=== PATIENT | male | born 1950 | race Caucasian/White ===

== ENCOUNTER 2018-08-21 08:13 | Outpatient (REF) | payer BC, SELFPAY ==
[2018-08-21 12:57] LABS: HCT 47.7 % (40.0-50.0); HGB 16.3 g/dL (13.5-17.5); Mean Corp. HGB Concentration 34.2 g/dL (32.0-36.0); Mean Corpuscular Hemoglobin 30.7 pg (27.0-33.0); Mean Corpuscular Volume 89.8 fL (80-95); Mean Platelet Volume 10.7 fL (8.0-11.0); Platelet Count 186 x1000/uL (130-400); RBC 5.31 m/cumm (4.50-6.00); RBC Distribution Width 13.3 % (11.8-14.1); White Blood Cell Count 5.03 k/cumm (4.4-10.8)
[2018-08-21 13:20] LABS: ALT 29 U/L (12-78); AST 21 U/L (15-37); Albumin 4.3 g/dL (3.4-5.0); Alkaline Phosphatase 102 U/L (46-116); Anion Gap 9.7 mmol/L (3-11); BUN 18 mg/dL (7-18); CO2 27.3 mmol/L (21.0-32.0); CREATININE 1.05 mg/dL (0.70-1.30); Calcium 9.5 mg/dL (8.5-10.1); Chloride 104 mmol/L (98-107); Glucose 103 mg/dL (70-100); Potassium 4.4 mmol/L (3.5-5.1); Sodium 141 mmol/L (136-145)
== END 2018-08-21 08:33 ==
LOC: NCHCN 08:13
PROVIDERS: PCP Family Medicine; Visit Provider Family Medicine
DX: R10.13 Epigastric pain (principal)
CPT/HCPCS: 80053; 85027

== ENCOUNTER 2019-01-02 14:23 | Emergency (ER) | payer BC, SELFPAY ==
[2019-01-02 14:31] VITALS: BP 133/72; PULSE 70; RESP 16; TEMP 36.8; O2SAT 98
--- NOTE | 2019-01-02 14:49 | ED.GENADUL_ITS ---
Discharge Plan Disposition Patient Disposition: HOME Condition: Stable Discharge Details Chief Complaint: Abd Prob Clinical Impression: Gastritis, Colitis, Right nephrolithiasis Primary Care Provider: Rob Velez ED Provider: Isac Mc Home Meds and New Rx's Prescriptions: New pantoprazole [Protonix] 40 mg tablet,delayed release (DR/EC) 40 mg PO DAILY Qty: 30 RF: 0 No Action ibuprofen [Advil Liqui-Gel] 200 MG capsule 200 mg PO PRN PRNRF: 0 Discharge Instructions Instructions: Gastritis (ED), Kidney Stones (ED) Additional Instructions: Continue to stay well-hydrated and return to the emergency department for any new or significant worsening of symptoms. You should follow-up with general surgery and urology as directed by their office next week for further testing and treatment as needed Referrals: Christiano Gray MD [ [facility] STAFF PHYSICIAN] - (As directed by their office) Oriana Banks DO [OSTEOPATHIC DOCTOR] - 1 week (As directed by their office) Discharge Data Discharge Date/Time-TO BE ENTERED AT DEPARTURE: 01/02/19 17:16 Medical Decision Making <TINY Song - Last Filed: 01/04/19 23:29> Patient is a 68-year-old male presents today with chief complaint of left lower quadrant pain. He reports the pain began yesterday. States the pain has remained the same throughout the course of today. Denies any change in his appetite. Denies any fevers or chills. Surgical history pertinent for hernia repair as a child. Denies any change in his bowel or bladder habits. Has not noted any melena or bright red blood per rectum. Patient denies any history of GERD. He denies any pain radiating into the back but does endorse some chronic right lower back pain which is unchanged from baseline. On exam, patient is resting comfortably. No pain is elicited with palpation. Vital signs within normal limits. No CVA tenderness. Labs reviewed, no significant abnormality. Plan for CT. Primarily concern for possible diverticulitis given location history. At the end of my shift, care transition to Yunier Mc NP with imaging, reevaluation and disposition pending. <Isac Mc NP - Last Filed: 01/02/19 17:13> Patient signed out to me by TINY Song pending CT imaging. CT imaging was reviewed and shows the following 1. Question gastritis or other inflammatory or neoplastic cause of gastric wall thickening. 2. Right nephrolithiasis and mild hydronephrosis, etiology or chronicity uncertain. 3. Question mild wall thickening, rectosigmoid. Please correlate clinically regarding any possibility of colitis. Radiologist recommended follow-up with general surgery for upper endoscopy. Called and spoke with Dr. Banks whom stated that patient would be able to follow-up in their office next week for arrangement of further testing. Given possible chronic nephrolithiasis that been seen previously patient given referral for urology. Patient denies any urinary symptoms at this time so I do not feel that any other treatment is needed. Patient placed up on Protonix for gastric wall thickening and return precautions were discussed. After discussion of diagnosis and plan of care patient has no further needs, questions, or concerns and states clear understanding to return to the emergency department for any worsening symptoms. HPI <TINY Song - Last Filed: 01/04/19 23:29> General Mode of arrival: ambulatory . Date/Time Provider Initiated Documentation: 01/02/19 14:49 . Limitations to Documentation: no limitations and other . Information obtained by: patient and RN notes reviewed . History of Present Illness 68 year old M presents to the emergency department with the chief complaint of LLQ pain, described as moderate, with intensity rated at 6. Quality is described as aching, and is localized to the abdomen. Patient reports no radiation. Patient started experiencing this day(s) (1) and it has been constant. No relieving factors improve symptom(s), No exacerbating factors reported . Patient notes malaise; denies chest pain, cough, diaphoresis, fever/chills, loss of appetite, nausea/vomiting and rash. Patient did receive the following treatments prior to arrival, none Related Data Home Medications Medication Instructions Recorded Confirmed ibuprofen [Advil Liqui-Gel] 200 mg PO PRN PRN 05/25/16 01/02/19 pantoprazole [Protonix] 40 mg PO DAILY #30 tab 01/02/19 Previous Rx's Medication Instructions Recorded pantoprazole [Protonix] 40 mg PO DAILY #30 tab 01/02/19 Allergies Allergy/AdvReac Type Severity Reaction Status Date / Time No Known Allergies Allergy Unverified 01/02/19 14:37 General Stated Complaint: Abd Prob MARLENE: 3 Review of Systems <TINY Song - Last Filed: 01/04/19 23:29> Constitutional Reports as per HPI, Denies chills, Denies fatigue, Denies fever(s) and Denies headache(s) ENT Denies headache(s) Cardiovascular Reports as per HPI, Denies chest pain and Denies dyspnea Respiratory Reports as per HPI, Denies cough and Denies dyspnea Gastrointestinal Reports as per HPI Genitourinary Denies system reviewed and no additional complaints, except as docu (patient denies any change in urinary habits) Musculoskeletal Reports as per HPI and Denies back pain Integumentary/Breasts Reports as per HPI and Denies rash Neurologic Reports as per HPI and Denies headache(s) Endocrine Denies fatigue PFSH <TINY Song - Last Filed: 01/04/19 23:29> Surgical History Arthroscopy, Shoulder Back surgery Colonoscopy - IV Sedation (10/08/16) Repair of inguinal hernia Family History (Updated 02/18/18 @ 11:25 by Kalyani Alfaro LPN) Father Heart disease Social History Smoking/Tobacco Use Status: Never Alcohol Intake: current Alcohol Intake frequency: a few times a week Drug use: Never Household members: spouse Number of Children: 3 Do you feel safe at home: Yes Do you feel safe in your relationship?: Yes Exam <TINY Song - Last Filed: 01/04/19 23:29> Const General: cooperative, healthy appearing, comfortable, no acute distress and well developed Nutritional Appearance: average body habitus and well nourished Orientation: alert and awake [facility] Head: normal to inspection Mouth: moist mucous membranes Resp Effort & Inspection: normal respiratory effort, able to speak in complete sentences and no respiratory distress Auscultation: clear to auscultation bilaterally, no rales, no rhonchi and no wheezes Cardio Rate: regular rate Rhythm: regular rhythm Heart Sounds: S1 normal and S2 normal GI Inspection: normal to inspection, no edema and non-distended Palpation: soft, no hepatosplenomegaly, not firm, no guarding and nontender Percussion: normal to percussion Auscultation: normal bowel sounds Back/Spine/Pelvis Back: no CVA tenderness Skin General skin exam: no rashes or lesions noted Trauma: no lacerations or abrasions Neuro General: alert and awake Cognition: normal cognition Speech: speech normal Gait: normal gait Psych Appearance: grossly normal and well kempt Mental Status: mental status grossly normal Speech and Movement: speech and movement normal Course <TINY Song - Last Filed: 01/04/19 23:29> Vital Signs Temperature 36.8 C 01/02/19 14:31 Pulse 70 01/02/19 14:31 Respiratory Rate 16 01/02/19 14:31 Blood Pressure 133/72 01/02/19 14:31 Pulse Oximetry 98 01/02/19 14:31 Temperature 36.8 C 01/02/19 14:31 Temperature Source Skin 01/02/19 14:31 Pulse 70 01/02/19 14:31 Respiratory Rate 16 01/02/19 14:31 Respiratory Effort Non-Labored 01/02/19 14:36 Blood Pressure 133/72 01/02/19 14:31 Blood Pressure Position Sitting 01/02/19 14:31 Pulse Oximetry 98 01/02/19 14:31 Oxygen Delivery Method Room Air 01/02/19 14:31 Oxygen Flow Rate 0 01/02/19 14:31 Pain Level 6 01/02/19 14:31 Sign Out <TINY Song - Last Filed: 01/04/19 23:29> Sign Out Data: Sign Out Comment: Imaging, reassessment and disposition pending for LLQ pain. No medications given, patient declining analgesics thus far. Last updated by Bianca Salazar PA at 01/02/19 16:31
[2019-01-02] MEDS: Normal Saline 1,000 ML 500 ML IV (15:07)
[2019-01-02 15:10] LABS: Absolute Basophil Count 0.02 k/cumm (0.0-0.2); Absolute Eosinophil Count 0.03 k/cumm (0.0-0.7); Absolute Lymphocyte Count 1.12 k/cumm (1.2-3.4); Absolute Neutrophil Count 2.83 k/cumm (1.2-6.7); Basophils % 0.4; Eosinophils % 0.7; HCT 47.3 % (40.0-50.0); HGB 16.5 g/dL (13.5-17.5); Lymphocytes % 24.3; Mean Corp. HGB Concentration 34.9 g/dL (32.0-36.0); Mean Corpuscular Hemoglobin 31.1 pg (27.0-33.0); Mean Corpuscular Volume 89.1 fL (80-95); Mean Platelet Volume 10.2 fL (8.0-11.0); Neutrophils % 61.6; Platelet Count 181 x1000/uL (130-400); RBC 5.31 m/cumm (4.50-6.00); RBC Distribution Width 13.4 % (11.8-14.1)
[2019-01-02 15:26] LABS: ALT 31 U/L (12-78); AST 17 U/L (15-37); Alkaline Phosphatase 110 U/L (46-116); Anion Gap 7.8 mmol/L (3-11); BUN 16 mg/dL (7-18); Bilirubin, Total 0.5 mg/dL (0.2-1.0); CO2 28.2 mmol/L (21.0-32.0); CREATININE 1.04 mg/dL (0.70-1.30); Calcium 9.2 mg/dL (8.5-10.1); Chloride 104 mmol/L (98-107); Glucose 99 mg/dL (70-100); Lipase 145 U/L (73-393); Sodium 140 mmol/L (136-145); Total Protein 7.3 g/dL (6.4-8.2)
[2019-01-02] MEDS: Omnipaque 350 MG/ML 100 ML BTL IJ (15:51)
--- NOTE | 2019-01-02 16:01 | DI.CT_ITS ---
SYMPTOMS/DIAGNOSIS: LEFT LOWER QUADRANT PAIN ABDOMINAL AND PELVIC CT: CT examination of the abdomen and pelvis was performed with intravenous infusion of 100 cc of Omnipaque 350. Note is made of Taylor rods in position on the left at L4-5. There is a left convex lumbar scoliosis. The liver and spleen appear normal. Pancreas appears normal. Gallbladder and bile ducts are normal. There is a question of wall thickening of the gastric fundus and body, which is nonspecific. Correlation requested regarding any possibility of gastritis or enteritis. Neoplastic disease not excluded. Correlation with endoscopy may be considered if clinically indicated. There are a few fluid-filled, mildly dilated loops of small bowel, predominantly in the mid abdomen. No gross evidence of obstruction. Appendix not specifically visualized, but there is no evidence of appendicitis or diverticulitis. Question subtle wall thickening of the rectosigmoid, correlation requested regarding any possibility of colitis. Adrenals appear normal bilaterally. Left kidney and ureter unremarkable in appearance. Mild right hydronephrosis noted. Calcification noted in right collecting system measuring about 12 mm in diameter. This was present on previous CT of January 2016, but hydronephrosis is new. Ureter is questionably mildly dilated, but no ureteral calcification is seen. Abdominal aorta is of normal diameter. No major vascular abnormality is seen. No abdominal or pelvic adenopathy. No significant abdominal wall hernia CONCLUSION: 1. Question gastritis or other inflammatory or neoplastic cause of gastric wall thickening. 2. Right nephrolithiasis and mild hydronephrosis, etiology or chronicity uncertain. 3. Question mild wall thickening, rectosigmoid. Please correlate clinically regarding any possibility of colitis.
[2019-01-02 16:49] LABS: Bilirubin Negative (Negative); Blood Negative (Negative); Clarity Clear (Clear); Glucose Negative (Negative); Ketones Negative (Negative); Leukocyte Esterase Negative (Negative); Nitrite Negative (Negative); Urobilinogen 0.2 EU/dL (Up TO 0.2)
[2019-01-02] MEDS: Ketorolac 30 MG/ML VIAL IVP (16:54)
[2019-01-02] MEDS: Pantoprazole 40 MG TABCR PO (16:54)
[2019-01-02 17:09] VITALS: BP 123/81; PULSE 62; RESP 16; O2SAT 97
[2019-01-02 17:16] VITALS: BP 123/67; PULSE 86; RESP 16; TEMP 36.6; O2SAT 97
--- NOTE | 2019-01-02 17:44 | NUR.NOTE ---
Nursing Note: 1. Faxed referral to Urology for follow up. 2. Faxed referral to General Surgery for follow up. [place]ella [place].
== END 2019-01-02 17:16 | disposition home or self-care (01) ==
PROVIDERS: Physician Assistant; Emergency Provider Nurse Practitioner Family; PCP Family Medicine
DX: K52.9 Noninfective gastroenteritis and colitis, unspecified (principal); K29.00 Acute gastritis without bleeding; N13.39 Other hydronephrosis
CPT/HCPCS: 36415; 80053; 83690; 96361; 96374; 99285; 74177; 81003; 83735; 84484; 85025; 99284; J1885; J3490

== ENCOUNTER 2019-01-12 10:02 | Day surgery (SDC) | payer BC, SELFPAY ==
--- NOTE | 2019-01-12 06:55 | W.PM.ENDDOP ---
Date of service: 01/12/19 Time of Service: 11:46 Endoscopy Report DATE OF PROCEDURE: 01/12/19 PRE-OP DIAGNOSIS: LLQ pain, Hx of colon polyps and abnormal CT scan POST-OP DIAGNOSIS: other (Same and colon polyps) PROCEDURE: 1. EGD 2. Colonoscopy with polypectomy by forceps SURGEON: Marleny Murry ANESTHESIA: other (General/ ASA 2/Yaniv Leora, INVENTORY REPRESENTATIVE) ESTIMATED BLOOD LOSS: 3 PATHOLOGY: other (Ascneding colon polyps x3) COMPLICATIONS: None DISPOSITION: other INDICATIONS: Mr. Lora is a pleasant 68-year-old gentleman who was seen in the office because of an episode of left lower quadrant pain to come to the emergency department. He had a CT scan done which showed some thickening in the stomach as well as thickening in the rectal area. He did have a colonoscopy in 2017 and was found to have an ascending colon polyp. His left lower quadrant pain is a lot better since he was seen in the ER. Risks, benefits and complications have been reviewed. Complications include but are not limited to bleeding, pain, perforation, missed small lesion/polyp, sore throat, aspiration and adverse reaction to the medications. Questions were entertained and answered to their satisfaction and they wished to proceed. No guarantees were given or implied. PREP: Miralax/Dulcolax PROCEDURE START TIME: 11:46 PROCEDURE END TIME: 12:29 COLONOSCOPY RETRACTION TIME: 21 minutes FINDINGS: Upper endoscopy- normal Colonoscopy- 3 small sessile polyps noted, otherwise normal PROCEDURE DESCRIPTION: After informed consent was obtained the patient was take to the procedure room and placed in a supine position. Monitors were applied and a time out was done. The patients name, date of , procedure type, allergies to medications and metal in their body was reviewed. A bite block was placed and the patient was sedated. Once sedated and comfortable the gastroscope was advanced through the oropharynx which was grossly normal into the esophagus. The proximal and mid-esophagus were normal. In the distal esophagus there was no inflammation noted. The scope was advanced into the stomach and through the pylorus into the 3rd portion of the duodenum. The duodenum was noted to be normal. The scope was retracted back into the stomach which was normal. There were no polyps and no inflammation. The scope was retro-flexed. The cardia and fundus were noted to be normal. There was no hiatal hernia noted. The scope was retracted back into the esophagus. The Z line was regular. The GE junction was at 38 cm. While the patient was still sedated they were placed in a left decubitous position. A rectal exam was done. External exam was normal. Internal exam revealed a slightly decreased sphincter tone and no palpable masses. The prostate felt smooth. The scope was then introduced and retro-flexed. No internal hemorrhoids, masses or polyps were identified. The scope was then advanced to the cecum with some difficulty due to it being very tortuous. The TI and appendiceal orifice were identified. The prep was adequate. The scope was then slowly retracted over 21 minutes back into the rectum. Polyps were removed with cold forceps in the ascending colon. The scope was removed and the patient was woken up and taken back to Same day surgery in stable condition. The patient tolerated the procedure well and there were no immediate complications. Follow up: 3 years
--- NOTE | 2019-01-12 06:59 | W.PM.DSUDISC ---
Discharge Plan Disposition Patient Disposition: HOME Condition: Good Discharge Details Reason For Visit: ABDOMINAL PAIN/ ABNORMAL CT SCAN Attending Provider: Marleny Murry Primary Care Provider: Rob Velez Home Meds and New Rx's Prescriptions: Continued ibuprofen [Advil Liqui-Gel] 200 MG capsule 200 mg PO PRN PRNRF: 0 pantoprazole [Protonix] 40 mg tablet,delayed release (DR/EC) 40 mg PO DAILY Qty: 30 RF: 0 Discontinued bisacodyl [Dulcolax (bisacodyl)] 5 mg tablet,delayed release (DR/EC) 5 mg PO ONCE Qty: 4 RF: 0 polyethylene glycol 3350 17 gram powder in packet 255 g PO DAILY Qty: 15 RF: 0 No Action acetaminophen 500 mg Capsule 1,000 mg PO Q6H PRNRF: 0 Discharge Instructions Instructions: Colonoscopy (GEN), Upper Endoscopy (GEN), Colorectal Polyps (GEN) Additional Instructions: Findings: Normal upper endoscopy 3 small polyps Follow up:3 years Please call if you develop: fevers >101.5 Nausea or Vomiting Abdominal pain that is not transient DAY SURGERY UNIT POST COLONOSCOPY INSTRUCTIONS 1. Because there will be medication in your system for the next 24 hours, you may feel a little sleepy. Your coordination will be affected. Therefore: a. Do not drive or operate dangerous equipment for 24 hours. b. Do not drink alcohol beverages for 24 hours (not even beer). c. Plan to go home and rest for the day. 2. Generally there are no restrictions on your activity after a day or so has gone by, but you may feel a bit fatigued for a few days. 3 After you arrive home you may have a light meal and return to a normal diet as you can tolerate it without feeling sick to your stomach. 4. After surgery, you may feel pain or discomfort. This should be only transient, but if it persists please contact your doctor. 5. If there are any questions regarding the findings of your procedure, please feel free to contact your doctor. 6. If you are unable to contact your doctor with a problem, contact the hospital at [phone]. 7. Continue all your regular medications unless directed otherwise. I understand the above instructions and have no questions. Signature of Patient or Responsible Adult Escort Date/Time Name of Responsible Adult Escort Signature of Nurse Date/Time Stand Alone Forms: Nicole Fraga (CAROLINAU) Activity:: Activity as Tolerated Diet:: As Tolerated Discharge Orders Discharge Orders: Discharge Order (Routine); Ordered 01/12/19 Ordered By: Marleny Murry DS: Diagnosis Discharge Diagnosis (1) Colonoscopy - IV Sedation: Status: None (2) Abnormal CT scan, colon: Status: Acute (3) Colorectal polyps:
[2019-01-12 10:19] VITALS: BP 123/73; PULSE 51; RESP 16; TEMP 36.6; O2SAT 100
[2019-01-12] MEDS: Lactated Ringers 1,000 ML 80 ML IV (10:46)
--- NOTE | 2019-01-12 12:10 | BOWEL_PTH ---
PATIENT: Michael Lora LOC: [facility] U#:[id number] AGE/SX: 68/M ROOM: RE01/12/[address]: Marleny Murry MD : 1950 BED: DIS: 01/12/2019 SPEC #: [id number] RECD: 01/12/19 12:49 STATUS: ALEIDA REQ #: [id number] JOAN: 01/12/19 12:[address]: Marleny Murry DEPT: Surgical Specimen RECD BY: Karen Herrera ENTERED: 01/12/19 12:50 SP TYPE: Bowel OTHR DR: Rob Velez Tissues: 1 - BIOPSY BOWEL Procedures: GROSS AND MICRO LEVEL 4 Comments: [id number]
[2019-01-12 13:14] VITALS: BP 115/82; PULSE 53; RESP 16; TEMP 36.5; O2SAT 100
== END 2019-01-12 14:06 | disposition home or self-care (01) ==
LOC: SUR 10:02
PROVIDERS: PCP Family Medicine; Visit Provider Surgery
PROC: (CPT 45380; principal; 2019-01-12 11:30)
DX: R93.3 Abnormal findings on diagnostic imaging of other parts of digestive tract (principal); R10.32 Left lower quadrant pain; D12.2 Benign neoplasm of ascending colon; K63.89 Other specified diseases of intestine; Z86.010 Personal history of colon polyps
CPT/HCPCS: 45380; 43235; 88305

== ENCOUNTER 2019-02-12 06:11 | Day surgery (SDC) | payer BC, SELFPAY ==
[2019-02-12 06:24] VITALS: BP 125/79; PULSE 53; RESP 16; TEMP 36.3; O2SAT 98
[2019-02-12] MEDS: Lactated Ringers 1,000 ML 80 ML IV (07:07)
--- NOTE | 2019-02-12 07:13 | DI.RAD_ITS ---
EXAM: XR RETROGRADE IN OR CLINICAL HISTORY: right kidney stone. TECHNIQUE: 2D and realtime digital imaging was performed. COMPARISON: No exams were available for comparison FINDINGS: Intraoperative images reveal small radiolucencies in the ureter, one of which could represent an air bubble. There is evident right hydronephrosis. A double-J catheter was placed by Dr. Gray and anastacia pavon to be in good position. Please see Dr. Gray's report for further information.
[2019-02-12] MEDS: ceFAZolin 1 GM/50 ML BAG IVPB (07:29)
[2019-02-12] MEDS: Lidocaine 2% Jelly 6 ML SYR (07:40)
[2019-02-12] MEDS: Omnipaque 300 MG/ML 50 ML BTL (07:44)
[2019-02-12 08:07] VITALS: BP 125/69; PULSE 58; RESP 16; TEMP 36.7; O2SAT 97
--- NOTE | 2019-02-12 08:08 | W.PM.DSUDISC ---
Discharge Plan Disposition Patient Disposition: HOME Condition: Stable Discharge Details Reason For Visit: kidney stone Attending Provider: Christiano Gray Primary Care Provider: Rob Velez Home Meds and New Rx's Prescriptions: No Action acetaminophen 500 mg Capsule 1,000 mg PO Q6H PRNRF: 0 ibuprofen [Advil Liqui-Gel] 200 MG capsule 200 mg PO PRN PRNRF: 0 ascorbic acid (vitamin C) [Vitamin C] 500 mg Tablet,Chewable 500 mg PO DAILY RF: 0 Discharge Instructions Additional Instructions: No need to strain urine May see blood in urine as long as stent is in place Pt will be contacted by my office to schedule cystoscopy, remove right ureteral stent, right flexible ureteroscopy and holmium laser of stone in @ 2 weeks Activity:: Activity as Tolerated Shower/Bathe:: 24 hours Diet:: As Tolerated Discharge Orders Discharge Orders: Discharge Order (Routine); Ordered 02/12/19 Ordered By: Christiano Gray DS: Diagnosis Discharge Diagnosis (1) Right kidney stone: Status: Acute (2) UPJ (ureteropelvic junction) obstruction: Status: Acute
[2019-02-12 08:13] VITALS: BP 121/70; PULSE 57; RESP 13; TEMP 36.7; O2SAT 97
[2019-02-12 08:18] VITALS: BP 115/70; PULSE 56; RESP 13; TEMP 36.7; O2SAT 97
[2019-02-12 08:23] VITALS: BP 113/64; PULSE 62; RESP 17; TEMP 36.7; O2SAT 99
[2019-02-12] MEDS: Phenazopyridine 200 MG TAB PO (08:44)
[2019-02-12 09:57] VITALS: BP 136/81; PULSE 53; RESP 16; TEMP 36; O2SAT 99
--- NOTE | 2019-02-12 12:04 | ROE_ITS ---
REPORT OF OPERATIVE PROCEDURE DATE OF PROCEDURE February 12, 2019 PREOPERATIVE DIAGNOSIS Right kidney stone. POSTOPERATIVE DIAGNOSES Right kidney stone with right ureteropelvic junction obstruction. PROCEDURES Cystoscopy, right retrograde pyelogram, right flexible ureteroscopy, insert right ureteral stent. SURGEON Christiano Gray M.D. ANESTHESIA General. COMPLICATIONS None. ESTIMATED BLOOD LOSS Minimal. FINDINGS Narrowing at the right ureteropelvic junction, which could not be traversed by uteroscope at this gerald e. HISTORY This is a 68-year-old gentleman who presented to the Emergency Room with abdominal discomfort. He had a CT scan, which demonstrated a lower pole stone on the right. He also had some dilation of his righ t kidney, which was not appreciated on a scan from three years ago. He did not have any obvious urete ral stones. He presents for stone manipulation. OPERATIVE REPORT The patient was brought to the Operating Room on 02/12/19. After successful induction of general ane sthesia, he was placed in the dorsal lithotomy position. His genitalia was prepped and draped. A #22-Kyrgyz rigid cystoscope was passed through the urethra into the bladder. The urethra and bladd er were inspected with the 30-degree lens. The pendulous, bulbous and membranous urethras all appeared normal. The prostatic urethra showed some lateral lobe enlargement. The bladder neck was entered and the bladder mucosa was inspected. The right ureteral orifice was vis ualized. The orifice was then cannulated with a #6-Kyrgyz access catheter. Her retrograde pyelogram was performed by injecting Omnipaque through the access catheter under fluor oscopic guidance. The ureter appeared normal up to the point of the ureteropelvic junction. There gisselle eared to be a narrowing and a rather high insertion into the renal pelvis. The renal pelvis appeared dilated once it was filled with contrast. There was a filling defect in the lower pole of the right k idney. I was able to maneuver guidewire through the access catheter, through the ureteropelvic junction into the kidney. I then placed a Dual lumen catheter over the initial wire and positioned a second wire. We choose one of the wires as a working wire and the other as a safety wire. I passed a ureteral acc ess sheath over the working wire and attempted to pass the flexible ureteroscope through the access s henrique and through the ureteropelvic junction. We were able to visualize the wire going through the ureteropelvic junction, but I was unable to nego tiate the scope through this narrowing. It was then decided that we would place a ureteral stent to see if the area would dilate and come gokul k at a later time for completion of the ureteroscopy. We choose a #7-Kyrgyz variable length stent and advanced it over the safety wire. The proximal end of the stent was curled within the renal pelvis and the distal end was curled within the bladder. These findings were confirmed fluoroscopically. The patient tolerated this procedure well with no complications. CC: Rob Velez M.D.
== END 2019-02-12 09:50 | disposition home or self-care (01) ==
PROVIDERS: PCP Family Medicine; Visit Provider Urology
PROC: (CPT 52332; principal; 2019-02-12 07:30)
DX: N20.0 Calculus of kidney (principal); N13.5 Crossing vessel and stricture of ureter without hydronephrosis
CPT/HCPCS: 52332; 52351; 74420; J0690; J1885; J2405; J3010; Q9967

== ENCOUNTER 2019-03-11 10:21 | Outpatient (REF) | payer BC, SELFPAY | END 2019-03-11 10:41 | LOC: LBN 10:21 | PROVIDERS: PCP Family Medicine; Visit Provider Nurse Practitioner Gerontology | DX: N13.5 Crossing vessel and stricture of ureter without hydronephrosis (principal); N20.0 Calculus of kidney; R35.0 Frequency of micturition; N39.41 Urge incontinence | CPT/HCPCS: 87086 ==

== ENCOUNTER 2019-10-20 20:06 | Outpatient (REF) | payer BC, MEDICARE, SELFPAY ==
[2019-10-20 19:37] LABS: ALT 36 U/L (16-63); Calculated LDL 138 mg/dL (<100); Cholesterol 220 mg/dL (<200); HDL Cholesterol 47 mg/dL (40-60); Triglyceride 178 mg/dL (<150); Vitamin B12 410 pg/mL (193-986)
[2019-10-20 19:38] LABS: Hemoglobin A1C 5.6 % (3.8-5.6)
[2019-10-22 11:05] LABS: Lyme Ab w Rflx to Lyme Confirm Negative (Negative)
[2019-10-22 12:06] LABS: PSA, Screening 0.8 ng/mL (0.0-4.5)
== END 2019-10-20 20:26 ==
LOC: NCHCN 20:06
PROVIDERS: PCP Family Medicine; Visit Provider Family Medicine
DX: B35.1 Tinea unguium (principal); M25.50 Pain in unspecified joint; G62.9 Polyneuropathy, unspecified; Z00.00 Encounter for general adult medical examination without abnormal findings; Z12.5 Encounter for screening for malignant neoplasm of prostate; R73.03 Prediabetes
CPT/HCPCS: 80061; 84153; 82607; 83036; 84460; 86618

== ENCOUNTER 2020-05-09 03:03 | Outpatient (CLI) | payer BC, SELFPAY ==
[2020-05-10 17:30] LABS: COVID-19 RT-PCR UVMMC Result Negative (Negative)
== END 2020-05-09 03:23 ==
PROVIDERS: PCP Family Medicine; Visit Provider Urology
DX: Z11.59 Encounter for screening for other viral diseases (principal); Z01.818 Encounter for other preprocedural examination
CPT/HCPCS: U0003

== ENCOUNTER 2020-05-09 20:20 | Outpatient (REF) | payer BC, SELFPAY | END 2020-05-09 20:40 | LOC: NCHCN 20:20 | PROVIDERS: PCP Family Medicine; Visit Provider Family Medicine | DX: N20.0 Calculus of kidney (principal) | CPT/HCPCS: 87086 ==

== ENCOUNTER 2020-05-16 09:49 | Emergency (ER) | payer BC, SELFPAY ==
[2020-05-16 09:55] VITALS: BP 151/80; PULSE 67; RESP 16; TEMP 36.5; O2SAT 98
--- NOTE | 2020-05-16 10:00 | DI.CT_ITS ---
EXAM: CT RENAL COLIC WO CLINICAL HISTORY: Right flank pain, hematuria. TECHNIQUE: Imaging Protocol: Axial computed tomography images with coronal and sagittal reformatted images were created and reviewed. COMPARISON: CT CT ABDOMEN PELVIS W from 01/02/2019 FINDINGS: ABDOMEN: Lung Bases: Dependent atelectasis. No evidence of a basilar pneumothorax. Liver: Normal density. No measurable mass. Gallbladder and biliary tract: No radiodense calculus or biliary ductal dilation. Pancreas: Normal density, no abnormal calcifications or inflammatory process. Spleen: Normal. Kidneys: The patient is postop day 5 status post right percutaneous nephrolithotomy and right nephrou reteral stent placement. There is a small subcapsular hematoma along the posterior medial aspect of the right kidney measuring 0.5 cm in thickness. There is a small amount of air around the posterior and inferior right kidney. These findings likely are related to the percutaneous nephrolithotomy. T he right nephroureteral stent is in good position. No stones are seen around the course of the stent . There are few tiny density seen in the right kidney which may represent tiny nonobstructing stones . The left kidney shows no evidence of obstruction. Normal size, contour and axis.No radiodense sto jessica or obstructive uropathy. No masses seen. Adrenal glands: No mass is seen. Lymph nodes: Within normal limits. Abdominal Aorta: Abdominal portion non-dilated. Atherosclerosis. PELVIS: Bladder:Symmetric distention, no gross wall thickening. No stones are present. Bowel: No obstruction or bowel wall thickening. No evidence of appendicitis. There is a large amount of stool throughout the colon. Peritoneal cavity: No ascites, collection or mesenteric inflammatory response Reproductive organs: Enlarged prostate gland. Bones: Degenerative changes in the spine. Left convex scoliosis of the lower lumbar spine. Postsurg ical changes at L4-L5 with posterior spinal rods and laminectomies. Soft Tissues: Within normal limits. IMPRESSION: 1. There is a small subcapsular right hematoma and a small amount of air surrounding the right kidney . These findings are likely sequelae of the patient's recent percutaneous nephrolithotomy. No focal fluid collection is seen to suggest an abscess. 2. Right nephroureteral stent without evidence of hydronephrosis. 3. Tiny density seen within the right kidney which may represent nonobstructing stones. 4. Findings were discussed with the emergency department on the date of the examination. RADIATION DOSE DELIVERED: 702.54mGy.cm Total DLP DATA REPOSITORY: All CT scans at this facility are submitted to the National Radiology Data Registry (NRDR) Dose Index Registry (DIR) with the [employer] (ACR). RADIATION OPTIMIZATION: All CT scans at this facility use at least one of these dose optimization te chniques: automated exposure control; mA and/or kV adjustment per patient size (includes targeted exa ms where dose is matched to clinical indication); or iterative reconstruction.
--- NOTE | 2020-05-16 10:04 | W.ED.GENAD ---
Discharge Plan Disposition Patient Disposition: HOME Condition: Stable Discharge Details Clinical Impression: Complicated urinary tract infection Primary Care Provider: Rob Velez ED Provider: Nina Landaverde Home Meds and New Rx's Prescriptions: New cephalexin 500 mg tablet 500 mg PO BID 7 Days Qty: 14 RF: 0 tamsulosin 0.4 mg capsule 0.4 mg PO DAILY 7 Days Qty: 7 RF: 0 No Action acetaminophen 500 mg Capsule 1,000 mg PO Q6H PRNRF: 0 cyanocobalamin (vitamin B-12) [Vitamin B-12] 500 mcg Tablet 500 mcg PO DAILY RF: 0 ibuprofen [Advil Liqui-Gel] 200 MG capsule 200 mg PO PRN PRNRF: 0 ascorbic acid (vitamin C) [Vitamin C] 500 mg Tablet,Chewable 500 mg PO DAILY RF: 0 Discharge Instructions Instructions: Urinary Tract Infection in Men (ED) Additional Instructions: Take antibiotics as directed even when you begin feeling better. Take pain medications if needed. You were given the first dose of antibiotics here in the ER and given a Tamsulosin (flomax) here as well. Please call [facility] urology to follow up or if continued pain or problems. Follow up with primary care provider in 3-5 days. Return to ED sooner if any worsening fever, vomiting, pain or concerns. Increase oral fluids. Please take Tylenol or Ibuprofen with food every 4-6 hours as needed for pain and swelling. Referrals: Rob Velez [Primary Care Provider] - Discharge Data Discharge Date/Time-TO BE ENTERED AT DEPARTURE: 05/16/20 12:38 Medical Decision Making 69-year-old male presents to the ED with chief complaint of right flank pain and dysuria which began this morning. Patient states began approximately 2 AM. He reports that he has intermittent right flank pain and when it dissipates that radiates into his right groin. Associated with nausea, no vomiting. Upon initial exam he does have grossly bloody urine noted. He does have a history of kidney stones and has had a stent placed into his right kidney in the past. He recently had a stent placed on at [facility]. He does see [facility] urology and has seen Dr. Gray here in the past. He did take 2 Tylenol and 2 ibuprofen prior to arrival. he denies any fever or chills. After speaking with patient's she informed me that patient has had a stent placed on at [facility] which patient failed to tell me. At this time Toradol and Zofran are ordered which patient declined due to resolution of symptoms. I was able to view [facility] as records and I did call in a prescription for tamsulosin or Flomax for patient, I will give him one here in the department. Labs are showing no leukocytosis, no electrolyte abnormalities, does have greater than 300 protein in urine, large blood, small leukocytes and greater than 50 WBCs greater than 50 RBCs. I will give a gram of ceftriaxone IV piggyback and will plan place patient on antibiotics for home. Will instruct to follow-up with urology at [facility]. CT shows postsurgical changes, small hematoma around the right kidney which is consistent with the percutaneous stent placement. Patient reports pain gets worse with urination. He is agreeable to take the Toradol which was previously ordered at this time. Discussed CT results with patient who verbalized understanding. This time I do feel safe for patient be discharged home due to no leukocytosis, no fever no vomiting. Prescription written for cephalexin 500 mg twice a day x7 days. 1211: Spoke with Kecia Joe TONSORIAL ARTIST with urology and discussed the patient case and details, discussed plan to send patient home with cephalexin and that I gave him Rocephin here in department. She states that sounds reasonable to give him antibiotics and to follow-up with [facility] urology regarding further care. This text was generated using [employer] dictation system, please disregard any oddities of phrase or misspellings. HPI General Mode of arrival: ambulatory. Date/Time Provider Initiated Documentation: 05/16/20 09:52. Limitations to Documentation: no limitations. Information obtained by: patient. HPI Narrative: 69-year-old male presents to the ED with chief complaint of right flank pain and dysuria which began this morning. Patient states began approximately 2 AM. He reports that he has intermittent right flank pain and when it dissipates that radiates into his right groin. Associated with nausea, no vomiting. Upon initial exam he does have grossly bloody urine noted. He does have a history of kidney stones and has had a stent placed into his right kidney in the past. He recently had a stent placed on at [facility]. He does see [facility] urology and has seen Dr. Gray here in the past. He did take 2 Tylenol and 2 ibuprofen prior to arrival. he denies any fever or chills. Related Data Home Medications Medication Instructions Recorded Confirmed ibuprofen [Advil Liqui-Gel] 200 mg PO PRN PRN 05/25/16 05/16/20 acetaminophen 1,000 mg PO Q6H PRN 01/12/19 05/16/20 ascorbic acid (vitamin C) [Vitamin 500 mg PO DAILY 02/12/19 05/16/20 C] cephalexin 500 mg PO BID 7 Days #14 tab 05/16/20 cyanocobalamin (vitamin B-12) 500 mcg PO DAILY 05/16/20 05/16/20 [Vitamin B-12] tamsulosin 0.4 mg PO DAILY 7 Days #7 cap 05/16/20 Previous Rx's Medication Instructions Recorded cephalexin 500 mg PO BID 7 Days #14 tab 05/16/20 tamsulosin 0.4 mg PO DAILY 7 Days #7 cap 05/16/20 Allergies Allergy/AdvReac Type Severity Reaction Status Date / Time No Known Allergies Allergy Verified 05/16/20 10:20 General MARLENE: 3 Review of Systems Narrative: Constitutional: Negative for weight loss, alert and oriented, well groomed, normal body habitus, appears comfortable. HEENT: Denies trauma, headaches, blurry vision, nasal discharge, sore throat, trouble swallowing. Chest: Denies chest pain, palpitations, irregular rhythm, hypertension. Respiratory: Denies Shortness of breath, cough, hemoptysis. GI: Denies vomiting, diarrhea, constipation. Positive nausea : Denies rectal bleeding. Positive right flank pain, dysuria, hematuria. Neuro: Denies dizziness, blurry vision, weakness, syncope, headache or facial numbness. Hematologic: Denies easy bruising, intolerance to heat or cold, hair loss. [facility] Medical History Colorectal polyps UPJ (ureteropelvic junction) obstruction Surgical History Arthroscopy, Shoulder Back surgery 2009 [place] L2-3 Colonoscopy - IV Sedation (01/12/19) 2017-tubular adenoma History of carpal tunnel release Left side with ulna nerve Repair of inguinal hernia Family History Father Heart disease Social History Smoking/Tobacco Use Status: Never Smoking risk assessment performed?: Yes Alcohol Intake: current Alcohol Intake frequency: a few times a month Alcohol type: beer Drug use: Never Substance use type: does not use Details: beer last night, usually has a beer twice a month Household members: spouse Number of Children: 3 Do you feel safe at home: Yes Do you feel safe in your relationship?: Yes Exam Narrative Exam Narrative: Constitutional: Alert and oriented x3. Appears stated age. Normal body habitus. Head: Normocephalic, no trauma. Eyes: Pupils PERRLA, Red reflex noted, EOM's intact. Eyelids symmetrical without lesions, discharge, or swelling. ENT: Bilateral TM's WNL, External ear normal to inspection, no mastoid TTP, swelling, or erythema, Nasal turbinates WNL, no nasal discharge. Normal dentition, Posterior pharynx WNL, no exudate. Chest: RRR, Normal S1, S2, distal pulses intact. Resp: Lungs clear to auscultation bilaterally, no wheezes, rales, or rhonchi. Abdomen: Soft nontender nondistended. Genitourinary: Does have right groin tenderness. Positive right CVA tenderness. Gross hematuria noted. Musculoskeletal: Normal gait, 5/5 strength to all four extremities. Skin: No suspicious rashes or lesions. Capillary refill less than 2 sec. Neurologic: Cranial nerves II-XII intact. Alert and oriented x 3. DTR's intact. Hematologic/Lymphatic: No ecchymosis, no lymphadenopathy.
[2020-05-16] MEDS: Normal Saline Flush 10 ML SYR IVP (10:15)
[2020-05-16 10:21] LABS: Bilirubin Small (Negative); Blood Large (Negative); Clarity Sl Cloudy (Clear); Glucose Negative (Negative); Ketones Negative (Negative); Leukocyte Esterase Small (Negative); Nitrite Negative (Negative); Specific Gravity 1.015 (1.005-1.025); Urobilinogen 0.2 EU/dL (Up TO 0.2)
[2020-05-16 10:25] LABS: Abs Immature Grans 0.02 10^3/uL (0.0-0.06); Absolute Basophil Count 0.02 10^3/uL (0.0-0.2); Absolute Eosinophil Count 0.07 10^3/uL (0.0-0.7); Absolute Lymphocyte Count 1.19 10^3/uL (1.2-3.4); Absolute Monocyte Count 0.66 10^3/uL (0.1-0.8); Absolute Neutrophil Count 5.83 10^3/uL (1.2-6.7); Basophils % 0.3; Eosinophils % 0.9; HCT 41.9 % (40.0-50.0); Immature Grans % 0.3; Lymphocytes % 15.3; MCH 30.7 pg (27.0-33.0); MCHC 33.4 % (32.0-36.0); MCV 91.9 fL (80-95); Monocytes % 8.5; Neutrophils % 74.7; Nucleated RBC 0 %; Platelet Count 205 10^3/uL (130-400); RBC 4.56 10^6/uL (4.36-5.78); RDW 13.1 % (11.8-14.1); RDW-SD 44.1 fL; WBC 7.79 10^3/uL (4.4-10.8)
[2020-05-16 10:29] LABS: Bacteria Many HPF (Negative); RBC >50 HPF (0-2); WBC >50 HPF (0-5)
[2020-05-16 10:30] LABS: C & S Indicated? Yes
[2020-05-16] MEDS: Normal Saline 1,000 ML 150 ML IV (10:30)
[2020-05-16 10:46] LABS: ALT 43 U/L (16-63); AST 20 U/L (15-37); Albumin 3.8 g/dL (3.4-5.0); Alkaline Phosphatase 86 U/L (46-116); Anion Gap 5.3 mmol/L (3-11); BUN 13 mg/dL (7-18); Bilirubin, Total 0.6 mg/dL (0.2-1.0); CO2 28.7 mmol/L (21.0-32.0); CREATININE 1.13 mg/dL (0.70-1.30); Calcium 9.2 mg/dL (8.5-10.1); Chloride 103 mmol/L (98-107); Glucose 105 mg/dL (74-106); Sodium 137 mmol/L (136-145); Total Protein 6.8 g/dL (6.4-8.2)
[2020-05-16] MEDS: Tamsulosin 0.4 MG CAPCR PO (11:30)
[2020-05-16] MEDS: cefTRIAXone 1 GM/50 ML BAG IVPB (11:30)
[2020-05-16] MEDS: Ketorolac 30 MG/ML VIAL IVP (11:57)
[2020-05-16 12:08] VITALS: BP 115/78; PULSE 72; RESP 16; TEMP 36.5; O2SAT 99
[2020-05-16 12:23] VITALS: BP 115/78; PULSE 72; RESP 16; TEMP 36.5; O2SAT 99
--- NOTE | 2020-05-16 12:28 | NUR.NOTE ---
Nursing Note: called to [place] [facility] for Pt at Pt's request, an Rx for cephalexin 500 mg tablets, quantity #7, PO, BID- no refills and Tamsulosin 0.4 mg po daily #7, no refills. Rx under Jayson Landaverde NP , written.
== END 2020-05-16 12:38 | disposition home or self-care (01) ==
PROVIDERS: Emergency Provider Registered Nurse Emergency; PCP Family Medicine
DX: N39.0 Urinary tract infection, site not specified (principal); Y83.1 Surgical operation with implant of artificial internal device as the cause of abnormal reaction of the patient, or of later complication, without mention of misadventure at the time of the procedure; Z96.0 Presence of urogenital implants; Z87.442 Personal history of urinary calculi
CPT/HCPCS: 36415; 80053; 96361; 96365; 96375; 99284; 74176; 81003; 81015; 85025; 87086; J0696; J1885

== ENCOUNTER 2020-07-08 02:44 | Outpatient (CLI) | payer BC, SELFPAY ==
--- NOTE | 2020-07-08 | DI.US_ITS ---
EXAM: US SCROTUM CLINICAL HISTORY: BILAT SCROTAL PAIN, H/O NEPHROLITHIASIS. TECHNIQUE: Scrotal ultrasound performed using grayscale, color-flow and spectral Doppler analysis. COMPARISON: CT CT RENAL COLIC WO from 05/16/[address] RENAL COLIC WO from 05/16/2020 FINDINGS: Right testicle: 4.2 x 2.1 x 2.8 cm Left testicle: 4.2 x 2.0 x 2.9 cm Echogenicity: Normal. Contour: Smooth. Mass: None seen. Microlithiasis: None. Hydrocele: None. Variocele: A dilated vein is noted measuring 4.8 millimeters which contains thrombus. Hernia: No peristalsing bowel loop identified. Epididymis: 2.6 centimeter epididymal cyst the left. DOPPLER: Color: Symmetric and uniform, no hyperemia. Duplex: Bilateral testicular arterial waveforms visualized. IMPRESSION: Normal appearing bilateral testicles. Thrombosis within a dilated vein within the pampiniform plexus on the left. DATA REPOSITORY:
--- NOTE | 2020-07-08 | DI.US_ITS ---
EXAM: US RENAL CLINICAL HISTORY: NEPHROLITHIASIS,N20.0,S/P URETERAL STENT REMOVAL 05/24/20. TECHNIQUE: Thomas scale, color and spectral Doppler were used. COMPARISON: CT CT RENAL COLIC WO from 05/16/2020 FINDINGS: Renal size in cm: Right: 8.5 by 5.6 x 4 8 left: 11.5 x 4.9 x 4.2 cm. Normal parenchymal thickness bilaterally. Echogenicity: Normal Hydronephrosis: Mild right Cyst or mass: No Nephrolithiasis: Question of a echogenic focus to lower pole of the left kidney which could represent stone versus artifact. No stone was seen in this location on the previous CT. Other findings: Previously noted ureteral stent has been removed. No visible perinephric collection. Bladder:Normal . Both ureteral jets were visualized. Prevoid vol: 178 Postvoid vol: 18 Prostate volume 29 cc IMPRESSION: Mild right hydronephrosis. Removal of right ureteral stent. Question of a stone versus artifact at the lower pole of the left kidney. DATA REPOSITORY:
== END 2020-07-08 02:45 ==
LOC: DI 02:44
PROVIDERS: PCP Family Medicine; Visit Provider Urology
DX: I82.890 Acute embolism and thrombosis of other specified veins (principal); N50.1 Vascular disorders of male genital organs; N13.30 Unspecified hydronephrosis; Z87.442 Personal history of urinary calculi
CPT/HCPCS: 76770; 76870

== ENCOUNTER 2020-12-16 04:38 | Outpatient (CLI) | payer BC, SELFPAY ==
--- NOTE | 2020-12-16 08:33 | DI.RAD_ITS ---
Exam(s) XR LUMBAR SPINE COMP W FLEX/EX EXAM: XR LUMBAR SPINE COMP W FLEX/EX CLINICAL HISTORY: H/O FUSION 2010,INCREASED LT HIP AND BACK PAIN, ? OA OR FACET ARTHROPATHY TECHNIQUE: 2D digital imaging was performed. COMPARISON: CT CT RENAL COLIC WO from 05/16/[address] RENAL COLIC WO from 05/16/2020 FINDINGS: Laminectomy defects are seen at L4-5 and L5-S1. There is a left-sided posterior fusion hardware. Th ere is again severe deformity of the L4 vertebral body with wedging severe wedging on the right side. There is fusion across the L4-5 disc space. Severe degenerative changes are seen at the L 2 3 and L3-4 discs. Facet degenerative changes are prominent at L2-3 and L5-S1.. Flexion and extension late ral views were performed which show no definite subluxation. IMPRESSION: Stable postsurgical and degenerative changes.
== END 2020-12-16 04:58 ==
PROVIDERS: PCP Family Medicine; Visit Provider Family Medicine
DX: M47.817 Spondylosis without myelopathy or radiculopathy, lumbosacral region (principal); M25.552 Pain in left hip; Z98.1 Arthrodesis status
CPT/HCPCS: 72114

== ENCOUNTER 2021-03-03 03:43 | Outpatient (CLI) | payer BC, SELFPAY ==
[2021-03-03 08:18] LABS: Abs Immature Grans 0.01 10^3/uL (0.0-0.06); Absolute Basophil Count 0.04 10^3/uL (0.0-0.2); Absolute Eosinophil Count 0.13 10^3/uL (0.0-0.7); Absolute Lymphocyte Count 1.66 10^3/uL (1.2-3.4); Absolute Monocyte Count 0.49 10^3/uL (0.1-0.8); Absolute Neutrophil Count 2.81 10^3/uL (1.2-6.7); Basophils % 0.8; Eosinophils % 2.5; HCT 48.8 % (40.0-50.0); HGB 15.9 g/dL (13.5-17.5); Immature Grans % 0.2; Lymphocytes % 32.3; MCH 30.3 pg (27.0-33.0); MCHC 32.6 % (32.0-36.0); MPV 9.8 fL (8.0-11.0); Monocytes % 9.5; Neutrophils % 54.7; Nucleated RBC 0 %; Platelet Count 211 10^3/uL (130-400); RBC 5.25 10^6/uL (4.36-5.78); RDW 12.7 % (11.8-14.1); RDW-SD 43.5 fL; WBC 5.14 10^3/uL (4.4-10.8)
[2021-03-03 08:39] LABS: ALT 30 U/L (16-63); AST 16 U/L (15-37); Albumin 4.1 g/dL (3.4-5.0); Alkaline Phosphatase 110 U/L (46-116); Anion Gap 2.6 mmol/L (3-11); BUN 12 mg/dL (7-18); Bilirubin, Total 0.6 mg/dL (0.2-1.0); CO2 31.4 mmol/L (21.0-32.0); CREATININE 1.1 mg/dL (0.70-1.30); Calcium 9.2 mg/dL (8.5-10.1); Calculated LDL 151 mg/dL (<100); Chloride 105 mmol/L (98-107); Cholesterol 235 mg/dL (<200); Glucose 115 mg/dL (74-106); HDL Cholesterol 48 mg/dL (40-60); Potassium 3.8 mmol/L (3.5-5.1); Sodium 139 mmol/L (136-145); Total Protein 7.3 g/dL (6.4-8.2); Triglyceride 183 mg/dL (<150)
[2021-03-03] MEDS: Gadoterate meglumine 20 ML VIAL 16 ML IVP (09:03)
[2021-03-03] MEDS: Normal Saline Flush 10 ML SYR IVP (09:04)
--- NOTE | 2021-03-03 09:30 | DI.MRI_ITS ---
Exam(s) MR LUMBAR SPINE WO/W EXAM: MR LUMBAR SPINE WO/W of the CLINICAL HISTORY: H/O L4 FUSION NOW PAIN LT LOW BACK,RADIATING DOWN TO FEET,ASSESS FOR DISC. TECHNIQUE: Multiplanar multisequence MRI was performed. COMPARISON: MR MRI - LUMBAR SPINE W/WO CONT from 04/05/2016 FINDINGS: MR examination lumbosacral spine was performed utilizing routine protocol with additional pre and pos t contrast T1 fat sat sagittal and axial imaging. There is a prior fusion at L4-[address] There is a biconvex thoracolumbar sco liosis with lumbar left convex curve. The SI joints are grossly unremarkable. No enhancing lesion identified on post contrast imaging in the region surveyed. No significant findings at T10 11 or T11-T12 levels. No significant findings at T12-L1 level. No ce ntral canal spinal stenosis, neural foraminal stenosis, or disc herniation at these levels. At L1-2, there is a mild disc bulge. No central canal spinal stenosis. There is probable mild bilat eral spinal stenosis. Note is made serpiginous appearance of nerve roots in the spinal canal at this level, presumably secondary to high-grade central canal spinal stenosis at L2-3. At L2-3, there is a severe central canal spinal stenosis. There is mild bilateral neural foraminal s tenosis. The central canal spinal stenosis appears markedly worsened since prior MRI of March 6. Central canal spinal stenosis is secondary to prominent disc bulge or broad-based disc herniation and marked bilateral facet hypertrophic changes. At L3-4, there is no evidence of central canal spinal stenosis, disc herniation, or neural foraminal stenosis. The L4-5 endplates are fused. No gross abnormality of the central spinal canal. Mild bilateral neur al foraminal narrowing narrowing noted. At L5-S1 there is moderate bilateral neural foraminal narrowing. There is no central canal spinal st enosis or disc herniation. IMPRESSION: Severe central canal spinal stenosis at L2-3, markedly worsened since prior MR of March 2016. The spinal stenosis is secondary to very prominent disc bulge or broad-based disc herniation in [facility] with very prominent facet hypertrophic changes. Additional findings include multi level neural foraminal narrowing as described above, please see com ments for individual disc levels. DATA REPOSITORY:
== END 2021-03-03 04:03 ==
PROVIDERS: PCP Family Medicine; Visit Provider Family Medicine
DX: M54.59 Other low back pain (principal); M48.061 Spinal stenosis, lumbar region without neurogenic claudication; M51.26 Other intervertebral disc displacement, lumbar region
CPT/HCPCS: 72158; 80053; 80061; 85025

== ENCOUNTER 2021-07-21 09:54 | Emergency (ER) | payer BC, SELFPAY ==
[2021-07-21 10:05] VITALS: BP 133/84; PULSE 68; RESP 16; TEMP 36.4; O2SAT 99
--- NOTE | 2021-07-21 10:39 | DI.RAD_ITS ---
Exam(s) XR SHOULDER RT COMPLETE 2+V EXAM: XR SHOULDER RT COMPLETE 2+V CLINICAL HISTORY: right shoulder pain post fall. TECHNIQUE: 2D digital imaging was performed. COMPARISON: No exams were available for comparison FINDINGS: There is evidence of previous surgery with 2 similar appearin fastener devices in the humeral head. There is no evidence of fracture or dislocation. No obvious degenerative changes in the glenohumeral joint. Mild degenerative changes in the AC joint noted. No osseous lesions. No adjacent rib fract ures. IMPRESSION: Previous surgery. No fracture evident. DATA REPOSITORY: RADIATION DOSE DELIVERED:
--- NOTE | 2021-07-21 10:49 | ED.GENADUL_ITS ---
Discharge Plan Disposition Patient Disposition: HOME Condition: Stable Discharge Details Clinical Impression: Fracture of clavicle Primary Care Provider: Sofi Alba ED Provider: Carmela Pickett Home Meds and New Rx's Prescriptions: Continued ascorbic acid (vitamin C) [Vitamin C] 500 mg Tablet,Chewable 500 mg PO DAILY 0RF Men's 50 Plus Daily Formula 400-20-370 mcg Tablet 1 tab PO DAILY 0RF naproxen sodium [Aleve] 220 mg Tablet 220 mg PO 0RF Discharge Instructions Instructions: Clavicle Fracture (ED) Additional Instructions: Please follow-up with your orthopedist at the [facility], I am also listing our orthopedist should you have any difficulty establishing outpatient care Wear your sling while awake and ambulatory Please return with any new or worsening complaints Referrals: Kehinde Winter MD [ [facility] STAFF PHYSICIAN] - Discharge Data Discharge Date/Time-TO BE ENTERED AT DEPARTURE: 07/21/21 11:02 Medical Decision Making Patient placed in sling, suspect clavicle fracture based on pain medications diet and x-ray interpretation Referral to orthopedic in the outpatient setting, patient prefers follow-up with [facility] as he had surgery there previously Declines opiate analgesia We'll take ibuprofen and Tylenol as needed comfort Return discussed and patient expressed understanding Medical Records Medical records reviewed: Yes I reviewed the patient's medical records. HPI General Date/Time Provider Initiated Documentation: 07/21/21 10:14 . HPI Narrative: This is healthy 71-year-old gentleman presents status post fall on Saturday. He landed on his right shoulder. He denies any head injury or neck pain. He denies any strength or sensation change. He is concerned that they have had previous surgery to the affected shoulder. He is having difficulty with abduction and internal rotation specifically. He denies any rib pain, chest pain, shortness of breath, or dizziness. He denies any history of coagulopathy. He denies any paresthesias or weakness to the affected extremity. Related Data Home Medications Medication Instructions Recorded Confirmed ascorbic acid (vitamin C) 500 mg 500 mg PO DAILY 02/12/19 07/21/21 chewable tablet (Vitamin C) [id number] acid-vit 1 tab PO DAILY 07/21/21 07/21/21 K-lycop 400 mcg-20 mcg-370 mcg tablet (Men's 50 Plus Daily Formula) naproxen sodium 220 mg tablet 220 mg PO 07/21/21 (Aleve) Allergies Allergy/AdvReac Type Severity Reaction Status Date / Time No Known Allergies Allergy Verified 07/21/21 10:09 General Stated Complaint: Orthopedic MARLENE: 4 Review of Systems All systems reviewed & are unremarkable except as noted in HPI and below PFSH All Active Problems Fracture of clavicle (Acute) Sensorineural hearing loss of both ears (Acute) UPJ (ureteropelvic junction) obstruction (Acute) Carpal tunnel syndrome on both sides (Acute 07/22/17) Cubital tunnel syndrome of both upper extremities (Acute 07/22/17) Tubular adenoma of colon (Acute 10/08/16) Abnormal CT scan, colon (Acute) Right kidney stone (Acute) History of carpal tunnel release (Acute) Left side with ulna nerve Medical History Colorectal polyps UPJ (ureteropelvic junction) obstruction Surgical History Arthroscopy, Shoulder Back surgery 2009 [place] L2-3 Colonoscopy - IV Sedation (01/12/19) 2017-tubular adenoma History of carpal tunnel release Left side with ulna nerve Repair of inguinal hernia Family History Father Heart disease Social History Smoking/Tobacco Use Status: Never Smoking risk assessment performed?: Yes Alcohol Intake: current Alcohol Intake frequency: a few times a month Alcohol type: beer Drug use: Never Substance use type: does not use Details: beer last night, usually has a beer twice a month Household members: spouse Number of Children: 3 Do you feel safe at home: Yes Do you feel safe in your relationship?: Yes Exam Const General: cooperative, comfortable and no acute distress HENMT Head: normal to inspection Eyes Pupils: PERRL Neck Other: No midline tenderness Chest Other: No chest wall crepitus or tenderness Resp Effort & Inspection: normal respiratory effort Cardio Rate: regular rate GI Other: No abdominal tenderness or visible sign of trauma Skin General skin exam: no rashes or lesions noted Neuro Other: GCS 15 Extrem Other: Right shoulder with swelling, tenderness over right distal clavicle and AC joint, neurovascularly intact Course Vital Signs Vital signs: Vital Signs Temperature 36.4 C L 07/21/21 10:05 Pulse 68 07/21/21 10:05 Respiratory Rate 16 07/21/21 10:05 Blood Pressure 133/84 07/21/21 10:05 Pulse Oximetry 99 07/21/21 10:05 Temperature 36.4 C L 07/21/21 10:05 Temperature Source Skin 07/21/21 10:05 Pulse 68 07/21/21 10:05 Respiratory Rate 16 07/21/21 10:05 Respiratory Effort 07/21/21 10:05 Blood Pressure 133/84 07/21/21 10:05 Blood Pressure Position Sitting 07/21/21 10:05 Pulse Oximetry 99 07/21/21 10:05 Oxygen Delivery Method Room Air 07/21/21 10:05 Oxygen Flow Rate 0 07/21/21 10:05 Pain Level 2 07/21/21 10:05
[2021-07-21 11:02] VITALS: BP 133/84; PULSE 68; RESP 16; TEMP 36.4; O2SAT 99
== END 2021-07-21 11:02 | disposition home or self-care (01) ==
PROVIDERS: Emergency Provider Physician Assistant; PCP Family Medicine
DX: S42.001A Fracture of unspecified part of right clavicle, initial encounter for closed fracture (principal); W00.0XXA Fall on same level due to ice and snow, initial encounter
CPT/HCPCS: 99283; 73030

== ENCOUNTER 2022-06-07 02:00 | Outpatient (CLI) | payer MEDICARE, OTHER, SELFPAY ==
--- NOTE | 2022-06-07 07:40 | DI.RAD_ITS ---
Exam(s) XR HIP LT COMPLETE AP PELVIS EXAM: XR HIP LT COMPLETE AP PELVIS CLINICAL HISTORY: LT HIP PAIN, M25.552. TECHNIQUE: 2D digital imaging was performed of the left hip. Three views were obtained. AP pelvis and lateral left hip views were obtained. FINDINGS: BONES: No acute fracture is present. No bony destructive lesion is seen. Postsurgical changes are see n in the lumbar spine. JOINTS: No dislocation present. There is mild narrowing of the left hip joint space. There does appe ar to be mild spurring at the femoral head. SOFT TISSUE: Normal. IMPRESSION: Mild degenerative changes of the left hip. DATA REPOSITORY: RADIATION DOSE DELIVERED:
== END 2022-06-07 02:20 ==
PROVIDERS: PCP Family Medicine; Visit Provider Family Medicine
DX: M16.12 Unilateral primary osteoarthritis, left hip (principal)
CPT/HCPCS: 73502

== ENCOUNTER → 2022-11-15 09:41 | Outpatient (BNVA) | payer MEDICARE, OTHER, SELFPAY | PROVIDERS: PCP Family Medicine; Referring Provider Family Medicine; Visit Provider Physical Therapy Assistant | DX: Z12.11 Encounter for screening for malignant neoplasm of colon (principal); Z86.010 Personal history of colon polyps ==

== ENCOUNTER 2022-12-20 07:05 | Day surgery (SDC) | payer MEDICARE, OTHER, SELFPAY ==
--- NOTE | 2022-12-19 22:07 | W.PM.HP.N ---
Date of service: 12/20/22 Time of Service: 09:12 Assessment and Plan Assessment and plan (1) Adenomatous polyps: Status: Acute Assessment and plan: The patient is seen and examined after their colonoscopy.? The patient has been able to pass gas.? They are not having abdominal pain.? They have been able to tolerate liquids and a snack.? They do not have any nausea or vomiting.? They are not having any chest pain or shortness of breath.??? They are not having any rectal bleeding. Their vital signs have been stable-see nursing notes. We discussed findings during their colonoscopy, and any biopsies that were done/polyps that were removed. The patient will be sent a letter with any biopsy results, and when to repeat the colonoscopy.-see discharge instructions. Patient was given explicit instructions to follow-up regarding colonoscopy-refer to discharge instructions.? We reviewed resumption of medications. Patient verbalized understanding and discharged in stable and satisfactory condition- See nursing notes. (2) Hearing impaired: Status: Acute (3) Spinal stenosis: Status: Acute (4) Screening for colon cancer: Status: Acute Assessment and plan: Informed consent is obtained for the procedural (explained in simple layman's terms that the pt. and/or family could understand) explaining risks vs benefits and alternatives to the procedure and consequences if we do not do the procedure and need/rational for the procedure. Risks include but are not limited to: bleeding, infection, perforation of esophagus, stomach, colon, small intestines, bronchus or trachea, or PTX. This would necessitate emergency surgery to repair the damage w/ possible ostomy; and other associated complications w/ the required surgery. Also complications of anesthesia including aspiration, LA/CVA/. History of Present Illness Narrative: Patient is here today for colonoscopy for adenomatous polyps.??? They completed a bowel prep with just a clear yellow residual effluent.? They not having any chest pain or shortness of breath, currently.? They are not experiencing any fever or chills.? They deny any productive cough or upper respiratory tract infection signs or symptoms.? They are not having abdominal pain, or nausea and vomiting.? They have not had any changes in medications, past medical history or past surgical history since previously being seen in the office. They have not had any accidents or have been in the ER since the clinic pre-operative evaluation. ??I reviewed the procedure with the patient today, including risks and benefits of the procedure, and what they could expect at home for recovery.? All questions are answered to the patient?s satisfaction today, and they are stable to proceed with the proposed procedure. he patient is here for Colonoscopy pre-op.?His last screening was in 2019,? which was remarkable for tubular adenomaotus polyps x 2.?He denies a family history of colon cancer.? He has not had any bowel habit changes. -Discussed colonoscopy bowel prep as well as the procedure. Discussed possible complications of the procedure to include bleeding, pain, perforation, missed small lesion/polyp, sore throat, aspiration and adverse reaction to the medications. Questions were answered to patient?s satisfaction. No guarantees were implied or given.? Anesthesia: general (without airway) Previous surgical intolerances: None Previous surgical complications: None Pulmonary risk factors:? None PFT's: None Planned procedure: Yes Sleep apnea risks: No Can climb one flight of stairs (12-13 steps) in less than 30 seconds without stopping and without symptoms: Yes The surgery proposed for this patient is: Low risk Active cardiac conditions: None ECHO: None Stress Test: 2017- Normal study Active risk factors: None ASA (acetylsalicylic acid):No Beta blockers: No Anti-coagulation:? None Medications to be held: Vitamins and supplements x 5 days prior. P// Colonoscopy under sedation ?New bisacodyl (Dulcolax (bisacodyl)) ?? Take per colonoscopy instructions provided by ordering providers office 5 mg? PO ONCE 4 tabs 0RF ? ? polyethylene glycol 3350 ?? Take per colonoscopy instructions provided by ordering providers office 17 grams? PO ONCE 238 grams 0RF ? ? 72 y/o male with history of presents for colonoscopy screening pre-op. His last screening was in 2019,? which was remarkable for tubular adenomaotus polyps x 2. He denies a family history of colon cancer.? He describes having difficulty with having bowel movements.? He notes some rectal soreness.? Sometimes he has small BMs other times he has much larger ones.? Following hard stools he has noted intermittent bright red blood which spontaneously resolves.? He denies? black tarry stools, abdominal pain, diarrhea or constipation. He denies constitutional symptoms. He denies chest pain, palpitations, dyspnea or dyspnea with exertion. He denies prior history or family history of adverse reactions or complications with anesthesia. The patient denies any history of stroke, LA, seizures, bleeding or clotting disorders.? He has metal implanted in his lumbar spine. Review of Systems All systems reviewed & are unremarkable except as noted in HPI and below PFSH All Active Problems Adenomatous polyps (Acute) Hearing impaired (Acute) Spinal stenosis (Acute) Screening for colon cancer (Acute) Sensorineural hearing loss of both ears (Acute) UPJ (ureteropelvic junction) obstruction (Acute) Carpal tunnel syndrome on both sides (Acute 07/22/17) Cubital tunnel syndrome of both upper extremities (Acute 07/22/17) Tubular adenoma of colon (Acute 10/08/16) Abnormal CT scan, colon (Acute) Right kidney stone (Acute) History of carpal tunnel release (Acute) Left side with ulna nerve Medical History Colorectal polyps Surgical History Arthroscopy, Shoulder History of colonoscopy History of laminectomy Repair of inguinal hernia Family History Father Heart disease Social History Smoking/Tobacco Use Status: Never Smoking risk assessment performed?: Yes Alcohol Intake: current Alcohol Intake frequency: a few times a month Alcohol type: beer Drug use: Never Substance use type: does not use Household members: spouse Housing: house Number of Children: 3 Do you feel safe at home: Yes Do you feel safe in your relationship?: Yes Meds Allergies and Home Medications Allergies Allergy/AdvReac Type Severity Reaction Status Date / Time No Known Allergies Allergy Verified 12/19/22 10:03 Home Medications Medication Instructions Recorded Confirmed Type ascorbic acid (vitamin C) 500 mg 500 mg PO DAILY 02/12/19 12/20/22 History chewable tablet (Vitamin C) ukwsgeppqnco-guk-qhmhk acid-vit 1 tab PO DAILY 07/21/21 12/20/22 History K-lycop 400 mcg-20 mcg-370 mcg tablet (Men's 50 Plus Daily Formula) Exam Const General: cooperative, healthy appearing, comfortable and no acute distress Other: PHYSICAL EXAM GENERAL APPEARANCE: Alert, healthy appearance, oriented, x 3,? in no acute distress HYDRATION: Well hydrated HEAD, EYES, EARS, NECK, THROAT: Head is normocephalic, pupils equal, round, reactive to light and accommodation, ocular movement intact, sclera clear and no jaundice. ?Denition -partial LUNGS: normal respiration/normal chest excursion. ?Clear to auscultation bilaterally. ?No wheeze. ?HEART: Regular rate and rhythm. no murmurs ABDOMEN: soft and non-tender to palpation.? Normal bowel sounds.? No hernias.? Time Spent Time spent with Patient: <40 minutes Time was spent: preparing to see the patient(eg.review tests), obtaining and/or reviewing separately otained hiistory, ordering medications,tests, procedures, referring, communicating with other health career information specialist, indepentently interpreting results, counseling the patient and care coordination
--- NOTE | 2022-12-19 22:12 | W.PM.DSUDISC ---
Date of service: 12/20/22 Time of Service: 09:12 Discharge Plan Disposition Patient Disposition: Home Condition: Good Discharge Details Reason For Visit: colon scope Attending Provider: Oriana Banks Primary Care Provider: Sofi Alba Home Meds and New Rx's Prescriptions: Continued ascorbic acid (vitamin C) [Vitamin C] 500 mg Tablet,Chewable 500 mg PO DAILY Men's 50 Plus Daily Formula 400-20-370 mcg Tablet 1 tab PO DAILY Discontinued bisacodyl [Dulcolax (bisacodyl)] 5 mg tablet,delayed release (DR/EC) 5 mg PO ONCE Qty: 4 0RF Rx Instructions: Take per colonoscopy instructions provided by ordering providers office polyethylene glycol 3350 17 gram/dose powder 17 g PO ONCE Qty: 238 0RF Rx Instructions: Take per colonoscopy instructions provided by ordering providers office Discharge Instructions Additional Instructions: DSU Colonoscopy Post-Op Instructions Instructions for Everyone who is given Anesthesia: For your safety, please do the following for the next twenty-four (24) hours: *Do Not operate a motor vehicle (car, truck, motorcycle, etc.) *Do Not drink alcoholic beverages or use any recreational drugs for the first 24 hours or while taking pain medications. The medications in your body may have a reaction that can be dangerous. *Do Not make any important decisions or sign any important papers. Findings: -Diverticula: The did diverticular very minor and around the left side of the colon. Make sure that you are moving your bowels on a regular basis and you are not straining to go to the bathroom. If you find you are having issues with constipation, it is recommended that you start a fiber product such as Metamucil, daily. Follow up: Repeat colonscopy in 10 yrs time 1. No lifting over 20 pounds or strenuous activity for the first 24 hours after your procedure. After 24 hours there are no restrictions on your activity but you may feel fatigued for a few days. 2. After you arrive home you may have a light meal and return to your normal diet as you can tolerate it without feeling sick to your stomach. 3. You may have a bloated, gaseous feeling in your belly (abdomen) after a colonoscopy. Passing gas and belching will help. Walking or lying down on your left side with your knees flexed may relieve the discomfort. Call the office at [phone] (Office) or [phone] (Hospital) right away if you notice any of the following: a.Vomiting of blood or ?coffee ground stools?. b.Rectal bleeding 1Tbsp, blood clots or continuous bleeding. c.Severe belly (abdominal) pain. d.A hard distended belly (abdomen) and an inability to pass gas. 4. Please don?t expect to have a normal BM (bowel movement) for 2-3 days after your procedure. 5. If there are questions regarding the findings of your procedure, please contact your doctor 6. If you are unable to contact your doctor with a problem, contact the hospital at [phone]. 7. Continue all your regular medications unless directed otherwise. I understand the above instructions and have no questions. Signature of Patient or Adult Escort Name of Responsible Adult Escort Signature of Nurse Date/Time Activity:: See above. Diet:: Yes see above Discharge Orders Discharge Orders: Discharge Order (Routine); Ordered 12/20/22 Ordered By: rOiana Banks DS: Diagnosis Discharge Diagnosis (1) Adenomatous polyps: Status: Acute Asessment and Plan: Post [place] Note/Eval The patient is seen and examined after their colonoscopy.? The patient has been able to pass gas.? They are not having abdominal pain.? They have been able to tolerate liquids and a snack.? They do not have any nausea or vomiting.? They are not having any chest pain or shortness of breath.??? They are not having any rectal bleeding. Their vital signs have been stable-see nursing notes. We discussed findings during their colonoscopy, and any biopsies that were done/polyps that were removed. The patient will be sent a letter with any biopsy results, and when to repeat the colonoscopy.-see discharge instructions. Patient was given explicit instructions to follow-up regarding colonoscopy-refer to discharge instructions.? We reviewed resumption of medications. Patient verbalized understanding and discharged in stable and satisfactory condition- See nursing notes. (2) Hearing impaired: Status: Acute (3) Spinal stenosis: Status: Acute (4) Screening for colon cancer: Status: Acute (5) Diverticula of colon: Status: Acute
--- NOTE | 2022-12-19 22:15 | W.COLOREPORT ---
Date of service: 12/20/22 Time of Service: 09:00 Colonoscopy Report Date of procedure: 12/20/22 Pre-op diagnosis general: adenomatous polyps Post-op diagnosis procedure note: other (Diverticula) Surgeon: Oriana Banks Anesthesia Type: General:No Airway Estimated blood loss (mL): 0 Pathology: none sent Complications: None Disposition: same day Prep: Miralax/Dulcolax Retraction Time: 8 Procedure Description: After informed consent was obtained the patient was taken to the procedure room and placed in a left decubitous position. Monitors were applied and a time out was done. The patients name, date of , procedure, allergies to medications and metal in their body was reviewed. The patient was then sedated. Once sedated and comfortable a rectal exam was done. External exam was normal. Internal exam revealed a normal sphincter tone and no palpable masses. The scope was then introduced and retrofelexed. No without BBPS 3 in all segments for total of 9 internal hemorrhoids were identified. The scope was then advanced to the cecum difficulty. The TI and appendiceal orifice were identified. The prep was BBPS 3 in all segments for a total of 9. The scope was then slowly retracted over 8 minutes back into the rectum. There are no polyps, AVMs visualized today. He has minor diverticula confined to the sigmoid colon. There were very small and very few. There are no signs of recurrent polyps. The scope was removed and the patient was woken up and taken back to Same day surgery in stable condition. The patient tolerated the procedure well and there were no immediate complications. Follow up: The patient should follow up in 10 years unless they develop changes in bowel habits or other new gastrointestinal complaints.
--- NOTE | 2022-12-20 06:45 | W.ANESPRE ---
General Info Date of Service Date Performed: 12/20/22 Height: 5 ft 7.5 in Weight: 80.286 kg Body Mass Index (BMI): 27.3 Surgical Procedure: Operation Date: 12/20/22 08:35 Proposed Procedure Side Surgeon adelfo Banks, DO Meds Allergies and Home Medications Allergies Allergy/AdvReac Type Severity Reaction Status Date / Time No Known Allergies Allergy Verified 12/19/22 10:03 Home Medication Medication Instructions Recorded ascorbic acid (vitamin C) 500 mg 500 mg PO DAILY 02/12/19 chewable tablet (Vitamin C) ruyiuqeakjtc-lqi-burib acid-vit 1 tab PO DAILY 07/21/21 K-lycop 400 mcg-20 mcg-370 mcg tablet (Men's 50 Plus Daily Formula) Current Visit Medications: Current Medications Generic Name Dose Route Start Last Admin Trade Name Freq PRN Reason Stop Dose Admin Hyoscyamine Sulfate 0.125 mg 12/20/22 07:00 Hyoscyamine 0.125 Mg Sl/Oral/Chew SL 01/19/23 06:59 DIRECTED PRN Ringer's Solution 1,000 mls @ 80 mls/hr 12/20/22 06:00 IV 01/18/23 23:59 [facility] IV Miscellaneous Supplies 1 each 12/20/22 06:00 Iv Access IV 01/18/23 23:59 DIRECTED MOLINA Ondansetron HCl 4 mg 12/20/22 08:16 Ondansetron 4 Mg/2 Ml Vial IVP 01/19/23 08:15 Q4H PRN PRN Nausea / Vomiting Sodium Chloride 0 ml 12/20/22 06:00 Normal Saline Flush 10 Ml Syr IV 01/18/23 23:59 PRN PRN Sodium Chloride 0 ml 12/20/22 06:00 Normal Saline 10 Ml Vial IJ 01/18/23 23:59 DIRECTED PRN Sterile Water 0 ml 12/20/22 06:00 Water,Injection,Sterile 10 Ml Vial IJ 01/18/23 23:59 DIRECTED PRN PFSH Active Problems Active Problems: Problem Status Onset Code Adenomatous polyps D36.9 Hearing impaired H91.90 Spinal stenosis M48.00 Screening for colon cancer Z12.11 Sensorineural hearing loss of both ears H90.3 UPJ (ureteropelvic junction) obstruction N13.5 Carpal tunnel syndrome on both sides 07/22/17 G56.03 Cubital tunnel syndrome of both upper extremities 07/22/17 G56.23 Tubular adenoma of colon 10/08/[address] scan, colon R93.3 Right kidney stone N20.0 History of carpal tunnel release Z98.890 Medical History Medical History Colorectal polyps Surgical History Surgical History Arthroscopy, Shoulder History of colonoscopy History of laminectomy Repair of inguinal hernia Tobacco Smoking/Tobacco Use Status: Never Alcohol Alcohol Intake: current Alcohol intake frequency: a few times a month Alcohol type: beer Substance Use Substance use: Never Substance use type: does not use Vital Signs and Lab Results Vital Signs Most Recent Vital Signs in EMR: Temp Pulse Resp BP Pulse Ox 36.3 C L 66 16 122/81 97 12/20/22 07:10 12/20/22 07:10 12/20/22 07:10 12/20/22 07:10 12/20/22 07:10 Vital Signs Comment Vital Signs Comment:: Temp Pulse Resp BP Pulse Ox 36.3 C L 66 16 122/81 97 12/20/22 07:10 12/20/22 07:10 12/20/22 07:10 12/20/22 07:10 12/20/22 07:10 Lab Results Blood Type / Crossmatch: No Data to Display Complete Blood Count: No Data to Display Complete Metabolic Panel: No Data to Display Liver Function Panel: No Data to Display Coagulation Panel: No Data to Display Cardiac Panel: No Data to Display Arterial Blood Gas: No Data to Display Venous Blood Gas: No Data to Display Pancreas Panel: No Data to Display Thyroid Panel: No Data to Display Infectious Disease: No Data to Display Blood Cultures: No Data to Display Toxicology Panel: No Data to Display Imaging and Studies Imaging and Studies Study information below may be from another EMR and interpreted by another provider. Please see original notes in EMR for more complete details. Stress Test Summary: STRESS TEST PATIENT NAME: TEOFILO CORBIN #: [id number] ADMITTING PROVIDER: ODETTE DUDLEY, PREETHACCOUNT #: [id number] PRIMARY CARE PROVIDER:SEVEN ROJAS OF SERVICE: 06/08/16 : 1950 *[facility]* *[facility]* [address] [place] [address] Stress Electrocardiography Lionel protocol Date of study: 06/08/2016 *PATIENT PRESENTATION* Height: 172.7cm ((68in) ) Blood Pressure: Weight: 70.5kg ((155lb) ) BSA: 1.84m^2 Ordering physician: Brian Novak Impressions: Normal study after maximal exercise. Recommendations: Medical management is recommended. Indication: (R07.9). History: REASON FOR VISIT: PT WAS SEEN IN THE ED ON 05/25/16 FOR C/O CHEST PAIN THAT OCCURED ABOUT 2 HOURS AFTER SHOVELING SNOW. HE REPORTS HAVING RIGHT CHEST WALL DISCOMFORT, STATES THIS DISCOMFORT LASTED FOR APPROXIMATELY A WEEK AND A HALF AFTER THE DAY OF SHOVELING AND NOW HAS SINCE SUBSIDED. HE BELIEVES HE PULLED A MUSCLE. PMH: COPD. Asthma. Risk factors: Family history of coronary artery disease. Current tobacco use. Hypertension. Diabetes mellitus. Dyslipidemia. Cholesterol: 198mg/dl. HDL: 52mg/dl. LDL: 132mg/dl. Triglycerides: 91mg/dl. ALLERGIES: NO KNOWN ALLERGIES. MEDICATIONS: IBUPROFEN 200 MG NEEDED. Protocol: Lionel protocol. Baseline ECG: SINUS RHYTHM. HR 67 BPM. Stress protocol: + +---+ + !Stage !HR !BP (mmHg) ! + +---+ + !Baseline supine !67 !132/80 (97) ! + +---+ + !Baseline standing !82 !134/88 (103)! + +---+ + !Stage I; 1.7mph, 10degrees; 3 min !104!148/82 (104)! + +---+ + !Stage II; 2.5mph, 12degrees; 3 min !111!160/82 (108)! + +---+ + !Stage III; 3.4mph, 14degrees; 3 min!126!170/82 (111)! + +---+ + !Recovery; 1 min !146!190/72 (111)! + +---+ + !Recovery; 3 min !103!180/82 (115)! + +---+ + !Recovery; 6 min !99 !150/80 (103)! + +---+ + !Recovery; 9 min !97 !140/80 (100)! + +---+ + * Stress results: The rate-pressure product for the peak heart rate and blood pressure was 86213gp Hg/min. Stress ECG: TREADMILL PORTION OF STRESS TEST ENDED IN 14 MINUTES & 15 SECONDS BECAUSE OF PATIENT FATIGUE. MAX HR = 174. % OF TARGET = 112. APPROXIMATE METS ACHIEVED = 15.61 NORMAL BLOOD PRESSURE AND HEART RATE RESPONSE TO EXERCISE. NO ECTOPY. NO ANGINA. ABOVE AVERAGE FUNCTIONAL CAPACITY FOR EXERCISE. UPSLOPING ST DEPRESSIONS NOTED IN LEADS V3, V4, V5 & V6 DURING PEAK EXERCISE AND IMMEDIATE RECOVERY. Study data: Val Almendarez MD supervised and was readily available during the procedure. This study was interpreted by [facility]. Study status: Routine. Consent: The risks, benefits, and alternatives to the procedure were explained to the patient and informed consent was obtained. Procedure: Initial setup. A baseline ECG was recorded. Surface ECG leads and manual cuff blood pressure measurements were monitored. Heart sounds: Normal. Lung sounds: Normal. Treadmill exercise testing was performed using the Lionel protocol. Study completion: The patient tolerated the procedure well and was discharged from the lab. Discharge: The patient left the laboratory in stable condition. Birthdate: Patient birthdate: 1950. Sex: Gender: male. Study date: Study date: 06/08/2016. Study time: 02:45 PM. Signature Documentation: The Stress ECG portion of this study was interpreted by Val Almendarez MD. Electronically signed by Val Almendarez 06/08/2016 15:13 Anesthesia Assessment and Plan Anesthesia History Personal History: No History of Anesthesia Complications Family History: No Family History of Anesthesia Complications Exercise Tolerance Exercise Tolerance: Metabolic Equivalents>4 Pertinent Negatives Pertinent Negatives: No Symptoms of GERD, No Major Cardiovascular Symptoms or Complaints, No Major Pulmonary Symptoms or Complaints and No History of CVA/TIA Cardiac & Pulmonary Exam Cardiac Exam: Normal S1/S2 Heart Sounds Pulmonary Exam: Clear Bilateral Breath Sounds Implantable Cardiac Device Does patient have a Pacemaker or an ICD?: No Airway Exam Known Difficult Airway: No Mallampati Class: 2 Mouth Opening: Normal (> 3cm) Thyromental Distance: Greater than 3 cm Neck Range of Motion: Full ROM Neck Circumference: Normal Teeth Condition: Removable Dentures/Plates Upper and Removable Dentures/Plates Lower (partial) ASA Classification ASA Score: ASA 2 Emergency Case?: No NPO Status NPO Status: NPO Clears >2 hours, Solids >8 hours Anesthesia Plan Resuscitation Status: Full Code Anesthesia Technique: General Anesthesia Airway Planned: Natural Airway Monitors Used: Standard Monitors Preoperative Comments:: 72 yo male for colo, denies major cardiac or lung issues, has a negative ETT in 2017. Denies GERD/reflux. Previous Anes: - EGD/colo, prop, natural airway, no issues. - cysto, LMA 4, no issues.
[2022-12-20 07:10] VITALS: BP 122/81; PULSE 66; RESP 16; TEMP 36.3; O2SAT 97
[2022-12-20] MEDS: Lactated Ringers 1,000 ML 80 ML IV (07:43)
[2022-12-20 09:04] VITALS: BMI 27.3
[2022-12-20 09:09] VITALS: BP 99/69; PULSE 60; RESP 17; TEMP 36.7; O2SAT 97
--- NOTE | 2022-12-20 09:15 | W.ANESPOSTOP ---
Postoperative Evaluation Date, Time and Location Date Performed: 12/20/22 Time Performed: 09:15 Patient Location: Day Surgery Unit Vital Signs Most Recent Imported Vital Signs: Most Recent Vital Signs Temp Pulse Resp BP Pulse Ox 36.3 C L 66 16 122/81 97 12/20/22 07:10 12/20/22 07:10 12/20/22 07:10 12/20/22 07:10 12/20/22 07:10 Assessment Mental Status: Awake (Alert & Oriented to Patient Baseline) Airway and Respiratory Function: Patent airway with normal (patient baseline) respiratory exam Cardiovascular Function: Hemodynamically Stable Hydration Status: Adequately Hydrated Nausea & Vomiting: No Nausea or Vomiting Pain: Pt. Denies Any Pain Peripheral Nerve Block: Patient did not receive a nerve block
[2022-12-20 09:40] VITALS: BP 119/75; PULSE 55; RESP 18; TEMP 36.5; O2SAT 97
== END 2022-12-20 10:08 | disposition home or self-care (01) ==
PROVIDERS: PCP Family Medicine; Visit Provider Surgery
PROC: 0DJD8ZZ Inspection of Lower Intestinal Tract, Via Natural or Artificial Opening Endoscopic (ICD-10-PCS; CPT 45378; principal; 2022-12-20 08:30)
DX: Z12.11 Encounter for screening for malignant neoplasm of colon (principal); K57.30 Diverticulosis of large intestine without perforation or abscess without bleeding; K64.8 Other hemorrhoids; Z86.010 Personal history of colon polyps
CPT/HCPCS: G0105

== ENCOUNTER 2023-02-20 03:05 | Outpatient (CLI) | payer MEDICARE, OTHER, SELFPAY ==
--- OUTSIDE RECORDS SUMMARY | 2023-02-20 03:07 | XMS_ITS | Patient Health Record ---
Author Name Unknown Organization [facility] Address [address] [place], [place] [id number] Care Team Providers Care Operations Architect Name Role Phone SURYA QUARLES Primary Care Provider JAY BACON Unavailable [phone] ALLERGIES No Known Allergies RESULTS Component Value Reference Range Notes XR HIP 2V OR 3V LT* Reviewed date:06/11/2022 08:32:51 AM Interpretation: Performing Lab: Notes/Report: Colonoscopy or Sigmoidiscopy Performed Reviewed date:02/07/2023 04:25:52 PM Interpretation:diverticula, no polyps Performing Lab: Notes/Report: diverticula, no polyps Colonoscopy/Sigmoidoscopy Result diverticula, no polyp s REASON FOR REFERRAL No Information MEDICATIONS Medication SIG (Take, Route, Fr equency, Duration) Notes Start Date End Date Status Vitamin C Active Multivitamin - 1 tablet Orally Once a day Active Turmeric - as directed Active IMMUNIZATIONS Vaccine Route Administration Date Status Comme nts Covid-19 Moderna Dose 1 Unknown 08/15/2020 Administered Covid-19 Moderna Dose 2 Unknown 09/12/2020 Administered Pneumococcal conjugate PCV 1 3 (Prevnar 13) Unknown 08/15/2016 Administered Pneumococcal polysaccharide PPV23 (Pneumovax) Unknown 08/22/2017 Administered SOCIAL HISTORY Sex Assigned At : Social History Observation Description Sex Assigned At Male PROBLEMS Problem Type ICD Code Onset Dates Problem Status W/U Status Risk SNOMED Code Notes Problem Other chronic pain (G89.29) Active confirmed 60441588 Problem Low back pain (M54.5) Active confirmed 177784792 Problem Hypercholesterolemia (E78.00) Active confirmed 78999474 Problem History of nephrolithiasis (Z87.442) Active confirmed 496658135 Problem Tubular adenoma of colon (D12.6) Active confirmed 121749505 Problem Sciatica of left genesis e (M54.32) Active confirmed 57518003 Problem Atypical nevi (D22.9) Active confirmed 949965033 Problem Testicular pain, lef t (N50.812) Active confirmed [id number] Problem Calcium oxalate kidn ey stones (N20.0) Active confirmed 763267690 Problem Low back pain, unspecified (M54.50) Active confirmed 086348857 VITAL SIGNS Heart Rate 76 /min 02/06/2023 Blood pressure diastolic 86 mmHg 02/06/2023 Weight-kg 79.47 kg 02/06/2023 Height 66.6 in 02/06/2023 Blood pressure systolic 140 mmHg 02/06/2023 Weight 175.2 lbs 02/06/2023 BMI 27.77 02/06/2023 Encounters Encounter Location Date Provider Diagnosis [facility] [address] [place], [place] [id number] 01/29/2023 SURYA QUARLES [facility] [address] [place], [place] [id number] 03/01/2022 JAY BACON Visit for suture rem oval Z48.02 [facility] [address] [place] [id number] 06/05/2022 SURYA QUARLES Left hip pain M25.55 2 and Stomach pain R10.9 [facility] [address] [place] [id number] 02/06/2023 SURYA QUARLES Hypercholesterolemia E78.00 ; Tubular adenoma of colon D12.6 ; Fatigue, unspecified type R53.83 ; Sciatica of left side M54.32 and Encounter for annual health examination Z00.00 [facility] [address] [place], [place] [id number] 06/01/2022 SURYA QUARLES [facility] [address] [place], [place] [id number] 06/07/2022 SURYA QUARLES ASSESSMENTS Encounter Date Diagnosis Assessment Notes Treatment Notes Treatment Clinical Notes 03/01/2022 Visit for suture rem oval (ICD-10 - Z48.02) can remove the bandaids in a couple of days 06/05/2022 Left hip pain (ICD-1 0 - M25.552) With some loss of range of motion but I really do not think this is hip arthritis that is creating the pain down his leg. I think it is pretty consistent with his spine DJD. I will check an x-ray just to rule that out. Continue follow-up with [facility] spine as scheduled order for the x-ray sent over to [facility] at patient's request 06/05/2022 Stomach pain (ICD-10 - R10.9) Patient with potential mild reflux or gastritis. Symptoms are very nonspecific. Talked about frequent small meals. He can do a trial of [id number]-[id number] Pepcid 20 mg once or twice a day for couple weeks and see if it calms down. Follow-up if not improving 02/06/2023 Hypercholesterolemia (ICD-10 - E78.00) Patient is getting his blood work done at [facility]. Last year he met the criteria for statins but did not want to do it. We will follow-up once we see what his labs look like 02/06/2023 Tubular adenoma of percy schrader (ICD-10 - D12.6) 02/06/2023 Fatigue, unspecified type (ICD-10 - R53.83) Stressors from the of his friend. Offered support. 02/06/2023 Sciatica of left genesis e (ICD-10 - M54.32) Patient with some intermittent discomfort. He seems to be out of a flare at this time. He will follow-up with a spine surgeon depending upon whether he has recurrence and it persists. 02/06/2023 Encounter for annual health examination (ICD-10 - Z00.00) qzri-qn-qr-date 2022. We did discuss immunizations. He is not really interested in flu shots. He might consider a COVID booster. I did speak with him about RSV immunization and shingles vaccine. PLAN OF TREATMENT Pending Test Test Name Order Date CBC with Diferential 02/06/2021 CMP (Comprehensive Metabolic Panel) 01/25 Lipid Panel 02/06/2021 MRI Spine, Lumbar w/ and w/o Contrast CBC W/ DIFFERENTIAL* 02/06/2023 COMPREHENSIVE METABOLIC PANEL (CMP) 01/25 LIPID PANEL 02/06/2023 Insurance Providers Payer Name Payer Address Payer Phone Subscriber Number Group Number Insured Name Patient Relationship to Insured Coverage Start Date Coverage End Date Medicare of [place] [address] [place] [phone] [id number] Michael Lora Self - patient is the insured [employer] Medical Supplement Insurance [address] [place] [id number] [phone] [id number] Michael Lora Self - patient is the insured MEDICAL (GENERAL) HISTORY Medical History History ICD Code LBP- history of a laminectomy- L4-L5 dis cectomy Onychomycosis Actinic keratitis Hearing impaired- bilateral hearing aids History of colonic polyps ad enomatous, 2022- colo-few sigmoid diverticula only follow-up 2032 if desires Impaired fasting glucose history Spinal stenosis Nephrolithiasis history Mild left hip osteoarthritis on x-ray of 01/2016 Chest pain: 05/2016: Negative evaluation in the ER and normal stress test 06/08/2016 History of adenomatous polyps: 2013 repe at colon in 2016- tubular adenoma Bilateral carpal and cubital tunnel synd elena EMG i- 06/2017 EGD and colonoscopy 12/2018: Normal upper endo-and 3 small polyps with a plan for follow-up in 3 years Nephrolithiasis: Right kidney stone with urology eval 01/14/2019 High cholesterol- 18% 10 year risk- refu sing statin 2021 Surgical History Surgery Date(Month/Year) L4-L5 discectomy and laminec kenyatta with posterior rods and pedicle screws seen at L4 and L5 04/10/2010 Right shoulder surgery 07/11/2011 Left ulnar nerve anterior transposition and carpal tunnel release 08/2017 Hernia attempted unsuccessful remov al of the right kidney stone - stent placed in due to UPJ obstruction and right hydronephrosis 02/12/2019 Right percutaneous nephro lithotomy comp licated by UTI 05/12/2020
[2023-02-20 07:27] LABS: Abs Immature Grans 0.02 10^3/uL (0.0-0.06); Absolute Basophil Count 0.03 10^3/uL (0.0-0.2); Absolute Eosinophil Count 0.21 10^3/uL (0.0-0.7); Absolute Lymphocyte Count 1.53 10^3/uL (1.2-3.4); Absolute Monocyte Count 0.47 10^3/uL (0.1-0.8); Basophils % 0.6; Eosinophils % 4.4; HCT 48.2 % (40.0-50.0); HGB 16.4 g/dL (13.5-17.5); Immature Grans % 0.4; Lymphocytes % 32.1; MCH 30.8 pg (27.0-33.0); MCV 90 fL (80-95); MPV 9.5 fL (8.0-11.0); Monocytes % 9.9; Neutrophils % 52.6; Platelet Count 190 10^3/uL (130-400); RBC 5.33 10^6/uL (4.36-5.78); RDW 13.2 % (11.8-14.1); RDW-SD 43.6 fL; WBC 4.76 10^3/uL (4.4-10.8)
[2023-02-20 07:54] LABS: ALT 31 U/L (16-63); AST 22 U/L (15-37); Albumin 3.8 g/dL (3.4-5.0); Alkaline Phosphatase 99 U/L (46-116); Anion Gap 6.1 mmol/L (3-11); BUN 13 mg/dL (7-18); Bilirubin, Total 0.8 mg/dL (0.2-1.0); CO2 28.9 mmol/L (21.0-32.0); Calcium 9.4 mg/dL (8.5-10.1); Calculated LDL 146 mg/dL (<100); Chloride 103 mmol/L (98-107); Cholesterol 222 mg/dL (<200); Estimated GFR 80.47 (mL/min/1.73m2); Glucose 112 mg/dL (74-106); HDL Cholesterol 50 mg/dL (40-60); Potassium 4.3 mmol/L (3.5-5.1); Sodium 138 mmol/L (136-145); Triglyceride 132 mg/dL (<150)
== END 2023-02-20 03:06 | disposition home or self-care (01) ==
LOC: LBO 03:05
PROVIDERS: PCP Family Medicine; Visit Provider Family Medicine
DX: E78.00 Pure hypercholesterolemia, unspecified (principal); R53.83 Other fatigue
CPT/HCPCS: 36415; 80053; 80061; 85025

== ENCOUNTER → 2023-05-21 00:41 | Outpatient (CLI) | payer MEDICARE, OTHER, SELFPAY ==
--- NOTE | 2023-05-21 | DI.MRI_ITS ---
Exam(s) MR LUMBAR SPINE WO EXAM: MR LUMBAR SPINE WO CLINICAL HISTORY: BACK PAIN WITH RADICULOPATHY LT LOW EXT,m47.816,m41.9,SCOLIOSIS,h/o fusion. TECHNIQUE: Multiplanar multisequence MRI of the Lumbar spine was performed. COMPARISON: CR XR LUMBAR SPINE COMP W FLEX/EX from 12/16/2020 MR MR LUMBAR SPINE WO/W from 03/03/2021 CR XR ORBITS from 05/21/2023 FINDINGS: Bones: The last intervertebral disc space is designated the L5/S1 level for the numbering purpose of this ex amination. The vertebral body heights are well maintained. Alignment: Levoscoliosis with apex at L4 secondary to vertebral body deformity. Left-sided posterior fusion marbella in place at L4-5. The marrow signal characteristics are unremarkable. Cord: The conus tip ends at the T12 level. It is of normal size and signal intensity. T12-L1: No focal disc herniation is present. No central spinal canal stenosis.No neural foraminal st enosis. L1-2:Mild disc bulging. No focal disc herniation is present. No central spinal canal stenosis.Facet degenerative changes bilaterally.Severe bilateral neural foraminal narrowing neural foraminal stenos is. L2-3:Mild loss of disc height. Endplate osteophytes project laterally, greater on the left. Facet d egenerative changes. No focal disc herniation is present. Moderate to severe central spinal canal stenosis, similar to prior..Severe neural foraminal stenosis. L3-4: Severe loss of disc height. No significant osteophytes.No focal disc herniation is present. N o central spinal canal stenosis.No neural foraminal stenosis. L4-5:Postsurgical changes at the disc. No central spinal canal stenosis.Mild bilateral neural forami nal stenosis. L5-S1: Mild disc bulging. Facet degenerative changes. No focal disc herniation is present. No cent ral spinal canal stenosis.Severe bilateral neural foraminal stenosis. The visualized SI joints and sacrum are unremarkable. Soft tissues: The paraspinal soft tissues are unremarkable. IMPRESSION: Moderate to severe central canal stenosis at L2-3 secondary to a combination of degenerative changes. Multilevel bilateral neural foraminal narrowing secondary to combination of degenerative changes. Postsurgical changes at L4-5. DATA REPOSITORY:
--- OUTSIDE RECORDS SUMMARY | 2023-05-21 00:50 | XMS_ITS | CCD ---
Author Name Unknown Address [address] [place] [phone] Organization Unknown Address [address] [place] [phone] Care Team Providers Care Financial Administration Officer Name Role Phone SURYA QUARLES Attending Physician [phone] Vital Signs Unknown or Not Available. Allergies Allergy Code Allergy Type Reaction Status No Known Drug Allergies 0 No known drug allergies Active Procedures Unknown or Not Available. History of Immunizations Unknown or Not Available. Problems Unknown or Not Available. Results Unknown or Not Available. Active Medications Unknown or Not Available. Medications Administered During Visit Unknown or Not Available. Encounters Encounter Diagnosis Diagnosis Code Start Date Other melanin hyperpigmentation L814 02/19/2022 Social History Smoking Status Code Start Date End Date Never smoker [id number] Patient Decision Aids Unknown or Not Available. Discharge Instructions You were admitted to [facility] on 02/19/2022 23:19 with a principal diagnosis of Other melanin hyperpigmentation You were discharged from [facility] on 02/19/2022 23:19 Should you have any questions prior to discharge, please contact a member of your healthcare team. If you have left the hospital and have any questions, please contact your primary care physician. Chief Complaint and Reason For Visit Unknown or Not Available. Function Status Unknown or Not Available. Plan of Care Unknown or Not Available. Referral/Transition of Care Unknown or Not Available.
--- OUTSIDE RECORDS SUMMARY | 2023-05-21 00:52 | XMS_ITS | CCD ---
Author Name Unknown Address [address] [place] [phone] Organization Unknown Address [address] [place] [phone] Care Team Providers Care Pantry Worker Name Role Phone SURYA QUARLES Attending Physician [phone] Vital Signs Unknown or Not Available. Allergies Allergy Code Allergy Type Reaction Status No Known Drug Allergies 0 No known drug allergies Active Procedures Unknown or Not Available. History of Immunizations Unknown or Not Available. Problems Unknown or Not Available. Results COMPREHENSIVE METABOLIC PANE L (CMP) - Collect Date/Time: 02/06/2021 10:45 Test Name Code Test Result Test Units Test Ref Rang e GLUCOSE 2345-7 90 mg/dL L=70 H=116 BUN 3094-0 15 mg/dL L=6 H=25 CREATININE 2160-0 1.11 mg/dL L=0.67 H=1.17 SODIUM SERUM 2951-2 141 mmol/L L=136 H=145 POTASSIUM SERUM 2823-3 5.3 mmol/L L=3.4 H=5 .2 CHLORIDE SERUM 2075-0 107 mmol/L L=96 H=110 CARBON DIOXIDE (CO2) 2028-9 29 mmol/L L=22 H=34 ANION GAP 24689-5 5.2 mmol/L CALCIUM SERUM 03508-7 9.4 mg/dL L=8.2 H=10. 2 BILIRUBIN TOTAL 1975-2 0.7 mg/dL L=0.0 H=1 .3 ALK. PHOS. 6768-6 108 U/L L=46 H=116 SGOT (AST) 1920-8 20 U/L L=15 H=37 SGPT (ALT) 1742-6 33 U/L L=12 H=78 TOTAL PROTEIN 2885-2 7.0 gm/dL L=6.0 H=8.0 ALBUMIN 1751-7 4.3 gm/dL L=3.4 H=5.0 AGE 70 years eGFR (non-Afr.Amer.) 89609-9 66 mL/min eGFR (Afr-Vietnamese) 77016-6 79 mL/min LIPID PANEL - Collect Date/T yesenia: 02/06/2021 10:45 Test Name Code Test Result Test Units Test Ref Rang e CHOLESTEROL 2093-3 218 mg/dL L=0 H=200 TRIGLYCERIDES 2571-8 128 mg/dL L=56 H=240 HDL 2085-9 50 mg/dL L=30 H=74 non-HDL-C 07179-4 168 mg/dL L=0 H=160 LDL (CALC) 59984-9 142 mg/dL L=0 H=130 % HDL 22.9 % Chol/HDL Ratio 9830-1 4.4 L=0.0 H=4. 9 CHD Relative Risk 0.9 x Avg L=0.0 H =1.0 LDL/HDL Ratio 39905-0 2.8 L=0.0 H=3.5 CHD Relative Risk. 0.8 x Avg L=0.0 H=1.0 FASTING STATUS: NON FASTING N/A CBC W/ DIFFERENTIAL - Colle t Date/Time: 02/06/2021 10:45 Test Name Code Test Result Test Units Test Ref Rang e WBC 6690-2 4.56 th/cmm L=5.00 H=10.00 NEUT % 54.2 % L=40.0 H=80.0 LYMPH % 31.1 % L=10.0 H=50.0 MONO % 44582-5 11.4 % L=2.0 H=12.0 EOS % 2.2 % L=0.0 H=8.0 BASO % 0.7 % L=0.0 H=3.0 IG % 2514-8 0.4 % L=0.0 H=1.1 NRBC % 55279-4 0.0 % L=0.0 H=0.0 NEUT abs count 751-8 2.5 th/cmm L=1.6 H=8. 4 LYMPH abs count 731-0 1.4 th/cmm L=1.5 H=4 .0 MONO abs count 742-7 0.5 th/cmm L=0.2 H=1. 0 EOS abs count 711-2 0.1 th/cmm L=0.0 H=0.5 BASO abs count 704-7 0.0 th/cmm L=0.0 H=0. 2 IG abs count 02073-2 0.0 th/cmm L=0.0 H=0.1 NRBC abs count 01475-9 0.0 mil/cmm L=0.0 H=0. 0 RBC 789-8 5.23 mil/cmm L=4.30 H=6.20 HEMOGLOBIN 718-7 16.1 gm/dL L=13.0 H=17.0 HEMATOCRIT 4544-3 48 % L=45 H=52 MCV 787-2 92 fL L=82 H=92 MCH 785-6 30.8 pg L=27.0 H=31.0 MCHC 786-4 33.3 % L=32.0 H=36.0 RDW-SD 788-0 44.2 fL L=39.0 H=49.0 PLATELET COUNT 777-3 201 th/cmm L=150 H=45 0 Active Medications Unknown or Not Available. Medications Administered During Visit Unknown or Not Available. Encounters Encounter Diagnosis Diagnosis Code Start Date Adult health examination [id number] 021 Social History Smoking Status Code Start Date End Date Never smoker 565917360 Patient Decision Aids Unknown or Not Available. Discharge Instructions You were admitted to [facility] on 02/06/2021 17:44 with a principal diagnosis of Encounter for general adult medical examination without abnormal findings You had the following tests done:CBC W/ DIFFERENTIALCOMPREHENSIVE METABOLIC PANEL (CMP)LIPID PANEL You were discharged from [facility] on 02/06/2021 17:44 Should you have any questions prior to [...]
--- NOTE | 2023-05-21 13:02 | DI.RAD_ITS ---
Exam(s) XR ORBITS EXAM: XR ORBITS INDICATION: PRE MRI CLEARANCE, H/O METAL REMOVED FROM EYE,Z98.890. COMPARISON: No exams were available for comparison TECHNIQUE: 2D digital imaging was performed. Two views. FINDINGS: No evidence of a metallic foreign body. No evidence of fracture. IMPRESSION: No evidence of metallic foreign body. DATA REPOSITORY: RADIATION DOSE DELIVERED:
== END ==
PROVIDERS: PCP Family Medicine; Visit Provider Physician Assistant Medical
DX: M48.02 Spinal stenosis, cervical region (principal); M99.61 Osseous and subluxation stenosis of intervertebral foramina of cervical region
CPT/HCPCS: 70200; 72148

== ENCOUNTER → 2023-07-19 12:55 | Outpatient (CLI) | payer MEDICARE, OTHER, SELFPAY ==
--- NOTE | 2023-07-19 | DI.US_ITS ---
Exam(s) US ABDOMEN LIMITED EXAM: US ABDOMEN LIMITED CLINICAL HISTORY: ABD PAIN R10.9 LOCALIZED TO RUQ AND EPIGASTRIUM TECHNIQUE: Ultrasound abdomen performed using standard protocol. COMPARISON: CT CT RENAL COLIC WO from 05/16/2020 US US RENAL from 07/08/2020 FINDINGS: PANCREAS: Cannot be seen due to overlying bowel gas. LIVER: Normal. Hepatopetal flow in the Portal Vein. The liver measures in 16.7 cm length. GALLBLADDER: No evidence of cholelithiasis. No evidence of wall thickening. No pericholecystic fluid identified. BILIARY SYSTEM: Common bile duct measures < 7 mm. No intrahepatic biliary ductal dilation. MAYEN'S SIGN: Negative. RIGHT KIDNEY: Kidney is normal in size. No evidence of renal calculi. There is mild right hydronephr osis. No renal mass or cyst identified. ASCITES: None seen. IMPRESSION: 1. Examination limited by overlying bowel gas. 2. Mild right hydronephrosis. DATA REPOSITORY:
== END ==
PROVIDERS: PCP Family Medicine; Visit Provider Physician Assistant Medical
DX: R10.11 Right upper quadrant pain (principal); R10.13 Epigastric pain; N13.39 Other hydronephrosis
CPT/HCPCS: 76705

== ENCOUNTER 2023-07-19 21:30 | Outpatient (REF) | payer MEDICARE, OTHER, SELFPAY ==
[2023-07-19 15:36] LABS: Abs Immature Grans 0.02 10^3/uL (0.0-0.06); Absolute Basophil Count 0.04 10^3/uL (0.0-0.2); Absolute Eosinophil Count 0.11 10^3/uL (0.0-0.7); Absolute Lymphocyte Count 1.57 10^3/uL (1.2-3.4); Absolute Monocyte Count 0.52 10^3/uL (0.1-0.8); Absolute Neutrophil Count 3.45 10^3/uL (1.2-6.7); Basophils % 0.7; Eosinophils % 1.9; HCT 46.8 % (40.0-50.0); HGB 15.8 g/dL (13.5-17.5); Immature Grans % 0.4; Lymphocytes % 27.5; MCH 30.6 pg (27.0-33.0); MCHC 33.8 % (32.0-36.0); MCV 91 fL (80-95); MPV 10.3 fL (8.0-11.0); Monocytes % 9.1; Neutrophils % 60.4; Platelet Count 208 10^3/uL (130-400); RBC 5.17 10^6/uL (4.36-5.78); RDW 12.9 % (11.8-14.1); RDW-SD 42.8 fL; WBC 5.71 10^3/uL (4.4-10.8)
[2023-07-19 15:55] LABS: ALT 29 U/L (16-63); AST 18 U/L (15-37); Albumin 4.1 g/dL (3.4-5.0); Alkaline Phosphatase 108 U/L (46-116); Anion Gap 8.2 mmol/L (3-11); BUN 10 mg/dL (7-18); Bilirubin, Total 0.6 mg/dL (0.2-1.0); CO2 28.8 mmol/L (21.0-32.0); Calcium 9.6 mg/dL (8.5-10.1); Chloride 105 mmol/L (98-107); Estimated GFR 79.97 (mL/min/1.73m2); Glucose 99 mg/dL (74-106); Lipase 33 U/L (16-77); Sodium 142 mmol/L (136-145); Total Protein 6.9 g/dL (6.4-8.2)
== END 2023-07-19 21:31 | disposition home or self-care (01) ==
LOC: LBN 21:30
PROVIDERS: PCP Family Medicine; Visit Provider Physician Assistant Medical
DX: R10.9 Unspecified abdominal pain (principal)
CPT/HCPCS: 80053; 83690; 85025

== ENCOUNTER 2024-02-07 11:25 | Outpatient (CLI) | payer MEDICARE, OTHER, SELFPAY ==
--- NOTE | 2024-02-07 10:17 | DI.RAD_ITS ---
Exam(s) XR CHEST 2V PA LATERAL EXAM: XR CHEST 2V PA LATERAL CLINICAL HISTORY: Cough, R05.9 TECHNIQUE: 2D digital imaging was performed. Two views. COMPARISON: No exams were available for comparison FINDINGS: HEART: Normal size. Aorta: Tortuous. PULMONARY VASCULATURE: Normal. MEDIASTINUM: Unremarkable. LUNGS: Clear. PLEURAL SPACE: No pleural effusion or pneumothorax. BONE:Unremarkable for age. SOFT TISSUES: Unremarkable. IMPRESSION: No acute abnormality. DATA REPOSITORY: RADIATION DOSE DELIVERED:
== END 2024-02-07 11:45 ==
LOC: DI 11:26
PROVIDERS: PCP Family Medicine; Visit Provider Physician Assistant Medical
DX: R05.9 Cough, unspecified (principal)
CPT/HCPCS: 71046

== ENCOUNTER 2024-02-10 16:40 | Outpatient (REF) | payer MEDICARE, OTHER, SELFPAY ==
[2024-02-10 16:43] LABS: Abs Immature Grans 0.02 10^3/uL (0.0-0.06); Absolute Basophil Count 0.02 10^3/uL (0.0-0.2); Absolute Eosinophil Count 0.11 10^3/uL (0.0-0.7); Absolute Lymphocyte Count 1.13 10^3/uL (1.2-3.4); Absolute Neutrophil Count 3.86 10^3/uL (1.2-6.7); Basophils % 0.3 %; Eosinophils % 1.9 %; HGB 15.3 g/dL (13.5-17.5); Immature Grans % 0.3 %; Lymphocytes % 19.7 %; MCH 30.6 pg (27.0-33.0); MCV 90 fL (80-95); Monocytes % 10.5 %; Neutrophils % 67.3 %; Platelet Count 215 10^3/uL (130-400); RDW 12.9 % (11.8-14.1); RDW-SD 42.7 fL; WBC 5.74 10^3/uL (4.4-10.8)
--- OUTSIDE RECORDS SUMMARY | 2024-02-10 16:44 | XMS_ITS ---
Author Organization Unknown Address [address] [place] [phone] Phone Care Team Providers Care Bench Assembler Battery Name Role Phone ROBINA LONDON Attending Unavailable Social History Type Status Start Date End Date Code Code Syst em Smoking History Never smoker (Never Smoked) [id number] SNOMED CT Sex Male Hospital Discharge Instructions Should you have any questions prior to discharge, please contact a member of your healthcare team. If you have left the hospital and have any questions, please contact your primary care physician. Reason For Referral No Data Found Allergies and Adverse Reactions Allergy Substance Reaction Severity Start Date Concern Status Co de Code System No Known Drug Allergies Moderate Active [id number] SNOMED-CT Plan of Treatment No Data Found Encounters Encounter Diagnosis Start Date Code Code Sys tem Other melanin hyperpigmentation 02/19/2022 SNOMED-CT Personal Care Team Section Performer Name Performer Role Active Date Inactive Da katina
--- OUTSIDE RECORDS SUMMARY | 2024-02-10 16:44 | XMS_ITS | Encounter Summary ---
Author Organization [facility] Address [address] [place] [address] Care Team Providers Care Policy Director Name Role Phone Edi Driver MD Primary Care Provider Unavaila ble Encounter Details Date Type Department Care Team (Late st Contact Info) Description 05/09/2020 Lab Requisition [facility] Pathology & Laboratory Medicine - [address] [id number] Outr Resulting Lab, Provider Social History Tobacco Use Types Packs/Day Years Used Date Smoking Tobacco: Never Assessed Interpersonal Safety Answer Date Record ed Physically Hurt Never 12/27/2019 Verbally Threaten Not on file 12/27/2019 Sex and Gender Information Value Date Recorded Sex Assigned at Not on file Gender Identity Not on file Sexual Orientation Not on file documented as of this encounter Plan of Treatment Not on file documented as of this encounter Procedures Procedure Name Priority Date/Time Associated Diagnosis Comments ZZCOVID-19 TEST [facility] PCR Today 05/09/2020 9:14 EST COVID-19 TESTING Routine 05/09/2020 9:14 EST documented in this encounter Results * COVID-19 TEST [facility] PCR (05/09/2020 9:14 EST) Swab ENTIRE NASOPHARYNX / Unknown 05/09/2020 9:14 EST 05/09/2020 15:37 EST Provider Outr Resulting Lab MICROBIOLOGY - GENERAL ORDERABLES [facility] [address] [place] [address] * COVID-19 TESTING (05/09/2020 9:14 EST) COVID-19 rt-PCR Result Negative Negative 05/10/2020 17:25 EST [facility] Comment: Negative results do not preclude 2019-nCoV infection and should not be used as the sole basis for treatment or other patient management decisions. Negative results must be combined with clinical observations, patient history, and epidemiological information. This test was developed and its performance characteristics determined by [facility]. It has not been cleared or approved by the US Food and Drug Administration. FDA does not require this test to go through premarket FDA review. This test is used for clinical purposes. It should not be regarded as investigational or for research. This laboratory is certified under the Clinical Laboratory Improvement Amendments (CLIA) as qualified to perform high complexity clinical laboratory testing. This test is based on the CDC COVID-19 Emergency Use Authorization (EUA) assay, with minor modification as defined by the FDA Performed on the [employer] 7 Flex. Performing Lab [employer] 7 [facility] Lab 05/10/2020 17:25 EST [facility] Swab 05/09/2020 9:14 EST 05/09/2020 15:37 EST Provider Outr Resulting Lab MICROBIOLOGY - GENERAL ORDERABLES [facility] [address] [place] [address] documented in this encounter Visit Diagnoses Not on filedocumented in this encounter Care Teams Policy Director Relationship Specialty Start Date End Date Edi Driver MD PCP - General 03/05/13 documented as of this encounter
--- OUTSIDE RECORDS SUMMARY | 2024-02-10 16:44 | XMS_ITS | Data Portability ---
Author Organization [facility] Address [address] [place] [address] Assessment Encounter Date Assessment Date Assessment LastModified by Organization Details LastModified Time 01/25/2021 01/25/2021 Instructions, orders, and treatment plan, were discussed and reviewed with the patient during the visit. Follow up appointment arranged 15 minutes visit time. telephonic communication counseling and coordinating care. The x-rays he had in November from outside facility shows a previous laminectomy left-sided fusion hardware L4 compression deformity and no evidence of instability with flexion extension. His back pain may be due to facet arthropathy and breakdown probably start with an off with an MRI of the lumbar spine with and without contrast. He will have his primary care physician order that. He will call our office we can arrange to have the MRI sent to us I will review it we can set up another telehealth visit. At this point I would lean towards epidural steroid injections and pain management surgery for him may be a big deal. [email or web address] Not available 01/25/2021 09:24:43 03/23/2021 03/23/2021 Instructions, orders, and treatment plan, were discussed and reviewed with the patient during the visit. Follow up appointment arranged 15 minutes visit time. telephonic communication counseling and coordinating care. The MRI of the lumbar spine from March 03, 2021 shows severe stenosis at L2-3. His back pain is baseline his leg pain is improved since last visit. We will start with physical therapy and they will arrange a telehealth visit. We also talked about steroid injection which he seems resistant to since they have not worked in the past. [email or web address] Not available 03/23/2021 08:21:48 Plan of Treatment Reminders Order Date Submit Date Provider Last Modified By Organization Details Last Modified Time Details Appointments None recorded. Lab None recorded. Referral physical therapist referral 2020 021 ANAMIKA Not available 03:55:59 Procedures None recorded. Surgeries None recorded. Imaging None recorded. Medication Orders None recorded. Patient TargetsNo targets recorded. Patient InstructionsNo instructions recorded. Reason for Referral Physical Therapist Referral for Spinal stenosis of lumbar region Referring Physician: Victoriano Hardy, Neurosurgery, Encounter Date: 03/23/2021 Results Created Date Observation Date Name Description Value Unit Range Abnormal Flag Note LastModifiedBy Organization Detail LastModifiedTime 09/15/19 11 08/18/2010 imagi ng/di agnos tic resul t No observ ation record ed. ANAMIKA Not Available 2012 04:12:02 11/08/19 11 11/01/2010 imagi ng/di agnos tic resul t No observ ation record ed. ANAMIKA Not Available 2012 05:04:10 08/02/19 12 05/17/2010 imagi ng/di agnos tic resul t No observ ation record ed. ANAMIKA Not Available 2012 05:38:29 04/11/20 16 04/05/2016 MRI, lumba r spine No observ ation record ed. BARCODE Not Available 2015 11:43:51 01/11/20 21 12/16/2020 XR, lumba r spine No observ ation record ed. [email or web address] [facility] (Radiology) [address], [place], [address], 03/08/2021 09:49:17 Result Notes None recorded. Problems Name Problem SNOMED Code Status Onset Date Resolution Date Notes Provider Name and Address Organization Details Recorded Time Spinal stenosis of lumbar region 93785326 Active 2009 Not Available [facility] 3 03:23:02 Acquired spondylolisth esis 868500512 Active 2009 Not Available [facility] 3 03:23:02 Degeneration of intervertebra l disc 84591091 Active 2009 Not Available [facility] 3 03:23:02 Disorder of trunk 706972904 Active 2009 Not Available [facility] 3 03:23:02 Problem Notes None recorded. Procedures Surgical History Date Name Laterality Status Provider Name and Address Organization Details Recorded Time 0 Apply spine prosth device completed Not Available [facility] 04/21/2011 06:00:33 0 Arthrd pst tq 1ntrspc ea add completed Not Available [facility] 04/21/2011 06:00:33 0 Low back disk surgery completed Not Available [facility] 04/21/2011 06:00:33 0 Sp bone algrft struct add-on completed Not Available [facility] 04/21/2011 06:00:33 0 Insert spine fixation device completed Not Available [facility] 04/21/2011 06:00:33 0 Remove lamina/facets lumbar completed Not Available [facility] 04/21/2011 06:01:18 0 Arthrd pst tq 1ntrspc lumbar completed Not Available [facility] 04/21/2011 06:00:33 0 Sp bone agrft local add-on completed Not Available [facility] 04/21/2011 06:00:33 Imaging Results Imaging Date Name Status LastModified by Organiz ation Details LastModified Time 08/18/2010 imaging/diag nostic result completed ANAMIKA Information not available 12/19/2012 04:12:02 11/01/2010 imaging/diag nostic result completed ANAMIKA Information not available 12/19/2012 05:04:10 05/17/2010 imaging/diag nostic result completed ANAMIKA Information not available 12/19/2012 05:38:29 04/05/2016 MRI, lumbar spine completed BAR[facility] Information not available 04/11/2016 11:43:51 12/16/2020 XR, lumbar spine completed [email or web address] [facility] (Radiology) [facility] [place], [address], 03/08/2021 09:49:17 Procedure Notes None recorded. Medical Equipment None Reported. Vitals None Recorded Social History None recorded. Functional Status None recorded. Mental Status None recorded. Family History Nothing Reported. Medical History No medical history recorded. Past Encounters Encounter ID Performer Location Encounter Start Date Encounter Closed Date Diagnosis/Indication Diagnosis SNOMED-CT Code Diagnosis ICD10 Code [id number] [facility] [address] [id number] 01/11/2010 11:14:54 01/11/2010 16:35:29 [id number] [facility] [address] [place] [id number] 03/03/2010 00:00:00 04/19/2010 00:00:00 [id number] [facility] [address] [place] [id number] 7 04/19/2010 14:57:20 04/19/2010 14:57:32 [id number] [facility] [address] [place] [id number] 04/10/2010 00:00:00 05/09/2010 00:00:00 [id number] [facility] [address] [id number] 05/17/2010 10:48:47 05/17/2010 11:34:37 [id number] Victoriano Hardy MD [facility] [address] [place] [id number] 7 01/25/2021 07:49:52 01/25/2021 16:09:37 Low back pain 848690689 M54.5 [id number] Victoriano Hardy MD [facility] [address] [id number] 03/23/2021 07:52:58 03/23/2021 08:22:54 Spinal stenosis of lumbar region 71235794 M48.062 Health Concerns Section Related Observation LastModified by Organization Detai ls LastModified Time None Recorded Concern Status LastModified by Organization Details LastModified Time None Recorded Advance Directives Directive None Recorded Payers Encounter Date Sequence Insurance Name Policy Number Policy Salvador Covered Member ID Salvador Member ID Guarantor Name 04/10/2010 1 [facility]: OUT OF STATE - BLUE CARD [id number] Bhavna Lora [id number] Michael Lora 05/17/2010 1 [place] [facility] [id number] Bhavna Lora [id number] Michael Lora 01/25/2021 1 [place] [facility] BLUE CARD [id number] Bhavna Lora [id number] Michael Lora 03/23/2021 1 [place] [facility] BL[facility] [id number] Bhavna Lora [id number] Michael Lora Notes Date Note Type Note Provider Name and Address Organization Details Recorded Time 01/25/2021 text/html HPI Notes: The patient acknowledges that they can see a clinician in-person in the event of an emergency or as otherwise needed yes Patient consents to having a Telehealth appointment today yes Patients host site is: home. Persons present patient alone My originating site: my office. Person present myself alone This appointment/visit has been conducted using two-way, real-time telehealth video conferencing in which audio alone was used due to technical complications despite multiple tries, proceeded with patient consent audio alone on host/patient site. Since September he has had worsening symptoms of bilateral lower extremity pain bilateral hip pain left greater than right he had preclinic flexion-extension x-rays from somewhere else.Treatment so far has been ibuprofen. When he is working he does not have a lot of pain but when he stops he has a hard time sleeping at night with worsening pain Victoriano Hardy MD [address] [place] [address], [phone], [facility] 01/25/2021 09:24:59 03/23/2021 text/html HPI Notes: The patient acknowledges that they can see a clinician in-person in the event of an emergency or as otherwise needed yes Patient consents to having a Telehealth appointment today yes Patients host site is: home. Persons present patient alone My originating site: my office. Person present myself alone This appointment/visit has been conducted using two-way, real-time telehealth video conferencing in which audio alone was used due to technical complications despite multiple tries, proceeded with patient consent audio alone on host/patient site.The x-rays he had in November from outside facility shows a previous laminectomy left-sided fusion hardware L4 compression deformity and no evidence of instability with flexion extension. The MRI that he had from an outside facility 03/03/2021 and compared to previous MRI in 2016. The MRI shows a prior fusion at L4-5 with instrumentation. Shows severe stenosis at L2-3. There is good decompression from the previous surgery from L3-S1. He says his leg pain is much better and he has baseline level of back pain. Victoriano Hardy MD [address] [place] [address], [phone], [facility] 03/23/2021 08:22:17
--- OUTSIDE RECORDS SUMMARY | 2024-02-10 16:44 | XMS_ITS | Encounter Summary ---
Author Organization [facility] Address [address] [place] [address] Care Team Providers Care Form Setter Name Role Phone Edi Driver MD Primary Care Provider Unavaila ble Encounter Details Date Type Department Care Team (Late st Contact Info) Description 10/21/2019 Lab Requisition [facility] Pathology & Laboratory Medicine - [address] [phone] Outr Resulting Lab, Provider Social History Tobacco Use Types Packs/Day Years Used Date Smoking Tobacco: Never Assessed Sex and Gender Information Value Date Recorded Sex Assigned at Not on file Gender Identity Not on file Sexual Orientation Not on file documented as of this encounter Plan of Treatment Not on file documented as of this encounter Procedures Procedure Name Priority Date/Time Associated Diagnosis Comments HOLD SST Today 10/20/2019 16:15 EDT LYME AB Today 10/20/2019 16:15 EDT PSA TOTAL, DIAGNOSTIC Today 10/20/2019 16:15 EDT documented in this encounter Results * HOLD SST (10/20/2019 16:15 EDT) Hold Hold 10/21/2019 17:31 EDT [facility] Blood VENOUS BLOOD / Unknown 10/20/2019 16:15 EDT 10/21/2019 16:25 EDT Provider Outr Resulting Lab LAB INFO SER VICE AND SUPPORT & PHONE RESULT [facility] [address] [place] [address] * PSA TOTAL, DIAGNOSTIC (10/20/2019 16:15 EDT) PSA 0.8 0.0 - 4.5 ng/mL 10/22/2019 12:02 EDT [facility] Blood VENOUS BLOOD / Unknown 10/20/2019 16:15 EDT 10/21/2019 16:25 EDT Narrative [facility] - 10/22/2019 12:02 EDT NOTE: Serum PSA concentration should not be interpreted as absolute evidence for the presence or absence of malignant disease. Assayed on Voxyaur XPT using chemiluminescent technology.??Values obtained by using different assay methods cannot be used interchangeably. Provider Outr Resulting Lab CHEMISTRY & BLOOD GAS ORDERABLES Performing Organization Address [facility] Co de Phone Number [facility] [address] [place] [address] * LYME AB (10/20/2019 16:15 EDT) Lyme Ab Negative Negative 10/22/2019 11:00 EDT [facility] Blood VENOUS BLOOD / Unknown 10/20/2019 16:15 EDT 10/21/2019 16:25 EDT Provider Outr Resulting Lab IMMUNOLOGY A ND SEROLOGY ORDERABLES Performing Organization Address [facility] Co de Phone Number [facility] [address] [place] [address] documented in this encounter Visit Diagnoses Not on filedocumented in this encounter Care Teams Form Setter Relationship Specialty Start Date End Date Edi Driver MD PCP - General 03/05/13 documented as of this encounter
--- OUTSIDE RECORDS SUMMARY | 2024-02-10 16:44 | XMS_ITS | Clinical Summary ---
Author Organization [facility] Address [address] [place] [address] Care Team Providers Care Land Clearer Name Role Phone Edi Driver MD Primary Care Provider Unavaila ble Medications Medication Sig Dispensed Refills Start Date End Date Status MULTI-VITAMIN ORAL Take by mouth daily. 01/06/2010 Active CALCIUM ORAL Take by mouth daily. 01/06/2010 Active ASCORBIC ACID (VITAMIN C ORAL) Take by mouth daily. 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 Left sacroiliac joint injection with fluoroscopic guidance. Radiculopathy 09/06/2008 Overview: Left lower extremity. Encounters Date Type Department Care Team Description 02/10/2024 Lab Requisition [facility] Pathology & Laboratory Medicine - [address] [address] Outr Resulting Lab, Provider from Last 3 Months Social History Tobacco Use Types Packs/Day Years Used Date Smoking Tobacco: Never Assessed Interpersonal Safety Answer Date Record ed Physically Hurt Never 12/27/2019 Verbally Threaten Not on file 12/27/2019 Sex and Gender Information Value Date Recorded Sex Assigned at Not on file Gender Identity Not on file Sexual Orientation Not on file Plan of Treatment Health Maintenance Due Date Last Done Comments Hepatitis C Screen 1950 RSV Immunization ( o r 60+ Years) (1 - 1-dose 60+ series) 2011 Fall Risk Screening 2016 COVID-19 Vaccine (1 - 2023-24 season) 2023 Care Teams Land Clearer Relationship Specialty Start Date End Date Edi Driver MD PCP - General 03/05/13
--- OUTSIDE RECORDS SUMMARY | 2024-02-10 16:44 | XMS_ITS | Referral Summary ---
Author Organization [facility] Address [address] [place] [address] Care Team Providers Care Collections Director Name Role Phone Edi Driver MD Primary Care Provider Unavaila ble Encounters Date Type Department Care Team Description 02/10/2024 Lab Requisition [facility] Pathology & Laboratory Medicine - [address] [address] Outr Resulting Lab, Provider from Last 3 Months Medications Medication Sig Dispensed Refills Start Date End Date Status MULTI-VITAMIN ORAL Take by mouth daily. 01/06/2010 Active CALCIUM ORAL Take by mouth daily. 01/06/2010 Active ASCORBIC ACID (VITAMIN C ORAL) Take by mouth daily. 01/06/2010 Active Active Problems Problem Noted Date Diagnosed Date Inflammation of sacroiliac joint ([facility]) 09/06 Overview: Left. Left sacroiliac joint injection with fluoroscopic guidance. Radiculopathy 09/06/2008 Overview: Left lower extremity. Social History Tobacco Use Types Packs/Day Years Used Date Smoking Tobacco: Never Assessed Interpersonal Safety Answer Date Record ed Physically Hurt Never 12/27/2019 Verbally Threaten Not on file 12/27/2019 Sex and Gender Information Value Date Recorded Sex Assigned at Not on file Gender Identity Not on file Sexual Orientation Not on file Plan of Treatment Not on file Care Teams Collections Director Relationship Specialty Start Date End Date Edi Driver MD PCP - General 03/05/13
--- OUTSIDE RECORDS SUMMARY | 2024-02-10 16:44 | XMS_ITS | Encounter Summary ---
Author Organization [facility] Address [address] [place] [address] Care Team Providers Care Flight Hostess Name Role Phone Edi Driver MD Primary Care Provider Unavaila ble Encounter Details Date Type Department Care Team (Latest Contact Info) Description 01/19/2019 9:41 EDT - 01/19/2019 23:59 EDT Hospital Encounter [address] [address] Unknown, Provider, Discharge Disposition: Home or Self Care Social History Tobacco Use Types Packs/Day Years Used Date Smoking Tobacco: Never Assessed Sex and Gender Information Value Date Recorded Sex Assigned at Not on file Gender Identity Not on file Sexual Orientation Not on file documented as of this encounter Medications at Time of Discharge Medication Sig Dispensed Refills Start Date End Date ASCORBIC ACID (VITAMIN C ORAL) Take by mouth daily. 01/06/2010 CALCIUM ORAL Take by mouth daily. 01/06/2010 MULTI-VITAMIN ORAL Take by mouth daily. 01/06/2010 documented as of this encounter Discharge Disposition Disposition Code Departure Means Destination Home or Self [facility] documented in this encounter Plan of Treatment Not on file documented as of this encounter Visit Diagnoses Not on filedocumented in this encounter Care Teams Flight Hostess Relationship Specialty Start Date End Date Edi Driver MD PCP - General 03/05/13 documented as of this encounter
--- OUTSIDE RECORDS SUMMARY | 2024-02-10 16:44 | XMS_ITS | Encounter Summary ---
Author Organization [facility] Address [address] [place] [address] Care Team Providers Care Consulting Psychiatrist Name Role Phone Edi Driver MD Primary Care Provider Unavaila ble Encounter Details Date Type Department Care Team (Late st Contact Info) Description 01/12/2019 Results Only [facility] [phone] Rafael Nicholas MD [address] [place] [address] Social History Tobacco Use Types Packs/Day Years Used Date Smoking Tobacco: Never Assessed Sex and Gender Information Value Date Recorded Sex Assigned at Not on file Gender Identity Not on file Sexual Orientation Not on file documented as of this encounter Plan of Treatment Not on file documented as of this encounter Procedures Procedure Name Priority Date/Time Associated Diagnosis Comments SURGICAL PATHOLOGY Routine 01/12/2019 16 :13 EDT documented in this encounter Results * SURGICAL PATHOLOGY (01/12/2019 16:13 EDT) Pathology Report: SURGICAL PATHOLOGY REPORT Reports generated via electronic interface contain original data; however they are lacking the format of the original report. Caution should be taken when reading/interpret ing unformatted reports. Name: ? MICHAEL CORBIN ? Accession #: ? [id number] ? : ? 1950 (Age: 68) ??M ? Collect Date: ? 01/12/2019 ? Location: ? [facility] ? Receive Date: ? 01/12/2019 ? Provider: RAFAEL NICHOLAS MD Copy to: HARSHA LOVETT MD ? Final Pathologic Diagnosis: COLON, ASCENDING, POLYP, BIOPSY: - Tubular adenomas. Document reviewed and electronically signed by: JACOBO HSU MD Report ??Date: 01/13/2019 15:16 By the signature above, the attending physician certifies that he/she has personally conducted a gross and/or microscopic examination of the described specimens and rendered or confirmed the above diagnosis. Specimen(s) Received: Ascending colon polyp x2 Clinical History: Abdominal pain; abnormal CT findings Gross Description: ? Received in formalin labelled with proper patient identification (initials B, M) and ascending colon polyp is an aggregate of pink tissue (0.7 x 0.6 x 0.3 cm). The specimen is submitted entirely in 1-3. TINY Dailey (ASCP) 01/12/2019 4:24 PM End of Report [facility] 01/12/2019 16:1 3 EDT 01/12/2019 16:13 EDT Rafael Nicholas MD PATHOLOGY ORDERA BLES [facility] [address] [place] [address] documented in this encounter Visit Diagnoses Not on filedocumented in this encounter Care Teams Consulting Psychiatrist Relationship Specialty Start Date End Date Edi Driver MD PCP - General 03/05/13 documented as of this encounter
--- OUTSIDE RECORDS SUMMARY | 2024-02-10 16:45 | XMS_ITS | Encounter Summary ---
Author Organization [facility] Address [address] [place] [address] Care Team Providers Care Summer Camp Counselor Name Role Phone Edi Driver MD Primary Care Provider Unavaila ble Encounter Details Date Type Department Care Team (Latest Contact Info) Description 10/08/2016 11:21 EDT - 10/08/2016 23:59 EDT Hospital Encounter [address] [address] Unknown, Provider, Discharge Disposition: Home or Self [...] Code Departure Means Destination Home or Self [facility] documented in this encounter Plan of Treatment Not on file documented as of this encounter Visit Diagnoses Not on filedocumented in this encounter Care Teams Summer Camp Counselor Relationship Specialty Start Date End Date Edi Driver MD PCP - General 03/05/13 documented as of this encounter
--- OUTSIDE RECORDS SUMMARY | 2024-02-10 16:45 | XMS_ITS | Encounter Summary ---
Author Organization [facility] Address [address] [place] [address] Care Team Providers Care Reverser Name Role Phone Unavailable Primary Care Provider Unavailabl e Encounter Details Date Type Department Care Team (Late st Contact Info) Description 06/07/2006 Before PRISM Converted Visit (Map[facility]) [facility] conversion [address] [place] [address] Selam Acosta, [facility] Social History Tobacco Use Types Packs/Day Years Used Date Smoking Tobacco: Never Assessed Sex and Gender Information Value Date Recorded Sex Assigned at Not on file Gender Identity Not on file Sexual Orientation Not on file documented as of this encounter Plan of Treatment Not on file documented as of this encounter Visit Diagnoses * Evaluation - Selam Acosta - 06/12/[id number] EST [facility] [address] [address] AUDIOLOGICAL EVALUATION SERVICE DATE: 06/07/2006 DIAGNOSIS CODE: 389.10 (sensorineural hearing loss) HISTORY: Michael Lora was seen at this center on June 07, 2006 for an audiological evaluation. Mr. Lora has noticed increasing hearing difficulty for thepast several years. He experiences trouble understanding people if there is background noise, if he is in the car, or if more than one person is speaking at a time. 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 He thinks he needs a hearing aid. He is going to be investigating using [facility]. EVALUATION: Otoscopic inspection was unremarkable in both ears. Pure tone testing was done under headphones. Please see audiogram. IMPRESSION/PLAN: In summary, todays testing excellent hearing in both ears in the low frequencies, dropping through moderate to severe loss in the higher frequencies. Masked bone conduction results revealed no air-bone gaps, consistent with permanent hearing loss. The configuration of the hearing loss is consistent with probable noise damage, as is his history. Word discrimination scores were fair at 68% on the right, and good at 80% on the left, when words were presented at a comfortable listening level. These results were discussed with Mr. Lora. He is considered a good candidate for a hearing aid in each ear. We briefly discussed different styles and prices of hearing aids. He will look into possible coverage assistance with this, and will call us to schedule a hearing aid evaluation appointment if he wishes to proceed with ordering hearing aids. He should probably continue to have his hearing checked on a yearly basis. Please do not hesitate to call me if there are any questions about this. Signed by MEIR Arias 06/14/2006 08:24 Cristina Dempsey, MEIR Selam Acosta MS, [facility] Seasonal Driver cc: MEIR Arias Michael Lora, [address], [place] [address]* Edi Driver MD, [facility], [address] [place] [address]* [facility], [address] [place] [address], [facility] [address], [place] [address]* - MEIR Arias A - plf Job ID: [id number] Document ID: [id number] documented in this encounter
--- OUTSIDE RECORDS SUMMARY | 2024-02-10 16:45 | XMS_ITS | Encounter Summary ---
Author Organization [facility] Address [address] [place] [address] Care Team Providers Care Daycare Director Name Role Phone Edi Driver MD Primary Care Provider Unavaila ble Encounter Details Date Type Department Care Team (Late st Contact Info) Description 10/08/2016 Results Only [facility] [phone] Rafael Nicholas MD [address] [place] [address] Social History Tobacco Use Types [...] Date/Time Associated Diagnosis Comments SURGICAL PATHOLOGY Routine 10/08/2016 11 :50 EDT documented in this encounter Results * SURGICAL PATHOLOGY (10/08/2016 11:50 EDT) Pathology Report: SURGICAL PATHOLOGY REPORT Reports generated via electronic interface contain original data; however they are lacking the format of the original report. Caution should be taken when reading/interpret ing unformatted reports. Name: ? MICHAEL CORBIN ? Accession #: ? [id number] ? : ? 1950 (Age: 66) ??M ? Collect Date: ? 10/08/2016 ? Location: ? [facility] ? Receive Date: ? 10/09/2016 ? Provider: RAFAEL NICHOLAS MD Copy to: HARSHA LOVETT MD ? Final Pathologic Diagnosis: ASCENDING COLON, POLYP, BIOPSIES: - ?Fragments of tubular adenoma. Document reviewed and electronically signed by: CONNIE HERMAN MD Report ??Date: 10/10/2016 21:32 By the signature above, the attending physician certifies that he/she has personally conducted a gross and/or microscopic examination of the described specimens and rendered or confirmed the above diagnosis. Specimen(s) Received: Ascending colon polyp Clinical History: History of colon polyps Gross Description: ? Received in formalin labelled with proper patient identification (initials B, M) and ascending colon polyp are four light peralta tissues (0.2 x 0.1 x 0.1 cm to 0.4 x 0.1 x 0.1 cm). Entirely submitted in 1 and 2. Aparna Gay 10/09/2016 3:20 PM End of Report [facility] 10/08/2016 11:5 0 EDT 10/09/2016 11:50 EDT Rafael Nicholas MD PATHOLOGY ORDERA GREG [facility] [address] [place] [address] documented in this encounter Visit Diagnoses Not on filedocumented in this encounter Care Teams Daycare Director Relationship Specialty Start Date End Date Edi Driver MD PCP - General 03/05/13 documented as of this encounter
--- OUTSIDE RECORDS SUMMARY | 2024-02-10 16:45 | XMS_ITS | Encounter Summary ---
Author Organization [facility] Address [address] [facility] [place] [address] Care Team Providers Care Industrial Controller Name Role Phone Rob Velez MD Primary Care Provider Reason for Visit * Auth/Cert (Routine) Specialty Diagnoses / Procedures Referred By Contac t Referred To Contact Diagnoses STENOSIS AND RADICULOPATHY Procedures PRO ARTHRODESIS POSTERIOR/PSTLAT TECHNIQUE 1 INTERSPACE LUMBAR PRO LAMINEC/FACETECT/FORAMIN, LUMBAR 1 SEG PRO YBARRA FACETECTOMY&FORAMOT 1 VRT SGM EA ADDL SGM PRO POSTERIOR NON-SEGMENTAL INSTRUMENTATION PRO AUTOGRAFT SPINE SURGERY LOCAL FROM SAME INCISION PRO STEROTACTIC CPTR ASSTD PX SPINAL Jie Aguiar MD [address] [place] [address] Referral ID Status Reason Start Date Expiration Date Visits Re quested Visits Authorized [id number] 06/10/2023 1 1 Encounter Details Date Type Department Care Team (Late st Contact Info) Description 09/05/2023 1:16 PM EDT Anesthesia Event Operating Room [address] [place] [address] Rafal Fry, ENTRY LEVEL MANUFACTURING ENGINEER [address] [place] [address] Muna Wong CRNA [address] [place] [address] Anesthesia Record Procedure Summary Procedure Name Responsible Anesthesiologist Anesthesia Start Time Anesthesia Stop Time ARTHRODESIS, LUMBAR SPINE, SINGLE INTERSPACE (WRVU 23.53) (Spine Lumbar) Rafal Fry CRNA 09/05/23 1316 09/05/23 1524 Events Date Time Event Comment 09/05/2023 1308 1316 AN Verify 1316 Start 1316 An Start Data 1320 An Induction 1323 An Intubation 1323 Anesthesia Ready 1335 Procedure Start 1522 Extubation/LMA Out 1524 an stop data 1524 Recovery or ICU Handoff Katlin ent care was transferred to the destination unit staff after review of the patient's medical history, current anesthetic/surgical status and plan, according to the Provider Handoff Checklist. 1524 Stop Meds Name Total fentaNYL 100 mcg IV Lidocaine 50 mg Propofol 200 mg Rocuronium 50 mg Ondansetron 4 mg Dexamethasone 10 mg ceFAZolin (Ancef) 2 g vial a ttach to sodium chloride 0.9% 100 mL Mini-Bag Plus 2 g lactated ringers infusion 700 mL * Agents Name O2 Sevoflurane (et) * Blood No blood administrations on file. Lines, Drains, and Airways Type Details Placement Removal PIV 09/05/23; 1247; qyor-bwk-zrxofn catheter system; 20 gauge; basilic vein (medial side of arm), right; Anatomical Landmarks; US Not Used; YE RN; distraction, tolerated well; 2; basilic vein (medial side of arm), left 09/05/23 1247 by Brina Dove RN Incision 09/05/23; 1339; alyshae r; lumbar spine; dermabond 09/05/23 1339 by Edna Kerr, RN ETT Mask Ventilation: Ea sy (1); ETT Type: Cuffed, Oral; ETT Size: 7 mm; Mac Blade: 4; Notes: Asleep, Pre-O2, Stylette; Attempts: 1; Laryngoscopy Grade: 1; ETT Placement Verified By: Auscultation, Capnometry, Visual; Secured at Teeth: 22 cm; Inserted by: PEDRO Fry; Removal Date: 09/05/23; Removal Time: 15209/05/23 1323 by Rafal Fry CRNA 09/05/23 1522 by Rafal Fry CRNA documented in this encounter Social History Tobacco Use Types Packs/Day Years Used Date Smoking Tobacco: Never Smokeless Tobacco: Never Alcohol Use Standard Drinks/Week Comments Yes 0 (1 standard drink = 0.6 oz pur e alcohol) very seldom [facility] Utilities Answer Date Recorded In the past 12 months has th e electric, gas, oil, or water company threatened to shut off services in your home? No 09/05/2023 Hunger Vital Sign Answer Date Recorded Within the past 12 months, y ou worried that your food would run out before you got the money to buy more. Never true 09/05/19 24 Within the past 12 months, t he food you bought just didn't last and you didn't have money to get more. Never true 09/05/2023 PRAPARE - Transportation Answer Date Re corded In the past 12 months, has l ack of transportation kept you from medical appointments or from getting medications? No 08/25 In the past 12 months, has l ack of transportation kept you from meetings, work, or from getting things needed for daily living? No 09/05/2023 Housing Stability Vital Sign Answer Kishor e Recorded In the last 12 months, was t here a time when you were not able to pay the mortgage or rent on time? No 09/05/2023 In the last 12 months, how many places have you lived? 1 09/05/2023 In the last 12 months, was t here a time when you did not have a steady place to sleep or slept in a mcc (including now)? No 09/05/2023 DH IPV Inpatient Questions Answer Date Recorded Does Anyone Try to Keep You From Having Contact with Others or Doing Things Outside Your Home? no 09/05/2023 Feels Threatened by Someone no 08/25 Feels Unsafe at Home or Work/School no 09/05/2023 Physical Signs of Abuse Present no 09/05/2023 Sex and Gender Information Value Date Recorded Sex Assigned at Not on file Gender Identity Not on file Sexual Orientation Not on file documented as of this encounter OR Notes * Anesthesia Postprocedure Evaluation - Rafal Fry CRNA - 09/06/2023 11:16 AM EDT Department of Anesthesiology Post-procedure Note Patient: Michael Lora Procedure Summary Date: 09/05/23 Room / Location: [facility] MA[facility] OR Anesthesia Start: 1316 Anesthesia Stop: 1524 Procedures: ARTHRODESIS, LUMBAR SPINE, SINGLE INTERSPACE (WRVU 23.53) (Spine Lumbar) LAMINECTOMY, FACETECTOMY & FORAMINOTOMY,LUMBAR, ONE LEVEL (WRVU 15.37) EA ADD'L VERTEBRAL SEGMENT CERVICAL, THORACIC, LUMBAR (WRVU 3.47) (Spine Thoracic) POSTERIOR SPINAL NON-SEGMENTAL INST.(ONE SPACE) (WRVU 12.52) (Back) AUTOGRAFT FOR SPINE SURGERY ONLY, SAME INCISION (WRVU *) (Bilateral) STEREOTACTIC COMPUTER-ASSTD NAVIGATIONAL SPINAL (WRVU 3.75) (Bilateral) MODIFIER MEDTRONIC - SOLERA (Bilateral) MODIFIER MEDTRONIC - NAVIGATION / STEALTH (Bilateral) Diagnosis: (STENOSIS AND RADICULOPATHY) Surgeons: Jie Aguiar MD Responsible Provider: Rafal Fry CRNA Anesthesia Type: general ASA Status: 2 All Anesthesia Providers: PEDRO Independent: Rafal Fry CRNA Vitals Value Taken Time BP 153/71 09/05/23 1620 Temp 36 ??C (96.8 ??F) 09/05/23 1525 Pulse 64 09/05/23 1550 Resp 16 09/05/23 1620 SpO2 98 % 09/05/23 1624 Pain Level 0 09/05/23 1620 Vitals shown include unfiled device data. Patient Location: PACU/[facility] Level of Consciousness: Awake and Alert Pain Management: Satisfactory Analgesia PONV: None Cardiovascular Status: At Baseline and Hemodynamically Stable Respiratory Status: At Baseline and Room Air Postoperative Fluid Status: Intravascular EUvolemia Possible Anesthetic Complications: NONE apparent at time of evaluation Final Primary Anesthesia Type: General (The anesthetic type performed was the same as planned.) Comments: Rafal Fry CRNA * Anesthesia Preprocedure Evaluation - Rafal Fry CRNA - 09/05/2023 1:08 PM EDT Pre-Anesthesia Evaluation for: Michael Guthriet a 73 y.o. male. Procedure(s): ARTHRODESIS, LUMBAR SPINE, SINGLE INTERSPACE (WRVU 23.53) LAMINECTOMY, FACETECTOMY & FORAMINOTOMY,LUMBAR, ONE LEVEL (WRVU 15.37) EA ADD'L VERTEBRAL SEGMENT CERVICAL, THORACIC, LUMBAR (WRVU 3.47) POSTERIOR SPINAL NON-SEGMENTAL INST.(ONE SPACE) (WRVU 12.52) AUTOGRAFT FOR SPINE SURGERY ONLY, SAME INCISION (WRVU *) STEREOTACTIC COMPUTER-ASSTD NAVIGATIONAL SPINAL (WRVU 3.75) MODIFIER MEDTRONIC - SOLERA MODIFIER MEDTRONIC - NAVIGATION / STEALTH Patient Active Problem List Diagnosis Date Noted ??? *S/P lumbar spinal fusion 09/05/2023 ??? Right kidney stone 05/12/2020 Past Medical History: Diagnosis Date ??? Angina pectoris one time event w/u negative ??? Kidney stone ??? Transfusion history pt not sure if he actually got a transfusion 40 years ago Past Surgical History: Procedure Laterality Date ??? HERNIA REPAIR ??? LUMBAR FUSION 2009 L4/5 Discectomy and pedicle screw ??? PRG FLU[facility] 05/12/2020 FLUOROSCOPY (WRVU 0.17) performed by Jair Barroso Jr., MD at [facility] MAIN OR ??? PRG US GUIDE INTRAOP N/A 05/12/2020 ULTRASONIC GUIDANCE, INTRAOP (WRVU 1.2) performed by Jair Barroso Jr., MD at [facility] MAIN OR ? ? PRO CYSTO W URETEROSCOPY &/OR PYELOSCOPY, DX Right 05/12/2020 CYSTOURETEROSCOPY, DIAGNOSTIC (WRVU 5.75) performed by Jair Barroso Jr., MD at [facility] MAIN OR ??? PRO PERQ NL/PL LITHOTRIPSY SIMPLE UP TO 2 CM 1 LOCATION Right 05/12/2020 NEPHROLITHOTOMY, ([facility]NL) PERCUTANEOUS (WRVU 15.74) performed by Jair Barroso Jr., MD at [facility] MAIN OR ? ? PRO PLHI NEPHROSTOMY CATH PRQ NEW ACCESS RS&I Right 05/12/2020 NEPHROSTOMY CATHETER, PERC, INC DX NEPHROSTOGRAM/URETEROGRAM, IMG GUIDANCE (WRVU 4.25) performed byJair Barroso Jr., MD at [facility] MAIN OR ??? SHOULDER SURGERY Right 07/11/2011 ??? ULNAR TUNNEL RELEASE Left 2018 with CTR Social History Tobacco Use ??? Smoking status: Never ??? Smokeless tobacco: Never Substance Use Topics ??? Alcohol use: Yes Comment: very seldom Social History Substance and Sexual Activity Drug Use Never No Known Allergies Medications: MAR and/or home medications have been reviewed. Physical Exam: Preprocedure Vitals Current as of 09/05/23 1308 BP: 159/78 Pulse: 67 Resp: 18 SpO2: 99 Temp: 36.3 ??C (97.3 ??F) Height: 170.2 cm (5' 7) (09/05/23) Weight: 77.1 kg (170 lb) (09/05/23) BMI: 26.62 IBW: 66.1 kg (145 lb 12.2 oz) Last edited 09/05/23 1222 by AG Airway Assessment: Mallampati: II TM distance: <3 FB Neck ROM: full Cardiovascular Assessment: Rhythm: regular Rate: normal Pulmonary Assessment: breath sounds clear to auscultation pulmonary exam normal Dental Assessment: - normal exam Misc Assessment: Patient is wearing No contact(s). IV access: Peripheral line Last Filed Perioperative Cognitive Screening None Anesthesia Plan: ASA 2 general, with a(n) intravenous induction Region - Other Informed Consent: Anesthetic plan and risks discussed with patient. Anesthesia Screening documented in this encounter Plan of Treatment Not on file documented as of this encounter Visit Diagnoses Not on filedocumented in this encounter Administered Medications Inactive Administered Medications - up to 3 most recent administrations Medication Order MAR Action Action Date Dose Rate Site ceFAZolin (Ancef) 2 g vial attach to sodium chloride 0.9% 100 mL Mini-Bag Plus 2 g, Intravenous, ONCE, 1 dose, On Darlene 09/05/23 at 1230, Administer over 30 Minutes, To be administered upon arrival to the OR within one hour prior to incision., Day of Surgery (Day of Procedure), Indication for (Active or Suspected): Prophylaxis New Bag 09/05/2023 1:23 PM EDT 2 g dexAMETHasone (Decadron) injection Intravenous, PRN, Starting on Darlene 09/05/23 at 1330, Until Darlene 09/05/23 at 1524, Anesthesia Intra-op, Routine Given 09/05/2023 1:30 PM EDT 10 mg fentaNYL (pf) (50 mcg/mL) multi-dose injection Intravenous, PRN, Starting on Darlene 09/05/23 at 1514, Until Darlene 09/05/23 at 1524, Anesthesia Intra-op, Routine Given 09/05/2023 3:14 PM EDT 50 mcg Given 09/05/2023 2:30 PM EDT 50 mcg lactated ringers infusion 1,000 mL, at 50 mL/hr, Intravenous, CONTINUOUS, Starting on Darlene 09/05/23 at 1230, Until Darlene 09/05/23 at 1633, Day of Surgery (Day of Procedure) New Bag 09/05/2023 1:16 PM EDT New Bag 09/05/2023 12:48 PM EDT 1,000 mLs 50 mL/hr lidocaine (pf) (Xylocaine) (20 mg/mL) 2% injection syringe Intravenous, PRN, Starting on Darlene 09/05/23 at 1320, Until Darlene 09/05/23 at 1524, Anesthesia Intra-op, Routine Given 09/05/2023 1:20 PM EDT 50 mg ondansetron (pf) (Zofran) (2 mg/mL) injection Intravenous, PRN, Starting on Darlene 09/05/23 at 1330, Until Darlene 09/05/23 at 1524, Anesthesia Intra-op, Routine Given 09/05/2023 1:30 PM EDT 4 mg propofoL (Diprivan) 10 mg/mL bolus injection (Anesthesia) Intravenous, PRN, Starting on Darlene 09/05/23 at 1320, Until Darlene 09/05/23 at 1524, Anesthesia Intra-op Given 09/05/2023 1:20 PM EDT 200 mg rocuronium (Zemuron) 10 mg/mL injection Intravenous, PRN, Starting on Darlene 09/05/23 at 1320, Until Darlene 09/05/23 at 1524, Anesthesia Intra-op, Routine Given 09/05/2023 1:20 PM EDT 50 mg documented in this encounter Care Teams Industrial Controller Relationship Specialty Start Date End Date Rob Velez MD PCP - General Family Medicine 03/17/19 documented as of this encounter
--- OUTSIDE RECORDS SUMMARY | 2024-02-10 16:45 | XMS_ITS | Encounter Summary ---
Author Organization [facility] Address [address] [place] [address] Care Team Providers Care Metal Punch Press Operator Name Role Phone Unavailable Primary Care Provider Unavailabl e Encounter Details Date Type Department Care Team (Late st Contact Info) Description 09/29/2008 Orders Only [facility] Adult Primary Care - [address] [id number] Unknown, Provider, Social History Tobacco Use Types Packs/Day Years Used Date Smoking Tobacco: Never Assessed Sex and Gender Information Value Date Recorded Sex Assigned at Not on file Gender Identity Not on file Sexual Orientation Not on file documented as of this encounter Plan of Treatment Not on file documented as of this encounter Procedures Procedure Name Priority Date/Time Associated Diagnosis Comments TESTOSTERONE Routine 09/29/2008 7:44 EDT documented in this encounter Results * TESTOSTERONE (09/29/2008 7:44 EDT) Testosterone, Total 490 241 - 827 ng/dL RIRI GODINEZ Blood specimen (specimen) 09/29/2008 7:44 EDT 09/29/2008 21:41 EDT Provider Unknown CHEMISTRY & BLOOD GA S ORDERABLES [facility] [address] [place] [address] documented in this encounter Visit Diagnoses Not on filedocumented in this encounter
--- OUTSIDE RECORDS SUMMARY | 2024-02-10 16:45 | XMS_ITS | Encounter Summary ---
Author Organization [facility] Address [facility] [place] [address] Care Team Providers Care Job Lithographer Name Role Phone Rob Velez MD Primary Care Provider [phone] Encounter Details Date Type Department Care Team (Late st Contact Info) Description 07/05/2020 Orders Only [facility] [place] [address] Jair Barroso Jr., MD [facility] [address] Nephrolithiasis Social History Tobacco Use Types Packs/Day Years Used Date Smoking Tobacco: Never Smokeless Tobacco: Never Alcohol Use Standard Drinks/Week Comments Yes 0 (1 standard drink = 0.6 oz pur e alcohol) very seldom Sex and Gender Information Value Date Recorded Sex Assigned at Not on file Gender Identity Not on file Sexual Orientation Not on file documented as of this encounter Plan of Treatment Not on file documented as of this encounter Visit Diagnoses Diagnosis Nephrolithiasis Calculus of kidney documented in this encounter Care Teams Job Lithographer Relationship Specialty Start Date End Date Rob Velez MD PCP - General Family Medicine 03/17/19 documented as of this encounter
--- OUTSIDE RECORDS SUMMARY | 2024-02-10 16:45 | XMS_ITS | Encounter Summary ---
Author Organization [facility] Address [facility] [place] [address] Care Team Providers Care Assistant Community Manager Name Role Phone Rob Velez MD Primary Care Provider [phone] Encounter Details Date Type Department Care Team (Late st Contact Info) Description 12/16/2020 Ancillary Procedure Radiology Library at [facility] [place] [address] [place] [address] [place] [address] [phone] Social History Tobacco Use Types Packs/Day Years [...] Procedure Name Priority Date/Time Associated Diagnosis Comments FILM LIBRARY STORAGE ONLY DX SPINE Routine 12/16/2020 12:00 AM EDT documented in this encounter Results * Film Library- Storage Only DX Spine (12/16/2020 12:00 AM EDT) Narrative JAMESON - 05/10/2021 10:56 AM EST This exam is auto-finalizing. It's purpose is for storage only. Rob Velez MD IMG FILM LIBRARY ORD ERABLES [facility] [place] documented in this encounter Visit Diagnoses Not on filedocumented in this encounter Care Teams Assistant Community Manager Relationship Specialty Start Date End Date Rob Velez MD PCP - General Family Medicine 03/17/19 documented as of this encounter
--- OUTSIDE RECORDS SUMMARY | 2024-02-10 16:45 | XMS_ITS | Encounter Summary ---
Author Organization [facility] Address [facility] [place] [address] Care Team Providers Care Machinist Class B Name Role Phone Rob Velez MD Primary Care Provider Encounter Details Date Type Department Care Team (Late st Contact Info) Description 05/16/2020 [place] [id number] Iban Whitman MD [facility] [place] [address] Social History Tobacco Use Types Packs/Day Years Used Date Smoking Tobacco: Never Smokeless Tobacco: Never Alcohol Use Standard Drinks/Week Comments Yes 0 (1 standard drink = 0.6 oz pur e alcohol) very seldom Sex and Gender Information Value Date Recorded Sex Assigned at Not on file Gender Identity Not on file Sexual Orientation Not on file documented as of this encounter Miscellaneous Notes * Telephone Encounter - Iban Whitman MD - 05/16/2020 10:18 AM EST Attempted to call patient x2. Wrote for flomax. documented in this encounter Plan of Treatment Not on file documented as of this encounter Visit Diagnoses Diagnosis Nephrolithiasis Calculus of kidney documented in this encounter Care Teams Machinist Class B Relationship Specialty Start Date End Date Rob Velez MD PCP - General Family Medicine 03/17/19 documented as of this encounter
--- OUTSIDE RECORDS SUMMARY | 2024-02-10 16:45 | XMS_ITS | Encounter Summary ---
Author Organization [facility] Address [address] [place] [address] Care Team Providers Care Numerical Control Programmer Name Role Phone Unavailable Primary Care Provider Unavailabl e Encounter Details Date Type Department Care Team (Late st Contact Info) Description 08/10/2008 15:01 EDT Hospital Encounter [facility] [address] [place], [place] [address] Sagar Isaac, DO [address] [place] [address] Sergei Sanchez [facility] [address] [place], [place] [address] Social History Tobacco Use Types Packs/Day Years [...]
--- OUTSIDE RECORDS SUMMARY | 2024-02-10 16:45 | XMS_ITS | Encounter Summary ---
Author Organization [facility] Address [address] [place] [address] Care Team Providers Care Parts Chaser Name Role Phone Unavailable Primary Care Provider Unavailabl e Encounter Details Date Type Department Care Team (Late st Contact Info) Description 08/10/2008 Before PRISM Converted Visit (Maple) [facility] - Maple conversion [address] [place] [address] Sergei Sanchez [facility] [address], [place] [id number] Social History Tobacco Use Types Packs/Day Years Used Date Smoking Tobacco: Never Assessed Sex and Gender Information Value Date Recorded Sex Assigned at Not on file Gender Identity Not on file Sexual Orientation Not on file documented as of this encounter Progress Notes * Sergei Sanchez - 06/29/2009 0127 EST DIVISION OF PAIN MANAGEMENT PROGRESS/FOLLOWUP NOTE - 08/10/2008 INTERVAL HISTORY Mr Lora is a 58-year-old gentleman with a history of a lumbar deformity. He has had two evaluationsfor surgical reconstruction by Dr Nunez at [facility] and by this staff at [facility]. Patient presents today with a complaint of left hip area and low back pain with radiation to the lateral leg and the outside of the left calf. Patient states that his pain does vary. The toes on his left foot are numb almost all the time. Things that increase his pain include any type of activity such as working and driving. Things that make his pain betterinclude 800 mg of ibuprofen. He describes his pain as a dull ache as well as the numbness in the toes. Patient has received injection therapy at [facility] in August 2007 which provided little to no relief. He has been referred to our clinic by his primarycare physician, Dr Edi Driver, for evaluation for treatment options and possible spinal cord stimulator trial. REVIEW OF SYSTEMS Patient denies chest pain, shortness of air, nausea, vomiting, headache, bowel or bladder incontinence, fevers, chills, night sweats. PHYSICAL EXAMINATION Patient is 5 feet 8 inches tall and weighs 155 pounds. Blood pressure 136/75, pulse 64, respirations 16, temperature 36 degrees. Patient is alert and oriented times three and in no acute distress. There is tenderness to palpation overlying the lateral aspect of the lumbosacral region of the patientback again on the left side. Patient demonstrates 5/5 bilateral lower extremity strength and sensoryis intact. There are negative straight leg raise tests bilaterally. ASSESSMENT Patient is a 58-year-old white male with an L4 vertebral abnormality with scoliosis and symptoms consistent with radiculopathy of the left lower extremity. PLAN Spinal cord stimulator was discussed with the patient. We explained to Mr oLra that we need to exhaust all options before proceeding with spinal cord stimulator trial. I do not think Mr Lora would benefit from medial branch blocks or facet injections at this time. He has not responded to epidural steroid injections. 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 We will have the patient return to our clinic for a left-sided sacroiliac joint injection. In addition, patient was given information which includes a DVD for spinal cord stimulator. When the patient returns to the clinic for a sacroiliac joint we will further discuss a spinal cord stimulator trial. If there is question of whether or not this is a true radiculopathy, then an EMG nerve conduction study may be indicated. saw and examined the patient with the resident/fellow. I agree with the findings and plan of care documented in the resident's/fellow's note. Signed by Sagar Isaac DO 08/12/2008 13:27 Sergei Sanchez MD Sagar Isaac DO - Sergei Sanchez MD - KENNEDY Job ID: [id number] Doc ID: [id number] cc: MD Edi Neal MD documented in this encounter Plan of Treatment Not on file documented as of this encounter Visit Diagnoses Not on filedocumented in this encounter
--- OUTSIDE RECORDS SUMMARY | 2024-02-10 16:45 | XMS_ITS | Encounter Summary ---
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 Role Phone Rob Velez MD Primary Care Provider [phone] Reason for Visit * Auth/Cert (Routine) Specialty [...] CPTR ASSTD PX SPINAL Jie Aguiar MD [address] [place] [address] Referral ID Status Reason Start Date Expiration Date Visits Re quested Visits Authorized [id number] 06/10/2023 1 1 Encounter Details Date Type Department Care Team (Latest Contact Info) Description 09/05/2023 11:38 AM EDT - 09/05/2023 7:04 PM EDT Hospital Encounter Short Stay Unit at [facility] [address] [place] [id number] Jie Aguiar MD [address] [place] [address] Pseudoclaudication syndrome Discharge Disposition: Home Social History Tobacco Use Types Packs/Day Years Used Date Smoking Tobacco: Never Smokeless Tobacco: Never Alcohol Use Standard Drinks/Week Comments Yes 0 (1 standard drink = 0.6 oz pur e alcohol) very seldom [facility] Utilities Answer Date Recorded In the [...] place to sleep or slept in a longterm (including now)? No 09/05/2023 DH IPV Inpatient [...] on file documented as of this encounter Last Filed Vital Signs Vital Sign Reading Time Taken Comments Blood Pressure 167/90 09/05/2023 5:44 PM EDT Pulse 64 09/05/2023 3:50 PM EDT Temperature 36.4 ??C (97.5 ??F) 09/05/2023 5:44 PM ED T Respiratory Rate 18 09/05/2023 5:44 PM EDT Oxygen Saturation 98% 09/05/2023 5:44 PM EDT Inhaled Oxygen Concentration - - Weight 77.1 kg (170 lb) 09/05/2023 12:22 PM EDT Height 170.2 cm (5' 7) 09/05/2023 12:22 PM EDT Body Mass Index 26.63 09/05/2023 12:22 PM EDT documented in this encounter Discharge Instructions * Patient Instructions* Abdon Adkins PA - 09/05/2023 12:27 PM EDT Full recovery will depend on your having a strong, positive attitude, setting small goals for improvement and working steadily to accomplish each goal. FOLLOW UP APPOINTMENTS: You will be scheduled for a follow-up appointment four to six weeks after surgery with a Physician???s Switch Adjuster at the surgeon???s office. You will have a follow up appointment with the neurosurgeonin three months. If you have sutures that need to be removed, a suture removal appointment will be made for 10-14 days after surgery. MEDICATIONS: Take your medicine at the time your doctor ordered. Keep a list of your medicines, vitamins, and herbal supplement you take. Keep this list with you atall times. Show it to your caregiver at every visit. Keep the list up-to-date. Ask your caregiver or pharmacist to write an explanation of each medicine you are taking. This should include: why you are taking it, possible side effects, best time of day to take it, what foods totake the medication with or foods to avoid, and when to stop taking it. Only take onky-jrd-yymougv or prescription medicine for pain, discomfort or fever as directed by your caregiver. Consult your doctor or pharmacist with any questions. NEW MEDICATIONS AT DISCHARGE: []None []Given prescriptions in office preoperatively OR: Medication Dose/Route/ Frequency Prescription given? Reason for medication Medscape monograph discussed []Yes []No []Yes []No []Yes []No []Yes []No []Yes []No []Yes []No PAIN: It is normal to have pain after your surgery; especially in the lower back. This does not mean that the procedure was unsuccessful or that your recovery will be delayed. Leg aching is also not uncommon. This is primarily caused by inflammation of the previously compressed nerve. The discomfort will gradually decrease as the nerve continues to heal. You may also experience muscle spasms across your back and into your legs. Medications will be given to control pain and decrease spasm intensity. Moist heat and/or ice and frequent repositioning may also be helpful. DIET: You may adjust your diet back to normal as your appetite returns. Be sure to drink plenty of fluids, particularly water, and eat whole grain cereals, fruits and fruit juices to combat constipation that is sometimes caused by pain medications. If constipation does occur, an over the counter laxative is acceptable. Call your surgeon if you experience persistent nausea and vomiting. ACTIVITY: Increase your activity slowly. Daily walking is the best exercise. Try to increase your distance a little each day. Go at a pace that doesn???t make you too tired or cause too much pain. It is normal to tire easily for the first week or so after you return home. Swimming after ten to fourteen days is encouraged, if feasible. DO NOT sit for prolonged periods of time for six weeks following your surgery. Brief periods of time, not to exceed thirty minutes are acceptable (meals or using the bathroom). Change positions frequently to help eliminate muscle spasm and aching. When sitting, choose a firm chair that will provide plenty of support. DO NOT lift anything over five pounds. Keep in mind a gallon of milk weighs eight pounds. Do not lift anything that you cannot easily lift with one hand. If you drop something on the floor, pick it up by bending at the knees to lower yourself. DO NOT bend at the waist. ACTIVITY (continued): Sexual relations may be resumed during the recovery period, but positions that strain the back or cause pain should be avoided. Consult your surgeon in regards to your driving status. There are no set time restrictions. Use common sense and do not attempt to resume driving until you feel completely comfortable to drive in an uninhibited manner. It is recommended that you do not drive for the first 1-2 weeks or while taking narcotic pain relievers. You may resume other physical activities including work only after consulting with your treating physician. POST ANESTHESIA/SEDATION: You have received medication for sedation and comfort during your procedure. Because these have notcompletely left your system, please observe the following precautions: Plan to relax for the next several hours. DO NOT drive or operate machinery until the day after your procedure, longer as recommended by yoursurgeon. Avoid alcohol for the next 24 hours. Do not make any important personal or business decisions today. BANDAGE/SHOWERING: You will have Dermabond over the incision (typically a purple glue like substance), with inner sutures that do not need to be removed. The Dermabond will gradually fall off. You may have sutures that require removal. If these are used you will be scheduled for a suture removal appointment within 10 to 14 days of the procedure. You may shower after three to five days. Do NOT scrub the incision. Pat the area dry with a towel after showering. Avoid soaking (baths, hot tubs, swimming, etc) until approximately two weeks after your surgery, when your wound is all the way healed. SEEK IMMEDIATE MEDICAL CARE/CALL YOUR SURGEON IF: There is redness, swelling or increasing pain at the wound. SEEK IMMEDIATE MEDICAL CARE/CALL YOUR SURGEON IF (continued): You notice purulent (colored, pus-like) drainage coming from the wound. You notice a foul smell coming from the wound or bandage. You experience urinary problems. You experience any NEW weakness or numbness in your arms or legs. You develop an oral temperature above 101 degrees F. There is a breaking open of the wound. The edges do not stay together after the sutures or tape hasbeen removed. There is persistent bleeding from an incision. If you have any questions, please call [facility] at [phone], during business hours of Saturday through Saturday from 8:00 a.m. until 4:00 p.m. In case of emergency during non-business hours, please call the same main number and follow the prompts to page the neurosurgeon hematology oncology consultant. SMOKING CESSATION INFORMATION: [place] QUITLINE: [place] QUITLINE: www.quitnet.com If you smoke, stop now! Smoking may impede healing. MAKE SURE YOU: Understand these instructions. Will seek medical care if you are feeling poor, or get worse. Will call the surgeon???s office with any questions or concerns at : [phone] Nursing information only: Original document to medical records Copy given to patient at discharge Belongings/Valuables returned to patient All questions answered IV and hospital equipment removed from patient as appropriate The above information has been presented or demonstrated. I/we have had the opportunity to ask questions. I/we fully understand the instructions given. I/we have received a copy of this form. documented in this encounter Medications at Time of Discharge Medication Sig Dispensed Refills Start Date End Date traMADoL (Ultram) 50 mg tablet Take 1 tablet by mouth every 6 hours as needed for Pain. 20 tablet 09/05/2023 Vit B Comp & C-Vit E-FA-Carey-Zn 0.4 mg Tablet Take 2 tablets by mouth daily. magnesium 250 mg tablet Take 250 mg by mouth daily. acetaminophen (Tylenol) 325 mg Tablet Take 3 tablets by mouth every 6 hours as needed for Pain. 05/13/2020 ibuprofen (Advil;Motrin) 200 mg Tablet Take 3 tablets by mouth every 6 hours as needed for Pain. Take with food. 05/13/2020 ASCORBIC ACID (VITAMIN C ORAL) Take 500 mg by mouth daily. 08/28/2007 documented as of this encounter Progress Notes * Niki Reid RN - 09/05/2023 4:47 PM EDT Our patient was received from the OR, they remained sedated, hemodynamically stable. Once awake andin phase II they remained hemodynamically stable and were found to be neurovascularly intact x 4 during our reassessment. See flowsheet. Their PACU stay was unremarkable. Pt tolerated regular diet and denied nausea. Pt denied pain throughout PACU stay. Pt transferred to SSU and report given to Ilda PRASAD * Ilda Jackman RN - 09/05/2023 4:45 PM EDT Michael Lora arrived to Medical Surgical Unit from the PACU s/p S/P lumbar spinal fusion [Z98.1].Patient is alert and oriented x4. See Adult Patient Care Summary for focused assessment upon admission. Dressing is CDI. Patient rates their pain as 2/10 at this time. Patient oriented to room and the units practice of purposeful rounding. Call salgado within reach and all questions/concerns answered at this time. Will continue to monitor patient as necessary. Family @ bedside. Neuro intact except BL numbness BL feet/toes. 1630: Tolerating PO intake. Pain minimal. Voiding spontaneously. Walking safely w/ SBA. Dressed w/ minimal help from . Meets goals for D/C. Ilda Jackman RN, 09/05/2023 documented in this encounter H&P Notes * Abdon Adkins PA - 09/05/2023 12:27 PM EDT Patient Name: Michael Lora Patient Age: 73 y.o. Birthdate: 1950 Admit date: 09/05/2023 Attending Physician: Jie Aguiar MD The patient's history and physical exam have been reviewed and completed. There has been no interval change from that of the pre-operative history and physical exam done. On exam today WD male in bed NAD Heent : no oral lesions Lungs: clear CV RRR NO edema Abd nml BS Ext From arms, legs. Neuro legs strong with nml sensation BP 159/78 Pulse 67 Temp 36.3 ??C (97.3 ??F) (Temporal) Resp 18 Ht 170.2 cm (5' 7) Wt 77.1 kg (170 lb) SpO2 99% BMI 26.63 kg/m?? For L5/S1 decompression and instrumented fusion. Stable for surgery. documented in this encounter Miscellaneous Notes * Care Management Discharge - Scarlet Ornelas RN - 09/05/2023 7:04 PM EDT CARE MANAGEMENT FINAL DISCHARGE NOTE_late entry for 09/05/2023 Chart reviewed, care reviewed with primary team and at interdisciplinary rounds. Patient is medically ready for discharge to home with family and outpatient follow-up Needs for Transition of Care: as above Plan for discharge is: as above Agency Referrals & Follow-up Care: [facility] as scheduled Transportation: private vehicle Wheelchair van/Ambulance? No Functional status prior to admission: Independent Home Environment: Others in the home: spouse. Current Living Arrangements: home/apartment/condo. Accessibility Concerns:single family residence in [place], [place]. no concerns. Current Functional Ability: indpendent with supervision DME used at home: none DME Needed at Discharge: no recommendations received Patient is insured through: Primary Insurance: MEDICARE Payor: MEDICARE / Plan: MEDICARE PART A & B / Product Type: *No Product type* / Secondary Insurance: CIGNA MEDICARE SUPPLEMENTAL Prescription Coverage: Yes This plan was formulated with input from patient and team. All are in agreement with plan. Scarlet Ornelas RNCM APD rnfa * Plan of Care - Ilda Jackman RN - 09/05/2023 6:46 PM EDT Meets goals for D/C. Michael Lora discharged per provider order to home via private vehicle. All IVs removed. Discharge instructions reviewed with patient and family. All questions or concerns answered at this time. Patient encouraged to call with any further questions or concerns. Copy of After Visit Summary given to patient at time of discharge. All personal belongings returned to patient. Patient assisted to personal vehicle via staff member and wheelchair. Ilda Jackman RN, 09/05/2023 Problem: Adult Inpatient Plan of Care Goal: Plan of Care Review Outcome: Outcome (s) achieved Goal: Patient-Specific Goal (Individualized) Outcome: Outcome (s) achieved Goal: Absence of Hospital-Acquired Illness or Injury Outcome: Outcome (s) achieved Goal: Optimal Comfort and Wellbeing Outcome: Outcome (s) achieved Goal: Readiness for Transition of Care Outcome: Outcome (s) achieved * Initial Assessments - Scarlet Ornelas RN - 09/05/2023 5:37 PM EDT Case Management Initial Assessment Scarlet Ornelas RN reviewed record and discussed patient with Interdisciplinary Team. CM introduced self and role of Case Management to patient and services accepted. Contact card left for patientand family???s reference. Source of Information: Patient, Spouse, Chart Review, Other (APD interdisciplinary care team/NN care team) Admitted From: Home Reason for Hospitalization: Back surgery POD #0: s/p lumbar fusion (L5-S1) Past medical History: Past Medical History: Diagnosis Date Angina pectoris one time event w/u negative Kidney stone Transfusion history pt not sure if he actually got a transfusion 40 years ago Hospitalized in the last 30 days: no previous admission in last 30 days Current decision making capacity: Self Advance Care Planning: Attempt Cardiopulmonary Resuscitation - Inpatient <no information> -Advanced Directive: No, need to discuss If AD's have not been completed spouse Bhavna Lora would be surrogate decision maker per [place] surrogate decision making law. (Only good for 180 days) Any patient receiving care at [facility] must abide by [place] law. The hierarchy for surrogate decision making is: (a) Patient???s spouse or civil union partner unless there is a divorce proceeding, separation agreement, or restraining order limiting that person???s relationship with the patient. (b) Any adult son or daughter of the patient. (c) Either parent of the patient. (d) Any adult brother or sister of the patient. (e) Any adult grandchild of the patient. (f) Any grandparent of the patient. (g) Any adult aunt, uncle, niece, or nephew of the patient. (h) A close friend of the patient. (i) The agent with financial power of corporate associate attorney or a conservator appointed in accordance with RSA 464-A. (j) The guardian of the patient???s estate. Functional status prior to admission: Independent Current functional status: Assistive Equipment, Assistive Person Home environment: Others in the home: spouse. Current Living Arrangements: home/apartment/condo. Accessibility Concerns:single family residence in [place], [place]. no concerns. Community Resources being provided currently: none Behavioral Health History: no mention of depression, anxiety, or other mental health concerns Substance Use/Abuse confirmed: Social History Tobacco Use Smoking Status Never Smokeless Tobacco Never 0 No problems reported 1-2 Low level 3-5 Moderate level 6-8 Substantial level 9- 10 Severe level 0 to 7 points: Low risk 8 to 15 points: Medium risk 16 to 19 points: High risk 20 to 40 points: Addiction likely Primary Care Provider: Rob Velez MD [phone] Pharmacy: [id number] - [facility], [place] - [address] [facility] [address] [place] [address] [facility] [place], [place] - [address] [place] [address] [address] [facility] [address] [facility] [address] Health Coverage: Primary Insurance: MEDICARE Secondary Insurance: CIGNA MEDICARE SUPPLEMENTAL Other: Prescription Coverage: Yes [place] Status: Patient is a : No Anticipated Services at discharge: outpatient care DME: none Transportation Anticipated: family or friend will provide Concerns to be Addressed: discharge planning Agency Referrals: Not Applicable Plan: [place] Plan of Care: met with patient and family at bedside to discuss care transition needs. Thepatient is hopeful that he will be able to discharge home 09/05/2023. He has not increased his PO intake nor voided which, as he knows, are discharge criteria. He would be agreeable to ON stay; familyagrees. No housing, transportation, insurance, or financial concerns mentioned. He has had spinal surgery in the past; aware of recovery restrictions. No barriers to home discharge identified at this time. The best phone number to reach you post discharge is [phone] A member of the Case Management team will continue to monitor progress and collaborate with the interdisciplinary team to create a safe discharge plan. See [facility] guidelines for further clinical documentation during patient???s hospital stay. Scarlet Ornelas RN Office of Care Management * Op Note - Jie Aguiar MD - 09/05/2023 1:35 PM EDT [facility] Operative Note [facility] [address] [place] [address] Patient Name: Michael Lora : [id number] MR#: [id number] Case Date: 09/05/2023 Case Scheduled Time: 1330 Surgeon: Surgeon(s) and Role: * Jie Aguiar MD - Primary * Abdon Adkins PA - Physician Switch Adjuster Preoperative diagnosis: STENOSIS AND RADICULOPATHY Postoperative diagnosis: STENOSIS AND RADICULOPATHY Procedure(s) (LRB): ARTHRODESIS, LUMBAR SPINE, SINGLE INTERSPACE (WRVU 23.53) (N/A) LAMINECTOMY, FACETECTOMY & FORAMINOTOMY,LUMBAR, ONE LEVEL (WRVU 15.37) (N/A) EA ADD'L VERTEBRAL SEGMENT CERVICAL, THORACIC, LUMBAR (WRVU 3.47) (N/A) POSTERIOR SPINAL NON-SEGMENTAL INST.(ONE SPACE) (WRVU 12.52) (N/A) AUTOGRAFT FOR SPINE SURGERY ONLY, SAME INCISION (WRVU *) (Bilateral) STEREOTACTIC COMPUTER-ASSTD NAVIGATIONAL SPINAL (WRVU 3.75) (Bilateral) MODIFIER MEDTRONIC - SOLERA (Bilateral) MODIFIER MEDTRONIC - NAVIGATION / STEALTH (Bilateral) Microscopic left L5-S1 facetectomy and L5 foraminotomy with fluoroscopic and neuronavigation guidance. Exploration of left L4-5 hardware. Placement of right L4-S1 segmental instrumented fusion with cortical trajectory screws into L4 and S1. Allograft and autograft bilaterally. 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 Excellent decompression was obtained of the L5 nerve root. There was also a disc herniation noted which was removed. No CSF leak. The prior hardware of L4-5 was very encased in bone and no attempt was made to connect to it norremove it. The L5 and S1 pedicles on the left side were very close to gather and then because of the fusion of L4-[address] a cortical trajectory screws into the L4 pedicle and the S1 pedicle skipping the L5 in order to get a good marbella placement and secured fusion. Decortication of the lat eral facet region bilaterally and placement of allograft and DBF fibers. Due to the patient's somewhat distorted anatomy due to his scoliosis the neuronavigation was used to guide the location of theL5 foramen. No CSF leak. Nerve intact. A dental instrument was easily passed along the L5 nerve root following its decompression. Placement of the right-sided screws was confirmed with the O-arm as well. A 40 mm Solera marbella was placed from L4-S1 over the tulip heads and secured with 9 breakoff screws which were locked. Complications: None Intake: Intraprocedure Crystalloid Total Intake lactated ringers infusion 700.00 mL ceFAZolin (Ancef) 2 g vial attach to sodium chloride 0.9% 100 mL Mini-Bag Plus 100.00 mL Total Intake 800 mL Output Blood Loss 20 mL Total Output 20 mL Net Net Volume 780 mL Transfusion No data found in the last 1 encounters. Output: Estimated Blood Loss: 20 mL Urine Output:: (no urine output recorded) Other Output: (no other output recorded) Drains: None Specimens removed during surgery: None Disposition: awakened from anesthesia, extubated and taken to the recovery room in a stable condition, having suffered no apparent untoward event. Condition: doing well without problems Indications: Michael Lora is a 73 y.o. male with a known lumbar scoliotic curve and a prior L4-5 fusion done in [place] approximately 14 years ago with a Posterior Lumbar Interbody Fusion Device andleft-sided hardware. He is presented with combination of back pain as well as numbness and tinglinginto the L5 distribution on the left side that worsens with any activity. This is becoming increasingly bothersome for him and his imaging studies confirm foraminal stenosis for the L5 nerve root on the left where his disc base is somewhat collapsed where he is a large disc base on the right side. Due to the amount of decompression needed below his prior fusion or to decompress the L5 nerve root i t is felt that a fusion would be indicated to prevent of recollapse of the L5 foramen. Risks of surgery were discussed in detail including but not excluding infection, bleeding, spinal fluid leak, failure to improve, recurrence, hardware failure, failure to fuse or adjacent segment degeneration. Description of procedure: Patient was taken to the operating room and underwent general endotracheal anesthesia. Rotated to the prone position on the Peyman frame. Care is taken to maintain the patient in a lordotic position. At the posterior lumbar region is prepped and draped in usual sterile fashion and injected with a 40 cc of local anesthetic over the proposed incision area. Fluoroscopic guidance is used for correctposition. An incision was made sharply in the lower part of his prior incision with a 10 blade approximately 5 cm long taken down to the dorsal muscle fascia. The dorsal muscle fascia is opened bilaterally and subperiosteal dissection is carried out along the spinous processes and laminas of of L3 which is his most superior spinous process. Dissection was then carried in the midline and out towards the facets of the L4-5 and L5-S1 exposing the prior hardware of L4-5 which is encased in bone. Due to the complex anatomy the O-arm was spun at this time. Martines retractors are placed and neuronavigation guidance again used to identify the location of the L5 foramen.. The microscope is taken into the field. The microscopic decompression is then performed of the left L5-S1 facet and L5 foramen using Leksell rongeurs, Kerrison rongeurs and the high-speed drill, in this fashion decompressingthe L5 foramen generously. The disc is explored and there is a component of disc herniation which was removed with pituitary rongeurs. A dental instrument is now easily passed out along the L5 nerve root without further compressive elements identified. The neuronavigation is then used to guide screws into the S1 level as well as the L4 cortical trajectory. In seeing his anatomy of the L5 pedicle being very close to S1 with his lordotic angle a marbella would be difficult to be placed and the tulip heads would be matching. Therefore the L4 corticectomy is used and a 4.5 x 50 mm screw was placed in the L4 pedicle and a 4.5 x 35 mm Solera is placed into the S1 pedicle. The O-arm spun again showing good position of the screws. Decortication bilaterally of the lateral facet region is performed withhigh- speed drill. Autograft as well as DBF allograft is wrapped into Surgicel and it is placed in the lateral masses. The rods are then placed across the tulip heads and secured accordingly with set screws. Copious irrigation using saline, bipolar cautery was used for hemostasis of muscular veins. Full hemostasis was obtained prior to closure. Closure was then performed with 2-0 Vicryl and dorsal muscle fascia, inverted 3-0 vicryl in the and subcutaneous tissue and Dermabond was used to seal the skin. The patient was then awakened from anesthesia and taken in stable condition to the PACU unithaving tolerated the procedure well. Counts were correct at the end of the procedure. The surgical sales representative, TINY Randle , worked under my direction for the duration of the operative session. The radiology physician assistant adequately prepped the operative site and maintained the best possibleexposure of anatomy incident to the procedure. (Please see the Surgical Encounter Summary for any Implant and Specimen details pertinent to this patient.) () worked under my direction for the duration of the operative session. The radiology physician assistant adequately prepped the operative site and maintained the best possible exposure of anatomy incident to the procedure. Jie Aguiar MD 09/05/2023 documented in this encounter Plan of Treatment Not on file documented as of this encounter Procedures Procedure Name Priority Date/Time Associated Diagnosis Comments XR O-ARM NO RAD - OR USE Routine 09/05/2023 3:11 PM EDT XR FLUORO NO RAD <1HR - OR USE Routine 09/05/2023 3:11 PM EDT MODIFIER MEDTRONIC - NAVIGATION / STEALTH Yes 09/05/2023 1:13 PM EDT STENOSIS AND RADICULOPATHY MODIFIER MEDTRONIC - SOLERA Yes 09/05/2023 1:13 PM EDT STENOSIS AND RADICULOPATHY Sterotactic Cptr Asstd Px Spinal (82306) Yes 09/05/2023 1:13 PM EDT STENOSIS AND RADICULOPATHY Autograft Spine Surgery Local From Same Incision ([id number]) Yes 09/05/2023 1:13 PM EDT STENOSIS AND RADICULOPATHY Posterior Non-Segmental Instrumentation ([id number]) Yes 09/05/2023 1:13 PM EDT STENOSIS AND RADICULOPATHY Ybarra Facetectomy&Foramot 1 Vrt Sgm Ea Addl Sgm ([id number]) Yes 09/05/2023 1:13 PM EDT STENOSIS AND RADICULOPATHY Laminec/Facetect/Forami n, Lumbar 1 Seg ([id number]) Yes 09/05/2023 1:13 PM EDT STENOSIS AND RADICULOPATHY Arthrodesis Posterior/Pstlat Technique 1 Interspace Lumbar ([id number]) Yes 09/05/2023 1:13 PM EDT STENOSIS AND RADICULOPATHY IMPLANTABLE DEVICES SCAN 09/05/2023 12:00 AM EDT documented in this encounter Results * XR O-Arm No Rad <1Hr - OR Use (09/05/2023 3:11 PM EDT) Narrative Dicom, Auditing User - 09/05/2023 3:11 PM EDT This exam is auto-finalizing. No interpretation was done. Jie PAREDES FLUORO ORDERA BLES * XR Fluoro No Rad <1Hr - OR Use (09/05/2023 3:11 PM EDT) Narrative Dicom, Auditing User - 09/05/2023 3:11 PM EDT This exam is auto-finalizing. No interpretation was done. Jie PAREDES FLUORO ORDERA BLES * SCAN DOC: IMPLANTABLE DEVICES (09/05/2023 12:00 AM EDT) Narrative 09/05/2023 12:00 AM EDT Ordered by an unspecified provider. Scanning Provider MEDIA MGR SCAN EXT O RDR/RSLT documented in this encounter Visit Diagnoses Diagnosis S/P lumbar spinal fusion- Primary Arthrodesis status Pseudoclaudication syndrome Spinal stenosis, lumbar region, with neurogenic claudication documented in this encounter Admitting Diagnoses Diagnosis S/P lumbar spinal fusion Arthrodesis status documented in this encounter Administered Medications Inactive Administered Medications - up to 3 most recent administrations Medication Order MAR Action Action Date Dose Rate Site acetaminophen (Tylenol) tablet 975 mg 975 mg, Oral, ONCE, 1 dose, On Darlene 09/05/23 at 1230, Administer with a SIP of water only., Day of Surgery (Day of Procedure), Routine Given 09/05/2023 12:48 PM EDT 975 mg famotidine (Pepcid) (10 mg/mL) injection 20 mg 20 mg, Intravenous, ONCE, 1 dose, On Darlene 09/05/23 at 1230, Day of Surgery (Day of Procedure), Routine Given 09/05/2023 12:48 PM EDT 20 mg lactated ringers infusion 1,000 mL, at 50 mL/hr, Intravenous, CONTINUOUS, Starting on Darlene 4/11/24 at 1230, Until Darlene 09/05/23 at 1633, Day of Surgery (Day of Procedure) New Bag 09/05/2023 1:16 PM EDT New Bag 09/05/2023 12:48 PM EDT 1,000 mLs 50 mL/hr naloxone (Narcan) (0.4 mg/mL) injection 0.2 mg 0.2 mg, Intravenous, EVERY 2 MIN PRN, Starting on Darlene 09/05/23 at 1634, Until Darlene 09/05/23 at 2105, Opioid Reversal, Naloxone 0.2 mg Intravenous PRN RESP RATE less than 10 OR SEDATION greater than or equal 3, Clinician Dir. IF PATIENT ON OPIOIDS NEEDED FOR RESPIRATORY RATE LESS THAN 10 OR PASERO 4 OR MINIMALLY RESPONSIVE TO VERBAL OR PHYSICAL STIMULATION, Routine naloxone (NARCAN) injection 1 mg/mL 2 mg 2 mg, Intra-nasally with adaptor , EVERY 2 MIN PRN, Starting on Darlene 09/05/23 at 1634, Until Darlene 09/05/23 at 2105, Opioid Reversal, naloxone 2 mg = 2 mL Nasally PRN RESP less than 10/SEDATION SCALE greater than or equal to 3,Clinician Dir IF ON AN OPIOID naloxone 0.2 mg IV PRN RESP RATE less than 10 OR PASERO 4, Routine ondansetron (pf) (Zofran) (2 mg/mL) injection 4 mg 4 mg, Intravenous, EVERY 8 HOURS PRN, Starting on Darlene 09/05/23 at 1634, Until Darlene 09/05/23 at 2105, Nausea, Vomiting, 4 mg, Oral, EVERY 8 HOURS PRN, Nausea, Vomiting If multiple antiemetics are ordered, use ondansetron first., Routine ondansetron (Zofran) tablet 4 mg 4 mg, Oral, EVERY 8 HOURS PRN, Starting on Darlene 09/05/23 at 1634, Until Darlene 09/05/23 at 2105, Nausea, Vomiting, If multiple antiemetics are ordered, use ondansetron first. PO Preferred. If patient unable to take PO, may give IV if ordered., Routine documented in this encounter Active and Recently Administered Medications Times are shown in EDT. Scheduled Medication Order 09/03/2023 09/04/2023 09/05/2023 acetaminophen (Tylenol) tablet 975 mg (COMPLETED) 975 mg, Oral, ONCE, 1 dose, On Darlene 09/05/23 at 1230, Administer with a SIP of water only., Day of Surgery (Day of Procedure), Routine 1248 (Given - Provid er: Brina Dove RN) ceFAZolin (Ancef) 2 g vial attach to sodium chloride 0.9% 100 mL Mini-Bag Plus (COMPLETED) 2 g, Intravenous, ONCE, 1 dose, On Darlene 09/05/23 at 1230, Administer over 30 Minutes, To be administered upon arrival to the OR within one hour prior to incision., Day of Surgery (Day of Procedure), Indication for (Active or Suspected): Prophylaxis 1323 (New Bag - Prov ider: Rafal Fry CRNA) famotidine (Pepcid) (10 mg/mL) injection 20 mg (COMPLETED) 20 mg, Intravenous, ONCE, 1 dose, On Darlene 09/05/23 at 1230, Day of Surgery (Day of Procedure), Routine 1248 (Given - Provid er: Brina Dove RN) sodium chloride 0.9 % (flush) (BD PosiFlush Normal Saline 0.9) flush 3 mL 3 mL, Intravenous, EVERY 12 HOURS SCHEDULED (2 times per day), First dose on Darlene 09/05/23 at 2100, Until Discontinued, Routine Continuous Medication Order 09/03/2023 09/04/2023 09/05/2023 lactated ringers infusion (CANCELED) 1,000 mL, at 50 mL/hr, Intravenous, CONTINUOUS, Starting on Darlene 09/05/23 at 1230, Until Darlene 09/05/23 at 1633, Day of Surgery (Day of Procedure) 1248 (New Bag - Prov ider: Brina Dove RN)1315 (Paused - Provider: Rafal Fry CRNA - Comment: Switch to gravity)1316 (New Bag - Provider: Rafal Fry CRNA)1524 (Anesthesia Volume Adjustment - Provider: Rafal Fry CRNA)1645 (Stopped - Provider: Ilda Jackman RN) PRN Medication Order 09/03/2023 09/04/2023 09/05/2023 acetaminophen (Tylenol) tablet 650 mg 650 mg, Oral, EVERY 4 HOURS PRN, Starting on Darlene 09/05/23 at 1634, Until Darlene 09/05/23 at 2105, Pain, Fever, Administer for mild pain (1-3) or temperature greater than or equal to 38 degrees celsius. Maximum dose of acetaminophen is 4,000 mg from all sources in 24 hours. When ordered for pain, acetaminophen should be given even when other ordered pain medications are indicated., Routine BUpivacaine (pf) (Marcaine) (5 mg/mL) 0.5% injection (CANCELED) PRN, Starting on Darlene 09/05/23 at 1347, Until Darlene 09/05/23 at 1646, Intra-Operative (Intra-Procedure), Routine 1347 (Given - Provid er: Jie Aguiar MD) HYDROmorphone (Dilaudid) (2 mg/mL) multi-dose injection solution 1 mg 1 mg, Intravenous, EVERY 3 HOURS PRN, Starting on Darlene 09/05/23 at 1634, Until Darlene 09/05/23 at 2105, Pain, For SEVERE pain (7 - 10), Routine lidocaine-EPINEPHrine (pf) (2% - 1:200,000) injection (CANCELED) PRN, Starting on Darlene 09/05/23 at 1347, Until Darlene 09/05/23 at 1646, Intra-Operative (Intra-Procedure), Routine 1347 (Given - Provid er: Jie Aguiar MD) naloxone (Narcan) (0.4 mg/mL) injection 0.2 mg(Linked Group 1) 0.2 mg, Intravenous, EVERY 2 MIN PRN, Starting on Darlene 09/05/23 at 1634, Until Darlene 09/05/23 at 2105, Opioid Reversal, Naloxone 0.2 mg Intravenous PRN RESP RATE less than 10 OR SEDATION greater than or equal 3, Clinician Dir. IF PATIENT ON OPIOIDS NEEDED FOR RESPIRATORY RATE LESS THAN 10 OR PASERO 4 OR MINIMALLY RESPONSIVE TO VERBAL OR PHYSICAL STIMULATION, Routine naloxone (NARCAN) injection 1 mg/mL 2 mg(Linked Group 1) 2 mg, Intra-nasally with adaptor , EVERY 2 MIN PRN, Starting on Darlene 09/05/23 at 1634, Until Darlene 09/05/23 at 2105, Opioid Reversal, naloxone 2 mg = 2 mL Nasally PRN RESP less than 10/SEDATION SCALE greater than or equal to 3,Clinician Dir IF ON AN OPIOID naloxone 0.2 mg IV PRN RESP RATE less than 10 OR PASERO 4, Routine ondansetron (pf) (Zofran) (2 mg/mL) injection 4 mg(Linked Group 2) 4 mg, Intravenous, EVERY 8 HOURS PRN, Starting on Darlene 09/05/23 at 1634, Until Darlene 09/05/23 at 2105, Nausea, Vomiting, 4 mg, Oral, EVERY 8 HOURS PRN, Nausea, Vomiting If multiple antiemetics are ordered, use ondansetron first., Routine ondansetron (Zofran) tablet 4 mg(Linked Group 2) 4 mg, Oral, EVERY 8 HOURS PRN, Starting on Darlene 09/05/23 at 1634, Until Darlene 09/05/23 at 2105, Nausea, Vomiting, If multiple antiemetics are ordered, use ondansetron first. PO Preferred. If patient unable to take PO, may give IV if ordered., Routine sodium chloride 0.9 % (flush) (BD PosiFlush Normal Saline 0.9) flush 5-20 mL 5-20 mL, Intravenous, EVERY 1 MIN PRN, Starting on Darlene 09/05/23 at 1634, Until Darlene 09/05/23 at 2105, flush, Flush pertains to all indwelling lines. Flush per protocol found in the job aid using the link provided on this medication record., Routine traMADoL (Ultram) tablet 50-100 mg 50-100 mg, Oral, EVERY 6 HOURS PRN, Starting on Darlene 09/05/23 at 1634, Until Darlene 09/05/23 at 2105, Pain, 50 mg for pain 1-3 and 100mg for pain 4-6, Routine Linked Groups Order Group 1: naloxone (NARCAN) injection 1 mg/mL 2 mgJump to med 2 mg, Intra-nasally with adaptor , EVERY 2 MIN PRN, Starting on Darlene 09/05/23 at 1634, Until Darlene 09/05/23 at 2105, Opioid Reversal, naloxone 2 mg = 2 mL Nasally PRN RESP less than 10/SEDATION SCALE greater than or equal to 3,Clinician Dir IF ON AN OPIOID naloxone 0.2 mg IV PRN RESP RATE less than 10 OR PASERO 4, Routine Or naloxone (Narcan) (0.4 mg/mL) injection 0.2 mgJump to med 0.2 mg, Intravenous, EVERY 2 MIN PRN, Starting on Darlene 24 at 1634, Until Darlene 09/05/23 at 2105, Opioid Reversal, Naloxone 0.2 mg Intravenous PRN RESP RATE less than 10 OR SEDATION greater than or equal 3, Clinician Dir. IF PATIENT ON OPIOIDS NEEDED FOR RESPIRATORY RATE LESS THAN 10 OR PASERO 4 OR MINIMALLY RESPONSIVE TO VERBAL OR PHYSICAL STIMULATION, Routine Group 2: ondansetron (Zofran) tablet 4 mgJump to med 4 mg, Oral, EVERY 8 HOURS PRN, Starting on Darlene 09/05/23 at 1634, Until Darlene 09/05/23 at 2105, Nausea, Vomiting, If multiple antiemetics are ordered, use ondansetron first. PO Preferred. If patient unable to take PO, may give IV if ordered., Routine Or ondansetron (pf) (Zofran) (2 mg/mL) injection 4 mgJump to med 4 mg, Intravenous, EVERY 8 HOURS PRN, Starting on Darlene 09/05/23 at 1634, Until Darlene 09/05/23 at 2105, Nausea, Vomiting, 4 mg, Oral, EVERY 8 HOURS PRN, Nausea, Vomiting If multiple antiemetics are ordered, use ondansetron first., Routine documented in this encounter Care Teams Airport Maintenance Laborer Relationship Specialty Start Date End Date Rob Velez MD PCP - General Family Medicine 03/17/19 documented as of this encounter
--- OUTSIDE RECORDS SUMMARY | 2024-02-10 16:45 | XMS_ITS | Encounter Summary ---
Author Organization [facility] Address [facility] [place] [address] Care Team Providers Care Batch Attendant Name Role Phone Rob Velez MD Primary Care Provider [phone] Encounter Details Date Type Department Care Team (Late st Contact Info) Description 03/03/2021 Ancillary Procedure Radiology Library at [facility] [place] [id number] [place] [address] [place] [address] [id number] Social History Tobacco Use Types Packs/Day Years [...] Associated Diagnosis Comments FILM LIBRARY STORAGE ONLY MR SPINE Routine 03/03/2021 12:00 AM EDT documented in this encounter Results * Film Library- Storage Only MR Spine (03/03/2021 12:00 AM EDT) Narrative JAMESON - 05/10/2021 10:55 AM EST This exam is auto-finalizing. It's purpose is for storage only. Rob Velez MD IMG FILM LIBRARY ORD ERABLES [facility] [place] documented in this encounter Visit Diagnoses Not on filedocumented in this encounter Care Teams Batch Attendant Relationship Specialty Start Date End Date Rob Velez MD PCP - General Family Medicine 03/17/19 documented as of this encounter
--- OUTSIDE RECORDS SUMMARY | 2024-02-10 16:45 | XMS_ITS | Encounter Summary ---
Author Organization [facility] Address [facility] [place] [address] Care Team Providers Care Icing Coater Name Role Phone Rob Velez MD Primary Care Provider Encounter Details Date Type Department Care Team (Late st Contact Info) Description 07/08/2020 12:05 AM EST Ancillary Procedure Radiology Library at [facility] [place] [address] Jair Barroso Jr., MD [facility] [place] [address] Social History Tobacco Use Types Packs/Day Years [...] Associated Diagnosis Comments FILM LIBRARY STORAGE ONLY ULTRASOUND STUDY Routine 07/08/2020 12:05 AM EST documented in this encounter Results * Film Library- Storage Only Ultrasound Study (07/08/2020 12:05 AM EST) Narrative JAMESON - 07/19/2020 11:05 AM EST This exam is auto-finalizing. It's purpose is for storage only. Jair Barroso Jr., MD IMG FILM LIBRARY O RDERABLES [facility] [place], [place] documented in this encounter Visit Diagnoses Not on filedocumented in this encounter Care Teams Icing Coater Relationship Specialty Start Date End Date Rob Velez MD PCP - General Family Medicine 03/17/19 documented as of this encounter
--- OUTSIDE RECORDS SUMMARY | 2024-02-10 16:45 | XMS_ITS | Encounter Summary ---
Author Organization [facility] Address [facility] [place] [address] Care Team Providers Care On Site Coordinator Name Role Phone Rob Velez MD Primary Care Provider Encounter Details Date Type Department Care Team (Late st Contact Info) Description 05/16/2020 [place] [address] Jair Barroso Jr., MD [facility] [place] [address] Social History Tobacco Use Types Packs/Day Years [...] encounter Miscellaneous Notes * Telephone Encounter - Gisel Meade - 05/16/2020 8:25 AM EST Pt called and left a vm early this morning, he said post op he was doing good till last night. He was told he needs to take Flomax but no script was sent. He would like this sent to [facility] in [facility]. He would also like to speak with a resident, I paged one to call him at home. Thank you Gisel documented in this encounter Plan of Treatment Not on file documented as of this encounter Visit Diagnoses Not on filedocumented in this encounter Care Teams On Site Coordinator Relationship Specialty Start Date End Date Rob Velez MD PCP - General Family Medicine 03/17/19 documented as of this encounter
--- OUTSIDE RECORDS SUMMARY | 2024-02-10 16:45 | XMS_ITS | Encounter Summary ---
Author Organization [facility] [place] [address] Care Team Providers Care A R Collections Rep Name Role Phone Rob Velez MD Primary Care Provider [phone] Encounter Details Date Type Department Care Team (Late st Contact Info) Description 08/06/2023 External Results Pre-Admission Testing at [facility] [address] [place] [address] Social History Tobacco Use Types Packs/Day Years [...] Procedure Name Priority Date/Time Associated Diagnosis Comments EKG 12-LEAD Routine 07/31/2023 9:17 AM EST EXTERNAL LAB RESULTS Routine 07/19/2023 9:16 AM EST documented in this encounter Results * EKG 12 Lead (07/31/2023 9:17 AM EST) Historical Provider ECG ORDERABLES * External Lab Results (07/19/2023 9:16 AM EST) Historical Provider CHEMISTRY ORDERAB LES documented in this encounter Visit Diagnoses Not on filedocumented in this encounter Care Teams A R Collections Rep Relationship Specialty Start Date End Date Rob Velez MD PCP - General Family Medicine 03/17/19 documented as of this encounter
--- OUTSIDE RECORDS SUMMARY | 2024-02-10 16:45 | XMS_ITS | Encounter Summary ---
Author Organization [facility] Address [facility] [place] [address] Care Team Providers Care Watch Guard Gate Name Role Phone Rob Velez MD Primary Care Provider [phone] Reason for Visit * Auth/Cert (Routine) Specialty [...] SPINAL Jie Aguiar MD [address] [place] [address] Referral ID Status Reason Start Date Expiration Date Visits Re quested Visits Authorized [id number] 06/10/2023 1 1 Encounter Details Date Type Department Care Team (Late st Contact Info) Description 09/05/2023 1:30 PM EDT - 09/05/2023 4:30 PM EDT Surgery Operating Room Kirstin Apodaca [address] [place] [id number] Jie Aguiar MD [address] [place] [address] ARTHRODESIS, LUMBAR SPINE, SINGLE INTERSPACE (WRVU 23.53) Social History Tobacco Use Types Packs/Day Years Used Date Smoking Tobacco: Never Smokeless Tobacco: Never Alcohol Use Standard Drinks/Week Comments Yes 0 (1 standard drink = 0.6 oz pur e alcohol) very seldom [facility] Utilities Answer Date Recorded In the [...] place to sleep or slept in a alf (including now)? No 09/05/2023 DH IPV Inpatient [...] Sign Reading Time Taken Comments Blood Pressure 153/71 09/05/2023 4:20 PM EDT Pulse 64 09/05/2023 3:50 PM EDT Temperature 36 ??C (96.8 ??F) 09/05/2023 3:25 PM EDT Respiratory Rate 16 09/05/2023 4:20 PM EDT Oxygen Saturation 98% 09/05/2023 4:20 PM EDT Inhaled Oxygen Concentration - - [...] six weeks after surgery with a Physician???s Director Of Emergency Nursing at the surgeon???s office. You will have [...] when to stop taking it. Only take esio-qxd-vkvwnzk or prescription medicine for pain, discomfort or [...] If you have any questions, please call [facility] Neurology and Neurosurgery at [phone], during business hours of Saturday through Saturday from 8:00 a.m. until 4:00 p.m. In case of emergency during non-business hours, please call the same main number and follow the prompts to page the neurosurgeon electric distribution engineer. SMOKING CESSATION INFORMATION: [place] QU[place]: [place] QUITLINE: www.quitnet.com If you smoke, stop now! Smoking may impede healing. MAKE SURE YOU: Understand these instructions. Will seek medical care if you are feeling poor, or get worse. Will call the surgeon???s office with any questions or concerns at : [phone] Nursing information only: Original document to medical [...] Arrangements: home/apartment/condo. Accessibility Concerns:single family residence in [place], [place]. no concerns. Current Functional Ability: indpendent [...] agreement with plan. Scarlet Ornelas RNCM APD re examiner * Plan of Care - Ilda Jackman [...] Spouse, Chart Review, Other (APD interdisciplinary care team/BANNER care team) Admitted From: Home Reason for [...] Lora would be surrogate decision maker per [place] surrogate decision making law. (Only good for 180 days) Any patient receiving care at [facility] must abide by [place] law. The hierarchy for surrogate decision making [...] (i) The agent with financial power of assistant prosecuting attorney or a conservator appointed in accordance with RSA 464-A. (j) The guardian of the patient???s estate. Functional status prior to admission: Independent Current functional status: Assistive Equipment, Assistive Person Home environment: Others in the home: spouse. Current Living Arrangements: home/apartment/condo. Accessibility Concerns:single family residence in [place], [place]. no concerns. Community Resources being provided [...] likely Primary Care Provider: Rob Velez MD [phone] Pharmacy: [id number] - [place], [place] - [address] [facility] [address] [facility] [address] [place], [place] - [address] [facility] [address] [facility] [facility] [address] [facility] [address] Health Coverage: Primary Insurance: MEDICARE Secondary Insurance: CIGNA MEDICARE SUPPLEMENTAL Other: Prescription Coverage: Yes Status: Patient is a : No Anticipated Services at discharge: outpatient care DME: none Transportation Anticipated: family or friend will provide Concerns to be Addressed: discharge planning Agency Referrals: Not Applicable Plan: DC Plan of Care: met with patient and [...] number to reach you post discharge is [phone] A member of the Case Management team will continue to monitor progress and collaborate with the interdisciplinary team to create a safe discharge plan. See [facility] guidelines for further clinical documentation during patient???s hospital stay. Scarlet Ornelas RN Office of Care Management * Op Note - Jie Aguiar MD - 09/05/2023 1:35 PM EDT [facility] Operative Note [address] [address] Patient Name: Michael Lora : [id number] MR#: [id number] Case Date: 09/05/2023 Case Scheduled Time: 1330 Surgeon: Surgeon(s) and Role: * Jie Aguiar MD - Primary * Abdon Adkins PA - Physician Director Of Emergency Nursing Preoperative diagnosis: STENOSIS AND RADICULOPATHY Postoperative diagnosis: [...] and a prior L4-5 fusion done in [place] 14 years ago with a Posterior [...] at the end of the procedure. The entry level assistant manager, TINY Randle , worked under my direction for the duration of the operative session. The printer's assistant adequately prepped the operative site and maintained the best possibleexposure of anatomy incident to the procedure. (Please see the Surgical Encounter Summary for any Implant and Specimen details pertinent to this patient.) () worked under my direction for the duration of the operative session. The printer's assistant adequately prepped the operative site and [...] AND RADICULOPATHY Sterotactic Cptr Asstd Px Spinal (82269) Yes 09/05/2023 1:13 PM EDT STENOSIS AND RADICULOPATHY Autograft Spine Surgery Local From Same Incision (90385) Yes 09/05/2023 1:13 PM EDT STENOSIS AND RADICULOPATHY Posterior Non-Segmental Instrumentation (88192) Yes 09/05/2023 1:13 PM EDT STENOSIS AND RADICULOPATHY Ybarra Facetectomy&Foramot 1 Vrt Sgm Ea Addl Sgm (68104) Yes 09/05/2023 1:13 PM EDT STENOSIS AND RADICULOPATHY Laminec/Facetect/Forami n, Lumbar 1 Seg (28798) Yes 09/05/2023 1:13 PM EDT STENOSIS AND RADICULOPATHY Arthrodesis Posterior/Pstlat Technique 1 Interspace Lumbar (88230) Yes 09/05/2023 1:13 PM EDT STENOSIS AND RADICULOPATHY IMPLANTABLE DEVICES SCAN 09/05/2023 12:00 AM EDT documented in this encounter Results * XR O-Arm No Rad <1Hr - OR Use (09/05/2023 3:11 PM EDT) Narrative Dicom, Auditing User - 09/05/2023 3:11 PM EDT This exam is auto-finalizing. No interpretation was done. Jie Aguiar MD IMG FLUORO ORDERA BLES * XR Fluoro No [...] RDR/RSLT documented in this encounter Visit Diagnoses Not on filedocumented in this encounter Admitting Diagnoses Diagnosis S/P [...] Given 09/05/2023 12:48 PM EDT 975 mg BUpivacaine (pf) (Marcaine) (5 mg/mL) 0.5% injection PRN, Starting on Darlene 09/05/23 at 1347, Until Darlene 09/05/23 at 1646, Intra-Operative (Intra-Procedure), Routine Given 09/05/2023 1:47 PM EDT 20 mLs 19- Surgical Site famotidine (Pepcid) (10 mg/mL) injection 20 mg [...] 12:48 PM EDT 1,000 mLs 50 mL/hr lidocaine-EPINEPHrine (pf) (2% - 1:200,000) injection PRN, Starting on Darlene 09/05/23 at 1347, Until Darlene 09/05/23 at 1646, Intra-Operative (Intra-Procedure), Routine Given 09/05/2023 1:47 PM EDT 20 mLs 19- Surgical Site naloxone (Narcan) (0.4 mg/mL) injection 0.2 mg [...] 1323 (New Bag - Prov ider: Rafal Fry, PEDRO) famotidine (Pepcid) (10 mg/mL) injection 20 mg [...] Routine documented in this encounter Care Teams Watch Guard Gate Relationship Specialty Start Date End Date Rob Velez MD PCP - General Family Medicine 03/17/19 documented as of this encounter
--- OUTSIDE RECORDS SUMMARY | 2024-02-10 16:45 | XMS_ITS | Encounter Summary ---
Author Organization [facility] Address [address] [place] [address] Care Team Providers Care Steel Spar Operator Name Role Phone Unavailable Primary Care Provider Unavailabl e Encounter Details Date Type Department Care Team (Late st Contact Info) Description 09/06/2008 Before PRISM Converted Visit (Maple) [facility] - Maple conversion [address] [address], [place] [address] Karina Villarreal MD FA MAIL HOUSE STAFF [address] [place], [place] [id number] Social History Tobacco Use Types Packs/Day Years Used Date Smoking Tobacco: Never Assessed Sex and Gender Information Value Date Recorded Sex Assigned at Not on file Gender Identity Not on file Sexual Orientation Not on file documented as of this encounter Procedure Notes * Karina Villarreal - 11/23/2008 0944 EDT DIVISION OF PAIN MANAGEMENT PROCEDURE REPORT SERVICE DATE: 09/06/2008 PEDIATRIC ANESTHESIOLOGIST: Sagar Isaac DO MANAGER PUBLIC: Karina Villarreal MD PROCEDURE Left sacroiliac joint injection with fluoroscopic guidance. PREPROCEDURE DIAGNOSIS 1. Left sacroiliitis. 2. L4 vertebral abnormality with scoliosis. 3. Left lower extremity radiculopathy. POSTPROCEDURE DIAGNOSIS 1. Left sacroiliitis. 2. L4 vertebral abnormality with scoliosis. 3. Left lower extremity radiculopathy. INTERVAL HISTORY Mr Lora returns to clinic after last being seen on August 10, 2008. He continues to complain of his left hip, low back pain with radiation into the lateral leg and the outside of his left calf. He hashad numerous procedures done in the past and he has also been seen by surgeons at [facility] and at [facility]. He did have material given to him for spinal cord stimulation and he states that at this time he is unsure as to whether or not he wishes to proceed with any more interventional therapies on his back. REVIEW OF SYSTEMS Negative for bowel or bladder incontinence, bleeding problems, fevers, chills, shortness of breath,chest pain, nausea, vomiting or anticoagulation. PHYSICAL EXAMINATION He is 5 feet 8 inches tall and weighs 155 pounds. Blood pressure 111/65, pulse 85, respirations 16,temperature 36.5. He is alert and oriented times three. He is appropriate and pleasant in no apparent distress. The remainder of the examination was deferred. ASSESSMENT 1. Left sacroiliitis. 2. Lumbar spondylosis. 3. L4 vertebral abnormality with scoliosis. 4. Left lower extremity radiculopathy. PLAN 1. Today we will proceed with a left sacroiliac joint injection to determine whether or not he has any pain generator from this area since it is consistent with his area of pain. 2. We againdiscussed with Mr Lora, the possibility of spinal cord stimulation. He states that he ishesitant to go forward with this. We did discuss with him in detail, the procedure of the trial andalso the permanent implantation with the understanding that the trial is a temporary measure that may provide him with good relief. He stated his understanding of this. We will have him follow up with us in eight weeks for further discussion of spinal cord stimulation versus a repeat SI joint injection. PROCEDURE NOTE After discussing the risks and benefits with the patient, written and informed consent was obtained. The patient was taken to the fluoroscopy suite and placed in the prone position. The lumbosacral area was prepped with Hibiclens solution and draped in a sterile fashion. Fluoroscopy was used to identify the left sacroiliac joint. The skin overlying this was anesthetized with 2% lidocaine. A 22-gauge, 3-1/2-inch spinal needle was inserted in coaxial fashion to come to lie within the left sacroiliac joint. Once adequate depth was obtained and there was negative aspiration for heme or CSF and noparesthesias, 80 mg of Depo-Medrol and 2 mL of 0.5% bupivacaine was injected slowly and easily without pain or paresthesias. The needle was stiletted and removed. The patient tolerated the procedure well. He was monitored for a short period of time before being discharged home in the company of a gravel truck driver. Dr Isaac was present and participated throughout the entire procedure. Unless otherwise noted, there were no complications, no blood loss, cultures obtained, specimens removed, or drains retained. I was present during the entire procedure. Signed by Sagar Isaac DO 09/18/2008 08:44 Karina Villarreal MD Sagar Isaac DO - Karina Villarreal MD - [facility] Job ID: [id number] Doc ID: [id number] cc: S MD Edi Miller MD documented in this encounter Plan of Treatment Not on file documented as of this encounter Visit Diagnoses Not on filedocumented in this encounter
--- OUTSIDE RECORDS SUMMARY | 2024-02-10 16:45 | XMS_ITS | Encounter Summary ---
Author Organization [facility] Address [facility] [place] [address] Care Team Providers Care Logging Tractor Operator Swamp Name Role Phone Rob Velez MD Primary Care Provider [phone] Encounter Details Date Type Department Care Team (Latest Contact Info) Description 10/17/2023 Travel Social History Tobacco Use Types Packs/Day Years Used Date Smoking Tobacco: Never Smokeless Tobacco: Never Alcohol Use Standard Drinks/Week Comments Yes 0 (1 standard drink = 0.6 oz pur e alcohol) very seldom [facility] Utilities Answer Date Recorded In the past 12 months has th e electric, gas, oil, or water [employer] threatened to shut off services in your [...] place to sleep or slept in a care home (including now)? No 09/05/2023 DH IPV Inpatient [...] on filedocumented in this encounter Care Teams Logging Tractor Operator Swamp Relationship Specialty Start Date End Date Rob Velez MD PCP - General Family Medicine 03/17/19 documented as of this encounter
--- OUTSIDE RECORDS SUMMARY | 2024-02-10 16:45 | XMS_ITS | Encounter Summary ---
Author Organization [facility] Address [facility] [place] [address] Care Team Providers Care Biological Science Technician Name Role Phone Rob Velez MD Primary Care Provider [phone] Encounter Details Date Type Department Care Team (Late st Contact Info) Description 05/25/2020 [place] [phone] Luca Rodriguez MD [facility] [place] [address] Social History Tobacco Use Types Packs/Day Years [...] encounter Miscellaneous Notes * Telephone Encounter - Luca Rodriguez MD - 05/25/2020 9:37 AM EST TELEPHONE NOTE Date of call: 05/25/20 Time of call: 9:37 AM Issue: I have some numbness in my right hip Patient called in reporting numbness in his right hip extending to the belt line that started afterhis right PCNL. Denies pain, RLE range of motion intact. The numbness has been improving. Advised that it could be compression neuropathy and will likely to continue improve over time. Encouraged to call back with any questions. Luca Rodriguez MD documented in this encounter Plan of Treatment Not on file documented as of this encounter Visit Diagnoses Not on filedocumented in this encounter Care Teams Biological Science Technician Relationship Specialty Start Date End Date Rob Velez MD PCP - General Family Medicine 03/17/19 documented as of this encounter
--- OUTSIDE RECORDS SUMMARY | 2024-02-10 16:45 | XMS_ITS | Encounter Summary ---
Author Organization [facility] Address [facility] [place] [address] Care Team Providers Care Audio Visual Production Specialist Name Role Phone Rob Velez MD Primary Care Provider [phone] Encounter Details Date Type Department Care Team (Late st Contact Info) Description 07/04/2020 [place] [address] Jair Barroso Jr., MD [facility] [place] [address] Social History Tobacco Use Types Packs/Day Years [...] encounter Miscellaneous Notes * Telephone Encounter - Jair Barroso Jr., MD - 07/04/2020 5:08 PM EST I called, returning Mr Lora's phone call. By report, he has had Intermittent pain, present before surgery, resolved for a time, and now recurred. I left message that it could potentially be related to the preop concern of possible right UPJ narrowing and that the planned follow up imaging may help further assess. I asked him to call back with any additional questions, otherwise should definitely return for follow up as planned documented in this encounter Plan of Treatment Not on file documented as of this encounter Visit Diagnoses Not on filedocumented in this encounter Care Teams Audio Visual Production Specialist Relationship Specialty Start Date End Date Rob Velez MD PCP - General Family Medicine 03/17/19 documented as of this encounter
--- OUTSIDE RECORDS SUMMARY | 2024-02-10 16:45 | XMS_ITS | Encounter Summary ---
Author Organization [facility] Address [facility] [place] [address] Care Team Providers Care Commercial Management Accountant Name Role Phone Rob Velez MD Primary Care Provider [phone] Encounter Details Date Type Department Care Team (Late st Contact Info) Description 05/17/2020 [place] [address] Jair Barroso Jr., MD [facility] [place] [address] Social History Tobacco Use Types Packs/Day Years [...] encounter Miscellaneous Notes * Telephone Encounter - Lashanda Gruber - 05/17/2020 2:05 PM EST PHONE: [phone] Pt calls stating that Saturday he was in agony when urinating and went [facility] ED [facility] and had testingcompleted and found the pt had a UTI. They instructed him to follow-up with Dr. Barroso in a day or two. He states that he feels fine but wanted to touch base regardless. documented in this encounter Plan of Treatment Not on file documented as of this encounter Visit Diagnoses Not on filedocumented in this encounter Care Teams Commercial Management Accountant Relationship Specialty Start Date End Date Rob Velez MD PCP - General Family Medicine 03/17/19 documented as of this encounter
--- OUTSIDE RECORDS SUMMARY | 2024-02-10 16:45 | XMS_ITS | Encounter Summary ---
Author Organization [facility] Address [place] [address] Care Team Providers Care Neurology Hospitalist Name Role Phone Rob Velez MD Primary Care Provider [phone] Encounter Details Date Type Department Care Team (Late st Contact Info) Description 05/14/2020 [place] [phone] Jayesh Esquivel MD [facility] [place] [address] Social History Tobacco Use Types Packs/Day Years [...] encounter Miscellaneous Notes * Telephone Encounter - Jayesh Esquivel MD - 05/14/2020 12:20 PM EST called - Has some pain at end of penis. Has blood in the urine, voiding good amounts. He thinks he's doing ok, just wanted to check in. Wonders if he can shower. Provided reassurance. No acute issues at this time. documented in this encounter Plan of Treatment Not on file documented as of this encounter Visit Diagnoses Not on filedocumented in this encounter Care Teams Neurology Hospitalist Relationship Specialty Start Date End Date Rob Velez MD PCP - General Family Medicine 03/17/19 documented as of this encounter
--- OUTSIDE RECORDS SUMMARY | 2024-02-10 16:45 | XMS_ITS | Encounter Summary ---
Author Organization [facility] Address [facility] [place] [address] Care Team Providers Care Tax Advisor Name Role Phone Rob Velez MD Primary Care Provider [phone] Encounter Details Date Type Department Care Team (Late st Contact Info) Description 05/21/2023 3:25 PM EST Ancillary Procedure Radiology Library at [facility] [place] [address] Rob Velez MD [address] [place] [address] [place], [place] [id number] Social History Tobacco Use Types Packs/Day Years [...] Diagnosis Comments FILM LIBRARY STORAGE ONLY DX SKULL Routine 05/21/2023 3:20 PM EST documented in this encounter Results * Film Library- Storage Only DX Skull (05/21/2023 3:20 PM EST) Narrative JAMESON - 05/21/2023 3:20 PM EST This exam is auto-finalizing. It's purpose is for storage only. Rob Velez MD IMG FILM LIBRARY ORD ERABLES [facility] [place] documented in this encounter Visit Diagnoses Not on filedocumented in this encounter Care Teams Tax Advisor Relationship Specialty Start Date End Date Rob Velez MD PCP - General Family Medicine 03/17/19 documented as of this encounter
--- OUTSIDE RECORDS SUMMARY | 2024-02-10 16:45 | XMS_ITS | Encounter Summary ---
Author Organization [facility] [place] [address] Care Team Providers Care Plating Operator Name Role Phone Rob Velez MD Primary Care Provider [phone] Encounter Details Date Type Department Care Team (Latest Contact Info) Description 10/17/2023 10:45 AM EDT Ancillary Procedure Radiology XRay at the [facility] at [facility] [address] [place] [id number] Brandon Rodriguez PA [address] [place] [id number] S/P lumbar spinal fusion; Lumbar back pain with radiculopathy affecting left lower extremity Social History Tobacco Use Types Packs/Day Years Used Date Smoking Tobacco: Never Smokeless Tobacco: Never Alcohol Use Standard Drinks/Week Comments Yes 0 (1 standard drink = 0.6 oz pur e alcohol) very seldom [facility] Utilities Answer Date Recorded In the past 12 months has [employer], gas, oil, or water [employer] threatened to shut off services in your [...] place to sleep or slept in a chcf (including now)? No 09/05/2023 DH IPV Inpatient [...] Name Priority Date/Time Associated Diagnosis Comments XR LUMBAR SPINE 1 VIEW Routine 10/17/2023 10:47 AM EDT S/P lumbar spinal fusion Lumbar back pain with radiculopathy affecting left lower extremity documented in this encounter Results * XR Lumbar Spine 1 View (10/17/2023 10:47 AM EDT) [employer] WORKSTATION ID [id number] RAD Anatomical Region Laterality Modality L-spine N/A Digital Radiogra phy Impressions 10/17/2023 3:15 PM EDT 1. ??Interval PSIF L4-S1 with no perioperative complication. 2. ??Bony fusion L4-L5 from prior instrumented fusion Thank you for letting us participate in the care of this patient. ??If you are a health care provider and have any questions regarding this report, please contact the number below. ??For patients who have questions please contact the health healthcare network pricing consultant that requested your imaging first. ? Electronically signed by: Ciro Cody MD, [facility] ([phone]), at 10/17/2023 3:15 PM Narrative 10/17/2023 3:15 PM EDT EXAMINATION: XR LUMBAR SPINE 1 VIEW CLINICAL HISTORY: Lateral view (14340) : (P01) 09/04 HBM L L5/S1 facetectomy, L5 foraminotomy & ins fusion (no PLIF) Z98.1, Arthrodesis status - M54.16, Radiculopathy, lumbar region TECHNIQUE: 1 views of the lumbar spine COMPARISON: Intraoperative fluoroscopy 09/05/2023. MR lumbar spine 05/21/2023 FINDINGS: Single lateral view of the lumbar spine. L4-L5 fusion status post prior instrumentation. ??The prior L4-L5 PSIF hardware has been extracted. New PSIF L4-S1 changes with posterior rods and pedicle screws at L4 and S1. ??The hardware are intact without change in alignment compared with intraoperative images. ?? Unchanged multilevel degenerative disc disease, and facet arthrosis. ??The vertebral body heights are preserved. Procedure Note Ciro Cody MD - 10/17/2023 EXAMINATION: XR LUMBAR SPINE 1 VIEW CLINICAL HISTORY: Lateral view ([id number]) : (P01) 09/04 HBM L L5/[id number], L5 foraminotomy & ins fusion (no PLIF) Z98.1, Arthrodesis status - M54.16, Radiculopathy, lumbar region TECHNIQUE: 1 views of the lumbar spine COMPARISON: Intraoperative fluoroscopy 09/05/2023. MR lumbar spine 05/21/2023 FINDINGS: Single lateral view of the lumbar spine. L4-L5 fusion status post prior instrumentation. The prior L4-L5 PSIFhardware has been extracted. New PSIF L4-S1 changes with posterior rods and pedicle screws at L4 andS1. The hardware are intact without change in alignment compared withintraoperative images. Unchanged multilevel degenerative disc disease, and facet arthrosis.The vertebral body heights are preserved. IMPRESSION 1. Interval PSIF L4-S1 with no perioperative complication. 2. Bony fusion L4-L5 from prior instrumented fusion Thank you for letting us participate in the care of this patient. If youare a health care provider and have any questions regarding this report,please contact the number below. For patients who have questions please contactthe health healthcare network pricing consultant that requested your imaging first. Electronically signed by: Ciro Cody MD, [facility]([phone]), at 10/17/2023 3:15 PM Brandon FRANKS IMG DX ORDERABLES documented in this encounter Visit Diagnoses Diagnosis S/P lumbar spinal fusion Arthrodesis status Lumbar back pain with radiculopathy affecting left lower extremity documented in this encounter Care Teams Plating Operator Relationship Specialty Start Date End Date Rob Velez MD PCP - General Family Medicine 03/17/19 documented as of this encounter
--- OUTSIDE RECORDS SUMMARY | 2024-02-10 16:45 | XMS_ITS | Encounter Summary ---
Author Organization [facility] [place] [address] Care Team Providers Care Link Trainer Mechanic Name Role Phone Rob Velez MD Primary Care Provider [phone] Encounter Details Date Type Department Care Team (Late st Contact Info) Description 05/14/2020 [place] [id number] Jayesh Eqsuivel MD [facility] [place] [address] Social History Tobacco Use Types Packs/Day Years [...] Encounter - Jayesh Esquivel MD - 05/14/2020 6:37 PM EST Call from , says he has some numbness in right thigh, about 5 inches long. Thinks he's having some swelling in his feet. Likely having some fluid shifts from surgery and may have some residualnumbness from positioning during a long procedure. Advised that these are likely transient but to let us know if he develops worsening focal swelling in his legs, chest pain or difficulty breathing in which case a DVT/PE rule out should be considered. Recommended he increase ambulation and use leg elevation for swelling in the meantime. documented in this encounter Plan of Treatment Not on file documented as of this encounter Visit Diagnoses Not on filedocumented in this encounter Care Teams Link Trainer Mechanic Relationship Specialty Start Date End Date Rob Velez MD PCP - General Family Medicine 03/17/19 documented as of this encounter
--- OUTSIDE RECORDS SUMMARY | 2024-02-10 16:45 | XMS_ITS | Encounter Summary ---
Author Organization [facility] Address [address] [place] [address] Care Team Providers Care Plane Tableman Name Role Phone Unavailable Primary Care Provider Unavailabl e Encounter Details Date Type Department Care Team (Late st Contact Info) Description 05/09/2007 12:59 EST Hospital Encounter [facility] Radiology - Main [place] [address] [place], [place] [id number] Miriam Nunez MD [address] [place] [phone] Discharge Disposition: Home or Self Care Social History Tobacco Use Types Packs/Day Years Used Date Smoking Tobacco: Never Assessed Sex and Gender Information Value Date Recorded Sex Assigned at Not on file Gender Identity Not on file Sexual Orientation Not on file documented as of this encounter Discharge Disposition Disposition Code Departure Means Destination Home or Self Care documented in this encounter Plan of Treatment Not on file documented as of this encounter Procedures Procedure Name Priority Date/Time Associated Diagnosis Comments CT LUMBAR SPINE W CONTRAST 05/09/2007 15:05 EST FL MYELOGRAPHY LSPINE 05/09/2007 14:45 EST documented in this encounter Results * CT LUMBAR SPINE W CONTRAST (05/09/2007 15:05 EST) Anatomical Region Laterality Modality Other 05/09/2007 15:0 5 EST Narrative 11/15/2008 3:19 EDT lbp Lumbar myelogram and CT lumbar spine. History: Low back pain Informed consent: ??All the risks, benefits and alternatives of the procedure were discussed with the patient. All of the patient's questions were answered. The patient gave both written and verbal consent for the procedure. Technique: The patient was positioned prone and the low back sterilely prepped and draped in usual fashion. Subsequently, the subcutaneous tissues in the midline at the L2-L3 level were anesthetized with 1% lidocaine. Then, using fluoroscopic guidance, a 22-gauge spinal needle was directed into the thecal sac with return of clear CSF. 15 cc of Isovue 200 were instilled and the needle removed. The patient tolerated procedure well. There were no immediate complications. Several spot fluoroscopic images were obtained. Dr. Ackerman was present for the procedure. The patient was subsequently transported to CT where axial images were obtained through the lumbar spine with multiplanar reformations. Comparisons: ??MRI of the lumbar spine performed as an outside study, March 18, 2007. Findings: The plain myelographic images show normal nerve roots without a block to contrast flow. The CT images show, there is a sharp left convex lumbar scoliosis, apex at L4. The L4 vertebral body is wedge-shaped in the coronal plane with loss of height on the right. There is loss of disc height and degenerative change, worse at the L3-L4 and L4-L5 levels. There is endplate sclerosis at L4, greater on the right superior and inferior endplates. There is vacuum disc phenomena and end plate degenerative changes at L4-L5. At the L1-L2 level, there is no spinal canal or neural foraminal narrowing. At the L2-L3 level, there is no spinal canal or neural foraminal narrowing. At the L3-L4 level, diffuse disc bulge and ligamentum flavum hypertrophy are noted, without significant spinal canal or neuroforaminal compromise. At the L4-L5 level, a diffuse disc bulge effaces the thecal sac and narrows the right and left lateral recess and right and left neural foramen. The spinal canal remains patent. At the L5-S1 level, a diffuse disc bulge and ligamentum flavum hypertrophy contribute to bilateral lateral recess stenosis and bilateral neuroforaminal narrowing. Impression: 1. Sharp left convex lumbar scoliosis, apex at L4. 2. The L4 vertebral body is abnormally shaped, wedge shaped in the coronal plane with loss of height on the right. This is may be congenital, or posttraumatic, with superimposed degenerative change. The spinous processes of the third and fourth lumbar vertebrae are fused posteriorly. 3. Scoliosis and degenerative change contribute to narrowing of bilateral lateral recess, right and ??left neural foramen at L4-L5. 4. At L5-S1, degenerative change contributes to bilateral lateral recess stenosis and bilateral neuroforaminal narrowing. 5. No significant spinal canal stenosis. I have personally reviewed the images and the above interpretation and agree with the findings. Procedure Note Phd Salvatore Pedraza MD / Hillary Ackerman MD - 11/15/[address] lumbar spine. History: Low back pain Informed consent: All the risks, benefits and alternatives of the procedure were discussed with the patient. All of the patient's questions were answered. The patient gave both written and verbal consent for the procedure. Technique: The patient was positioned prone and the low back sterilely prepped and draped in usual fashion. Subsequently, the subcutaneous tissues in the midline at the L2-L3 level were anesthetized with 1% lidocaine. Then, using fluoroscopic guidance, a 22-gauge spinal needle was directed into the thecal sac with return of clear CSF. 15 cc of Isovue 200 were instilled and the needle removed. The patient tolerated procedure well. There were no immediate complications. Several spot fluoroscopic images were obtained. Dr. Ackerman was present for the procedure. The patient was subsequently transported to CT where axial images were obtained through the lumbar spine with multiplanar reformations. Comparisons: MRI of the lumbar spine performed as an outside study, March 18, 2007. Findings: The plain myelographic images show normal nerve roots without a block to contrast flow. The CT images show, there is a sharp left convex lumbar scoliosis, apex at L4. The L4 vertebral body is wedge-shaped in the coronal plane with loss of height on the right. There is loss of disc height and degenerative change, worse at the L3-L4 and L4-L5 levels. There is endplate sclerosis at L4, greater on the right superior and inferior endplates. There is vacuum disc phenomena and end plate degenerative changes at L4-L5. At the L1-L2 level, there is no spinal canal or neural foraminal narrowing. At the L2-L3 level, there is no spinal canal or neural foraminal narrowing. At the L3-L4 level, diffuse disc bulge and ligamentum flavum hypertrophy are noted, without significant spinal canal or neuroforaminal compromise. At the L4-L5 level, a diffuse disc bulge effaces the thecal sac and narrows the right and left lateral recess and right and left neural foramen. The spinal canal remains patent. At the L5-S1 level, a diffuse disc bulge and ligamentum flavum hypertrophy contribute to bilateral lateral recess stenosis and bilateral neuroforaminal narrowing. Impression: 1. Sharp left convex lumbar scoliosis, apex at L4. 2. The L4 vertebral body is abnormally shaped, wedge shaped in the coronal plane with loss of height on the right. This is may be congenital, or posttraumatic, with superimposed degenerative change. The spinous processes of the third and fourth lumbar vertebrae are fused posteriorly. 3. Scoliosis and degenerative change contribute to narrowing of bilateral lateral recess, right and left neural foramen at L4-L5. 4. At L5-S1, degenerative change contributes to bilateral lateral recess stenosis and bilateral neuroforaminal narrowing. 5. No significant spinal canal stenosis. I have personally reviewed the images and the above interpretation and agree with the findings. Miriam Nunez MD IMG CT ORDERAB LES * FL MYELOGRAPHY LSPINE (05/09/2007 14:45 EST) Anatomical Region Laterality Modality Other 05/09/2007 14:4 5 EST Narrative 11/15/2008 3:19 EDT lbp Lumbar myelogram and CT lumbar spine. History: Low back pain Informed consent: ??All the risks, benefits and alternatives of the procedure were discussed with the patient. All of the patient's questions were answered. The patient gave both written and verbal consent for the procedure. Technique: The patient was positioned prone and the low back sterilely prepped and draped in usual fashion. Subsequently, the subcutaneous tissues in the midline at the L2-L3 level were anesthetized with 1% lidocaine. Then, using fluoroscopic guidance, a 22-gauge spinal needle was directed into the thecal sac with return of clear CSF. 15 cc of Isovue 200 were instilled and the needle removed. The patient tolerated procedure well. There were no immediate complications. Several spot fluoroscopic images were obtained. Dr. Ackerman was present for the procedure. The patient was subsequently transported to CT where axial images were obtained through the lumbar spine with multiplanar reformations. Comparisons: ??MRI of the lumbar spine performed as an outside study, March 18, 2007. Findings: The plain myelographic images show normal nerve roots without a block to contrast flow. The CT images show, there is a sharp left convex lumbar scoliosis, apex at L4. The L4 vertebral body is wedge-shaped in the coronal plane with loss of height on the right. There is loss of disc height and degenerative change, worse at the L3-L4 and L4-L5 levels. There is endplate sclerosis at L4, greater on the right superior and inferior endplates. There is vacuum disc phenomena and end plate degenerative changes at L4-L5. At the L1-L2 level, there is no spinal canal or neural foraminal narrowing. At the L2-L3 level, there is no spinal canal or neural foraminal narrowing. At the L3-L4 level, diffuse disc bulge and ligamentum flavum hypertrophy are noted, without significant spinal canal or neuroforaminal compromise. At the L4-L5 level, a diffuse disc bulge effaces the thecal sac and narrows the right and left lateral recess and right and left neural foramen. The spinal canal remains patent. At the L5-S1 level, a diffuse disc bulge and ligamentum flavum hypertrophy contribute to bilateral lateral recess stenosis and bilateral neuroforaminal narrowing. Impression: 1. Sharp left convex lumbar scoliosis, apex at L4. 2. The L4 vertebral body is abnormally shaped, wedge shaped in the coronal plane with loss of height on the right. This is may be congenital, or posttraumatic, with superimposed degenerative change. The spinous processes of the third and fourth lumbar vertebrae are fused posteriorly. 3. Scoliosis and degenerative change contribute to narrowing of bilateral lateral recess, right and ??left neural foramen at L4-L5. 4. At L5-S1, degenerative change contributes to bilateral lateral recess stenosis and bilateral neuroforaminal narrowing. 5. No significant spinal canal stenosis. I have personally reviewed the images and the above interpretation and agree with the findings. Procedure Note Phd Salvatore Pedraza MD / Hillary Ackerman MD - 11/15/2008 lbp Lumbar myelogram and CT lumbar spine. History: Low back pain Informed consent: All the risks, benefits and alternatives of the procedure were discussed with the patient. All of the patient's questions were answered. The patient gave both written and verbal consent for the procedure. Technique: The patient was positioned prone and the low back sterilely prepped and draped in usual fashion. Subsequently, the subcutaneous tissues in the midline at the L2-L3 level were anesthetized with 1% lidocaine. Then, using fluoroscopic guidance, a 22-gauge spinal needle was directed into the thecal sac with return of clear CSF. 15 cc of Isovue 200 were instilled and the needle removed. The patient tolerated procedure well. There were no immediate complications. Several spot fluoroscopic images were obtained. Dr. Ackerman was present for the procedure. The patient was subsequently transported to CT where axial images were obtained through the lumbar spine with multiplanar reformations. Comparisons: MRI of the lumbar spine performed as an outside study, March 18, 2007. Findings: The plain myelographic images show normal nerve roots without a block to contrast flow. The CT images show, there is a sharp left convex lumbar scoliosis, apex at L4. The L4 vertebral body is wedge-shaped in the coronal plane with loss of height on the right. There is loss of disc height and degenerative change, worse at the L3-L4 and L4-L5 levels. There is endplate sclerosis at L4, greater on the right superior and inferior endplates. There is vacuum disc phenomena and end plate degenerative changes at L4-L5. At the L1-L2 level, there is no spinal canal or neural foraminal narrowing. At the L2-L3 level, there is no spinal canal or neural foraminal narrowing. At the L3-L4 level, diffuse disc bulge and ligamentum flavum hypertrophy are noted, without significant spinal canal or neuroforaminal compromise. At the L4-L5 level, a diffuse disc bulge effaces the thecal sac and narrows the right and left lateral recess and right and left neural foramen. The spinal canal remains patent. At the L5-S1 level, a diffuse disc bulge and ligamentum flavum hypertrophy contribute to bilateral lateral recess stenosis and bilateral neuroforaminal narrowing. Impression: 1. Sharp left convex lumbar scoliosis, apex at L4. 2. The L4 vertebral body is abnormally shaped, wedge shaped in the coronal plane with loss of height on the right. This is may be congenital, or posttraumatic, with superimposed degenerative change. The spinous processes of the third and fourth lumbar vertebrae are fused posteriorly. 3. Scoliosis and degenerative change contribute to narrowing of bilateral lateral recess, right and left neural foramen at L4-L5. 4. At L5-S1, degenerative change contributes to bilateral lateral recess stenosis and bilateral neuroforaminal narrowing. 5. No significant spinal canal stenosis. I have personally reviewed the images and the above interpretation and agree with the findings. Miriam Nunez MD IMG FLUOROSCOP Y ORDERABLES documented in this encounter Visit Diagnoses Not on filedocumented in this encounter
--- OUTSIDE RECORDS SUMMARY | 2024-02-10 16:45 | XMS_ITS | Encounter Summary ---
Author Organization [facility] Address [facility] [place] [address] Care Team Providers Care Radiographic Technologist Name Role Phone Rob Velez MD Primary Care Provider [phone] Encounter Details Date Type Department Care Team (Latest Contact Info) Description 12/03/2023 Travel Social History Tobacco Use Types Packs/Day Years Used Date Smoking Tobacco: Never Smokeless Tobacco: Never Alcohol Use Standard Drinks/Week Comments Yes 0 (1 standard drink = 0.6 oz pur e alcohol) very seldom [facility] Utilities Answer Date Recorded In the past 12 months has th e electric, gas, oil, or water [employer] threatened to shut off services in your [...] place to sleep or slept in a [facility] (including now)? No 09/05/2023 DH IPV Inpatient [...] on filedocumented in this encounter Care Teams Radiographic Technologist Relationship Specialty Start Date End Date Rob Velez MD PCP - General Family Medicine 03/17/19 documented as of this encounter
--- OUTSIDE RECORDS SUMMARY | 2024-02-10 16:45 | XMS_ITS | Encounter Summary ---
Author Organization [facility] Address [facility] [place] [address] Care Team Providers Care Tongue Binder Name Role Phone Rob Velez MD Primary Care Provider [phone] Reason for Visit * Reason Comments Nephrolithiasis Encounter Details Date Type Department Care Team (Latest Contact Info) Description 05/24/2020 11:20 AM EST [place] [address] Jair Barroso Jr., MD [facility] [place] [address] [place] [address] Encounter for removal of ureteral stent; Nephrolithiasis Social History Tobacco Use Types Packs/Day [...] Sign Reading Time Taken Comments Blood Pressure 137/92 05/24/2020 11:37 AM EST Pulse 76 05/24/2020 11:37 AM EST Temperature - - Respiratory Rate - - Oxygen Saturation - - Inhaled Oxygen Concentration - - Weight - - Height - - Body Mass Index - - documented in this encounter Patient Instructions * Patient Instructions* Sary Farias LPN - 05/24/2020 11:20 AM EST Instructions following Cystoscopy Activity: As tolerated by your comfort level. Fluids: You should increase your water today. Avoid coffee, tea and cola. You do not need to insnmy58 ounces of water today. Urination: You will likely have a small amount of blood in your urine for the next several days. This is normal; however, if you are passing large amounts of blood clots or are unable to void please call our office at [phone] before 5PM or [phone] after hours. Please call if: * you have copious blood in your urine * fevers greater than 101.3 F * you are unable to void The number for questions is [phone] before 5 PM weekdays and [phone] after 5 PM and weekends. Follow-up: Office visit this spring with a renal ultrasound prior documented in this encounter Procedure Notes * Jair Barroso Jr., MD - 05/24/2020 11:20 AM ESTAssociated Order(s): CYSTO, STENT REMOVAL Pre-Procedure Diagnose(s): Encounter for removal of ureteral stent HPI: Michael Lora is a 69 y.o. male who returns for right ureteral stent removal after undergoingright PCNL. Dr Gray had initially identified a nonobstructing right lower pole renal stone on CT. Mr Lora opted to proceed with treatment and ureteroscopy was attempted although the ureteropelvic junction was noted to be too tight to accommodate passage of the ureteroscope into the renal pelvis. Thus, the ureteral stent was placed and further options were reviewed with him. Continued short-term temporary stent drainage was opted for, and additional options including repeat ureteroscopy, percutaneous nephrolithotomy, and pyeloplasty with open pyelolithotomy were all reviewed and consultation here was made. ?? Regarding the right lower pole renal stone we discussed management options of repeat attempt at ureteroscopy, shockwave lithotripsy, percutaneous nephrolithotomy, and open/lap pyelolithotomy with possible pyeloplasty. We discussed that in light of the anatomic narrowing of the proximal ureter and UP J, ureteroscopy may again require a multi-staged approach. Similarly shockwave lithotripsy may fragment the stone but the stones may not pass the narrowed segment. Percutaneous nephrolithotomy would offer the highest likelihood of rendering him stone free in a single procedure but would not necessarily address narrowing at the UPJ. We discussed the PCNL is often reserved for stones larger than 1 cm in the lower pole and larger than 2 cm elsewhere. we also discussed the role of further functional drainage studies from the kidney and consideration of pyeloplasty to treat obstruction if present with concomitant stone removal. Conversely we discussed that endopyelotomy could also be performed at the time of percutaneous nephrolithotomy but that this has a lower durability and pyeloplasty. Ultimately he initially decided to defer any intervention and had a stent removed by Dr. Gray. He returned in 07/2019 and elected to proceed with right PCNL fall/winter 2019. He underwent right PCNL on 05/12/2020. Intraoperative findings were notable for 12 mm right lower pole renal stone. Retrograde ureteroscopy notable for proximal ureteral narrowing that prevented retrograde endoscopic access to the kidney. ??Ultrasound revealed pleura posterior to upper most portionof kidney; thus lower pole access was obtained with u/s guidance. Wire could not initially be maneuvered antegrade down ureter, thus curled in renal pelvis and after dilation, retrograde wire was retrieved to obtain through and through access. Solitary stone grasped and extracted. No additional stones seen. Antegrade ureteroscopy confirmed no ureteral stones. ??Fluoroscopically and endoscopically stone free at procedure conclusion. ??No fluoroscopic evidence of hydrothorax or pneumothorax. He had an unremarkable postoperative course and presents today for planned stent removal. PMHx: nephrolithiasis; back pain PSHx: right shoulder surgery; spinal fusion; left carpal tunnel release; right inguinal hernia repair; right PCNL FamHx:father with h/o urolithiasis SocHx: no tobacco; rare EtOH Stone Analysis: 100% Calcium oxalate monohydrate We discussed the procedure, risks and planned benefit. We discussed the need to remove the stent asthey cannot stay in indefinitely, as well as the risk of possible need for stent or nephrostomy replacement if there was any residual or future ureteral obstruction. Informed consent was obtained. Michael Lora was taken to the cystoscopy room and prepped and draped by our urology nurse. Prophylactic antibiotic administration was confirmed. Topical viscous lidocaine gel was applied to the urethra for local anesthetic. A timeout was performed. Flexible cystoscopy was performed. The urethra waswithout abnormality. The bladder was entered and inspected. No focal mucosal abnormality was seen. The stent was seen emanating from the right ureteral orifice. It was grasped and extracted. It was inspected and found to be intact. He tolerated the procedure well. I instructed Michael Lora of the need to return in approximately 6-8 weeks for renal ultrasound to ensure that there is no residual hydronephrosis. I cautioned him to contact us immediately with increasing pain, fever, or chills as this could suggest obstruction and may need to be further evaluatedon an urgent or emergent basis. I have asked him to call with any additional questions. Impression/Plan: Doing well s/p right PCNL . Stent removed without difficulty. 1) Plan reimaging in 6-8 weeks to assess for resolution of any hydronephrosis 2)CaOx stone. We reviewed general dietary modifications for those with CaOx stones. We discussed the role of a low oxalate low sodium diet with increased hydration, targeting 2 liters urine output daily. documented in this encounter Plan of Treatment Not on file documented as of this encounter Procedures Procedure Name Priority Date/Time Associated Diagnosis Comments CYSTO, STENT REMOVAL Routine 05/24/2020 11:20 AM EST Encounter for removal of ureteral stent documented in this encounter Results * Cysto, Stent Removal, clinic (05/24/2020 11:20 AM EST) Narrative Jair Barroso Jr., MD - 05/24/2020 11:20 AM EST Jair Barroso Jr., MD ? 05/24/2020 ??2:27 PM HPI: ??Michael Lora is a 69 y.o. male who returns for right ureteral stent removal after undergoing right PCNL. ?? Dr Gray had initially identified a nonobstructing right lower pole renal stone on CT. ??Mr Lora opted to proceed with treatment and ureteroscopy was attempted although the ureteropelvic junction was noted to be too tight to accommodate passage of the ureteroscope into the renal pelvis. ??Thus, the ureteral stent was placed and further options were reviewed with him. ??Continued short-term temporary stent drainage was opted for, and additional options including repeat ureteroscopy, percutaneous nephrolithotomy, and pyeloplasty with open pyelolithotomy were all reviewed and consultation here was made. ?? Regarding the right lower pole renal stone we discussed management options of repeat attempt at ureteroscopy, shockwave lithotripsy, percutaneous nephrolithotomy, and open/lap pyelolithotomy with possible pyeloplasty. ??We discussed that in light of the anatomic narrowing of the proximal ureter and UPJ, ureteroscopy may again require a multi-staged approach. ?? Similarly shockwave lithotripsy may fragment the stone but the stones may not pass the narrowed segment. ??Percutaneous nephrolithotomy would offer the highest likelihood of rendering him stone free in a single procedure but would not necessarily address narrowing at the UPJ. ??We discussed the PCNL is often reserved for stones larger than 1 cm in the lower pole and larger than 2 cm elsewhere. ?? we also discussed the role of further functional drainage studies from the kidney and consideration of pyeloplasty to treat obstruction if present with concomitant stone removal. ??Conversely we discussed that endopyelotomy could also be performed at the time of percutaneous nephrolithotomy but that this has a lower durability and pyeloplasty. ??Ultimately he initially decided to defer any intervention and had a stent removed by Dr. Gray. ??He returned in 07/2019 and elected to proceed with right PCNL fall/winter 2019. He underwent right PCNL on 05/12/2020. ??Intraoperative findings were notable for 12 mm right lower pole renal stone. Retrograde ureteroscopy notable for proximal ureteral narrowing that prevented retrograde endoscopic access to the kidney. ??Ultrasound revealed pleura posterior to upper most portion of kidney; thus lower pole access was obtained with u/s guidance. Wire could not initially be maneuvered antegrade down ureter, thus curled in renal pelvis and after dilation, retrograde wire was retrieved to obtain through and through access. Solitary stone grasped and extracted. No additional stones seen. Antegrade ureteroscopy confirmed no ureteral stones. ??Fluoroscopically and endoscopically stone free at procedure conclusion. ??No fluoroscopic evidence of hydrothorax or pneumothorax. ??He had an unremarkable postoperative course ??and presents today for planned stent removal. PMHx: nephrolithiasis; back pain PSHx: right shoulder surgery; spinal fusion; left carpal tunnel release; right inguinal hernia repair; right PCNL FamHx:father with h/o urolithiasis SocHx: no tobacco; rare EtOH Stone Analysis: 100% Calcium oxalate monohydrate We discussed the procedure, risks and planned benefit. We discussed the need to remove the stent as they cannot stay in indefinitely, as well as the risk of possible need for stent or nephrostomy replacement if there was any residual or future ureteral obstruction. Informed consent was obtained. Michael Lora was taken to the cystoscopy room and prepped and draped by our urology nurse. ??Prophylactic antibiotic administration was confirmed. ??Topical viscous lidocaine gel was applied to the urethra for local anesthetic. A timeout was performed. ??Flexible cystoscopy was performed. ??The urethra was without abnormality. ??The bladder was entered and inspected. ??No focal mucosal abnormality was seen. ??The stent was seen emanating from the right ureteral orifice. ??It was grasped and extracted. ?? It was inspected and found to be intact. ??He tolerated the procedure well. ?? I instructed ??Michael Lora ??of the need to return in approximately 6-8 weeks for renal ultrasound to ensure that there is no residual hydronephrosis. ??I cautioned him to contact us immediately with increasing pain, fever, or chills as this could suggest obstruction and may need to be further evaluated on an urgent or emergent basis. ??I have asked him to call with any additional questions. Impression/Plan: Doing well s/p right PCNL . ??Stent removed without difficulty. 1) Plan reimaging in 6-8 weeks to assess for resolution of any hydronephrosis 2)CaOx stone. We reviewed general dietary modifications for those with CaOx stones. We ??discussed the role of ??a low oxalate ??low sodium diet with increased hydration, targeting 2 liters urine output daily. Jair Barroso Jr., MD URO PROCEDURE W RF L ORDERABLES documented in this encounter Visit Diagnoses Diagnosis Encounter for removal of ureteral stent Nephrolithiasis Calculus of kidney documented in this encounter Care Teams Tongue Binder Relationship Specialty Start Date End Date Rob Velez MD PCP - General Family Medicine 03/17/19 documented as of this encounter
--- OUTSIDE RECORDS SUMMARY | 2024-02-10 16:45 | XMS_ITS | Encounter Summary ---
Author Organization [facility] Address [facility] [place] [address] Care Team Providers Care Chain Builder Loom Control Name Role Phone Rob Velez MD Primary Care Provider [phone] Encounter Details Date Type Department Care Team (Late st Contact Info) Description 07/08/2020 Ancillary Procedure Radiology Library at [place] [address] Jair Barroso Jr., MD [facility] [place] [address] Social History Tobacco Use Types Packs/Day Years [...] LIBRARY STORAGE ONLY ULTRASOUND STUDY Routine 07/08/2020 12:00 AM EST documented in this encounter Results * Film Library- Storage Only Ultrasound Study (07/08/2020 12:00 AM EST) Narrative JAMESON - 07/19/2020 11:04 AM EST This exam is auto-finalizing. It's purpose is for storage only. Jair Barroso Jr., MD [facility] [place] documented in this encounter Visit Diagnoses Not on filedocumented in this encounter Care Teams Chain Builder Loom Control Relationship Specialty Start Date End Date Rob Velez MD PCP - General Family Medicine 03/17/19 documented as of this encounter
--- OUTSIDE RECORDS SUMMARY | 2024-02-10 16:45 | XMS_ITS | Encounter Summary ---
Author Organization [facility] Address [address] [place] [address] Care Team Providers Care Professor Of Environmental Science Name Role Phone Unavailable Primary Care Provider Unavailabl e Encounter Details Date Type Department Care Team (Late st Contact Info) Description 05/28/2007 10:50 EST - 05/28/2007 11:59 EST Hospital Encounter [facility] [address] [place] [address] Miriam Nunez MD [address] [place] [phone] Discharge Disposition: Auto Discharge Social History Tobacco Use Types Packs/Day Years Used Date Smoking Tobacco: Never Assessed Sex and Gender Information Value Date Recorded Sex Assigned at Not on file Gender Identity Not on file Sexual Orientation Not on file documented as of this encounter Discharge Disposition Disposition Code Departure Means Destination Auto Discharge documented in this encounter Plan of Treatment Not on file documented as of this encounter Procedures Procedure Name Priority Date/Time Associated Diagnosis Comments L SPINE 4 OR MORE VIEWS 05/28/2007 11:15 EST documented in this encounter Results * L SPINE 4 OR MORE VIEWS (05/28/2007 11:15 EST) Anatomical Region Laterality Modality Other 05/28/2007 11:1 5 EST Narrative 11/15/2008 4:47 EDT lbp assess stability L SPINE 4 OR MORE VIEWS ??May 28, 2007 11:15:00 AM Indication: lbp assess stability Comparison: CT May 09, 2007 Findings: AP and lateral views of the lumbar spine and dynamic flexion-extension views were obtained. Severe multilevel degenerative disease, most notable at L4-L5 and L5-S1 is present. On the frontal view, [id number] lateral listhesis of L4 vertebral body with respect to L5 is noted, with consequent levoscoliosis focused at L4. Bridging osteophytosis is noted between L4-L5 and L3-L4. Severe degenerative disc disease is present at L4 - L5 with vertebral disc height loss and nitrogen phenomena. 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 On the dynamic views, reducible L3 with respect to L4 anterolisthesis is noted on the flexion but not extension. No abnormal motion is seen in the sagittal plane at L4-L5 on the lateral view however given the degree of lateral listhesis of L4 with respect to L5 seen on the frontal view, frontal lateral bending films are recommended to further evaluate this level if clinically relevant. I have personally reviewed the images and the above interpretation and agree with the findings. Procedure Note Brady Ruano MD / Lisseth Polo MD - 11/15/2008 lbp assess stability L SPINE 4 OR MORE VIEWS May 28, 2007 11:15:00 AM Indication: lbp assess stability Comparison: CT May 09, 2007 Findings: AP and lateral views of the lumbar spine and dynamic flexion-extension views were obtained. Severe multilevel degenerative disease, most notable at L4-L5 and L5-S1 is present. On the frontal view, [id number] lateral listhesis of L4 vertebral body with respect to L5 is noted, with consequent levoscoliosis focused at L4. Bridging osteophytosis is noted between L4-L5 and L3-L4. Severe degenerative disc disease is present at L4 - L5 with vertebral disc height loss and nitrogen phenomena. 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 On the dynamic views, reducible L3 with respect to L4 anterolisthesis is noted on the flexion but not extension. No abnormal motion is seen in the sagittal plane at L4-L5 on the lateral view however given the degree of lateral listhesis of L4 with respect to L5 seen on the frontal view, frontal lateral bending films are recommended to further evaluate this level if clinically relevant. I have personally reviewed the images and the above interpretation and agree with the findings. Miriam Nunez MD IMG DIAGNOSTIC IMAGING ORDERABLES documented in this encounter Visit Diagnoses Not on filedocumented in this encounter
--- OUTSIDE RECORDS SUMMARY | 2024-02-10 16:45 | XMS_ITS | Encounter Summary ---
Author Organization [facility] Address [address] [place] [address] Care Team Providers Care Allergy And Immunology Specialist Name Role Phone Unavailable Primary Care Provider Unavailabl e Encounter Details Date Type Department Care Team (Late st Contact Info) Description 10/07/2002 9:43 EDT - 10/07/2002 11:59 EDT Hospital Encounter [facility] - Other [address] [place] [address] Miriam Nunez MD [address] [place] [phone] Discharge Disposition: Auto Discharge Social History Tobacco [...] Priority Date/Time Associated Diagnosis Comments L SPINE 2-3 VIEWS Routine 10/07/2002 9:07 EDT SCOLI 1 VIEW Routine 10/07/2002 9:00 EDT documented in this encounter Results * L SPINE 2-3 VIEWS (10/07/2002 9:07 EDT) Anatomical Region Laterality Modality Other 10/07/2002 9:07 EDT Narrative 02/08/2009 4:43 EDT BACK PAIN. R/O SCOLIOSIS, SPONDYLOLISTHESIS. DOI: 12/26. LUMBAR SPINE THREE VIEWS, LATERAL NEUTRAL, UPRIGHT FLEXION AND EXTENSION VIEWS AND FULL THORACOLUMBAR SPINE AP 10/07/02 FINDINGS: There is levoscoliosis of the lower lumbar segment with a English angle of 24 and there is compensatory dextroscoliosis of the thoracolumbar segment with a English angle of 20. The lateral radiographs demonstrate disc space narrowing at L3-4 and L4-5 levels. There is osteophytosis and there are hypertrophic changes in the facet joints at these levels. There is no evidence of anterior or retrolisthesis upon flexion or extension. D 10/08/02 T 10/12/02 /fahad Procedure Note Hao Oreilly MD - 02/08/2009 BACK PAIN. R/O SCOLIOSIS, SPONDYLOLISTHESIS. DOI: 12/26. LUMBAR SPINE THREE VIEWS, LATERAL NEUTRAL, UPRIGHT FLEXION AND EXTENSION VIEWS AND FULL THORACOLUMBAR SPINE AP 10/07/02 FINDINGS: There is levoscoliosis of the lower lumbar segment with a English angle of 24 and there is compensatory dextroscoliosis of the thoracolumbar segment with a English angle of 20. The lateral radiographs demonstrate disc space narrowing at L3-4 and L4-5 levels. There is osteophytosis and there are hypertrophic changes in the facet joints at these levels. There is no evidence of anterior or retrolisthesis upon flexion or extension. D 10/08/02 T 10/12/02 /fahad Miriam Nunez MD [facility] ORDERABLES * SCOLI 1 VIEW (10/07/2002 9:00 EDT) Anatomical Region Laterality Modality Other 10/07/2002 9:00 EDT Narrative 02/08/2009 4:44 EDT LBP. R/O SCOLIOSIS, SPONDYLOLISTHESIS. DOI: 12/26. Procedure Note Hao Oreilly MD - 02/08/2009 LBP. R/O SCOLIOSIS, SPONDYLOLISTHESIS. DOI: 12/26. Miriam Nunez MD [facility] DIAGNOSTIC IMAGING ORDERABLES documented in this encounter Visit Diagnoses Not on filedocumented in this encounter
--- OUTSIDE RECORDS SUMMARY | 2024-02-10 16:45 | XMS_ITS | Encounter Summary ---
Author Organization Formerly [facility] [place] [address] Care Team Providers Care Glass Mechanic Name Role Phone Rob Velez MD Primary Care Provider [phone] Encounter Details Date Type Department Care Team (Latest Contact Info) Description 12/03/2023 2:15 PM EDT Ancillary Procedure Radiology X[facility] at [facility] at [address] [id number] Jie Aguiar MD [address] [place] [address] S/P lumbar spinal fusion; Lumbar back pain with radiculopathy affecting left lower extremity Social History Tobacco Use Types Packs/Day Years Used Date Smoking Tobacco: Never Smokeless Tobacco: Never Alcohol Use Standard Drinks/Week Comments Yes 0 (1 standard drink = 0.6 oz pur e alcohol) very seldom [facility] Utilities Answer Date Recorded In the past 12 months has [employer], gas, oil, or water [employer] threatened to shut off services in your [...] place to sleep or slept in a assisted (including now)? No 09/05/2023 IPV Inpatient Questions Answer Date Recorded Does [...] Date/Time Associated Diagnosis Comments XR LUMBAR SPINE FLEXION EXTENSION ONLY Routine 12/03/2023 2:06 PM EDT S/P lumbar spinal fusion Lumbar back pain with radiculopathy affecting left lower extremity documented in this encounter Results * XR Lumbar Spine Flexion Extension Only (12/03/2023 2:06 PM EDT) [employer] WORKSTATION ID [id number] RAD Anatomical Region Laterality Modality L-spine N/A Digital Radiogra phy Impressions 12/03/2023 2:36 PM EDT 1. ??PSIF L4-S1 with no hardware complication. 2. ??No spinal listhesis or dynamic instability. Thank you for letting us participate in the care of this patient. ??If you are a health care provider and have any questions regarding this report, please contact the number below. ??For patients who have questions please contact the health primary care provider that requested your imaging first. ? Narrative 12/03/2023 2:36 PM EDT EXAMINATION: XR LUMBAR SPINE FLEXION EXTENSION ONLY CLINICAL HISTORY: FLEXION AND EXTENSION VIEWS, (PO2) 09/04 HBM L L5/S1 facetectomy, L5 foraminotomy & ins fusion (no PLIF) Z98.1, Arthrodesis status - M54.16, Radiculopathy, lumbar region TECHNIQUE: Flexion and extension lateral views of the lumbar spine COMPARISON: Lumbar spine radiograph 10/17/2023. Intraoperative fluoroscopy 09/05/2023. MRI lumbar spine 12 26,023. FINDINGS: PSIF L4-S1 with posterior rods and screws at L4 and S1. ??The hardware are intact and stable in alignment. No evidence of periprosthetic fracture or loosening. No spinal listhesis on both flexion and extension maneuvers. ??Evaluation of the vertebral bodies are degraded by overlapping bowel gas and body habitus. ??The vertebral body heights are grossly preserved. ?? Unchanged PSIF L4-L5 with a left-sided marbella and intervertebral disc spacer. Solid bony fusion at L4-L5, better appreciated on MRI. Unchanged multilevel lumbar spondylosis. Procedure Note Ciro Cody MD - 12/03/2023 EXAMINATION: XR LUMBAR SPINE FLEXION EXTENSION ONLY CLINICAL HISTORY: FLEXION AND EXTENSION VIEWS, (PO2) 09/04 HBM L L5/S1 facetectomy, L5 foraminotomy & ins fusion (no PLIF) Z98.1, Arthrodesis status - M54.16, Radiculopathy, lumbar region TECHNIQUE: Flexion and extension lateral views of the lumbar spine COMPARISON: Lumbar spine radiograph 10/17/2023. Intraoperative fluoroscopy 09/05/2023. MRI lumbar spine 12 26,023. FINDINGS: PSIF L4-S1 with posterior rods and screws at L4 and S1. The hardware areintact and stable in alignment. No evidence of periprosthetic fracture orloosening. No spinal listhesis on both flexion and extension maneuvers. Evaluationof the vertebral bodies are degraded by overlapping bowel gas and body habitus.The vertebral body heights are grossly preserved. Unchanged PSIF L4-L5 with a left-sided marbella and intervertebral disc spacer. Solid bony fusion at L4-L5, better appreciated on MRI. Unchanged multilevel lumbar spondylosis. IMPRESSION 1. PSIF L4-S1 with no hardware complication. 2. No spinal listhesis or dynamic instability. Thank you for letting us participate in the care of this patient. If youare a health care provider and have any questions regarding this report,please contact the number below. For patients who have questions please contactthe health primary care provider that requested your imaging first. Jie Aguiar MD IMG DX ORDERABLES documented in this encounter Visit Diagnoses Diagnosis S/P lumbar spinal fusion Arthrodesis status Lumbar back pain with radiculopathy affecting left lower extremity documented in this encounter Care Teams Glass Mechanic Relationship Specialty Start Date End Date Rob Velez MD PCP - General Family Medicine 03/17/19 documented as of this encounter
--- OUTSIDE RECORDS SUMMARY | 2024-02-10 16:45 | XMS_ITS | Encounter Summary ---
Author Organization [facility] Address [facility] [place] [address] Care Team Providers Care Insulation Cutter Name Role Phone Rob Velez MD Primary Care Provider [phone] Encounter Details Date Type Department Care Team (Late st Contact Info) Description 05/17/2020 [place] [address] Jair Barroso Jr., MD [facility] [address] Social History Tobacco Use Types Packs/Day Years [...] Encounter - Jair Barroso Jr., MD - 05/17/2020 5:33 PM EST I returned call from Mr. Moran. He noted pain with urination, with known stent in place. He was seen in the [facility] ER and urinalysis was considered potentially consistent with UTI and he was startedon empiric antibiotics. He has not heard final culture results. Recommended he continue with the prescribed antibiotic and contact the ER to follow-up on the urine culture results. He wishes to proceed with stent removal within the next 7 to 10 days and will try to coordinate this for him. I have asked him to call or return with any questions, problems, or fever should develop. documented in this encounter Plan of Treatment Not on file documented as of this encounter Visit Diagnoses Not on filedocumented in this encounter Care Teams Insulation Cutter Relationship Specialty Start Date End Date Rob Velez MD PCP - General Family Medicine 03/17/19 documented as of this encounter
--- OUTSIDE RECORDS SUMMARY | 2024-02-10 16:45 | XMS_ITS | Encounter Summary ---
Author Organization [facility] Address [address] [place] [address] Care Team Providers Care Casting Repairer Name Role Phone Unavailable Primary Care Provider Unavailabl e Encounter Details Date Type Department Care Team (Late st Contact Info) Description 01/06/2010 Abstract [facility] Interventional Pain [address] [place], [place] [id number] Unknown, Doctor Social History Tobacco Use Types Packs/Day Years Used Date Smoking Tobacco: Never Assessed Sex and Gender Information Value Date Recorded Sex Assigned at Not on file Gender Identity Not on file Sexual Orientation Not on file documented as of this encounter Plan of Treatment Not on file documented as of this encounter Visit Diagnoses Not on filedocumented in this encounter Historical Medications * This list may reflect changes made after this encounter. Medication Sig Dispensed Refills Start Date End Date ASCORBIC ACID (VITAMIN C ORAL) Take by mouth daily. 01/06/2010 CALCIUM ORAL Take by mouth daily. 01/06/2010 MULTI-VITAMIN ORAL Take by mouth daily. 01/06/2010 added in this encounter
--- OUTSIDE RECORDS SUMMARY | 2024-02-10 16:45 | XMS_ITS | Encounter Summary ---
Author Organization [facility] Address [address] [place] [address] Care Team Providers Care Quality Control Projectionist Name Role Phone Unavailable Primary Care Provider Unavailabl e Encounter Details Date Type Department Care Team (Late st Contact Info) Description 09/06/2008 15:46 EDT Hospital Encounter [facility] [address] [place], [place] [address] Sagar Isaac, DO [address] [facility] [address] [place] [address] Karina Villarreal MD FA [employer]SE [employer] [address] [place], [place] [address] Discharge Disposition: Auto Discharge Social History Tobacco [...]
--- OUTSIDE RECORDS SUMMARY | 2024-02-10 16:45 | XMS_ITS | Encounter Summary ---
Author Organization [facility] Address [facility] [place] [address] Care Team Providers Care Transitions Manager Rn Name Role Phone Rob Velez MD Primary Care Provider [phone] Encounter Details Date Type Department Care Team (Late st Contact Info) Description 07/05/2020 Telephone [place] [address] Jair Barroso Jr., MD [facility] [place] [address] Social History Tobacco Use Types Packs/Day Years [...] encounter Miscellaneous Notes * Telephone Encounter - Michoacano Knight RN - 07/05/2020 2:18 PM EST Spoke with and he will obtain a scrotal ultrasound this Saturday at [facility]. Order placed * Telephone Encounter - Juju Salcedo - 07/05/2020 11:07 AM EST Pt called to say that he is having pain in his testicles and was wondering if there was anything that needed to be added to the imaging he is having at [facility] on Saturday to look at that area. documented in this encounter Plan of Treatment Not on file documented as of this encounter Visit Diagnoses Not on filedocumented in this encounter Care Teams Transitions Manager Rn Relationship Specialty Start Date End Date Rob Velez MD PCP - General Family Medicine 03/17/19 documented as of this encounter
--- OUTSIDE RECORDS SUMMARY | 2024-02-10 16:45 | XMS_ITS | Encounter Summary ---
Author Organization [facility] Address [facility] [place] [address] Care Team Providers Care Cloth Picker Name Role Phone Rob Velez MD Primary Care Provider [phone] Reason for Visit * Reason Comments Nephrolithiasis Follow-up Encounter Details Date Type Department Care Team (Latest Contact Info) Description 09/14/2020 8:00 AM EDT TH Visit (TeleHealth) [place] [address] Jair Barroso Jr., MD [facility] [place] [address] Hydronephrosis, right Social History Tobacco Use Types Packs/Day Years [...] as of this encounter Progress Notes * Jair Barroso Jr., MD - 09/14/2020 8:00 AM EDT Images from the original note were not included. Due to the coronavirus pandemic, Michael Lora elected to change followup visit to a telephone office visit. I obtained verbal consent from the patient to proceed with a telephone visit that may be billed similar to a clinic visit. HPI: Michael Lora is a 70 yo gentleman who presents for telehealth/telephone urologic follow-up regarding nephrolithiasis and right hydronephrosis. He had undergone right PCNL in April 2020. Dr Gray had initially identified a nonobstructing right lower pole renal stone on CT.?Mr Guido??opted to proceed with treatment and ureteroscopy was attempted although the ureteropelvic junction was noted to be too tight to accommodate passage of the ureteroscope into the renal pelvis. ??Thus, the ureteral stent was??placed and further options were reviewed with him. ??Continued short-term temporary stent drainage was opted for, and additional options including repeat ureteroscopy, percutaneous nephrolithotomy, and pyeloplasty with open pyelolithotomy were all reviewed and??consultation here was made. We discussed management options for the right lower pole stone including repeat attempt at ureteroscopy, shockwave lithotripsy, percutaneous nephrolithotomy, and??open/lap??pyelolithotomy with possible pyeloplasty. ??We discussed that in light of the anatomic narrowing of the proximal ureter and UPJ, ureteroscopy may again require a multi-staged approach. ??Similarly shockwave lithotripsy may fragment the stone but the stones may not pass the narrowed segment. ??Percutaneous nephrolithotomy would offer the highest likelihood of rendering him stone free in a single procedure but would not necessarily address narrowing at the UPJ. ??We discussed the PCNL is often reserved for stones larger than 1 cm in the lower pole and larger than 2 cm elsewhere. ?we also discussed the role of further functional drainage studies from the kidney and consideration of pyeloplasty to treat obstruction ifpresent with concomitant stone removal. ??Conversely we discussed that endopyelotomy could also be performed at the time of percutaneous nephrolithotomy but that this has a lower durability and pyelop lasty. ??Ultimately he initially decided to defer any intervention and had a stent removed by Dr. Gray. ??He returned in 07/2019 and elected to proceed with right PCNL fall/winter 2019. ?? He underwent right PCNL on 05/12/2020. Intraoperative [...] ??No fluoroscopic evidence of hydrothorax or pneumothorax. Since planned stent removal,he has been doing well overall. He has noted stefany e dull right flank ache particularly first thing in the morning. It does not specifically follow increase fluid intake (tosuggest a Dietl's crisis) however. He had also noticed some paresthesias in the right flank potentially related to his incision. These have continued to improve and he confirmed that they have largely resolved at this point. He has also noted noted right dull scrotal ache. This ache does not radiate from the abdomen or theflank, the feels originates and stays within the right hemiscrotum. We obtained a scrotal ultrasound which showed no evident testicular abnormality but did suggest varicocele. There was suggestion ofpossible thrombosis within one of the dilated veins. PMHx: nephrolithiasis; back pain PSHx: right shoulder surgery; spinal fusion; left carpal tunnel release; right inguinal hernia repair; right PCNL FamHx:father with h/o urolithiasis SocHx: no tobacco; rare EtOH ?? Stone Analysis: 100% Calcium oxalate monohydrate ?? Imaging studies: I independently reviewed the renal ultrasound from 07/08/2020. This reveals no residual right-sided stone, possible small left lower pole stone versus artifact, and bilateral ureteraljets. Mild right hydronephrosis/pelviectasis is noted, however bilateral ureteral jets are also visualized within the bladder suggesting against complete obstruction. I reviewed the scrotal ultrasound with findings as noted above. ?? Impression/Plan: Doing well s/p right PCNL, without residual right sided stone 1) CaOx stone. We had reviewed general dietary modifications for those with CaOx stones. We discussed that there is no evidence of any residual or recurrent right-sided renal stones. The left-sided small echogenicity may represent small stone versus artifact. We will plan to monitor with annual ultrasound. 2) clinical suspicion of possible mild right UPJ obstruction. We discussed that the dull backache may be related to UPJ obstruction but also could be related to any of the myriad potential etiologiesfor back pain. Given the initial clinical impression of a narrowed UPJ and continued mild hydronephrosis, I have recommended a Lasix diuretic renal scan to assess and quantify any obstruction as wellas differential renal function. He will plan to follow-up thereafter. We discussed that I would recommend referral to one of my partners who performs robotic reconstructive surgery if obstruction requiring pyeloplasty should be detected. 3) right scrotal ache. We discussed this could potentially be related to varicocele, but this wouldnot be definitive. I have recommended consultation with one of my colleagues performing varicocele repairs to further explore this. 35 minutes were spent in review of imaging studies, records, and counseling and coordination of care. documented in this encounter Plan of Treatment Not on file documented as of this encounter Visit Diagnoses Diagnosis Hydronephrosis, right Hydronephrosis documented in this encounter Care Teams Cloth Picker Relationship Specialty Start Date End Date Rob Velez MD PCP - General Family Medicine 03/17/19 documented as of this encounter
--- OUTSIDE RECORDS SUMMARY | 2024-02-10 16:45 | XMS_ITS | Clinical Summary ---
Author Organization [facility] Address [facility] [place] [address] Care Team Providers Care Sanitation Supervisor Name Role Phone Rob Velez MD Primary Care Provider [phone] Allergies No known active allergies Medications Medication Sig Dispensed Refills Start Date End Date Status ASCORBIC ACID (VITAMIN C ORAL) Take 500 mg by mouth daily. 08/28/2007 Active acetaminophen (Tylenol) 325 mg Tablet Take 3 tablets by mouth every 6 hours as needed for Pain. 05/13/2020 Active ibuprofen (Advil;Motrin) 200 mg Tablet Take 3 tablets by mouth every 6 hours as needed for Pain. Take with food. 05/13/2020 Active Vit B Comp & C-Vit E-FA-Carey-Zn 0.4 mg Tablet Take 2 tablets by mouth daily. Active magnesium 250 mg tablet Take 250 mg by mouth daily. Active traMADoL (Ultram) 50 mg tablet Take 1 tablet by mouth every 6 hours as needed for Pain. 20 tablet 09/05/2023 Active Active Problems Problem Noted Date Diagnosed Date S/P lumbar spinal fusion 09/05/2023 Right kidney stone 05/12/2020 Encounters Date Type Department Care Team Description 12/03/2023 2:15 PM EDT Ancillary Procedure Radiology XRay at the [facility] at [facility] [address] [place] [address] Jie Aguiar MD S/P lumbar spinal fusion; Lumbar back pain with radiculopathy affecting left lower extremity 12/03/2023 Travel from Last 3 Months Social History Tobacco Use Types Packs/Day Years Used Date Smoking Tobacco: Never Smokeless Tobacco: Never Tobacco Cessation:Counseling Given: Not Answered Alcohol Use Standard Drinks/Week Comments Yes 0 [...] on file Sexual Orientation Not on file Last Filed Vital Signs Vital Sign Reading [...] Mass Index 26.63 09/05/2023 12:22 PM EDT Plan of Treatment Health Maintenance Due Date Last Done Comments CT Colonography 1951 Colonoscopy 1951 Colorectal Cancer Screening 1950 FIT DNA 1951 FIT 1951 Sigmoidoscopy (10 year) with FIT yearly 1951 Sigmoidoscopy 1950 Hepatitis C Screening 1969 Lipid Screening 1969 Tdap adult 1970 Tetanus vaccine 1970 Zoster vaccine (1 of 2) 2001 Advance Directive 2006 Pneumoccocal Vaccine: 65+ (1 of 1 - PCV) 2016 Covid-19 Vaccine ( - 2022-2 4 season) 2024 Influenza (Flu) vaccine (1 o f 1 - Influenza standard series) 01/26/2024 Diabetes Screening (HgbA1C o r Glucose) Discontinued 05/13/2020, 05/12/2020, 07/29/2019 Medical Devices Implanted Type Area Spd Manager Device Identifier Shelf Expiration Date Model / Serial / Lot Graft Bone Filler Injectable 1cc Dbm Putty [place] ([id number]) ([employer]oreq) - [id number] Implanted:Qty: 1 on 09/05/2023 by Jie Aguiar MD at [facility] IMPLANTS Spine Lumbar [employer] 03/26/2025 [id number] / / Screw Spinal 4.5x35mm Pedicle Mltaxl Thread Sld Ti ([id number]) (Autoreq) - [id number] Implanted:Qty: 1 on 09/05/2023 by Jie Aguiar MD at [facility] IMPLANTS Spine Lumbar [employer] [id number] / / Screw Spinal 4.5x45mm Pedicle Mtaxl Thrd Sld Ti ([id number]) ([employer]oreq) - [id number] Implanted:Qty: 1 on 09/05/2023 by Jie Aguiar MD at [facility] IMPLANTS Spine Lumbar [employer] [id number] / / Screw Spinal Set Pedicle Sld For 4.75mm Paras Non Break Off ([id number]) (Autoreq) - [id number] Implanted:Qty: 2 on 09/05/2023 by Jie Aguiar MD at [facility] IMPLANTS Spine Lumbar [employer] [id number] / / Paras Spinal 4.68y77cc Thoracolumbar Prebent Cocr ([id number]) (Autoreq) - [id number] Implanted:Qty: 1 on 09/05/2023 by Jie Aguiar MD at [facility] IMPLANTS Spine Lumbar [employer] [id number] / / Explanted Type Area Spd Manager Device Identifier Shelf Expiration Date Model / Serial / Lot Stent Ureteral [id number] Set Dbl Pgtl Tpr Tip Ptfe [place] ([id number]) - [id number] Implanted:Qty : 1 on 05/12/2020 by Jair Barroso Jr., MD at [facility] Explanted:Qty : 1 on 05/24/2020 by Jair Barroso Jr., MD IMPLANTS Right: Ureter [employer] - [id number] 03/03/2023 [id number] / / [id number] Procedures Procedure Name Priority Date/Time Associated Diagnosis Comments XR LUMBAR SPINE FLEXION EXTENSION ONLY Routine 12/03/2023 2:06 PM EDT S/P lumbar spinal fusion Lumbar back pain with radiculopathy affecting left lower extremity BASIC METABOLIC PANEL Timed 05/13/2020 3:32 AM EST from Last 3 Months or Most Recently Relevant to Health Maintenance Results * XR Lumbar Spine Flexion Extension Only (12/03/2023 2:06 PM EDT) WORKSTATION ID [id number] DH RAD Anatomical Region Laterality Modality L-spine N/A [...] who have questions please contact the health manager progressive care that requested your imaging first. ? Narrative [...] ?? Unchanged PSIF L4-L5 with a left-sided paras and intervertebral disc spacer. Solid bony fusion [...] preserved. Unchanged PSIF L4-L5 with a left-sided paras and intervertebral disc spacer. Solid bony fusion [...] patients who have questions please contactthe health manager progressive care that requested your imaging first. Jie Aguiar MD IMG DX ORDERABLES * Basic Metabolic Panel (non-fasting) (05/13/2020 3:32 AM EST) Glucose 128 65 - 199 mg/dL [facility] Comment:Diabetes: >=200 mg/d L plus symptoms Blood Urea Nitrogen 11 10 - 20 mg/dL [facility] Creatinine 1.06 0.80 - 1.50 mg/dL [facility] Sodium 136 135 - 145 mmol/L [facility] Potassium 4.5 3.5 - 5.0 mmol/L [facility] Comment: Please note: ??Patients with WBC >100,000 may have falsely elevated Potassium levels. ??For accurate Potassium quantification in these patients send serum separator tube (gold top) for subsequent determinations. ??Contact the Clinical Chemistry Laboratory if there are any questions. Chloride 106 98 - 107 mmol/L [facility] Carbon Dioxide 23 22 - 31 mmol/L [facility] Anion Gap 7 5 - 15 mmol/L [facility] Calcium 9.0 8.5 - 10.5 mg/dL [facility] Est Glomerular Filtration Rate 72 >=60 mL/min/1. 73 m?? [facility] Comment: This patient? s estimated glomerular filtration rate (eGFR) is between 72 mL/min/1.73 m2 (patients with less muscle mass per kg body weight) and 83 mL/min/1.73 m2 (patients with more muscle mass per kg body weight) as determined by the CKD-EPI equation. Assessment of eGFR is not appropriate when creatinine concentrations are rapidly changing. For clinical decisions where creatinine clearance will affect therapy, a 24-hour urine creatinine clearance may be advised. Assignment of CKD stage 1 ? 5 for patients with an eGFR near the transition point between stages may be based on clinical assessment of muscle mass and symptoms in addition to eGFR. Blood specimen (specimen) 05/13/2020 3:32 AM EST 05/13/2020 3:36 AM EST Narrative Resulting Agency Comment Spec In Lab Jair Barroso Jr., MD CHEMISTRY ORDERABL ES [facility] [place] [address] from Last 3 Months or Most Recently Relevant to Health Maintenance Advance Directives * Attempt Cardiopulmonary Resuscitation - Inpatient (Latest Code Status on File) Date Activated Date Inactivated Comments 09/05/2023 1:00 PM 09/05/2023 9:05 PM Question Answer Comments Code Status decision made by: Patient * Attempt Cardiopulmonary Resuscitation - Inpatient Date Activated Date Inactivated Comments 05/12/2020 2:51 PM 05/13/2020 8:22 PM Question Answer Comments Code Status decision made by: Patient Care Teams Sanitation Supervisor Relationship Specialty Start Date End Date Rob Velez MD PCP - General Family Medicine 03/17/19
--- OUTSIDE RECORDS SUMMARY | 2024-02-10 16:45 | XMS_ITS | Encounter Summary ---
Author Organization [facility] Address [address] [place] [address] Care Team Providers Care Senior Electronics Technician Name Role Phone Unavailable Primary Care Provider Unavailabl e Encounter Details Date Type Department Care Team (Late st Contact Info) Description 12/09/2002 9:01 EDT - 12/09/2002 11:59 EDT Hospital Encounter [address] [address] Kirk Delong MD [address] [facility] [address] [place] [address] Discharge Disposition: Auto Discharge Social History Tobacco [...]
--- OUTSIDE RECORDS SUMMARY | 2024-02-10 16:45 | XMS_ITS | Encounter Summary ---
Author Organization [facility] Address [address] [place] [address] Care Team Providers Care Ammonia Refrigeration Worker Name Role Phone Unavailable Primary Care Provider Unavailabl e Encounter Details Date Type Department Care Team (Late st Contact Info) Description 02/25/2013 Results Only [facility] Laboratory Services - [facility] ([facility] [address] [place] [id number] Chris León MD [address] [place], [place] [address] [place] [phone] Social History Tobacco Use Types Packs/Day Years Used Date Smoking Tobacco: Never Assessed Sex and Gender Information Value Date Recorded Sex Assigned at Not on file Gender Identity Not on file Sexual Orientation Not on file documented as of this encounter Plan of Treatment Not on file documented as of this encounter Procedures Procedure Name Priority Date/Time Associated Diagnosis Comments SURGICAL PATHOLOGY Routine 02/25/2013 9:29 EDT documented in this encounter Results * SURGICAL PATHOLOGY (02/25/2013 9:29 EDT) Pathology Report: SURGICAL PATHOLOGY REPORT Reports generated via electronic interface contain original data; however they are lacking the format of the original report. Caution should be taken when reading/interpreti ng unformatted reports. Name: ? MICHAEL CORBIN ? Accession #: ? [id number] ? : ? 1950 (Age: 62) ??M ? Collect Date: ? 02/25/2013 ? Location: ? [facility] ? Receive Date: ? 02/27/2013 ? Provider: CHRIS LEÓN MD Copy to: JANETH GARCIA MD ? Final Pathologic Diagnosis: A. COLON, ASCENDING, POLYP, BIOPSY: - ??Fragments of tubular adenoma. B. COLON, CECUM, POLYP, BIOPSY: - ??Fragments of tubular adenoma. Document reviewed and electronically signed by: TL MASON MD Report ??Date: 03/03/2013 14:24 By the signature above, the attending physician certifies that he/she has personally conducted a gross and/or microscopic examination of the described specimens and rendered or confirmed the above diagnosis. Specimen(s) Received: A. ??Ascending colon polyp B. ??Cecum polyp Clinical History: Virgil screening Gross Description: A. ? Received in formalin labelled with proper patient identification (initials B, M) and #1 ascending colon polyp are three white, focally light peralta tissues (0.4 x 0.3 x 0.2 cm to 0.3 x 0.1 x 0.1 cm). Entirely submitted in A1. B. ? Received in formalin labelled with proper patient identification (initials B, M) and #2 cecum polyp are seven white, focally peralta tissues (0.5 x 0.4 x 0.1 cm to 0.1 x 0.1 x 0.1 cm). Entirely submitted with three pieces as B1, three pieces as B2, and the remaining piece as B3. Jaison Snyder 02/27/2013 10:50 AM End of Report [facility] 02/25/2013 9:29 EDT 02/27/2013 9:29 EDT Chris León MD [facility] [address] [id number] documented in this encounter Visit Diagnoses Not on filedocumented in this encounter
--- OUTSIDE RECORDS SUMMARY | 2024-02-10 16:45 | XMS_ITS | Encounter Summary ---
Author Organization [facility] Address [facility] [place] [address] Care Team Providers Care Catcher Helper Name Role Phone Rob Velez MD Primary Care Provider [phone] Encounter Details Date Type Department Care Team (Late st Contact Info) Description 07/04/2020 [place] [address] Jair Barroso Jr., MD [facility] [place] [address] Social History Tobacco Use Types Packs/Day Years [...] encounter Miscellaneous Notes * Telephone Encounter - Mary Perla - 07/04/2020 9:06 AM EST Patient called to schedule follow up with Dr. Barroso. Order for imaging faxed to [facility], he will call once scheduled to find a time to talk with Dr. Barroso. He requested a note be sent to Dr. Barroso regarding some pain he was having in his private area. Hestates this pain was there prior to surgery, was gone for a while after surgery and has recently returned. He says that his side is still numb from the surgery as well. documented in this encounter Plan of Treatment Not on file documented as of this encounter Visit Diagnoses Not on filedocumented in this encounter Care Teams Catcher Helper Relationship Specialty Start Date End Date Rob Velez MD PCP - General Family Medicine 03/17/19 documented as of this encounter
--- OUTSIDE RECORDS SUMMARY | 2024-02-10 16:45 | XMS_ITS | Encounter Summary ---
Author Organization [facility] Address [facility] [place] [address] Care Team Providers Care Human Performance Professor Name Role Phone Rob Velez MD Primary Care Provider [phone] Encounter Details Date Type Department Care Team (Late st Contact Info) Description 06/15/2022 Ancillary Procedure Radiology Library at [facility] [place] [address] [place] [address] [place] [id number] Social History Tobacco Use Types Packs/Day Years [...] FILM LIBRARY STORAGE ONLY MR SPINE Routine 06/15/2022 12:00 AM EST documented in this encounter Results * Film Library- Storage Only MR Spine (06/15/2022 12:00 AM EST) Narrative JAMESON - 06/18/2022 10:21 AM EST This exam is auto-finalizing. It's purpose is for storage only. Rob Velez MD IMG FILM LIBRARY ORD ERABLES [place] documented in this encounter Visit Diagnoses Not on filedocumented in this encounter Care Teams Human Performance Professor Relationship Specialty Start Date End Date Rob Velez MD PCP - General Family Medicine 03/17/19 documented as of this encounter
--- OUTSIDE RECORDS SUMMARY | 2024-02-10 16:45 | XMS_ITS | Encounter Summary ---
Author Organization [facility] Address [facility] [place] [address] Care Team Providers Care Religious Leader Name Role Phone Rob Velez MD Primary Care Provider [phone] Encounter Details Date Type Department Care Team (Late st Contact Info) Description 08/22/2023 9:45 AM EDT Telephone Pre-Admission Testing at [facility] [address] [place] [phone] Social History Tobacco Use Types Packs/Day Years [...] as of this encounter Progress Notes * Lucy Patel RN - 08/22/2023 9:57 AM EDT Have you tested positive for COVID and had symptoms of Covid in the last 4 weeks? [x]No []Yes If Yes; Date of positive test: Type of test performed: Date of resolution of symptoms: documented in this encounter Plan of Treatment Not on file documented as of this encounter Visit Diagnoses Not on filedocumented in this encounter Care Teams Religious Leader Relationship Specialty Start Date End Date Rob Velez MD PCP - General Family Medicine 03/17/19 documented as of this encounter
--- OUTSIDE RECORDS SUMMARY | 2024-02-10 16:45 | XMS_ITS | Encounter Summary ---
Author Organization [facility] Address [facility] [place] [address] Care Team Providers Care Tape Folding Machine Operator Name Role Phone Rob Velez MD Primary Care Provider [phone] Reason for Visit * Auth/Cert (Routine) Specialty Diagnoses / Procedures Referred By Contac t Referred To Contact Diagnoses STENOSIS AND RADICULOPATHY Procedures PRO ARTHRODESIS POSTERIOR/PSTLAT TECHNIQUE 1 INTERSPACE LUMBAR PRO LAMINEC/FACETECT/FORAMIN, LUMBAR 1 SEG PRO YBARRA FACETECTOMY&FORAMOT 1 VRT SGM EA ADDL SGM PRO POSTERIOR NON-SEGMENTAL INSTRUMENTATION PRO AUTOGRAFT SPINE SURGERY LOCAL FROM SAME INCISION PRO STEROTACTIC CPTR ASSTD PX SPINAL iJe Aguiar MD [address] [place] [address] Referral ID Status Reason Start Date Expiration Date Visits Re quested Visits Authorized [id number] 06/10/2023 1 1 Encounter Details Date Type Department Care Team (Late st Contact Info) Description 09/05/2023 12:15 PM EDT Ancillary Procedure Radiology Xray at [facility] [address] [place] [phone] Social History Tobacco Use Types Packs/Day Years Used Date Smoking Tobacco: Never Smokeless Tobacco: Never Alcohol Use Standard Drinks/Week Comments Yes 0 (1 standard drink = 0.6 oz pur e alcohol) very seldom [facility] Utilities Answer Date Recorded In the past 12 months has [employer] electric, gas, oil, or water company threatened [...] place to sleep or slept in a retirement (including now)? No 09/05/2023 DH IPV Inpatient [...] OR USE Routine 09/05/2023 3:11 PM EDT documented in this encounter Results * [...] is auto-finalizing. No interpretation was done. Jie FRITZG FLUORO ORDERA BLES documented in this encounter Visit Diagnoses Not on filedocumented in this encounter Care Teams Tape Folding Machine Operator Relationship Specialty Start Date End Date Rob Velez MD PCP - General Family Medicine 03/17/19 documented as of this encounter
--- OUTSIDE RECORDS SUMMARY | 2024-02-10 16:45 | XMS_ITS | Encounter Summary ---
Author Organization [facility] Address [facility] [place] [address] Care Team Providers Care Cathode Maker Name Role Phone Rob Velez MD Primary Care Provider [phone] Encounter Details Date Type Department Care Team (Late st Contact Info) Description 05/21/2023 3:30 PM EST Ancillary Procedure Radiology Library at [facility] [place] [address] Rob Velez MD [address] [place] [address] [place], [place] [id number] Social History Tobacco Use Types Packs/Day Years [...] FILM LIBRARY STORAGE ONLY MR SPINE Routine 05/21/2023 3:21 PM EST documented in this encounter Results * Film Library- Storage Only MR Spine (05/21/2023 3:21 PM EST) Narrative JAMESON - 05/21/2023 3:21 PM EST This exam is auto-finalizing. It's purpose is for storage only. Rob Velez MD IMG FILM LIBRARY ORD ERABLES [facility] [place] documented in this encounter Visit Diagnoses Not on filedocumented in this encounter Care Teams Cathode Maker Relationship Specialty Start Date End Date Rob Velez MD PCP - General Family Medicine 03/17/19 documented as of this encounter
--- OUTSIDE RECORDS SUMMARY | 2024-02-10 16:45 | XMS_ITS | Encounter Summary ---
Author Organization [facility] Address [facility] [place] [address] Care Team Providers Care Ginner Name Role Phone Rob Velez MD Primary Care Provider Encounter Details Date Type Department Care Team (Late st Contact Info) Description 11/25/2020 Telephone Urology at [facility] [place] [address] Jair Barroso Jr., MD [facility] [place] [address] Social History Tobacco Use Types Packs/Day Years [...] * Telephone Encounter - Mary Perla - 11/25/2020 11:34 AM EDT Spoke with patient to schedule Renal Scan and appointment with Dr. Lyles. Patient would like to decline at this time but does want to follow up in the future. I've placed a recall in the system and explained to patient that if anything changes to please call and we can schedule CAMPOS. Patient agreesto this plan. documented in this encounter Plan of Treatment Not on file documented as of this encounter Visit Diagnoses Not on filedocumented in this encounter Care Teams Ginner Relationship Specialty Start Date End Date Rob Velez MD PCP - General Family Medicine 03/17/19 documented as of this encounter
--- OUTSIDE RECORDS SUMMARY | 2024-02-10 16:46 | XMS_ITS | Encounter Summary ---
Author Organization [facility] Address [facility] [place] [address] Care Team Providers Care Brazer Crawler Torch Name Role Phone Rob Velez MD Primary Care Provider [phone] Encounter Details Date Type Department Care Team (Late st Contact Info) Description 05/03/2020 [place] [address] Jair Barroso Jr., MD [facility] [place] [address] Social History Tobacco Use Types Packs/Day Years Used Date Smoking Tobacco: Never Smokeless Tobacco: Never Alcohol Use Standard Drinks/Week Comments Not Currently 0 (1 standard drink = 0.6 oz pur e alcohol) Sex and Gender Information Value Date Recorded Sex Assigned at Not on file Gender Identity Not on file Sexual Orientation Not on file documented as of this encounter Miscellaneous Notes * Telephone Encounter - Juju Salcedo - 05/03/2020 2:27 PM EST Pt called back to talk about scheduling a COVID test. Transferred to the COVID hotline. documented in this encounter Plan of Treatment Not on file documented as of this encounter Visit Diagnoses Not on filedocumented in this encounter Care Teams Brazer Crawler Torch Relationship Specialty Start Date End Date Rob Velez MD PCP - General Family Medicine 03/17/19 documented as of this encounter
--- OUTSIDE RECORDS SUMMARY | 2024-02-10 16:46 | XMS_ITS | Encounter Summary ---
Author Organization [facility] Address [facility] [place] [address] Care Team Providers Care Crossbar Frame Wirer Name Role Phone Rob Velez MD Primary Care Provider [phone] Encounter Details Date Type Department Care Team (Late st Contact Info) Description 08/06/2019 Orders [place] [address] Jair Barroso Jr., MD [facility] [place] [address] Nephrolithiasis Social History Tobacco Use Types Packs/Day [...] kidney documented in this encounter Care Teams Crossbar Frame Wirer Relationship Specialty Start Date End Date Rob Velez MD PCP - General Family Medicine 03/17/19 documented as of this encounter
--- OUTSIDE RECORDS SUMMARY | 2024-02-10 16:46 | XMS_ITS | Encounter Summary ---
Author Organization [facility] Address [facility] [place] [address] Care Team Providers Care Vice President Financial Name Role Phone Rob Velez MD Primary Care Provider [phone] Encounter Details Date Type Department Care Team (Late st Contact Info) Description 04/22/2019 [place] [address] Jair Barroso Jr., MD [facility] [place] [address] Social History Tobacco Use Types Packs/Day Years Used Date Smoking Tobacco: Never Assessed Sex and Gender Information Value Date Recorded Sex Assigned at Not on file Gender Identity Not on file Sexual Orientation Not on file documented as of this encounter Miscellaneous Notes * Telephone Encounter - Celestino Bright - 04/22/2019 8:34 AM EST [facility] - Need to schedule preop appt with Dr. Barroso - Holding Next Available Slot 07/29/19 at 8:30 am. documented in this encounter Plan of Treatment Not on file documented as of this encounter Visit Diagnoses Not on filedocumented in this encounter Care Teams Vice President Financial Relationship Specialty Start Date End Date Rob Velez MD PCP - General Family Medicine 03/17/19 documented as of this encounter
--- OUTSIDE RECORDS SUMMARY | 2024-02-10 16:46 | XMS_ITS | Encounter Summary ---
Author Organization [facility] Address [facility] [place] [address] Care Team Providers Care Bodybuilder Name Role Phone Rob Velez MD Primary Care Provider [phone] Encounter Details Date Type Department Care Team (Late st Contact Info) Description 09/28/2019 [place] [address] Jair Barroso Jr., MD [facility] [place] [address] Social History Tobacco Use Types Packs/Day Years [...] * Telephone Encounter - Gisel Meade - 09/28/2019 8:43 AM EDT Pt called and said that a lot is going on right now and he is thinking about postponing. He wouldreally like to talk to you more about this as he is torn. His surgery is on for this 09/30. Mobile number is best to reach him Thank you Gisel documented in this encounter Plan of Treatment Not on file documented as of this encounter Visit Diagnoses Not on filedocumented in this encounter Care Teams Bodybuilder Relationship Specialty Start Date End Date Rob Velez MD PCP - General Family Medicine 03/17/19 documented as of this encounter
--- OUTSIDE RECORDS SUMMARY | 2024-02-10 16:46 | XMS_ITS | Encounter Summary ---
Author Organization [facility] Address [facility] [place] [address] Care Team Providers Care Broadcasting Equipment Mechanic Name Role Phone Rob Velez MD Primary Care Provider [phone] Reason for Visit * Reason Comments Nephrolithiasis * Second Surgical Opinion (Routine) - Closed Specialty Diagnoses / Procedures Referred By Jacob t Referred To Contact Urology Diagnoses UPJ OBSTRUCTION, RT KIDNEY STONE - PT HAS STENT IN PLACE OF 02/19/19 Christiano Gray MD [address] [place] [address] Jair Barroso Jr., MD [facility] [place] [address] Referral ID Status Reason Start Date Expiration Date Visits Re quested Visits Authorized [id number] Closed 02/20/2019 02/20/2020 1 1 Encounter Details Date Type Department Care Team (Late st Contact Info) Description 03/17/2019 9:30 AM EDT [place] [address] Jair Barroso Jr., MD [facility] [place] [address] Nephrolithiasis Social History Tobacco Use Types Packs/Day Years Used Date Smoking Tobacco: Never Assessed Sex and Gender Information Value Date Recorded Sex Assigned at Not on file Gender Identity Not on file Sexual Orientation Not on file documented as of this encounter Last Filed Vital Signs Vital Sign Reading Time Taken Comments Blood Pressure 138/94 03/17/2019 9:43 AM EDT Pulse 72 03/17/2019 9:43 AM EDT Temperature - - Respiratory Rate - - Oxygen Saturation 99% 03/17/2019 9:43 AM EDT Inhaled Oxygen Concentration - - Weight - - Height - - Body Mass Index - - documented in this encounter Progress Notes * Jair Barroso Jr., MD - 03/17/2019 9:30 AM EDT Images from the original note were not included. HPI: Michael Lora is a 68 y.o. 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 He has no preceding prior history of urolithiasis. Dr Gray is identified and nonobstructing right lower pole renal stone on CT. He opted to proceed with treatment and ureteroscopy was attempted although the ureteropelvic junction was noted to be tootight to accommodate passage of the ureteroscope into the renal pelvis. Thus, the ureteral stent placed and further options were reviewed with him. Continued short-term temporary stent drainage was opted for, and additional options including repeat ureteroscopy, percutaneous nephrolithotomy, and pyeloplasty with open pyelolithotomy were all reviewed. He was referred here to further discuss these additional management options. He specifically denies any history of right-sided flank or abdominal discomfort with increased fluid intake, alcohol intake, caffeine intake, or other diuretic state. He denies prior stone passage. He denies unexplained nausea or vomiting. Currently he is comfortable but notes some increased urinary urgency and frequency associated with his stent. He would prefer to defer any further treatment until after deer hunting season is over. He was informed that his stent could have up to [address] Gray. Review of Systems Constitution: Negative for fever. HENT: Positive for hearing loss. Eyes: Negative for visual disturbance. Cardiovascular: Negative for chest pain. Respiratory: Negative for shortness of breath. Hematologic/Lymphatic: Does not bruise/bleed easily. Musculoskeletal: Positive for back pain. Gastrointestinal: Positive for change in bowel habit. Negative for abdominal pain. Genitourinary: Positive for frequency and urgency. Negative for flank pain. Neurological: Positive for paresthesias. PMHx: nephrolithiasis; back pain PSHx: right shoulder surgery; spinal fusion; left carpal tunnel release; right inguinal hernia repair FamHx:father with h/o urolithiasis SocHx: no tobacco; rare EtOH Physical Exam Constitutional: He is oriented to person, place, and time. He appears well- developed and well-nourished. No distress. HENT: Head: Normocephalic and atraumatic. Eyes: No scleral icterus. Cardiovascular: Normal rate and regular rhythm. Pulmonary/Chest: Effort normal and breath sounds normal. No respiratory distress. He has no wheezes. He has no rales. He exhibits no tenderness. Abdominal: Soft. He exhibits no distension. There is no tenderness. There is no rebound and no guarding. Genitourinary: Genitourinary Comments: No CVA tenderness to percussion bilaterally Musculoskeletal: He exhibits no edema or tenderness. Lymphadenopathy: He has no cervical adenopathy. Neurological: He is alert and oriented to person, place, and time. Skin: Skin is warm and dry. He is not diaphoretic. Psychiatric: He has a normal mood and affect. His behavior is normal. Imaging Studies: I independently reviewed the CT from 01/12 and the RPG from 01/2019. CT reveals an 11 mm right lower pole renal stone that appears nonobstructing. Retrograde pyelogram shows narrowed appearing right UPJ. Impression/Plan: >1cm right lower pole renal stone I nsetting of narrowed right upj. We reviewed his imaging studies and course to date at length. Regarding the right lower pole renal stone itself, we again reviewed the relative risks, benefits, limitations, and anticipated single procedure stone free success rates for percutaneous nephrolithotomy, ureteroscopy, shockwave lithotripsy, and pyelolithotomy (with pyeloplasty). In light of the anatomic narrowing of the proximal ureter/UPJ, and augmented by the lower pole location and greater than 1 cm size of the stone, we discussedthat shockwave lithotripsy is unlikely to render him stone free and would not be a preferred treatment option. As he has had a stent in place for approximately 1 month, we discussed that a second atte mpt ureteroscopy would likely be able to navigate beyond the UPJ and allow access to the stone for treatment. We discussed that still may require a multi- staged procedure however. We discussed the PCNL offers the highest likelihood of rendering him stone free and a single procedure for a stone over1 cm in the lower pole. Finally, we discussed simply observing the stone with removal of the stent. We also discussed the anatomic narrowing of the UPJ identified by Dr. Gray and demonstrated on theretrograde pyelogram. Although narrowed, it is not clear that if this truly functionally obstructive as he has not had symptoms attributable to this previously he can recall. If functional obstruction were present, we discussed the pyeloplasty would offer the most durable repair of a UPJ obstruction (if present). We discussed an endopyelotomy could be performed at the same time as percutaneous nephrolithotomy, but that long-term durability for endopyelotomy is inferior to that of pyeloplasty. At this point, he declines further intervention for the UPJ and will consider his options for stone tr eatment. We can certainly reassess the UPJ after the stone has been treated to assess for any evidence of functional obstruction which may benefit from further intervention. At this time he declines any intervention, will consider his options, will plan to return for follow-up in approximately 6 weeks, sooner if needed. documented in this encounter Plan of Treatment Not on file documented as of this encounter Procedures Procedure Name Priority Date/Time Associated Diagnosis Comments HC URINE CULTURE Routine 03/17/2019 10:4 5 AM EDT Nephrolithiasis documented in this encounter Results * Urine culture Clean Catch Urine (03/17/2019 10:45 AM EDT) Urine Culture No growth (Less than 1,000 cfu/ml). [facility] Urine specimen obtained by clean catch procedure (specimen) 03/17/2019 10:45 AM EDT 03/17/2019 3:40 PM EDT Narrative Resulting Agency Comment Spec In Lab Jair Barroso Jr., MD MICROBIOLOGY - GEN ERAL ORDERABLES [facility] [place] [address] documented in this encounter Visit Diagnoses Diagnosis Nephrolithiasis Calculus of kidney documented in this encounter Care Teams Broadcasting Equipment Mechanic Relationship Specialty Start Date End Date Rob Velez MD PCP - General Family Medicine 03/17/19 documented as of this encounter
--- OUTSIDE RECORDS SUMMARY | 2024-02-10 16:46 | XMS_ITS | Encounter Summary ---
Author Organization [facility] Address [facility] [place] [address] Care Team Providers Care Cryptologic Linguist Name Role Phone Rob Velez MD Primary Care Provider [phone] Encounter Details Date Type Department Care Team (Late st Contact Info) Description 05/09/2020 [place] [id number] Jeane Orellana RN Social History Tobacco Use Types Packs/Day Years [...] encounter Miscellaneous Notes * Telephone Encounter - Jeane Orellana RN - 05/09/2020 8:12 AM EST I called the patient to let him know we need a urine sample prior to his surgery on 05/12/20. Patient is going to [facility] this morning for his covid testing, and will go to the lab as well for his urinesample. Order faxed. * Telephone Encounter - Jeane Orellana RN - 05/09/2020 8:11 AM EST ----- Message from Larry Cox MD sent at 05/08/2020 11:10 PM EST ----- Regarding: Preop urine culture Hey team, Michael Lora is a patient who needs to drop off a preoperative urine sample. Can you have him drop off a culture to whatever hospital is closest to him? Should be done [place], has PCNL surgery on . Thanks again for your help with this. Let me know if there are any issues, -Larry documented in this encounter Plan of Treatment Not on file documented as of this encounter Visit Diagnoses Diagnosis Nephrolithiasis Calculus of kidney documented in this encounter Care Teams Cryptologic Linguist Relationship Specialty Start Date End Date Rob Velez MD PCP - General Family Medicine 03/17/19 documented as of this encounter
--- OUTSIDE RECORDS SUMMARY | 2024-02-10 16:46 | XMS_ITS | Encounter Summary ---
Author Organization [facility] Address [facility] [place] [address] Care Team Providers Care Security Inspector Name Role Phone Rob Velez MD Primary Care Provider [phone] Encounter Details Date Type Department Care Team (Late st Contact Info) Description 03/19/2019 [place] [address] Jair Barroso Jr., MD [facility] [place] [address] Social History Tobacco Use Types Packs/Day Years Used Date Smoking Tobacco: Never Assessed Sex and Gender Information Value Date Recorded Sex Assigned at Not on file Gender Identity Not on file Sexual Orientation Not on file documented as of this encounter Miscellaneous Notes * Telephone Encounter - Celestino Bright - 03/19/2019 1:18 PM EDT Pt calls back after his visit the other day. Has quite a bit of lower back pain and pain with urination if he waits too long. He wonders if the stent is what is causing the pain, should he possibly have the stent out locally. If he would like to go ahead and have the stone removed, he wonders when this would be possible. Will check with Dr. Barroso on this. documented in this encounter Plan of Treatment Not on file documented as of this encounter Visit Diagnoses Not on filedocumented in this encounter Care Teams Security Inspector Relationship Specialty Start Date End Date Rob Velez MD PCP - General Family Medicine 03/17/19 documented as of this encounter
--- OUTSIDE RECORDS SUMMARY | 2024-02-10 16:46 | XMS_ITS | Encounter Summary ---
Author Organization [facility] [place] [address] Care Team Providers Care Student Specialist Name Role Phone Rob Velez MD Primary Care Provider [phone] Encounter Details Date Type Department Care Team (Late st Contact Info) Description 07/29/2019 10:20 AM EST Clinical [place] [id number] Nephrolithiasis Social History Tobacco Use Types Packs/Day [...] Sign Reading Time Taken Comments Blood Pressure - - Pulse 84 07/29/2019 9:54 AM EST Temperature - - Respiratory Rate - - Oxygen Saturation 97% 07/29/2019 9:54 AM EST Inhaled Oxygen Concentration - - Weight 77.6 kg (171 lb) 07/29/2019 9:54 AM EST Height 172.7 cm (5' 8) 07/29/2019 9:54 AM EST Body Mass Index 26 07/29/2019 9:54 AM EST documented in this encounter Progress Notes * Eder Woodson, RN - 07/29/2019 10:20 AM EST PAT questionnaire reviewed with patient while in Pre Admission testing. Pre- operative instruction booklet reviewed. Patient verbalizes a good understanding of all information reviewed. Patient has had general anesthesia previously at another facility without a problem. PLAN: Testing: Blood work (urine collected in clinic and T&S needed per [facility] but surgery date outside of 45 days so should be done DOS) Procedure date: 09/30 Chio documented in this encounter Plan of Treatment Not on file documented as of this encounter Procedures Procedure Name Priority Date/Time Associated Diagnosis Comments HEMOGRAM Routine 07/29/2019 10:36 AM EST Nephrolithiasis DIFFERENTIAL, AUTOMATED Routine 07/29/2019 10:36 AM EST Nephrolithiasis HC VENIPUNCTURE Routine 07/29/2019 10:36 AM EST Nephrolithiasis BASIC METABOLIC PANEL STAT 07/29/2019 10:36 AM EST Nephrolithiasis documented in this encounter Results * Differential, Automated (07/29/2019 10:36 AM EST) Neutrophil % 62.0 % [facility] Neutrophil Absolute 2.95 1.70 - 6.10 x10(3)/[facility] Lymph % 26.5 % [facility] Lymphocytes Abs 1.3 0.9 - 3.2 x10(3)/[facility] Monocyte % 9.2 % [facility] Monocyte Abs 0.4 0.3 - 0.9 x10(3)/[facility] Eos % 1.3 % [facility] Eosinophils Abs 0.1 0.0 - 0.4 x10(3)/[facility] Basophil % 0.6 % [facility] Baso Absolute 0.0 0.0 - 0.1 x10(3)/[facility] Immature Gran % 0.40 % [facility] Comment: Immature granulocytes(IG's)percentage and absolute count will include metamyelocytes, myelocytes, and promyelocytes. Blood smears from CBCs yielding IG's will be scanned manually for concordance. If this scan disagrees with the automated IG or if promyelocytes are noted, a manual differential will be performed. Immature Gran Absolute 0.02 0.00 - 0.04 x10(3)/[facility] Blood specimen (specimen) 07/29/2019 10:36 AM EST 07/29/2019 10:57 AM EST Narrative Resulting Agency Comment Spec In Lab Jair Barroso Jr., MD HEMATOLOGY ORDERAB LES Performing Organization Address City/State/[facility] Co de Phone Number [facility] [place] [place] [address] * (ABNORMAL) Hemogram (07/29/2019 10:36 AM EST) White Blood Cell 4.8 4.0 - 9.5 x10(3)/[facility] Red Blood Cell 5.33 4.58 - 5.54 x10(6)/[facility] Hemoglobin 16.2 13.7 - 16.5 gm/dL [facility] Hematocrit 49.4(H) 40.5 - 48.5 % [facility] Mean Cell Volume 92.7 82.9 - 93.1 fL [facility] Mean Cell Hemoglobin 30.4 27.5 - 32.1 pg [facility] Mean Cell Hemoglobin Concentration 32.8 32.0 - 35.7 gm/dL [facility] Platelet 192 145 - 357 x10(3)/[facility] RDW Standard Deviation 45.1(H) 36.0 - 45.0 [facility] RDW coefficient of variation 13.3 11.4 - 13.8 % [facility] Mean Platelet Volume 10.4 7.6 - 12.9 fL [facility] NRBC% auto 0.0 % [facility] NRBC Absolute 0.000 0.000 - 0.000 x10(3)/[facility] Blood specimen (specimen) 07/29/2019 10:36 AM EST 07/29/2019 10:57 AM EST Narrative Resulting Agency Comment Spec In Lab Jair Barroso Jr., MD HEMATOLOGY ORDERAB LES [facility] [place] [address] * Basic Metabolic Panel (non-fasting) (07/29/2019 10:36 AM EST) Glucose 99 65 - 199 mg/dL [facility] Comment:Diabetes: >=200 mg/d L plus symptoms Blood Urea Nitrogen 10 10 - 20 mg/dL [facility] Creatinine 1.02 0.80 - 1.50 mg/dL [facility] Sodium 140 135 - 145 mmol/L [facility] Potassium 4.5 3.5 - 5.0 mmol/L [facility] Comment: Please note: ??Patients with WBC >100,000 may have falsely elevated Potassium levels. ??For accurate Potassium quantification in these patients send serum separator tube (gold top) for subsequent determinations. ??Contact the Clinical Chemistry Laboratory if there are any questions. Chloride 102 98 - 107 mmol/L [facility] Carbon Dioxide 26 22 - 31 mmol/L [facility] Anion Gap 12 5 - 15 mmol/L [facility] Calcium 9.9 8.5 - 10.5 mg/dL [facility] Est Glomerular Filtration Rate 75 >=60 mL/min/1. 73 m?? [facility] Comment: The eGFR was calculated using the CKD-EPI equation. As with all creatinine based estimates of kidney function, eGFR values calculated with the CKD-EPI equation are not accurate in patients with acute kidney failure, extremes of body mass or the acutely ill. http://[employer]/DHMCnkf eGFR 87 >=60 mL/min/1. 73 m?? [facility] Comment: The eGFR was calculated using the CKD-EPI equation. As with all creatinine based estimates of kidney function, eGFR values calculated with the CKD-EPI equation are not accurate in patients with acute kidney failure, extremes of body mass or the acutely ill. http://[employer]/DHMCnkf Blood specimen (specimen) 07/29/2019 10:36 AM EST 07/29/2019 10:56 AM EST Narrative Resulting Agency Comment Spec In Lab Jair Barroso Jr., MD CHEMISTRY ORDERABL ES Performing Organization Address City/State/[facility] Co de Phone Number [facility] [place] [phone] documented in this encounter Visit Diagnoses Diagnosis Nephrolithiasis Calculus of kidney documented in this encounter Care Teams Student Specialist Relationship Specialty Start Date End Date Rob Velez MD PCP - General Family Medicine 03/17/19 documented as of this encounter
--- OUTSIDE RECORDS SUMMARY | 2024-02-10 16:46 | XMS_ITS | Encounter Summary ---
Author Organization [facility] Address [facility] [place] [address] Care Team Providers Care Insurance Checker Name Role Phone Rob Velez MD Primary Care Provider [phone] Encounter Details Date Type Department Care Team (Late st Contact Info) Description 09/28/2019 [place] [phone] Maritza Nevarez MD [facility] [place] [address] Social History Tobacco Use Types Packs/Day Years [...] encounter Miscellaneous Notes * Telephone Encounter - Maritza Nevarez MD - 09/28/2019 2:12 PM EDT I called Mr Lora back to discuss his PCNL scheduled for . He is very uncertain if he wants to proceed or not. He was advised that the stone is likely not the cause of his back pain (lower back, bilateral), which is making him hesitant to proceed with surgery. Additionally, he has a lot of upcoming projects in the spring and summer (bought a new property that he will be renovating etc). He really would prefer to wait until next winter to have the procedure. We talked about the fact that the stone may grow over the course of the next 6-9 months, making surgery more challenging. Additionally, though unlikely (lower pole stone), the stone could move and become obstructing. The patient would like to talk to his before making a final decision. He will call us back tomorrow morning to let us know what he decides. I asked him to please call sooner rather than later toallow us to possibly use his OR time for another patient. documented in this encounter Plan of Treatment Not on file documented as of this encounter Visit Diagnoses Not on filedocumented in this encounter Care Teams Insurance Checker Relationship Specialty Start Date End Date Rob Velez MD PCP - General Family Medicine 03/17/19 documented as of this encounter
--- OUTSIDE RECORDS SUMMARY | 2024-02-10 16:46 | XMS_ITS | Encounter Summary ---
Author Organization Formerly [facility] Address [facility] [place] [address] Care Team Providers Care Bilingual Inside Sales Representative Name Role Phone Rob Velez MD Primary Care Provider [phone] Reason for Visit * Auth/Cert Specialty Diagnoses / Procedures Referred By Jacob yusuf Referred To Contact Diagnoses RIGHT 12MM LOWER POLE STONE Procedures PRO PERCUT REMV KID STONE, UP TO 2 CM PRO PLMT NEPHROSTOMY CATH PRQ NEW ACCESS RS&I PRO CYSTOURETHROSCOPY, URETER CATHETER PRO CYSTO W URETEROSCOPY &/OR PYELOSCOPY, DX NEPHROLITHOTOMY, (PCNL) PERCUTANEOUS (WRVU 15.74) NEPHROSTOMY CATHETER, PERC, INC DX NEPHROSTOGRAM/URETEROGRAM, IMG GUIDANCE (WRVU 4.25) CYSTO, RETROGRADE, URETEROPYELOGRAPHY, W/PCNL (WRVU 2.37) CYSTOURETEROSCOPY, DIAGNOSTIC (WRVU 5.75) MODIFIER,ANTON LASER Referral ID Status Reason Start Date Expiration Date Visits Re quested Visits Authorized [id number] 1 1 Encounter Details Date Type Department Care Team (Late st Contact Info) Description 05/12/2020 9:28 AM EST - 05/12/2020 1:26 PM EST Surgery [place] [id number] Jair Barroso Jr., MD [facility] [place] [address] NEPHROLITHOTOMY, (PCNL) PERCUTANEOUS (WRVU 12.41) Social History Tobacco Use Types Packs/Day Years [...] Sign Reading Time Taken Comments Blood Pressure 140/73 05/12/2020 9:40 AM EST Pulse 64 05/12/2020 9:40 AM EST Temperature 36.7 ??C (98.1 ??F) 05/12/2020 9:40 AM ES T Respiratory Rate 16 05/12/2020 9:40 AM EST Oxygen Saturation 100% 05/12/2020 9:40 AM EST Inhaled Oxygen Concentration - - Weight 71.8 kg (158 lb 6.4 oz) 05/12/2020 9:40 A M EST Height 171.5 cm (5' 7.5) 05/12/2020 9:40 AM EST Body Mass Index 24.44 05/12/2020 9:40 AM EST documented in this encounter Discharge Summaries * Michael Harris MD - 05/13/2020 5:15 PM ESTSummary: Urology Discharge Summary Discharge Summary Patient Name: Michael Lora Patient Age: 69 y.o. Language: Libyan Race: White Ethnicity: Not nor Admit date: 05/12/2020 Discharge date: 05/13/2020 Attending Physician: Jair Barroso Jr., MD Discharge Physician: same Discharge Diagnoses (Hospital Problems) and Secondary Diagnoses (Chronic Problems): Active Hospital Problems Diagnosis ??? Right kidney stone Resolved Hospital Problems No resolved problems to display. There are no active non-hospital problems to display for this patient. Operations/Major Procedures: Procedure(s): NEPHROLITHOTOMY, (PCNL) PERCUTANEOUS (WRVU 15.74) NEPHROSTOMY CATHETER, PERC, INC DX NEPHROSTOGRAM/URETEROGRAM, IMG GUIDANCE (WRVU 4.25) CYSTOURETEROSCOPY, DIAGNOSTIC (WRVU 5.75) ULTRASONIC GUIDANCE, INTRAOP (WRVU 1.2) FLUOROSCOPY (WRVU 0.17) 05/12/2020 History of Presentation (from Dr. Barroso's note 07/29/2019): Michael Lora is a 69 y.o. 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 He has no preceding prior history of urolithiasis. He had initially been seen in February 2019 and we had reviewed management options for his 12 mm right lower pole renalstone in the setting of the narrowed UPJ. He had declined to proceed with any intervention at that time and ultimately return to Dr. Gray to have the stent removed. He returns today to revisit management options for his stone. ?? Dr Gray identified a nonobstructing right lower pole renal [...] has a lower durability and pyeloplasty. Ultimately decided to defer any intervention and had a stent removed by Dr. Gray. He returns today to revisit management options for the stone. He denies any interval new medical problems. He notes persistent bilateral low back, abdominal and hip discomfort. ?? He specifically denies any history of right-sided flank or abdominal discomfort with increased fluid intake, alcohol intake, caffeine intake, or other diuretic state. He denies prior stone passage. He denies unexplained nausea or vomiting. ?? Hospital Course: Patient was admitted electively to [facility] via the same day surgery program and underwent the above procedure. Operative findings were as follows: - 12 mm right lower pole renal stone. Retrograde ureteroscopy notable for proximal ureteral narrowing that prevented retrograde endoscopic access to the kidney. ??Ultrasound revealed pleura posteriorto upper most portion of kidney; thus lower [...] at procedure conclusion. ??No fluoroscopic evidence of hydrothoraxor pneumothorax. He tolerated surgery well and was tranferred from the PACU to the general floor in good condition afew hours after surgery. Patient's hospital course was uncomplicated. He remained afebrile, with stable vital signs throughout his hospital stay. Today, on POD#1, he has met all criteria for discharge home: his pain is well controlled with medications by mouth, he is tolerating a regular diet, is voiding spontaneously without difficulties, and is up and ambulating without complications. He has been deemed safe for discharge with follow up in 2 weeks for stent removal (requested). Of note, the patient was voiding between 50 and 75% of his total bladder volume every void based onPVR. He felt comfortable with his voiding and stated that he never really empties his bladder. He was taught how to straight cath just in case he were to run into a problem at home. He was provided with 14Fr straight catheters at home just in case. Vital Signs at Discharge: Weight: Wt Readings from Last 1 Encounters: 05/12/20 71.8 kg (158 lb 6.4 oz) Height: Ht Readings from Last 1 Encounters: 05/12/20 171.5 cm (5' 7.5) BMI: Body mass index is 24.44 kg/m??. Last value Range last 24 hrs Temperature Temp: 36.7 ??C (98.1 ??F) Temp: [36.7 ??C (98.1 ??F)-37.3 ??C (99.1 ??F)] Heart Rate Heart Rate: 79 Heart Rate: [79] Blood Pressure BP: 150/88 BP: (105-150)/(68-88) Respiratory Rate Resp: 16 Resp: [16] SpO2 SpO2: 98 % SpO2: [96 %-98 %] Exam at Discharge: General: NAD CV: RRR Pulm: CTAB Abd: soft, NT, ND Incision: PCN site c/d/i, gauze clean Ext: warm, well perfused Functional and Cognitive Status: Ambulating and cognitively intact. Important Studies and Lab Data: Lab Results Component Value Date WBC 12.8 (H) 05/13/2020 RBC 4.72 05/13/2020 HGB 14.3 05/13/2020 HCT 43.2 05/13/2020 MCV 91.5 05/13/2020 MCH 30.3 05/13/2020 MCHC 33.1 05/13/2020 PLATELET 181 05/13/2020 RDWCV 13.4 05/13/2020 Lab Results Component Value Date NA 136 05/13/2020 K 4.5 05/13/2020 CL 106 05/13/2020 CO2 23 05/13/2020 BUN 11 05/13/2020 CREATININE 1.06 05/13/2020 GLUCOSE 128 05/13/2020 CALCIUM 9.0 05/13/2020 Studies: 05/13 CT Abd/Pelvis without contrast Post PCNL changes on the right without retained calculi. Pending Studies and Lab Data: The patient will need the following test completed on: 07/29/2019 1. Kidney Stone Analysis Diagnosis: Authorizing Provider: Jair Barroso Jr., MD Discharge Conditions/Prognosis: Stable Discharge to: Home Updated Allergies/ADRs: No Known Allergies Immunizations Given this Hospitalization: There is no immunization history on file for this patient. Discharge Medications: Your Medications New Medications Dose Details acetaminophen 325 mg Tab Commonly known as: Tylenol Take 3 tablets by mouth every 6 hours as needed for Pain. 975 mg Refills: 0 ibuprofen 200 mg Tab Commonly known as: Advil;Motrin Take 3 tablets by mouth every 6 hours as needed for Pain. Take with food. 600 mg Refills: 0 Continued medications, unchanged Dose Details VITAMIN C ORAL Refills: 0 Smoking Status at Discharge: Social History Tobacco Use Smoking Status Never Smoker Smokeless Tobacco Never Used Instructions Given to Patient at Discharge: Patient Instructions DISCHARGE INSTRUCTIONS FOLLOWING PCNL Call your doctor for: ??? fevers greater than 100.5 ??? severe nausea or vomiting ??? increasing pain not controlled by pain medications ??? increasing redness or drainage from incisions ??? decreased urine output The number for questions is [phone] before 5 PM weekdays and [phone] after 5 PM and weekends. Activity: Gradually increase activity with short frequent walks, three to four times a day. Avoid strenuous activities, like sports, lawn mowing, or heavy lifting more than 10-15 pounds. Wear loose, comfortable clothing. Do not drive while taking pain medication, or until your doctor permits it. Bathing and dressing change: You should not shower for 48 hours after surgery. Do not soak your back in a bathtub. When the wound stops draining or it is manageable with a dry gauze dressing, you can remove the bag. If you are unable to void and feel the sensation to do so, please straight catheterize yourself as you were taught in the hospital. Diet: It is extremely important to drink plenty of fluids after surgery, especially water. You may resumeyour regular diet, unless otherwise instructed Medications: You may take Tylenol (acetaminophen) or ibuprofen (Advil, Motrin) as directed [id number]. Take any prescriptions as directed. Follow up Appointments: Follow-up appointment will be scheduled with Dr. Barorso in approximately 2 weeks for a hospital check and stent removal. Appointment will be mailed to you. Please call [phone] (clinic number for appointments) to confirm date and time of your appointment if you do not receive it. You have a ureteral stent in place. It is important to remember that a stent is not a permanent device and must be removed in a timely fashion. Failure to remove a stent may result in the need for more procedures. General Instructions None Follow-Up: No future appointments. Primary Care Provider: Rob Velez MD [phone] Follow-up Recommendations for Providers: Please see discharge instructions. Call your doctor if: Please call your doctor immediately or go to an Emergency Department if you notice worsening pain not controlled by pain medications, uncontrolled headache, vision changes, chest pain, difficulty breathing, persistent nausea and vomiting, new redness or swelling in any extremities, new onset weakness or changes in sensation, or for any fevers greater than 101.3 F. Your care was managed by the Urology Team at [facility]. If you have any questions or concerns, please feel free to contact us. Provider Contact Information: Urology Clinic: [facility] (after business hours): documented in this encounter Discharge Instructions * Patient Instructions* Michael Harris MD - 05/13/2020 7:23 AM EST DISCHARGE INSTRUCTIONS FOLLOWING PCNL Call your doctor for: ??? fevers greater than 100.5 ??? severe nausea or vomiting ??? increasing pain not controlled by pain medications ??? increasing redness or drainage from incisions ??? decreased urine output The number for questions is [phone] before 5 PM weekdays and [phone] after 5 PM and weekends. Activity: Gradually increase activity with short frequent walks, three to four times a day. Avoid strenuous activities, like sports, lawn mowing, or heavy lifting more than 10-15 pounds. Wear loose, comfortable clothing. Do not drive while taking pain medication, or until your doctor permits it. Bathing and dressing change: You should not shower for 48 hours after surgery. Do not soak your back in a bathtub. When the wound stops draining or it is manageable with a dry gauze dressing, you can remove the bag. If you are unable to void and feel the sensation to do so, please straight catheterize yourself as you were taught in the hospital. Diet: It is extremely important to drink plenty of fluids after surgery, especially water. You may resumeyour regular diet, unless otherwise instructed Medications: You may take Tylenol (acetaminophen) or ibuprofen (Advil, Motrin) as directed [id number]. Take any prescriptions as directed. Follow up Appointments: Follow-up appointment will be scheduled with Dr. Barroso in approximately 2 weeks for a hospital check and stent removal. Appointment will be mailed to you. Please call [phone] (clinic number for appointments) to confirm date and time of your appointment if you do not receive it. You have a ureteral stent in place. It is important to remember that a stent is not a permanent device and must be removed in a timely fashion. Failure to remove a stent may result in the need for more procedures. * Attachments The following attachments cannot be sent through Care Everywhere. * Self-Catheterization: Intermittent: Male (Libyan) documented in this encounter Medications at Time of Discharge Medication Sig Dispensed Refills Start Date End Date acetaminophen (Tylenol) 325 mg Tablet Take 3 tablets by mouth every 6 hours as needed for Pain. 05/13/2020 ibuprofen (Advil;Motrin) 200 mg Tablet Take 3 tablets by mouth every 6 hours as needed for Pain. Take with food. 05/13/2020 ASCORBIC ACID (VITAMIN C ORAL) Take 500 mg by mouth daily. 08/28/2007 documented as of this encounter Progress Notes * Juli Peterson RN - 05/12/2020 2:48 PM EST Pt arrived to PACU from OR in bed. Attached to monitors and alarms set appropriately. R nephrostomytube site CDI. Vera in place. Both tubes draining red urine. 1515: Pt tolerating ice chips. Urology at bedside. 1545: Potassium hemolyzed. Reordered and sent. 1550: Report given to SHANICE Vargas. documented in this encounter H&P Notes * Larry Cox MD - 05/12/2020 10:15 AM EST Images from the original note were not included. Interval H&P: Please see clinic H&P dated 07/29/19. Dr. Barroso's H&P: Michael Lora is a 69 y.o. 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 He has no preceding prior history of urolithiasis. He had initially been seen in February 2019 and we had reviewed management options for his 12 mm right lower pole renalstone in the setting of the narrowed UPJ. After a discussion of his management options, patient elects to proceed with RIGHT PCNL. There have been no changes to his history. He denies CP, SOB, fevers/chills, N/V. Vitals: Patient Vitals for the past 24 hrs: Temp Pulse Resp BP SpO2 O2 Device 05/12/20 0940 36.7 ??C (98.1 ??F) 64 16 140/73 100 % RA Past Medical History: Diagnosis Date ??? Transfusion history History reviewed. No pertinent surgical history. Last 3 wbc, hgb, hct plt Recent Labs 07/29/19 1036 WBC 4.8 HGB 16.2 HCT 49.4* PLATELET 192 Last 3 Lytes Recent Labs 07/29/19 1036 NA 140 K 4.5 CL 102 CO2 26 BUN 10 CREATININE 1.02 05/09 UCx @ [facility]: NGTD Anticoagulants: None Imaging: Physical Exam: Gen: well developed and well nourished CV: Regular rate Pulm: CTAB, respiratory effort normal Abd: Soft, NT/ND Ext: normal and symmetric movement, normal range of motion, no joint swelling. Imaging: Relevant imaging reviewed A/P: 69 y.o. male who presents today for above procedures. - Consent signed and dated and placed in chart - All questions answered to patient satisfaction - Ok to proceed with scheduled operation. documented in this encounter Miscellaneous Notes * Plan of Care - Alicia De Leon RN - 05/13/2020 6:14 PM EST Problem: Patient Care Overview Goal: Plan of Care Review Outcome: Outcome (s) achieved Date Met: 05/13/20 05/13/201806 Coping/Psychosocial Plan Of Care Reviewed With patient Plan of Care Review Progress improving Goal: Interdisciplinary Rounds/Family Conf Outcome: Outcome (s) achieved Date Met: 05/13/20 Explained d/c paperwork. No questions or concerns voiced. Patient instructed on straight cath. Patient voiding well at time of d/c. Given extra supplies for dressings. Small amount of shadowing on dressing to R back dressing. Ok to drive per provider. Patient not taking any pain medications and it has been 24 hours after anesthesia. Patient states pain is minimal. Walked out with staff. Patient to drive self. * Plan of Care - Alicia De Leon RN - 05/12/2020 7:53 PM EST Problem: Patient Care Overview Goal: Plan of Care Review Outcome: Ongoing (Interventions Implemented as Appropriate) 05/12/201948 Coping/Psychosocial Plan Of Care Reviewed With patient Patient received in bed, LR infusing at 100/hr. Received report from Juli. Patient has nephrostomy and vera patent draining reddish urine. Patient's nephrostomy site dry and intact. Patient alert and oriented stating he is having some discomfort at he meatus but no pain at the nephrostomy site. VSS, Patient having a good appetite and able to eat dinner. Will continue to monitor. * Op Note - Jair Barroso Jr., MD - 05/12/2020 6:11 PM EST [facility] Operative Note Patient Name: Michael Lora : [id number] MR#: [id number] Case Date: 05/12/2020 Surgeon: Surgeon(s) and Role: * Jair Barroso Jr., MD - Primary * Larry Cox MD - Resident Preoperative diagnosis: RIGHT 12MM LOWER POLE STONE Postoperative diagnosis: RIGHT 12MM LOWER POLE STONE Procedure(s) (LRB): NEPHROLITHOTOMY, (PCNL) PERCUTANEOUS (WRVU 15.74) (Right) NEPHROSTOMY CATHETER, PERC, INC DX NEPHROSTOGRAM/URETEROGRAM, IMG GUIDANCE (WRVU 4.25) (Right) CYSTOURETEROSCOPY, DIAGNOSTIC (WRVU 5.75) (Right) ULTRASONIC GUIDANCE, INTRAOP (WRVU 1.2) (N/A) FLUOROSCOPY (WRVU 0.17) (N/A) Findings: - 12 mm right lower pole renal stone. Retrograde ureteroscopy notable for proximal ureteral narrowing that prevented retrograde endoscopic access to the kidney. Ultrasound revealed pleura posterior to upper most portion of kidney; thus lower pole access was obtained with u/s guidance. Wire could not initially be maneuvered antegrade down ureter, thus curled in renal pelvis and after dilation, retrograde wire was retrieved to obtain through and through access. Solitary stone grasped and extracted. No additional stones seen. Antegrade ureteroscopy confirmed no ureteral stones. Fluoroscopically and endoscopically stone free at procedure conclusion. No fluoroscopic evidence of hydrothorax or pneumothorax. Anesthesia: General Estimated Blood Loss: 150cc Specimens removed during surgery: urine for culture; stone for analysis Drains: 24 fr roney right nephrostomy tube with coaxial 5 fr externalized pollock ureteral safety catheter. 7 fr variable length right ureteral stent 18 fr vera catheter Surgical Closure: Primary Closure - skin incision is completely closed without any wires, scott, drains or other devices Disposition: awakened from anesthesia, extubated and taken to the recovery room in a stable condition, having suffered no apparent untoward event. 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 ??He had??initially been seen in February 2019 and we had reviewed management options for his 12 mm right lowerpole renal stone in the setting of the narrowed UPJ. After a discussion of his management options, adelfo caban elects to proceed with RIGHT PCNL. Procedure Description: The patient was identified in the pre-operative holding area. Consent was verified. The correct side of the procedure was marked. The patient was taken to the operating room and placed supine on the operating table. General anesthesia was induced. The patient was then moved to the prone position, and the patient's perineum, flank, and back were prepped and draped in the usual sterile fashion. Allpressure point were adequate padded to prevent neurapraxic injury. A timeout was performed involving all members of the OR team confirming the patient's identity and planned procedure. Preoperative antibiotics were administered (IV Ceftriaxone 2g, IV gent 80mg) A flexible cystoscope was passed through the urethra and into the bladder under direct vision. The RIGHT ureteral orifice was cannulated with a 5 Fr Pollack catheter. A glidewire was advanced via thecatheter under fluoroscopic guidance into the renal pelvis. A second glidewire was then advanced into the ureteral orifice. A 10/12 ureteral access sheath was attempted to be advanced over one of theglidewires but would not readily pass into the ureteral orifice and thus was removed. A [employer] Storage ureteroscope was advanced over one of the glidewires under fluoroscopic guidance and advanced up to the UPJ, where preexisting UPJ narrowing was seen. Given the narrowing, we were not able to establishaccess in a retrograde fashion. We turned our attention to obtaining antegrade percutaneous renal access. US was notable for pleurawhich was visible posterior to most of the upper kidney. An appropriate lower pole calyx was then identified via ultrasound and through direct visualization and then targeted and entered using a an ultrasound needle guide. After confirming calyceal entry, the inner sheath of the needle was removed and a superstiff guide wire was advanced to the lower pole calyx. Wires were unable to be maneuvered antegrade down the ureter, even with use of angled angiographic catheter. The 8/10 Fr dilator was passed over the Super Stiff wire. The inner obturator of the dilator was removed, and a second superstiff wire was advanced into the renal pelvis. One was secured as a safety wire; over the other a nephromax balloon was passed, positioned with tip in calyx, and inflated to a pressure of 14 julio cesar. The 30 Fr access sheath was passed over the balloon to maintain the percutaneous tract. The nephroscope was then advanced into the calyx and renal pelvis. A two prong grasper was then used to grasp the glidewire and this was pulled out of the access sheath. An angiographic catheter was advanced over the glidewire and this was exchanged for a superstiff guidewire, thus establishing through and through safety access. The 8/10 Fr dilator was passed over the Super Stiff wire. The inner obturator of the dilator was removed, and a second glide wire was advanced into the renal pelvis and down the ureter to the bladderin the same fashion. This was similarly exchanged for a Super Stiff wire. An 18 Fr urethral catheter was then inserted to drain the bladder. The rigid nephroscope was reintroduced into the collecting system. The offending stone was visualized in a lower pole calyx. A Zayr-H-Wieoqr was used to grasp this stone and remove it. Specimen was sent to pathology. The rigid nephroscope was exchanged for the flexible nephroscope, which was used to inspect the remainder of the renal collecting system. Using pyelocaliceal mapping, all calyces were inspected and no further stones were seen. The nephroscope was removed. The flexible ureteroscope was then advanced through the sheath and down the ureter. No additional stones fragments were found. Once the entire ureter had been cleared, the kidney was inspected to ensure no residual fragments. A glide wire was passed via the ureteroscope, and the ureteroscope was removed. The nephroscope was back-loaded over the glide wire and advanced into the renal pelvis. A 7 Fr variable length double-J ureteral stent was passed over the wire and down the ureter under fluoroscopic guidance. The proximal curl was confirmed to be in the renal pelvis, and the distal curl in the bladder. The nephroscope was removed. A 24 Fr Fombell catheter was passed over the working Super Stiff guide wire into the renal pelvisunder fluoroscopic guidance. Contrast was again instilled to ensure adequate placement. A Pollack catheter was inserted via the Roney catheter to be used as a safety re-entry catheter. The Fombell catheter was secured to the skin using two 0 silk sutures. The guide wire was removed from the Roney and Pollack catheter combination. 20 mL 50/50 sensorcaine/marcaine with 1:100,000 epinephrine solution was injected at and around the access site for local anesthesia. The remaining safety wire was removed. The nephrostomy site was dressed with dry sterile gauze. The nephrostomy tube and Vera catheter were connected to gravity drainage. Fluoroscopic assessment of the fully expanded RIGHT lung was performed. No pneumothorax, effusion, or other acute cardiopulmonary abnormality was seen. The patient tolerated the procedure well and was moved to the supine position before being awakenedfrom anesthesia with no adverse events. A sponge and instrument count was performed and the counts were correct. The patient was taken to the recovery area in stable condition. Dr. Barroso, the attending surgeon, was present for the entire procedure. Infection Bundle used? N/A * Brief Op Note - Jair Barroso Jr., MD - 05/12/2020 2:42 PM EST Brief Operative Note Patient Name: Michael Lora : [id number] MR#: [id number] Case Date: 05/12/2020 Surgeon: Surgeon(s) and Role: * Jair Barroso Jr., MD - Primary * Larry Cox MD - Resident Preoperative diagnosis: RIGHT 12MM LOWER POLE STONE Postoperative diagnosis: RIGHT 12MM LOWER POLE STONE Procedure(s) (LRB): NEPHROLITHOTOMY, (PCNL) PERCUTANEOUS (WRVU 15.74) (Right) NEPHROSTOMY CATHETER, PERC, INC DX NEPHROSTOGRAM/URETEROGRAM, IMG GUIDANCE (WRVU 4.25) (Right) CYSTOURETEROSCOPY, DIAGNOSTIC (WRVU 5.75) (Right) ULTRASONIC GUIDANCE, INTRAOP (WRVU 1.2) (N/A) FLUOROSCOPY (WRVU 0.17) (N/A) Anesthesia: General Findings: 12 mm right lower pole renal stone. Retrograde ureteroscopy notable for proximal ureteralnarrowing that prevented retrograde endoscopic access to the kidney. Ultrasound revealed pleura posterior to upper most portion of kidney; thus lower pole access was obtained with u/s guidance. Wire could not initially be maneuvered antegrade down ureter, thus curled in renal pelvis and after dilation, retrograde wire was retrieved to obtain through and through access. Solitary stone grasped and extracted. No additional stones seen. Antegrade ureteroscopy confirmed no ureteral stones. Fluoroscopically and endoscopically stone free at procedure conclusion. No fluoroscopic evidence of hydrothorax or pneumothorax. Complications: none evident Intake: Intraprocedure Crystalloid Total Intake sodium chloride 0.9% infusion 900.00 mL Total Intake 900 mL Output Blood Loss 150 mL Total Output 150 mL Net Net Volume 750 mL Transfusion No data found in the last 1 encounters. Output: Estimated Blood Loss: 150 ml Drains: 24 fr roney right nephrostomy tube with coaxial 5 fr externalized pollock ureteral safety catheter. 7 fr variable length right ureteral stent 18 fr vera catheter Specimens removed during surgery: urine for culture; stone for analysis Disposition: awakened from anesthesia, extubated and taken to the recovery room in a stable condition, having suffered no apparent untoward event. Condition: doing well without problems Attestation: Case Date: 05/12/2020 I was present and I participated during the entire procedure. (Please see the Surgical Encounter Summary for any Implant and Specimen details pertinent to this patient.) documented in this encounter Plan of Treatment Not on file documented as of this encounter Procedures Procedure Name Priority Date/Time Associated Diagnosis Comments CT ABDOMEN AND PELVIS WO CONTRAST Routine 05/13/2020 5:02 AM EST HEMOGRAM Timed 05/13/2020 3:32 AM EST DIFFERENTIAL, AUTOMATED Timed 05/13/20 3:32 AM EST HC CBC,PLT & AUTO DIFF Timed 0 3:32 AM EST BASIC METABOLIC PANEL Timed 05/13/2020 3:32 AM EST HC POTASSIUM Routine 05/12/2020 7:27 PM EST HEMOGRAM STAT 05/12/2020 3:00 PM EST DIFFERENTIAL, AUTOMATED STAT 05/12/20 20 3:00 PM EST HC CBC,PLT & AUTO DIFF STAT 0 3:00 PM EST BASIC METABOLIC PANEL STAT 05/12/2020 3:00 PM EST XR FLUORO NO RAD <1HR - OR USE Routine 05/12/2020 2:30 PM EST HC PCH KIDNEY STONE ANALYSIS Routine 05/12/2020 2:05 PM EST HC URINE CULTURE Routine 05/12/2020 12:3 0 PM EST Fluoroscopy Exam Up To 1 Hr Phy Or Oth Hlth Care Prov ([id number]) 05/12/2020 11:22 AM EST RIGHT 12MM LOWER POLE STONE Ultrasonic Guidance, Intraoperative ([id number]) 05/12/2020 11:22 AM EST RIGHT 12MM LOWER POLE STONE Cysto W Ureteroscopy &/Or Pyeloscopy, Dx ([id number]) 05/12/2020 11:22 AM EST RIGHT 12MM LOWER POLE STONE Plmt Nephrostomy Cath Prq New Access Rs&I ([id number]) 05/12/2020 11:22 AM EST RIGHT 12MM LOWER POLE STONE Perq Nl/Pl Lithotripsy Simple Up To 2 Cm 1 Location ([id number]) 05/12/2020 11:22 AM EST RIGHT 12MM LOWER POLE STONE ABORH RECHECK STATUS STAT 05/12/2020 9:17 AM EST HC ANTIBODY DETECTION,CAPTURE-R STAT 05/12/2020 9:17 AM EST ABO/RH TYPING STAT 05/12/2020 9:17 AM EST ANTIBODY SCREEN STAT 05/12/2020 9:17 AM EST IMPLANTABLE DEVICES SCAN 05/12/2020 12:00 AM EST documented in this encounter Results * CT Abdomen & Pelvis wo Contrast (05/13/2020 5:02 AM EST) Anatomical Region Laterality Modality Abdomen, Pelvis Computed Tomogra phy Impressions 05/13/2020 8:14 AM EST Post PCNL changes on the right without retained calculi. Thank you for letting us participate in the care of this patient. For questions regarding this report, please contact the number below. ? Narrative 05/13/2020 8:14 AM EST EXAMINATION: CT ABDOMEN AND PELVIS WO CONTRAST CLINICAL HISTORY: Flank pain, kidney stone suspected s/p RIGHT PCNL; please eval for residual stone TECHNIQUE: Helical CT of the abdomen and pelvis was performed without the use of intravenous contrast. ??Multiplanar reformatted images were generated. COMPARISON: None FINDINGS: The absence of intravenous contrast limits the evaluation of solid viscera and vasculature. Right kidney/ureter: Post percutaneous nephrostomy and double-J ureteral stent placement changes. No retained calculi. Small perinephric hematoma and perinephric fat stranding. Left kidney/ureter: No collecting system dilation or calculi. Urinary Bladder: Decompressed with Vera catheter. Lower chest: Partially imaged small effusions. Liver: Normal. Bile ducts: Nondilated. Gallbladder: No calcified gallstones. Normal caliber wall. Pancreas: Normal attenuation without ductal dilatation. Spleen: Normal. Adrenals: Normal. Vasculature: Scattered mural atherosclerotic ossifications in the abdominal aorta. No aneurysm. Lymph Nodes: No enlarged lymph nodes. Bowel: Distended air and stool-filled colon. Unremarkable appearance of the small bowel. Peritoneum and mesentery: Small volume ascites. No loculated fluid collections. Minimal presacral fat stranding. Abdominal wall: Normal. Reproductive organs: Normal. Osseous structures: Fixation hardware in the lower lumbar spine. Postlaminectomy changes at L5. No suspicious lytic or sclerotic lesions. Procedure Note Rich Coe MD - 05/13/2020 EXAMINATION: CT ABDOMEN AND PELVIS WO CONTRAST CLINICAL HISTORY: Flank pain, kidney stone suspected s/p RIGHT PCNL; please eval for residual stone TECHNIQUE: Helical CT of the abdomen and pelvis was performed without theuse of intravenous contrast. Multiplanar reformatted images were generated. COMPARISON: None FINDINGS: The absence of intravenous contrast limits the evaluation of solid visceraand vasculature. Right kidney/ureter: Post percutaneous nephrostomy and double-J ureteralstent placement changes. No retained calculi. Small perinephric hematoma and perinephric fat stranding. Left kidney/ureter: No collecting system dilation or calculi. Urinary Bladder: Decompressed with Vera catheter. Lower chest: Partially imaged small effusions. Liver: Normal. Bile ducts: Nondilated. Gallbladder: No calcified gallstones. Normal caliber wall. Pancreas: Normal attenuation without ductal dilatation. Spleen: Normal. Adrenals: Normal. Vasculature: Scattered mural atherosclerotic ossifications in theabdominal aorta. No aneurysm. Lymph Nodes: No enlarged lymph nodes. Bowel: Distended air and stool-filled colon. Unremarkable appearance ofthe small bowel. Peritoneum and mesentery: Small volume ascites. No loculated fluidcollections. Minimal presacral fat stranding. Abdominal wall: Normal. Reproductive organs: Normal. Osseous structures: Fixation hardware in the lower lumbar spine.Postlaminectomy changes at L5. No suspicious lytic or sclerotic lesions. IMPRESSION Post PCNL changes on the right without retained calculi. Thank you for letting us participate in the care of this patient. Forquestions regarding this report, please contact the number below. Jair Barroso Jr., MD IM CT ORDERABLES * (ABNORMAL) Differential, Automated (05/13/2020 3:32 AM EST) Neutrophil % 86.1 % [facility] Neutrophil Absolute 11.03(H) 1.70 - 6.10 x10(3)/mc L [facility] Lymph % 6.9 % [facility] Lymphocytes Abs 0.9 0.9 - 3.2 x10(3)/mc L [facility] Monocyte % 6.6 % [facility] Monocyte Abs 0.8 0.3 - 0.9 x10(3)/mc L [facility] Eos % 0.0 % [facility] Eosinophils Abs 0.0 0.0 - 0.4 x10(3)/mc L [facility] Basophil % 0.1 % [facility] Baso Absolute 0.0 0.0 - 0.1 x10(3)/mc L [facility] Immature Gran % 0.30 % [facility] Comment: Immature granulocytes(IG's)percentage and absolute count will include metamyelocytes, myelocytes, and promyelocytes. Blood smears from CBCs yielding IG's will be scanned manually for concordance. If this scan disagrees with the automated IG or if promyelocytes are noted, a manual differential will be performed. Immature Gran Absolute 0.04 0.00 - 0.04 x10(3)/mc L [facility] Blood specimen (specimen) 05/13/2020 3:32 AM EST 05/13/2020 3:36 AM EST Narrative Resulting Agency Comment Spec In Lab Larry Cox MD HEMATOLOGY ORDERABLE S Performing Organization Address City/State/[facility] Co de Phone Number [facility] [place] [address] * (ABNORMAL) Hemogram (05/13/2020 3:32 AM EST) White Blood Cell 12.8(H) 4.0 - 9.5 x10(3)/ L [facility] Red Blood Cell 4.72 4.58 - 5.54 x10(6)/ L [facility] Hemoglobin 14.3 13.7 - 16.5 gm/dL [facility] Hematocrit 43.2 40.5 - 48.5 % [facility] Mean Cell Volume 91.5 82.9 - 93.1 fL [facility] Mean Cell Hemoglobin 30.3 27.5 - 32.1 pg [facility] Mean Cell Hemoglobin Concentration 33.1 32.0 - 35.7 gm/dL [facility] Platelet 181 145 - 357 x10(3)/ L [facility] RDW Standard Deviation 45.5(H) 36.0 - 45.0 fL [facility] RDW coefficient of variation 13.4 11.4 - 13.8 % [facility] Mean Platelet Volume 9.8 7.6 - 12.9 fL [facility] NRBC% auto 0.0 % [facility] NRBC Absolute 0.000 0.000 - 0.000 x10(3)/mc L [facility] Blood specimen (specimen) 05/13/2020 3:32 AM EST 05/13/2020 3:36 AM EST Narrative Resulting Agency Comment Spec In Lab Larry Cox MD HEMATOLOGY ORDERABLE S [facility] [place] [address] * Basic Metabolic Panel (non-fasting) (05/13/2020 3:32 AM EST) Glucose 128 65 - 199 mg/dL [facility] Comment:Diabetes: >=200 mg/d L plus symptoms Blood Urea Nitrogen 11 10 - 20 mg/dL [facility] Creatinine 1.06 0.80 - 1.50 mg/dL [facility] Sodium 136 135 - 145 mmol/L [facility] Potassium 4.5 3.5 - 5.0 mmol/L [facility] Comment: Please note: ??Patients with WBC >100,000 may have falsely elevated Potassium levels. ??For accurate Potassium quantification in these patients send serum separator tube (gold top) for subsequent determinations. ??Contact the Clinical Chemistry Laboratory if there are any questions. Chloride 106 98 - 107 mmol/L [facility] Carbon Dioxide 23 22 - 31 mmol/L [facility] Anion Gap 7 5 - 15 mmol/L [facility] Calcium 9.0 8.5 - 10.5 mg/dL [facility] Est Glomerular Filtration Rate 72 >=60 mL/min/1. 73 m?? [facility] Comment: This patient? s estimated [...] MD CHEMISTRY ORDERABL ES Performing Organization Address [facility] Phone Number [facility] [place] [address] * Potassium (05/12/2020 7:27 PM EST) Potassium 4.2 3.5 - 5.0 mmol/L [facility] Comment: Please note: ??Patients with WBC >100,000 may have falsely elevated Potassium levels. ??For accurate Potassium quantification in these patients send serum separator tube (gold top) for subsequent determinations. ??Contact the Clinical Chemistry Laboratory if there are any questions. Blood specimen (specimen) 05/12/2020 7:27 PM EST 05/12/2020 7:31 PM EST Narrative Resulting Agency Comment Spec In Lab Jair Barroso Jr., MD CHEMISTRY ORDERABL ES Performing Organization Address [facility] Phone Number [facility] [place] [address] * (ABNORMAL) Differential, Automated (05/12/2020 3:00 PM EST) Neutrophil % 93.2 % [facility] Neutrophil Absolute 11.73(H) 1.70 - 6.10 x10(3)/mc L [facility] Lymph % 5.1 % [facility] Lymphocytes Abs 0.6(L) 0.9 - 3.2 x10(3)/mc L [facility] Monocyte % 1.1 % [facility] Monocyte Abs 0.1(L) 0.3 - 0.9 x10(3)/[facility] Eos % 0.0 % [facility] Eosinophils Abs 0.0 0.0 - 0.4 x10(3)/[facility] Basophil % 0.2 % [facility] Baso Absolute 0.0 0.0 - 0.1 x10(3)/[facility] Immature Gran % 0.40 % [facility] Comment: Immature granulocytes(IG's)percentage and absolute count will include metamyelocytes, myelocytes, and promyelocytes. Blood smears from CBCs yielding IG's will be scanned manually for concordance. If this scan disagrees with the automated IG or if promyelocytes are noted, a manual differential will be performed. Immature Gran Absolute 0.05(H) 0.00 - 0.04 x10(3)/[facility] Blood specimen (specimen) 05/12/2020 3:00 PM EST 05/12/2020 3:04 PM EST Narrative Resulting Agency Comment Spec In Lab Larry Cox MD HEMATOLOGY ORDERABLE S Performing Organization Address City/State/[facility] Co de Phone Number [facility] [place] [address] * (ABNORMAL) Hemogram (05/12/2020 3:00 PM EST) White Blood Cell 12.6(H) 4.0 - 9.5 x10(3)/[facility] Red Blood Cell 4.88 4.58 - 5.54 x10(6)/[facility] Hemoglobin 14.7 13.7 - 16.5 gm/dL [facility] Hematocrit 45.2 40.5 - 48.5 % [facility] Mean Cell Volume 92.6 82.9 - 93.1 fL [facility] Mean Cell Hemoglobin 30.1 27.5 - 32.1 pg [facility] Mean Cell Hemoglobin Concentration 32.5 32.0 - 35.7 gm/dL [facility] Platelet 168 145 - 357 x10(3)/mc L [facility] RDW Standard Deviation 44.8 36.0 - 45.0 [facility] RDW coefficient of variation 13.2 11.4 - 13.8 % [facility] Mean Platelet Volume 10.6 7.6 - 12.9 [facility] NRBC% auto 0.0 % [facility] NRBC Absolute 0.000 0.000 - 0.000 x10(3)/mc L [facility] Blood specimen (specimen) 05/12/2020 3:00 PM EST 05/12/2020 3:04 PM EST Narrative Resulting Agency Comment Spec In Lab Larry Cox MD HEMATOLOGY ORDERABLE S [facility] [place] [address] * (ABNORMAL) Basic Metabolic Panel (non-fasting) (05/12/2020 3:00 PM EST) Glucose 154 65 - 199 mg/dL [facility] Comment:Diabetes: >=200 mg/d L plus symptoms Blood Urea Nitrogen 13 10 - 20 mg/dL [facility] Creatinine 0.94 0.80 - 1.50 mg/dL [facility] Sodium 139 135 - 145 mmol/L [facility] Potassium Not Perf 3.5 - 5.0 [facility] Comment: Called by: bhavani, Read back by: tha azar_, Date/Time:05/12/20 15:41. Unable to quantitate due to sample hemolysis. ??Sample redraw suggested. Please note: ??Patients with WBC >100,000 may have falsely elevated Potassium levels. ??For accurate Potassium quantification in these patients send serum separator tube (gold top) for subsequent determinations. ??Contact the Clinical Chemistry Laboratory if there are any questions. Chloride 108(H) 98 - 107 mmol/L [facility] Carbon Dioxide 22 22 - 31 mmol/L [facility] Anion Gap 9 5 - 15 mmol/L [facility] Calcium 8.6 8.5 - 10.5 mg/dL [facility] Est Glomerular Filtration Rate 83 >=60 mL/min/1. 73 m?? [facility] Comment: This patient? s estimated glomerular filtration rate (eGFR) is between 83 mL/min/1.73 m2 (patients with less muscle mass per kg body weight) and 96 mL/min/1.73 m2 (patients with more muscle mass [...] in addition to eGFR. Blood specimen (specimen) 05/12/2020 3:00 PM EST 05/12/2020 3:04 PM EST Narrative Resulting Agency Comment Spec In Lab Jair Barroso Jr., MD CHEMISTRY ORDERABL ES Performing Organization Address [facility] Co de Phone Number [facility] [place] [address] * XR Fluoro No Rad <1Hr - OR Use (05/12/2020 2:30 PM EST) Narrative RAD - 05/12/2020 2:52 PM EST This exam is auto-finalizing. No interpretation was done. Jair Barroso Jr., MD IMG FLUORO ORDERAB LES Performing Organization Address City/[facility]/ZIP Co de Phone Number [place], [place] * Kidney Stone Analysis (05/12/2020 2:05 PM EST) Kidney Stone Analysis (MAY) Test ?Result ? Flag ??Unit ??RefValue Kidney Stone Analysis ??Source: ? Right Kidney ??Interpretation ?100% Calcium oxalate monohydrate ?Test Performed by: ?[facility] ?[address] [place] [address] ?Manager Icu: Alexandro Kay M.D. Ph.D.; CLIA# [id number] [facility] Calculus specimen (specimen) 05/12/2020 2:05 PM EST 05/12/2020 3:51 PM EST Narrative Resulting Agency Comment Spec In Lab Jair Barroso Jr., MD LAB SEND OUT ORDER [place]AVER[place] Performing Organization Address [facility] de Phone Number [facility] [place] [address] * Urine culture Cystoscopic Urine (05/12/2020 12:30 PM EST) Urine Culture No growth (Less than 100 cfu/ml). [facility] Urine specimen (specimen) 05/12/2020 12:30 PM EST 05/12/2020 2:30 PM EST Narrative Resulting Agency Comment Spec In Lab Jair Barroso Jr., MD MICROBIOLOGY - GEN ERAL ORDERABLES Performing Organization Address [facility] Co de Phone Number [facility] [place] [address] * ABORH Recheck Status (05/12/2020 9:17 AM EST) ABORH Recheck Order Order Placed [facility] ABORH Type Recheck Complete [facility] Blood specimen (specimen) 05/12/2020 9:17 AM EST 05/12/2020 9:36 AM EST Narrative Resulting Agency Comment Spec In Lab Jair Barroso Jr., MD BLOOD BANK LAB ORD ERABLES Performing Organization Address City/[facility]/ZIP Co de Phone Number [facility] [place] [address] * Antibody screen (05/12/2020 9:17 AM EST) Ab Screen Interp Negative [facility] Expires at [id number] on: 05/15/2020 [facility] Blood specimen (specimen) 05/12/2020 9:17 AM EST 05/12/2020 9:36 AM EST Narrative Resulting Agency Comment Spec In Lab Jair Barroso Jr., MD BLOOD BANK LAB ORD ERABLES Performing Organization Address [facility]/ZIP Co de Phone Number [facility] [place] [address] * ABO/Rh Typing (05/12/2020 9:17 AM EST) ABORH Type O Pos [facility] Blood specimen (specimen) 05/12/2020 9:17 AM EST 05/12/2020 9:36 AM EST Narrative Resulting Agency Comment Spec In Lab Jair Barroso Jr., MD BLOOD BANK LAB ORD ERABLES Performing Organization Address [facility] Co de Phone Number [facility] [place] [address] * SCAN DOC: IMPLANTABLE DEVICES (05/12/2020 12:00 AM EST) Narrative 05/12/2020 12:00 AM EST Ordered by an unspecified provider. Scanning Provider MEDIA MGR SCAN EXT O RDR/RSLT documented in this encounter Visit Diagnoses Not on filedocumented in this encounter Admitting Diagnoses Diagnosis Right kidney stone Calculus of kidney documented in this encounter Administered Medications Inactive Administered Medications - up to 3 most recent administrations Medication Order MAR Action Action Date Dose Rate Site acetaminophen (Tylenol) tablet 1,000 mg 1,000 mg, Oral, ONCE, 1 dose, On Darlene 05/12/20 at 1000, Administer with SIP of H2O only., Day of Surgery (Day of Procedure), Routine Given 05/12/2020 10:00 AM EST 1,000 mg acetaminophen (Tylenol) tablet 975 mg 975 mg, Oral, EVERY 6 HOURS SCHEDULED, First dose on Darlene 05/12/20 at 1800, Until Discontinued, Maximum dose of acetaminophen is 4000 mg from all sources in 24 hours. When ordered for pain, acetaminophen should be given even when other ordered pain medications are indicated. , Routine Given 05/13/2020 2:37 PM EST 975 mg Given 05/13/2020 8:26 AM EST 975 mg Given 05/13/2020 3:14 AM EST 975 mg BUpivacaine (pf) (Marcaine) (5 mg/mL) 0.5% injection ONCE PRN, Starting on Darlene 05/12/20 at 1409, Until Sat05/13/20 at 2016, Intra-Operative (Intra-Procedure), Routine Given 05/12/2020 2:09 PM EST 10 mLs 19- Surgical Site iohexoL (Omnipaque) (300 mg/mL) injection solution ONCE PRN, Starting on Darlene 05/12/20 at 1302, Until Sat05/13/20 at 2016, Intra-Operative (Intra-Procedure), Routine Given 05/12/2020 1:02 PM EST 250 mLs 19- Surgical Site lactated ringers infusion 1,000 mL, at 100 mL/hr, Intravenous, CONTINUOUS, Starting on Darlene 05/12/20 at 1530, Until Sat05/13/20 at 1243, Recovery (Recovery-Hospital Unit) New Bag 05/12/2020 3:09 PM EST 1,000 mLs 100 mL/hr lidocaine-EPINEPHrine (1% - 1:100,000) injection ONCE PRN, Starting on Darlene 05/12/20 at 1410, Until Sat05/13/20 at 2015, Intra-Operative (Intra-Procedure), Routine Given 05/12/2020 2:10 PM EST 10 mLs 19- Surgical Site ondansetron (pf) (Zofran) (2 mg/mL) injection 4 mg 4 mg, Intravenous, EVERY 8 HOURS PRN, Starting on Darlene 05/12/20 at 1634, Until Sat05/13/20 at 2015, Nausea, May repeat times one in 30 minutes if ineffective. If multiple antiemetics are ordered, use ondansetron first., Recovery (Recovery-Hospital Unit) ondansetron (Zofran) tablet 4 mg 4 mg, Oral, EVERY 8 HOURS PRN, Starting on Darlene 05/12/20 at 1634, Until Sat05/13/20 at 2015, Nausea, Vomiting, If multiple antiemetics are ordered, use ondansetron first. PO Preferred. If patient unable to take PO, may give IV if ordered. May repeat times one in 45 minutes if ineffective., Recovery (Recovery-Hospital Unit), Routine oxyCODONE (Roxicodone) tablet 10-15 mg 10-15 mg, Oral, EVERY 4 HOURS PRN, Starting on Darlene 05/12/20 at 1454, Until Sat05/13/20 at 2015, Pain, severe pain (7-10), Initial dose 10mg. If pain control not adequate in 60 minutes, give additional 5mg, Routine oxyCODONE (Roxicodone) tablet 5-10 mg 5-10 mg, Oral, EVERY 4 HOURS PRN, Starting on Darlene 05/12/20 at 1454, Until Sat05/13/20 at 2015, Pain, moderate pain (4-6), Initial dose 5mg. If pain control not adequate in 60 minutes, give additional 5mg, Routine phenol 1.4% (CHLORASEPTIC) spray 1 spray 1 spray, Oral, EVERY 2 HOURS PRN, Starting on Darlene 05/12/20 at 2118, Until Sat05/13/20 at 2015, Irritation, Routine polyethylene glycoL (Miralax) packet 17 g 17 g, Oral, DAILY, First dose on Darlene 05/12/20 at 1730, Until Discontinued, Routine Given 05/13/2020 9:00 AM EST 17 g Given 05/12/2020 6:45 PM EST 17 g sodium chloride 0.9 % (flush) flush 5 mL 5 mL, Intravenous, 2 TIMES DAILY, First dose on Darlene 05/12/20 at 2100, Until Discontinued, Recovery (Recovery-Hospital Unit), Routine Given 05/13/2020 9:00 AM EST 5 mLs sodium chloride 0.9% infusion 1,000 mL, at 100 mL/hr, Intravenous, CONTINUOUS, Starting on Darlene 05/12/20 at 1000, Until Darlene 05/12/20 at 1602, Day of Surgery (Day of Procedure) New Bag 05/12/2020 10:00 AM EST 1,000 mLs 100 mL/hr documented in this encounter Active and Recently Administered Medications Times are shown in EST. Scheduled Medication Order 05/11/2020 05/12/2020 05/13/2020 acetaminophen (Tylenol) tablet 1,000 mg (COMPLETED) 1,000 mg, Oral, ONCE, 1 dose, On Darlene 05/12/20 at 1000, Administer with SIP of H2O only., Day of Surgery (Day of Procedure), Routine 1000 (Given - Provider: Vanessa Pritchett RN) acetaminophen (Tylenol) tablet 975 mg 975 mg, Oral, EVERY 6 HOURS SCHEDULED, First dose on Darlene 05/12/20 at 1800, Until Discontinued, Maximum dose of acetaminophen is 4000 mg from all sources in 24 hours. When ordered for pain, acetaminophen should be given even when other ordered pain medications are indicated. , Routine 1845 (Given - Provider: Alicia De Leon RN) 0000 (Not Given - Provider: Iban Arciniega RN - Reason: Patient/family refused)0314 (Given - Provider: Iban Arciniega RN)0600 (Not Given - Provider: Iban Arciniega RN - Reason: See comment - Comment: Given earlier at 03:14.)0826 (Given - Provider: Alicia De Leon RN)1437 (Given - Provider: Alicia De Leon RN)1800 (Due) cefTRIAXone (Rocephin) 2 g vial attach to sodium chloride 0.9% 50 mL Mini-Bag Plus (COMPLETED) 2 g, Intravenous, ONCE, 1 dose, On Darlene 05/12/20 at 1000, Administer over 30 Minutes, Day of Surgery (Day of Procedure), Indication for (Active or Suspected): Prophylaxis 1152 (New Bag - Provider: Amy Holden) gentamicin (Garamycin) 80 mg in sodium chloride 0.9% 100mL infusion (COMPLETED) 80 mg, Intravenous, SOFTWARE DESIGNER 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 Please check for lab orders. Warning Vesicant/Irritant Medication , Intra-Operative (Intra-Procedure), Indication for (Active or Suspected): Prophylaxis 1155 (Given - Provider: Amy Holden - Comment: Administered over 15 minutes) polyethylene glycoL (Miralax) packet 17 g 17 g, Oral, DAILY, First dose on Darlene 05/12/20 at 1730, Until Discontinued, Routine 1845 (Given - Provider: Alicia De Leon, SHANICE) 0900 (Given - Provider: Alicia De Leon, SHANICE) sodium chloride 0.9 % (flush) flush 5 mL 5 mL, Intravenous, 2 TIMES DAILY, First dose on Darlene 05/12/20 at 2100, Until Discontinued, Recovery (Recovery-Hospital Unit), Routine 2100 (Not Given - Provider: Iban Arciniega RN - Reason: See comment - Comment: IV infusing) 0900 (Given - Provider: Alicia De Leon, SHANICE) Continuous Medication Order 05/11/2020 05/12/2020 05/13/2020 lactated ringers infusion (CANCELED) 1,000 mL, at 100 mL/hr, Intravenous, CONTINUOUS, Starting on Darlene 05/12/20 at 1530, Until Sat05/13/20 at 1243, Recovery (Recovery-Hospital Unit) 1509 (New Bag - Provider: Carmine Peterson, RN) sodium chloride 0.9% infusion (CANCELED) 1,000 mL, at 100 mL/hr, Intravenous, CONTINUOUS, Starting on Darlene 05/12/20 at 1000, Until Darlene 05/12/20 at 1602, Day of Surgery (Day of Procedure) 1000 (New Bag - Provider: Vanessa Pritchett, SHANICE)1413 (Anesthesia Volume Adjustment - Provider: Amy Holden)1414 (Stopped - Provider: Amy Holden) PRN Medication Order 05/11/2020 05/12/202005/1305/13/2020 BUpivacaine (pf) (Marcaine) (5 mg/mL) 0.5% injection (CANCELED) ONCE PRN, Starting on Darlene 05/12/20 at 1409, Until Sat05/13/20 at 2015, Intra-Operative (Intra-Procedure), Routine 1409 (Given - Provider: Massimo Barroso Jr., MD) HYDROmorphone (Dilaudid) 0.5 mg/0.5 mL injection 0.3 mg 0.3 mg, Intravenous, EVERY 2 HOURS PRN, Starting on Darlene 05/12/20 at 1634, Until Sat05/13/20 at 2015, for pain not controlled with PO medications, Routine iohexoL (Omnipaque) (300 mg/mL) injection solution (CANCELED) ONCE PRN, Starting on Darlene 05/12/20 at 1302, Until Sat05/13/20 at 2015, Intra-Operative (Intra-Procedure), Routine 1302 (Given - Provider: Massimo Barroso Jr., MD - Comment: mixed with 250ml saline; used prn by Dr Barroso) lidocaine (Xylocaine) 1% (10 mg/mL) injection 3 mg 3 mg (0.3 mL), Subcutaneous, ONCE PRN, 1 dose, Starting on Darlene 05/12/20 at 1634, Until Sat05/13/20 at 2015, for discomfort with PIV insertion, Recovery (Recovery-Hospital Unit), Routine lidocaine-EPINEPHrine (1% - 1:100,000) injection (CANCELED) ONCE PRN, Starting on Darlene 05/12/20 at 1410, Until Sat05/13/20 at 2015, Intra-Operative (Intra-Procedure), Routine 1410 (Given - Provider: Massimo Barroso Jr., MD) ondansetron (pf) (Zofran) (2 mg/mL) injection 4 mg(Linked Group 1) 4 mg, Intravenous, EVERY 8 HOURS PRN, Starting on Darlene 05/12/20 at 1634, Until Sat05/13/20 at 2015, Nausea, May repeat times one in 30 minutes if ineffective. If multiple antiemetics are ordered, use ondansetron first., Recovery (Recovery-Hospital Unit) ondansetron (Zofran) tablet 4 mg(Linked Group 1) 4 mg, Oral, EVERY 8 HOURS PRN, Starting on Darlene 05/12/20 at 1634, Until Sat05/13/20 at 2015, Nausea, Vomiting, If multiple antiemetics are ordered, use ondansetron first. PO Preferred. If patient unable to take PO, may give IV if ordered. May repeat times one in 45 minutes if ineffective., Recovery (Recovery-Hospital Unit), Routine oxyCODONE (Roxicodone) tablet 10-15 mg(Linked Group 2) 10-15 mg, Oral, EVERY 4 HOURS PRN, Starting on Darlene 05/12/20 at 1454, Until Sat05/13/20 at 2015, Pain, severe pain (7-10), Initial dose 10mg. If pain control not adequate in 60 minutes, give additional 5mg, Routine oxyCODONE (Roxicodone) tablet 5-10 mg(Linked Group 2) 5-10 mg, Oral, EVERY 4 HOURS PRN, Starting on Darlene 05/12/20 at 1454, Until Sat05/13/20 at 2015, Pain, moderate pain (4-6), Initial dose 5mg. If pain control not adequate in 60 minutes, give additional 5mg, Routine phenol 1.4% (CHLORASEPTIC) spray 1 spray 1 spray, Oral, EVERY 2 HOURS PRN, Starting on Darlene 05/12/20 at 2118, Until Sat05/13/20 at 2015, Irritation, Routine sodium chloride 0.9 % (flush) flush 5-20 mL 5-20 mL, Intravenous, EVERY 1 MIN PRN, Starting on Darlene 05/12/20 at 1634, Until Sat05/13/20 at 2015, flush, Flush pertains to all indwelling lines. Flush per protocol found in the job aid using the link provided on this medication record., Recovery (Recovery-Hospital Unit), Routine Linked Groups Order Group 1: ondansetron (Zofran) tablet 4 mgJump to med 4 mg, Oral, EVERY 8 HOURS PRN, Starting on Darlene 05/12/20 at 1634, Until Sat05/13/20 at 2015, Nausea, Vomiting, If multiple antiemetics are ordered, use ondansetron first. PO Preferred. If patient unable to take PO, may give IV if ordered. May repeat times one in 45 minutes if ineffective., Recovery (Recovery-Hospital Unit), Routine Or ondansetron (pf) (Zofran) (2 mg/mL) injection 4 mgJump to med 4 mg, Intravenous, EVERY 8 HOURS PRN, Starting on Darlene 05/12/20 at 1634, Until Sat05/13/20 at 2015, Nausea, May repeat times one in 30 minutes if ineffective. If multiple antiemetics are ordered, use ondansetron first., Recovery (Recovery-Hospital Unit) Group 2: oxyCODONE (Roxicodone) tablet 5-10 mgJump to med 5-10 mg, Oral, EVERY 4 HOURS PRN, Starting on Darlene 05/12/20 at 1454, Until Sat05/13/20 at 2015, Pain, moderate pain (4-6), Initial dose 5mg. If pain control not adequate in 60 minutes, give additional 5mg, Routine Or oxyCODONE (Roxicodone) tablet 10-15 mgJump to med 10-15 mg, Oral, EVERY 4 HOURS PRN, Starting on Darlene 05/12/20 at 1454, Until Sat05/13/20 at 2015, Pain, severe pain (7-10), Initial dose 10mg. If pain control not adequate in 60 minutes, give additional 5mg, Routine documented in this encounter Care Teams Bilingual Inside Sales Representative Relationship Specialty Start Date End Date Rob Velez MD PCP - General Family Medicine 03/17/19 documented as of this encounter
--- OUTSIDE RECORDS SUMMARY | 2024-02-10 16:46 | XMS_ITS | Encounter Summary ---
Author Organization Formerly [facility] Address [facility] [place] [address] Care Team Providers Care Dental Associate Name Role Phone Rob Velez MD Primary Care Provider [phone] Reason for Visit * Auth/Cert Specialty Diagnoses [...] Expiration Date Visits Re quested Visits Authorized [id number] 1 1 Encounter Details Date Type Department Care Team (Latest Contact Info) Description 05/12/2020 8:41 AM EST - 05/13/2020 6:10 PM EST Hospital [place] [id number] Jair Barroso Jr., MD [facility] [place] [address] Discharge Disposition: Home Social History Tobacco Use [...] Sign Reading Time Taken Comments Blood Pressure 150/88 05/13/2020 11:45 AM EST Pulse 79 05/13/2020 7:14 AM EST Temperature 36.7 ??C (98.1 ??F) 05/13/2020 11:[address] Respiratory Rate 16 05/13/2020 11:45 AM EST Oxygen Saturation 98% 05/13/2020 11:45 AM EST Inhaled Oxygen Concentration - - [...] Michael Lora Patient Age: 69 y.o. Language: Latvian Race: White Ethnicity: Not nor Admit date: [...] Hospital Course: Patient was admitted electively to [facility] via the same day surgery program and [...] urine output The number for questions is [phone] before 5 PM weekdays and [phone] after 5 PM and weekends. Activity: Gradually [...] (acetaminophen) or ibuprofen (Advil, Motrin) as directed [id number]. Take any prescriptions as directed. Follow up Appointments: Follow-up appointment will be scheduled with Dr. Barroso in approximately 2 weeks for a hospital check and stent removal. Appointment will be mailed to you. Please call [phone] (clinic number for appointments) to confirm date [...] appointments. Primary Care Provider: Rob Velez MD [phone] Follow-up Recommendations for Providers: Please see discharge [...] was managed by the Urology Team at [facility]. If you have any questions or concerns, please feel free to contact us. Provider Contact Information: Urology Clinic: [facility] (after business hours): documented in this encounter Discharge Instructions * Patient Instructions* Michael Harris MD - 05/13/2020 7:23 AM EST DISCHARGE INSTRUCTIONS FOLLOWING PCNL Call your doctor for: ??? fevers greater than 100.5 ??? severe nausea or vomiting ??? increasing pain not controlled by pain medications ??? increasing redness or drainage from incisions ??? decreased urine output The number for questions is [phone] before 5 PM weekdays and [phone] after 5 PM and weekends. Activity: Gradually [...] (acetaminophen) or ibuprofen (Advil, Motrin) as directed [id number]. Take any prescriptions as directed. Follow up Appointments: Follow-up appointment will be scheduled with Dr. Barroso in approximately 2 weeks for a hospital check and stent removal. Appointment will be mailed to you. Please call [phone] (clinic number for appointments) to confirm date [...] through Care Everywhere. * Self-Catheterization: Intermittent: Male (Latvian) documented in this encounter Medications at Time [...] Outcome: Outcome (s) achieved Date Met: 05/13/20 05/13/20 180 Coping/Psychosocial Plan Of Care Reviewed With patient [...] Jr., MD - 05/12/2020 6:11 PM EST [facility] Operative Note Patient Name: Michael Lora : [id number] MR#: [id number] Case Date: 05/12/2020 Surgeon: Surgeon(s) and Role: [...] ureteral orifice and thus was removed. A [email or web address] ureteroscope was advanced over one of the [...] visualized in a lower pole calyx. A Jpmu-L-Slelds was used to grasp this stone and [...] The nephroscope was removed. A 24 Fr Roney catheter was passed over the working Super Stiff guide wire into the renal pelvisunder fluoroscopic guidance. Contrast was again instilled to ensure adequate placement. A Pollack catheter was inserted via the Coldwater catheter to be used as a safety re-entry catheter. The Coldwater catheter was secured to the skin using two 0 silk sutures. The guide wire was removed from the Coldwater and Pollack catheter combination. 20 mL 50/50 [...] Operative Note Patient Name: Michael Lora : [id number] MR#: [id number] Case Date: 05/12/2020 Surgeon: Surgeon(s) and Role: [...] 3:32 AM EST DIFFERENTIAL, AUTOMATED Timed 05/13/20 20 3:32 AM EST HC CBC,PLT & AUTO [...] Hr Phy Or Oth Hlth Care Prov ([id number]) 05/12/2020 11:22 AM EST RIGHT 12MM LOWER POLE STONE Ultrasonic Guidance, Intraoperative ([id number]) 05/12/2020 11:22 AM EST RIGHT 12MM LOWER POLE STONE Cysto W Ureteroscopy &/Or Pyeloscopy, Dx ([id number]) 05/12/2020 11:22 AM EST RIGHT 12MM LOWER POLE STONE Plmt Nephrostomy Cath Prq New Access Rs&I ([id number]) 05/12/2020 11:22 AM EST RIGHT 12MM LOWER POLE STONE Perq Nl/Pl Lithotripsy Simple Up To 2 Cm 1 Location ([id number]) 05/12/2020 11:22 AM EST RIGHT 12MM LOWER [...] the number below. Jair Barroso Jr., MD IMG CT ORDERABLES * (ABNORMAL) Differential, Automated (05/13/2020 3:32 AM EST) Neutrophil % 86.1 % [facility] Neutrophil Absolute 11.03(H) 1.70 - 6.10 x10(3)/mc L [facility] Lymph % 6.9 % [facility] Lymphocytes Abs 0.9 0.9 - 3.2 x10(3)/mc L [facility] Monocyte % 6.6 % [facility] Monocyte Abs 0.8 0.3 - 0.9 x10(3)/mc L [facility] Eos % 0.0 % [facility] Eosinophils Abs 0.0 0.0 - 0.4 x10(3)/mc L [facility] Basophil % 0.1 % [facility] Baso Absolute 0.0 0.0 - 0.1 x10(3)/ L [facility] Immature Gran % 0.30 % [facility] Comment: Immature granulocytes(IG's)percentage and absolute count will include metamyelocytes, myelocytes, and promyelocytes. Blood smears from CBCs yielding IG's will be scanned manually for concordance. If this scan disagrees with the automated IG or if promyelocytes are noted, a manual differential will be performed. Immature Gran Absolute 0.04 0.00 - 0.04 x10(3)/ L [facility] Blood specimen (specimen) 05/13/2020 3:32 AM EST 05/13/2020 3:36 AM EST Narrative Resulting Agency Comment Spec In Lab Larry Cox MD HEMATOLOGY ORDERABLE S [facility] [place] [address] * (ABNORMAL) Hemogram (05/13/2020 3:32 AM EST) White Blood Cell 12.8(H) 4.0 - 9.5 x10(3)/[facility] Red Blood Cell 4.72 4.58 - 5.54 x10(6)/[facility] Hemoglobin 14.3 13.7 - 16.5 gm/dL [facility] Hematocrit 43.2 40.5 - 48.5 % [facility] Mean Cell Volume 91.5 82.9 - 93.1 [facility] Mean Cell Hemoglobin 30.3 27.5 - 32.1 pg [facility] Mean Cell Hemoglobin Concentration 33.1 32.0 - 35.7 gm/dL [facility] Platelet 181 145 - 357 x10(3)/ L [facility] RDW Standard Deviation 45.5(H) 36.0 - 45.0 fL [facility] RDW coefficient of variation 13.4 11.4 - 13.8 % [facility] Mean Platelet Volume 9.8 7.6 - 12.9 fL [facility] NRBC% auto 0.0 % [facility] NRBC Absolute 0.000 0.000 - 0.000 x10(3)/mc L [facility] Blood specimen (specimen) 05/13/2020 3:32 AM EST 05/13/2020 3:36 AM EST Narrative Resulting Agency Comment Spec In Lab Larry Cox MD HEMATOLOGY ORDERABLE S [facility] [place] [address] * Basic Metabolic Panel (non-fasting) (05/13/2020 3:32 AM EST) Glucose 128 65 - 199 mg/dL [facility] Comment:Diabetes: >=200 mg/d L plus symptoms Blood Urea Nitrogen 11 10 - 20 mg/dL [facility] Creatinine 1.06 0.80 - 1.50 mg/dL [facility] Sodium 136 135 - 145 mmol/L [facility] Potassium 4.5 3.5 - 5.0 mmol/L [facility] Comment: Please note: ??Patients with WBC >100,000 may have falsely elevated Potassium levels. ??For accurate Potassium quantification in these patients send serum separator tube (gold top) for subsequent determinations. ??Contact the Clinical Chemistry Laboratory if there are any questions. Chloride 106 98 - 107 mmol/L [facility] Carbon Dioxide 23 22 - 31 mmol/L [facility] Anion Gap 7 5 - 15 mmol/L [facility] Calcium 9.0 8.5 - 10.5 mg/dL [facility] Est Glomerular Filtration Rate 72 >=60 mL/min/1. 73 m?? [facility] Comment: This patient? s [...] MD CHEMISTRY ORDERABL ES Performing Organization Address [facility] de Phone Number [facility] [place] [address] * Potassium (05/12/2020 7:27 PM EST) Potassium 4.2 3.5 - 5.0 mmol/L [facility] Comment: Please note: ??Patients [...] MD CHEMISTRY ORDERABL ES Performing Organization Address [facility] Co de Phone Number [facility] [place] [address] * (ABNORMAL) Differential, Automated (05/12/2020 3:00 PM EST) Neutrophil % 93.2 % [facility] Neutrophil Absolute 11.73(H) 1.70 - 6.10 x10(3)/mc L [facility] Lymph % 5.1 % [facility] Lymphocytes Abs 0.6(L) 0.9 - 3.2 x10(3)/mc L [facility] Monocyte % 1.1 % [facility] Monocyte Abs 0.1(L) 0.3 - 0.9 x10(3)/[facility] Eos % 0.0 % [facility] Eosinophils Abs 0.0 0.0 - 0.4 x10(3)/[facility] Basophil % 0.2 % [facility] Baso Absolute 0.0 0.0 - 0.1 x10(3)/[facility] Immature Gran % 0.40 % [facility] Comment: Immature granulocytes(IG's)percentage and absolute count will include metamyelocytes, myelocytes, and promyelocytes. Blood smears from CBCs yielding IG's will be scanned manually for concordance. If this scan disagrees with the automated IG or if promyelocytes are noted, a manual differential will be performed. Immature Gran Absolute 0.05(H) 0.00 - 0.04 x10(3)/[facility] Blood specimen (specimen) 05/12/2020 3:00 PM EST 05/12/2020 3:04 PM EST Narrative Resulting Agency Comment Spec In Lab Larry Cox MD HEMATOLOGY ORDERABLE S [facility] [place] [address] * (ABNORMAL) Hemogram (05/12/2020 3:00 PM EST) White Blood Cell 12.6(H) 4.0 - 9.5 x10(3)/[facility] Red Blood Cell 4.88 4.58 - 5.54 x10(6)/[facility] Hemoglobin 14.7 13.7 - 16.5 gm/dL [facility] Hematocrit 45.2 40.5 - 48.5 % [facility] Mean Cell Volume 92.6 82.9 - 93.1 fL [facility] Mean Cell Hemoglobin 30.1 27.5 - 32.1 pg [facility] Mean Cell Hemoglobin Concentration 32.5 32.0 - 35.7 gm/dL [facility] Platelet 168 145 - 357 x10(3)/mc L [facility] RDW Standard Deviation 44.8 36.0 - 45.0 fL [facility] RDW coefficient of variation 13.2 11.4 - 13.8 % [facility] Mean Platelet Volume 10.6 7.6 - 12.9 fL [facility] NRBC% auto 0.0 % [facility] NRBC Absolute 0.000 0.000 - 0.000 x10(3)/mc L [facility] Blood specimen (specimen) 05/12/2020 3:00 PM EST 05/12/2020 3:04 PM EST Narrative Resulting Agency Comment Spec In Lab Larry Cox MD HEMATOLOGY ORDERABLE S [facility] [place] [address] * (ABNORMAL) Basic Metabolic Panel (non-fasting) (05/12/2020 3:00 PM EST) Glucose 154 65 - 199 mg/dL [facility] Comment:Diabetes: >=200 mg/d L plus symptoms Blood Urea Nitrogen 13 10 - 20 mg/dL [facility] Creatinine 0.94 0.80 - 1.50 mg/dL [facility] Sodium 139 135 - 145 mmol/L [facility] Potassium Not Perf 3.5 - 5.0 [facility] Comment: Called by: bhavani, [...] questions. Chloride 108(H) 98 - 107 mmol/L [facility] Carbon Dioxide 22 22 - 31 mmol/L [facility] Anion Gap 9 5 - 15 mmol/L [facility] Calcium 8.6 8.5 - 10.5 mg/dL [facility] Est Glomerular Filtration Rate 83 >=60 mL/min/1. 73 m?? [facility] Comment: This patient? s [...] MD CHEMISTRY ORDERABL ES Performing Organization Address [facility] de Phone Number [facility] [place] [address] * XR Fluoro No Rad <1Hr - OR Use (05/12/2020 2:30 PM EST) Narrative RAD - 05/12/2020 2:52 PM EST This exam is auto-finalizing. No interpretation was done. Jair Barroso Jr., MD IMG FLUORO ORDERAB LES Performing Organization Address [facility] de Phone Number [place], [place] * Kidney Stone Analysis (05/12/2020 2:05 PM EST) Kidney Stone Analysis (MAY) Test ?Result ? Flag ??Unit ??RefValue Kidney Stone Analysis ??Source: ? Right Kidney ??Interpretation ?100% Calcium oxalate monohydrate ?Test Performed by: ?[facility] ?[address] [place] [address] ?Manager Community: Alexandro Kay M.D. Ph.D.; IA# [id number] [facility] Calculus specimen (specimen) 05/12/2020 2:05 PM EST 05/12/2020 3:51 PM EST Narrative Resulting Agency Comment Spec In Lab Jair Barroso Jr., MD LAB SEND OUT ORDER LAVERNE Performing Organization Address [facility] de Phone Number [facility] [place] [id number] * Urine culture Cystoscopic Urine (05/12/2020 12:30 PM EST) Urine Culture No growth (Less than 100 cfu/ml). [facility] Urine specimen (specimen) 05/12/2020 12:30 PM EST 05/12/2020 2:30 PM EST Narrative Resulting Agency Comment Spec In Lab Jair Barroso Jr., MD MICROBIOLOGY - GEN ERAL ORDERABLES Performing Organization Address [facility] Co de Phone Number [facility] [place] [address] * ABORH Recheck Status (05/12/2020 9:17 AM EST) ABORH Recheck Order Order Placed [facility] ABORH Type Recheck Complete [facility] Blood specimen (specimen) 05/12/2020 9:17 AM EST 05/12/2020 9:36 AM EST Narrative Resulting Agency Comment Spec In Lab Jair Barroso Jr., MD BLOOD BANK LAB ORD ERABLES Performing Organization Address City/[facility]/ZIP Co de Phone Number [facility] [place] [address] * Antibody screen (05/12/2020 9:17 AM EST) Ab Screen Interp Negative [facility] Expires at [id number] on: 05/15/2020 [facility] Blood specimen (specimen) 05/12/2020 9:17 AM EST 05/12/2020 9:36 AM EST Narrative Resulting Agency Comment Spec In Lab Jair Barroso Jr., MD BLOOD BANK LAB ORD ERABLES Performing Organization Address City/[facility]/ZIP Co de Phone Number [facility] [place] [address] * ABO/Rh Typing (05/12/2020 9:17 AM EST) ABORH Type O Pos [facility] Blood specimen (specimen) 05/12/2020 9:17 AM EST 05/12/2020 9:36 AM EST Narrative Resulting Agency Comment Spec In Lab Jair Barroso Jr., MD BLOOD BANK LAB ORD ERABLES Performing Organization Address City/[facility]/ZIP Co de Phone Number [facility] [place] [address] * SCAN DOC: IMPLANTABLE DEVICES (05/12/2020 12:00 AM EST) Narrative 05/12/2020 12:00 AM EST Ordered by an unspecified provider. Scanning Provider MEDIA MGR SCAN EXT O RDR/RSLT documented in this encounter Visit Diagnoses Diagnosis Right kidney stone Calculus of kidney documented in this encounter Admitting Diagnoses Diagnosis Right [...] Given 05/13/2020 3:14 AM EST 975 mg lactated ringers infusion 1,000 mL, at 100 mL/hr, Intravenous, CONTINUOUS, Starting on Darlene 05/12/20 at 1530, Until Sat05/13/20 at 1243, Recovery (Recovery-Hospital Unit) [facility] 05/12/2020 3:09 PM EST 1,000 mLs 100 mL /hr ondansetron (pf) (Zofran) (2 mg/mL) injection 4 mg 4 mg, Intravenous, EVERY 8 HOURS PRN, Starting on Darlene 05/12/20 at 1634, Until Sat05/13/20 at 2016, Nausea, May repeat times one in 30 minutes if ineffective. If multiple antiemetics are ordered, use ondansetron first., Recovery (Recovery-Hospital Unit) ondansetron (Zofran) tablet 4 mg 4 mg, Oral, EVERY 8 HOURS PRN, Starting on Darlene 05/12/20 at 1634, Until Sat05/13/20 at 2016, Nausea, Vomiting, If multiple antiemetics are ordered, use ondansetron first. PO Preferred. If patient unable to take PO, may give IV if ordered. May repeat times one in 45 minutes if ineffective., Recovery (Recovery-Hospital Unit), Routine oxyCODONE (Roxicodone) tablet 10-15 mg 10-15 mg, Oral, EVERY 4 HOURS PRN, Starting on Darlene 05/12/20 at 1454, Until Sat05/13/20 at 2016, Pain, severe pain (7-10), Initial dose 10mg. If pain control not adequate in 60 minutes, give additional 5mg, Routine oxyCODONE (Roxicodone) tablet 5-10 mg 5-10 mg, Oral, EVERY 4 HOURS PRN, Starting on Darlene 05/12/20 at 1454, Until Sat05/13/20 at 2016, Pain, moderate pain (4-6), Initial dose 5mg. If pain control not adequate in 60 minutes, give additional 5mg, Routine phenol 1.4% (CHLORASEPTIC) spray 1 spray 1 spray, Oral, EVERY 2 HOURS PRN, Starting on Darlene 05/12/20 at 2118, Until Sat05/13/20 at 2016, Irritation, Routine polyethylene glycoL (Miralax) packet 17 [...] Procedure), Routine 1000 (Given - Provider: Vanessa Pritchett, SHANICE) acetaminophen (Tylenol) tablet 975 mg 975 mg, [...] RN) 0000 (Not Given - Provider: Iban Arciniega, RN - Reason: Patient/family refused)0314 (Given - Provider: Iban Arciniega, RN)0600 (Not Given - Provider: Iban Arciniega, RN - Reason: See comment - Comment: Given earlier at 03:14.)0826 (Given - Provider: Alicia De Leon, SHANICE)1437 (Given - Provider: Alicia De Leon, SHANICE)1800 (Due) cefTRIAXone (Rocephin) 2 g vial attach [...] 0.9% 100mL infusion (COMPLETED) 80 mg, Intravenous, MASON LINER TO O.R., 1 dose, On Darlene 05/12/20 [...] g, Oral, DAILY, First dose on Darlene 20 at 1730, Until Discontinued, Routine 1845 (Given - Provider: Alicia De Leon RN) 0900 (Given - Provider: Alicia De Leon RN) sodium chloride 0.9 % (flush) flush 5 mL 5 mL, Intravenous, 2 TIMES DAILY, First dose on Darlene 05/12/20 at 2100, Until Discontinued, Recovery (Recovery-Hospital Unit), Routine 2100 (Not Given - Provider: Iban Arciniega RN - Reason: See comment - Comment: IV infusing) 0900 (Given - Provider: Alicia De Leon RN) Continuous Medication Order 05/11/2020 05/12/2020 05/13/2020 lactated ringers infusion (CANCELED) 1,000 mL, at 100 mL/hr, Intravenous, CONTINUOUS, Starting on Darlene 05/12/20 at 1530, Until Sat05/13/20 at 1243, Recovery (Recovery-Hospital Unit) 1509 (New Bag - Provider: Carmine Peterson RN) sodium chloride 0.9% infusion (CANCELED) 1,000 mL, at 100 mL/hr, Intravenous, CONTINUOUS, Starting on Darlene 05/12/20 at 1000, Until Darlene 05/12/20 at 1602, Day of Surgery (Day of Procedure) 1000 (New Bag - Provider: Vanessa Pritchett RN)1413 (Anesthesia Volume Adjustment - Provider: Amy Holden)1414 (Stopped - Provider: Amy Holden) PRN Medication Order 05/11/2020 05/12/2020 05/13/2020 BUpivacaine (pf) (Marcaine) (5 mg/mL) 0.5% injection (CANCELED) ONCE PRN, Starting on Darlene 05/12/20 at 1409, Until Sat05/13/20 at 2016, Intra-Operative (Intra-Procedure), Routine 1409 (Given - Provider: Massimo Barroso Jr., MD) HYDROmorphone (Dilaudid) 0.5 mg/0.5 mL injection 0.3 mg 0.3 mg, Intravenous, EVERY 2 HOURS PRN, Starting on Darlene 05/12/20 at 1634, Until Sat05/13/20 at 2016, for pain not controlled with PO medications, Routine iohexoL (Omnipaque) (300 mg/mL) injection solution (CANCELED) ONCE PRN, Starting on Darlene 05/12/20 at 1302, Until Sat05/13/20 at 2016, Intra-Operative (Intra-Procedure), Routine 1302 (Given - Provider: [...] Darlene 05/12/20 at 1454, Until Sat05/13/20 at 2016, Pain, severe pain (7-10), Initial dose 10mg. If pain control not adequate in 60 minutes, give additional 5mg, Routine documented in this encounter Care Teams Dental Associate Relationship Specialty Start Date End Date Rob Velez MD PCP - General Family Medicine 03/17/19 documented as of this encounter
--- OUTSIDE RECORDS SUMMARY | 2024-02-10 16:46 | XMS_ITS | Encounter Summary ---
Author Organization [facility] [place] [address] Care Team Providers Care Mask Designer Name Role Phone Rob Velez MD Primary Care Provider Encounter Details Date Type Department Care Team (Late st Contact Info) Description 05/03/2020 [place] [id number] Liliana Forbes V Social History Tobacco Use Types Packs/Day Years [...] encounter Miscellaneous Notes * Telephone Encounter - Orly Ortega - 05/09/2020 10:33 AM EST Patient confirmed test was completed at [facility]. * Telephone Encounter - Lisa Molina - 05/03/2020 2:52 PM EST Pt called and stated he is going to [facility] for his pre-op COVID. Pt was calling them back to verify result prior to procedure. Pt will call us back. * Telephone Encounter - Liliana Forbes V - 05/03/2020 1:55 PM EST LM to schedule pre op covid test on 05/09. documented in this encounter Plan of Treatment Not on file documented as of this encounter Visit Diagnoses Not on filedocumented in this encounter Care Teams Mask Designer Relationship Specialty Start Date End Date Rob Velez MD PCP - General Family Medicine 03/17/19 documented as of this encounter
--- OUTSIDE RECORDS SUMMARY | 2024-02-10 16:46 | XMS_ITS ---
Author Organization Unknown Address [address] [place] [phone] Phone Care Team Providers Care Candy Vendor Name Role Phone ROBINA LONDON Attending Unavailable MITUL Lombardi Primary Unavailable Results LIPID PANEL - Collect Date/T yesenia: 02/06/2021 10:45 [facility] ID: [id number] [address] [place] [address], [address] LOINC: 40890-0 Test Value Unit Reference Range Code Code System Flag FASTING STATUS: NON FASTING CHOLESTEROL 218 mg/dL L=0 H=200 2093-3 LOINC H TRIGLYCERIDES 128 mg/dL L=56 H=240 2571-8 LOINC HDL 50 mg/dL L=30 H=74 2085-9 LOINC non-HDL-C 168 mg/dL L=0 H=160 47351-2 LOINC H LDL (CALC) 142 mg/dL L=0 H=130 97157-9 LOINC H % HDL 22.9 % Chol/HDL Ratio 4.4 L=0.0 H=4.9 9830-1 LOINC CHD Relative Risk 0.9 x Avg L=0.0 H=1.0 LDL/HDL Ratio 2.8 L=0.0 H=3.5 75888-2 LOINC CHD Relative Risk. 0.8 x Avg L=0.0 H=1.0 CBC W/ DIFFERENTIAL - Collec t Date/Time: 02/06/2021 10:45 [facility] ID: [id number] [address] [place] [address], [address] LOINC: 37352-9 Test Value Unit Reference Range Code Code System Flag WBC 4.56 th/cmm L=5.00 H=10.00 6690-2 LOINC L NEUT % 54.2 % L=40.0 H=80.0 LYMPH % 31.1 % L=10.0 H=50.0 MONO % 11.4 % L=2.0 H=12.0 30731-0 LOINC EOS % 2.2 % L=0.0 H=8.0 BASO % 0.7 % L=0.0 H=3.0 IG % 0.4 % L=0.0 H=1.1 2514-8 LOINC NRBC % 0.0 % L=0.0 H=0.0 71986-6 LOINC NEUT abs count 2.5 th/cmm L=1.6 H=8.4 751-8 LOINC LYMPH abs count 1.4 th/cmm L=1.5 H=4.0 731-0 LOINC L MONO abs count 0.5 th/cmm L=0.2 H=1.0 742-7 LOINC EOS abs count 0.1 th/cmm L=0.0 H=0.5 711-2 LOINC BASO abs count 0.0 th/cmm L=0.0 H=0.2 704-7 LOINC IG abs count 0.0 th/cmm L=0.0 H=0.1 65999-7 LOINC NRBC abs count 0.0 mil/cmm L=0.0 H=0.0 32004-1 LOINC RBC 5.23 mil/cmm L=4.30 H=6.20 789-8 LOINC HEMOGLOBIN 16.1 gm/dL L=13.0 H=17.0 718-7 LOINC HEMATOCRIT 48 % L=45 H=52 4544-3 LOINC MCV 92 fL L=82 H=92 787-2 LOINC MCH 30.8 pg L=27.0 H=31.0 785-6 LOINC MCHC 33.3 % L=32.0 H=36.0 786-4 LOINC RDW-SD 44.2 fL L=39.0 H=49.0 788-0 LOINC PLATELET COUNT 201 th/cmm L=150 H=450 777-3 LOINC COMPREHENSIVE METABOLIC PANE L (CMP) - Collect Date/Time: 02/06/2021 10:45 [facility] ID: [id number] [address] [place], [place], [address] LOINC: 60742-5 Test Value Unit Reference Range Code Code System Flag GLUCOSE 90 mg/dL L=70 H=116 2345-7 LOINC BUN 15 mg/dL L=6 H=25 3094-0 LOINC CREATININE 1.11 mg/dL L=0.67 H=1.17 2160-0 LOINC SODIUM SERUM 141 mmol/L L=136 H=145 2951-2 LOINC POTASSIUM SERUM 5.3 mmol/L L=3.4 H=5.2 2823-3 LOINC H CHLORIDE SERUM 107 mmol/L L=96 H=110 2075-0 LOINC CARBON DIOXIDE (CO2) 29 mmol/L L=22 H=34 2028-9 LOINC ANION GAP 5.2 mmol/L 96340-3 LOINC CALCIUM SERUM 9.4 mg/dL L=8.2 H=10.2 48349-9 LOINC BILIRUBIN TOTAL 0.7 mg/dL L=0.0 H=1.3 1975-2 LOINC ALK. PHOS. 108 U/L L=46 H=116 6768-6 LOINC SGOT (AST) 20 U/L L=15 H=37 1920-8 LOINC SGPT (ALT) 33 U/L L=12 H=78 1742-6 LOINC TOTAL PROTEIN 7.0 gm/dL L=6.0 H=8.0 2885-2 LOINC ALBUMIN 4.3 gm/dL L=3.4 H=5.0 1751-7 LOINC AGE 70 years eGFR (non-Afr.Amer.) 66 mL/min 38484-9 LOINC eGFR (Afr-[place] Citizen) 79 mL/min 42008-0 LOINC Social History Type Status Start Date End Date Code Code Syst em Smoking History Never smoker (Never Smoked) 015263198 SNOMED CT Sex Male Hospital Discharge Instructions [...] System No Known Drug Allergies Moderate Active 541881679 SNOMED-CT Plan of Treatment No Data Found Encounters Encounter Diagnosis Start Date Code Code Sys tem Adult health examination 02/06/2021 [id number] [facility] Personal Care Team Section Performer Name Performer Role Active Date Inactive Da te
--- OUTSIDE RECORDS SUMMARY | 2024-02-10 16:46 | XMS_ITS | Encounter Summary ---
Author Organization [facility] Address [facility] [place] [address] Care Team Providers Care Hazardous Material Specialist Name Role Phone Unknown Primary Care Provider Unavailabl e Encounter Details Date Type Department Care Team (Late st Contact Info) Description 02/12/2019 Ancillary Procedure Radiology Library at [facility] [facility] [place] [address] Jair Barroso Jr., MD [facility] [place] [address] Social History Tobacco Use Types Packs/Day Years [...] Diagnosis Comments FILM LIBRARY STORAGE ONLY DX ABDOMEN Routine 02/12/2019 12:00 AM EDT documented in this encounter Results * Film Library- Storage Only DX Abdomen (02/12/2019 12:00 AM EDT) Narrative [facility] - 03/12/2019 7:41 PM EDT This exam is auto-finalizing. It's purpose is for storage only. Jair Barroso Jr., MD IMG FILM LIBRARY O RDERABLES [place], [place] documented in this encounter Visit Diagnoses Not on filedocumented in this encounter Care Teams Hazardous Material Specialist Relationship Specialty Start Date End Date Unknown None PCP - General 05/09/18 03/16/19 documented as of this encounter
--- OUTSIDE RECORDS SUMMARY | 2024-02-10 16:46 | XMS_ITS | Encounter Summary ---
Author Organization [facility] Address [facility] [place] [address] Care Team Providers Care Cardiology Nurse Practitioner Name Role Phone Unknown Primary Care Provider Unavailabl e Encounter Details Date Type Department Care Team (Late st Contact Info) Description 01/02/2019 Ancillary Procedure Radiology Library at [facility] [place] [address] Jair Barroso Jr., MD [facility] [place] [address] Social History Tobacco Use Types Packs/Day Years [...] Associated Diagnosis Comments FILM LIBRARY STORAGE ONLY CT ABDOMEN AND PELVIS Routine 01/02/2019 12:00 AM EDT documented in this encounter Results * Film Library- Storage Only CT Abdomen & Pelvis (01/02/2019 12:00 AM EDT) Narrative [facility] - 03/12/2019 7:39 PM EDT This exam is auto-finalizing. It's purpose is for storage only. Jair Barroso Jr., MD IMG FILM LIBRARY O RDERABLES [place], [place] documented in this encounter Visit Diagnoses Not on filedocumented in this encounter Care Teams Cardiology Nurse Practitioner Relationship Specialty Start Date End Date Unknown None PCP - General 05/09/18 03/16/19 documented as of this encounter
--- OUTSIDE RECORDS SUMMARY | 2024-02-10 16:46 | XMS_ITS | Encounter Summary ---
Author [facility] [place] [address] Care Team Providers Care Export Clerk Name Role Phone Rob Velez MD Primary Care Provider [phone] Encounter Details Date Type Department Care Team (Late st Contact Info) Description 04/26/2020 [place] [phone] Amie Arias, ORTHOPEDICS PEDIATRIC PHYSICIAN [address] [place] [address] Social History Tobacco Use Types Packs/Day Years [...] as of this encounter Visit Diagnoses Diagnosis COVID-19 ruled out documented in this encounter Care Teams Export Clerk Relationship Specialty Start Date End Date Rob Velez MD PCP - General Family Medicine 03/17/19 documented as of this encounter
--- OUTSIDE RECORDS SUMMARY | 2024-02-10 16:46 | XMS_ITS | Encounter Summary ---
[place] [address] Care Team Providers Care Project Management Professor Name Role Phone Rob Velez MD Primary Care Provider [phone] Reason for Visit * Reason Onset Date Comments Public Health Screening 04/25/2020 Encounter Details Date Type Department Care Team (Late st Contact Info) Description 04/25/2020 Telephone [place] [phone] Liliana Forbes V Public Health Screening Social History Tobacco Use Types Packs/Day Years [...] encounter Miscellaneous Notes * Telephone Encounter - Liliana Forbes V - 04/25/2020 1:01 PM EST LM to let pt know a message was sent to nurses to send pre op covid test to [facility]. * Telephone Encounter - Liliana Forbes V - 04/25/2020 1:01 PM EST ----- Message from Gisel Meade sent at 04/25/2020 10:40 AM EST ----- Regarding: covid test Pt called me stating he wants to go to [facility] on 05/09 for his Covid test. They will not set up the appointment till you guys fax the order over. Can you or someone please do that and then call him so he can make this appointment. Surgery is on 05/09. Thank you Gisel * Telephone Encounter - Liliana Forbes V - 04/25/2020 12:58 PM EST Pt is going to [facility], please fax order to [phone]. Thank you. * Telephone Encounter - Liliana Forbes V - 04/25/2020 12:58 PM EST ----- Message from Gisel Meade sent at 04/25/2020 10:40 AM EST ----- Regarding: covid test Pt called me stating he wants to go to [facility] on 05/09 for his Covid test. They will not set up the appointment till you guys fax the order over. Can you or someone please do that and then call him so he can make this appointment. Surgery is on 05/09. Thank you Gisel * Telephone Encounter - Marcia Copeland LNA - 04/25/2020 11:15 AM EST Telephone call placed/received to schedule covid 19 testing with patient. Ordering provider: Jair Barroso MD Testing Facility: [facility] Date of Testin/14 Time of Testing: TBD Symptoms: pre-op Is this the first test for Covid 19 Yes If no, please list date of previous test, result, and type of test (Molecular, Antigen, Antibody orunknown): Resides in congregate care setting No Employee or Household Member of Employee No Healthcare Worker No * Telephone Encounter - Liliana Forbes V - 04/25/2020 10:25 AM EST Spoke to pt, he states he is going to call around closer to home to schedule pre op covid test on 05/09 for procedure on 05/12. documented in this encounter Plan of Treatment Not on file documented as of this encounter Visit Diagnoses Not on filedocumented in this encounter Care Teams Project Management Professor Relationship Specialty Start Date End Date Rob Velez MD PCP - General Family Medicine 03/17/19 documented as of this encounter
--- OUTSIDE RECORDS SUMMARY | 2024-02-10 16:46 | XMS_ITS | Encounter Summary ---
Author Organization [facility] Address [facility] [place] [address] Care Team Providers Care Shaft Tender Name Role Phone Rob Velez MD Primary Care Provider [phone] Encounter Details Date Type Department Care Team (Late st Contact Info) Description 03/20/2019 [place]phone [place] [phone] Jair Barroso Jr., MD [facility] [place] [address] Social History Tobacco Use Types Packs/Day Years Used Date Smoking Tobacco: Never Assessed Sex and Gender Information Value Date Recorded Sex Assigned at Not on file Gender Identity Not on file Sexual Orientation Not on file documented as of this encounter Miscellaneous Notes * Telephone Encounter - Celestino Bright Madina - 03/20/2019 9:06 AM EDT Images from the original note were not included. Called pt to relay Dr. Barroso' answer to his earlier call. Pt will check with his local provider to have the stent removed. Celestino and / or Jeane. Could one of you please let him know it is likely the stent causing his discomfort while urinating, and that he could have it removed here or locally if he wants it out. I believe our next opening for PCNL(if that is the way he wants to go) ??is end of March or early April, but please check with Miriam Previous Messages He would like to look at scheduling the PCNL as close to the end of the year as possible (He is an avid deer yuki). It looks like 05/14/19 is the last surgical day of the year for Dr. Barroso in the Main OR. He would be okay with that date. I told him that I would relay this information to Dr. Barroso and his OR Kiln Pusher and they can get in touch with him. documented in this encounter Plan of Treatment Not on file documented as of this encounter Visit Diagnoses Not on filedocumented in this encounter Care Teams Shaft Tender Relationship Specialty Start Date End Date Rob Velez MD PCP - General Family Medicine 03/17/19 documented as of this encounter
--- OUTSIDE RECORDS SUMMARY | 2024-02-10 16:46 | XMS_ITS | Encounter Summary ---
Author Organization [facility] Address [facility] [place] [address] Care Team Providers Care Tester Sound Name Role Phone Rob Velez MD Primary Care Provider [phone] Encounter Details Date Type Department Care Team (Late st Contact Info) Description 05/11/2020 [place] [phone] Larry Cox MD [facility] [place] [address] Social History Tobacco Use Types Packs/Day Years [...] encounter Miscellaneous Notes * Telephone Encounter - Larry Cox MD - 05/11/2020 2:09 PM EST I called [facility] for his urine culture results 05/09 UCx @ [facility] - [facility] documented in this encounter Plan of Treatment Not on file documented as of this encounter Visit Diagnoses Not on filedocumented in this encounter Care Teams Tester Sound Relationship Specialty Start Date End Date Rob Velez MD PCP - General Family Medicine 03/17/19 documented as of this encounter
--- OUTSIDE RECORDS SUMMARY | 2024-02-10 16:46 | XMS_ITS | Encounter Summary ---
Author Organization [facility] Address [facility] [place] [address] Care Team Providers Care Locker Room Supervisor Name Role Phone Rob Velez MD Primary Care Provider [phone] Reason for Visit * Reason Comments Nephrolithiasis Encounter Details Date Type Department Care Team (Latest Contact Info) Description 07/29/2019 8:30 AM EST Office [place] [address] Jair Barroso Jr., MD [facility] [place] [address] Nephrolithiasis (Primary Dx) Social History Tobacco Use Types Packs/Day Years [...] Sign Reading Time Taken Comments Blood Pressure 131/84 07/29/2019 8:31 AM EST Pulse 65 07/29/2019 8:31 AM EST Temperature 36.6 ??C (97.9 ??F) 07/29/2019 8:31 AM ES T Respiratory Rate - - Oxygen Saturation - - Inhaled Oxygen Concentration - - Weight - - Height - - Body Mass Index - - documented in this encounter Progress Notes * Jair Barroso Jr., MD - 07/29/2019 8:30 AM EST Images from the original note were not included. HPI: Michael Lora is a 69 y.o. 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 He has no preceding prior history of urolithiasis. He had initially been seen in February 2019 and we had reviewed management options for his 12 mm right lower pole renal stone in the setting of the narrowed UPJ. He had declined to proceed with any intervention at that time and ultimately return to Dr. Gray to have the stent removed. He returns today to revisit management options for his stone. Dr Gray is identified and nonobstructing right [...] all reviewed and consultation here was made. Regarding the right lower pole renal stone [...] bilateral low back, abdominal and hip discomfort. He specifically denies any history of right-sided flank or abdominal discomfort with increased fluid intake, alcohol intake, caffeine intake, or other diuretic state. He denies prior stone passage. He denies unexplained nausea or vomiting. Review of Systems Constitution: Negative for fever. HENT: Positive for hearing loss. Eyes: Negative for visual disturbance. Cardiovascular: Negative for chest pain. Respiratory: Negative for shortness of breath. Hematologic/Lymphatic: Does not bruise/bleed easily. Musculoskeletal: Positive for back pain and joint pain. Gastrointestinal: Positive for abdominal pain (mild, bilateral, L>R) and change in bowel habit. Genitourinary: Negative for flank pain. Neurological: Positive for [...] He exhibits no distension. There is no abdominal tenderness. There is no rebound and no guarding. Genitourinary: Genitourinary Comments: No CVA tenderness to percussion bilaterally Musculoskeletal: General: No tenderness or edema. Lymphadenopathy: He has no cervical adenopathy. Neurological: [...] Impression/Plan: >1cm right lower pole renal stone in setting of narrowed right upj. We again reviewed imaging studies and reviewed management options at length. At this point he declines further functional investigation for drainage of the kidney, understanding that the CAT scan from January suggested symmetric enhancement and grossly symmetric renal cortical thickness, but also understanding that this is dated several months at this point. Similarly, he declines pyeloplasty or pyelolithotomy and elects to simply monitor ureteral narrowing at this pointHe understands that further intervention may be required at a later time. Regarding the right lower pole renal stone, he declined shockwave lithotripsy or a repeat attempt at retrograde ureteroscopy. He expresses interest in proceeding with PCNL in order to most efficiently remove the stone. With regard to right percutaneous nephrolithotomy, we specifically discussed risks of bleeding, infection, injury to or loss of kidney, and injury to surrounding structures including lung, pleura, bowel, blood vessels, nerves, and solid organs, as well as risks of anesthesia including heart attack,stroke, DVT, pulmonary embolus, or . We discussed that there may be a need for subsequent staged procedures. He would like to attempt definitive removal of the right renal stone, understands therisks and benefits of the options, and has requested that we proceed with right PCNL and temporary right ureteral stent placement. Urine will be sent for culture to aid in antibiotic selection. I have asked him to call with any additional questions. We discussed that PCNL cannot be performed in someone actively anticoagulated or taking antiplatelet agents. He has been instructed to not take any aspirin, aspirin containing compounds, or other antiplatelet or anticoagulant agents for the 10 days preoperatively. documented in this encounter Plan of Treatment Not on file documented as of this encounter Procedures Procedure Name Priority Date/Time Associated Diagnosis Comments HC URINE CULTURE Routine 07/29/2019 9:51 AM EST Nephrolithiasis documented in this encounter Results * Basic Metabolic Panel (non-fasting) (07/29/2019 10:36 AM EST) Glucose 99 65 - 199 mg/dL [facility] Comment:Diabetes: >=200 mg/d L plus symptoms Blood Urea Nitrogen 10 10 - 20 mg/dL [facility] Creatinine 1.02 0.80 - 1.50 mg/dL [facility] Sodium 140 135 - 145 mmol/L [facility] Potassium 4.5 3.5 - 5.0 mmol/L [facility] Comment: Please note: ??Patients with WBC >100,000 may have falsely elevated Potassium levels. ??For accurate Potassium quantification in these patients send serum separator tube (gold top) for subsequent determinations. ??Contact the Clinical Chemistry Laboratory if there are any questions. Chloride 102 98 - 107 mmol/L [facility] Carbon Dioxide 26 22 - 31 mmol/L [facility] Anion Gap 12 5 - 15 mmol/L [facility] Calcium 9.9 8.5 - 10.5 mg/dL [facility] Est Glomerular Filtration Rate 75 >=60 mL/min/1. 73 m?? [facility] Comment: The eGFR was calculated using the CKD-EPI equation. As with all creatinine based estimates of kidney function, eGFR values calculated with the CKD-EPI equation are not accurate in patients with acute kidney failure, extremes of body mass or the acutely ill. [email or web address] eGFR 87 >=60 mL/min/1. 73 m?? [facility] Comment: The eGFR was calculated using the CKD-EPI equation. As with all creatinine based estimates of kidney function, eGFR values calculated with the CKD-EPI equation are not accurate in patients with acute kidney failure, extremes of body mass or the acutely ill. [email or web address] Blood specimen (specimen) 07/29/2019 10:36 AM EST 07/29/2019 10:56 AM EST Narrative Resulting Agency Comment Spec In Lab Jair Barroso Jr., MD CHEMISTRY ORDERABL ES [facility] [place] [address] * Urine culture Clean Catch Urine (07/29/2019 9:51 AM EST) Urine Culture No growth (Less than 1,000 cfu/ml). [facility] Urine specimen obtained by clean catch procedure (specimen) 07/29/2019 9:51 AM EST 07/29/2019 11:36 AM EST Narrative Resulting Agency Comment Spec In Lab Jair Barroso Jr., MD MICROBIOLOGY - [place] [address] documented in this encounter Visit Diagnoses Diagnosis Nephrolithiasis- Primary Calculus of kidney documented in this encounter Care Teams Locker Room Supervisor Relationship Specialty Start Date End Date Rob Velez MD PCP - General Family Medicine 03/17/19 documented as of this encounter
--- OUTSIDE RECORDS SUMMARY | 2024-02-10 16:46 | XMS_ITS | Encounter Summary ---
Author Organization [facility] Address [facility] [place] [address] Care Team Providers Care Directional Drill Operator Name Role Phone Rob Velez MD Primary Care Provider [phone] Reason for Visit * Auth/Cert Specialty Diagnoses [...] Expiration Date Visits Re quested Visits Authorized [id number] 1 1 Encounter Details Date Type Department Care Team (Late st Contact Info) Description 05/12/2020 11:24 AM EST Anesthesia [place] [address] Jeffy Mojica DO [facility] [place] [address] Amy Holden MD [facility] [place] [address] Anesthesia Record Procedure Summary Procedure Name Responsible Anesthesiologist Anesthesia Start Time Anesthesia Stop Time NEPHROLITHOTOMY, (PCNL) [facility]UTANEOUS ([facility] 12.[facility]) (Right: Flank) Jeffy Mojica, 05/12/20 1124 05/12/20 1443 Events Date Time Event Comment 05/12/2020 1009 1124 AN Verify 1124 Start 1124 An Start Data 1130 An Induction 1134 An Intubation 1135 Anesthesia Ready 1224 Break/Relief In I assumed ca re for Break Relief before which we: 1. Identified the patient 2. Identified the responsible provider(s) 3. Reviewed the pertinent medical history 4. Discussed the surgical plan and course 5. Reviewed intra-op anesthesia management and issues during anesthesia 6. Set expectations for the relief (and/or post-procedure) period 7. Allowed opportunity for questions and acknowledgement of understanding Jonathan Fung MD 1255 Break/Relief Out 1420 Procedure Stop 1426 Extubation/LMA Out 1430 an stop data 1443 Recovery or ICU Handoff Katlin ent care was transferred to the destination unit staff after review of the patient's medical history, current anesthetic/surgical status and plan, according to the Provider Handoff Checklist. 1443 Stop Meds Name Total Midazolam 2 mg fentaNYL 100 mcg IV Lidocaine 80 mg Propofol 160 mg Rocuronium 80 mg PHENYLephrine 360 mcg ePHEDrine 10 mg Ondansetron 8 mg Dexamethasone 8 mg Neostigmine 5 mg Glycopyrrolate 0.5 mg cefTRIAXone (Rocephin) 2 g v ial attach to sodium chloride 0.9% 50 mL Mini-Bag Plus 2 g gentamicin (Garamycin) 80 mg in sodium c hloride 0.9% 100mL infusion 80 mg Propofol INF 345.12 mg sodium chloride 0.9% infusion 900 mL Lactated Ringers 0 mL * Agents Name O2 Air N2O Sevoflurane (et) * Blood No blood administrations on file. Lines, Drains, and Airways Type Details Placement Removal (RETIRED) Peripheral IV Line - Single Lumen 05/12/20; 953; cephalic vein (lateral side of arm), right; [id number] catheter system; 20 gauge; SHANICE Byrnes; distraction, tolerated well, appears comfortable; 05/13/20; 1800 05/12/20 0954 by Vanessa Pritchett RN 05/13/20 1800 by De Leon, Alicia C, RN ETT Mask Ventilation: Serg isaacs (1); ETT Type: Cuffed, Oral; ETT Size: 7.5 mm; Mac Blade: 4; Notes: Asleep, Pre-O2, Cricoid Pressure, Stylette; Attempts: 1; Laryngoscopy Grade: 2; ETT Placement Verified By: Capnometry, Auscultation; Secured at Teeth: 24 cm; Inserted by: Navin DUDLEY; Removal Date: 05/12/20; Removal Time: 14205/12/20 1139 by Amy Holden MD 05/12/20 1426 by Amy Holden MD (RETIRED) Peripheral IV Line - Single Lumen 05/12/20; 1143; metacarpal vein (top of hand), left; [id number] catheter system; 16 gauge; Navin DUDLEY; 05/13/20; 1800 05/12/20 1143 by Amy Holden MD 05/13/20 1800 by Alicia De Leon RN Incision 05/12/20; 1218; urethral meatus (cystoscopy); 01/22/22 (LDA cleanup utility RA#[id number]); 1715 (LDA cleanup utility RA#[id number]) 05/12/20 1218 by Deisi Mccoy RN 01/22/22 1715 by Steven Leggett Urethral Catheter 05/12/20; 1235; Surg jessica longer than 2 hours, Urologic surgery, Physician order; indwelling double lumen catheter; latex; 14; inserted at this facility (by Dr Barroso intraoperatively); 1; 5; 10; (general anesthesia); drainage bag to dependent drainage; urethral catheter removed, tubing intact, per protocol/policy; 05/13/20; 1139 05/12/20 1235 by Deisi Mccoy RN 05/13/20 1139 by Maria Ines Shabazz LPN Incision 05/12/20; 1318; barbara argueta; other (see comments) (puncture site for PCNL); 01/22/22 (LDA cleanup utility RA#[id number]); 1715 (LDA cleanup utility RA#[id number]) 05/12/20 1318 by Deisi Mccoy RN 01/22/22 1715 by Leggett, Dierdre L Nephrostomy Tube 05/12/20; 1402; righ t flank; drainage bag to dependent drainage; 05/13/20; 1000 05/12/20 1402 by Deisi Mccoy RN 05/13/20 1000 by Alicia De Leon RN documented in this encounter Social History Tobacco [...] OR Notes * Anesthesia Postprocedure Evaluation - Amy Holden - 05/12/2020 3:03 PM EST Department of Anesthesiology Post-procedure Note Patient: Michael Lora Procedure Summary Date: 05/12/20 Room / Location: [address] MAIN OR Anesthesia Start: 1124 Anesthesia Stop: 1443 Procedures: NEPHROLITHOTOMY, (PCNL) PERCUTANEOUS (WRVU 15.74) (Right Flank) NEPHROSTOMY CATHETER, PERC, INC DX NEPHROSTOGRAM/URETEROGRAM, IMG GUIDANCE (WRVU 4.25) (Right Flank) CYSTOURETEROSCOPY, DIAGNOSTIC (WRVU 5.75) (Right Ureter) ULTRASONIC GUIDANCE, INTRAOP (WRVU 1.2) (N/A ) FLUOROSCOPY (WRVU 0.17) (N/A ) Diagnosis: (RIGHT 12MM LOWER POLE STONE) Surgeon: Jair Barroso Jr., MD Responsible Provider: Jeffy Mojica DO Anesthesia Type: general ASA Status: 1 All Anesthesia Providers: Anesthesiologist: Jeffy Mojica DO Paper Slitter: Amy Holden MD Vitals Value Taken Time BP 110/69 05/12/20 1500 Temp 36.3 ??C (97.3 ??F) 05/12/20 1438 Pulse 57 05/12/20 1503 Resp 14 05/12/20 1503 SpO2 100 % 05/12/20 1503 Pain Level 0 05/12/20 1438 Vitals shown include unvalidated device data. Patient Location: PACU/[facility] Level of Consciousness: Awake and Alert Pain Management: Satisfactory Analgesia PONV: None Cardiovascular Status: At Baseline and Hemodynamically Stable Respiratory Status: At Baseline, Stable Respiratory Status and Supplemental O2 (NC or FM) Postoperative Fluid Status: Intravascular EUvolemia Possible Anesthetic Complications: NONE apparent at time of evaluation Final Primary Anesthesia Type: General (The anesthetic type performed was the same as planned.) Comments: No patient complaints. No immediate anesthetic complications. * Anesthesia Preprocedure Evaluation - Jeffy Mojica DO - 05/11/2020 4:26 PM EST Pre-Anesthesia Evaluation for: Michael Lora a 69 y.o. male. Procedure(s): NEPHROLITHOTOMY, (PCNL) PERCUTANEOUS (WRVU 15.74) NEPHROSTOMY CATHETER, PERC, INC DX NEPHROSTOGRAM/URETEROGRAM, IMG GUIDANCE (WRVU 4.25) CYSTO, RETROGRADE, URETEROPYELOGRAPHY, W/PCNL (WRVU 2.37) CYSTOURETEROSCOPY, DIAGNOSTIC (WRVU 5.75) MODIFIER,ANTON LASER There are no active problems to display for this patient. Past Medical History: Diagnosis Date ??? Transfusion history No past surgical history on file. Social History Tobacco Use ??? Smoking status: Never Smoker ??? Smokeless tobacco: Never Used Substance Use Topics ??? Alcohol use: Not Currently Social History Substance and Sexual Activity Drug Use Never No Known Allergies Medications: MAR and/or home medications have been reviewed. Physical Exam: No data found. There is no height or weight on file to calculate BMI. Airway Assessment: Mallampati: I TM distance: >3 FB Neck ROM: full Cardiovascular Assessment: Rhythm: regular Rate: normal Pulmonary Assessment: breath sounds clear to auscultation Dental Assessment: Comment: Without loose dentition Misc Assessment: Patient is wearing No contact(s). IV access: Peripheral line Anesthesia Plan: ASA 1 general, with a(n) intravenous induction 69 y.o. male with a history of nephrolithiasis and UPJ narrowing s/p prior stent placement who presents for percutaneous nephrolithotomy and nephrostomy tube placement, cystoureteroscopy, possible laser lithotripsy with Dr. Barroso. Past Anesthesia History: - No prior anesthesia or airway records available - Anesthetic complications: multiple prior GA, no history of anesthetic complications ANN MARIE risk: low-risk STOP-BANG NPO status appropriate Black coffee at 5 am Medications: ??? ASCORBIC ACID (VITAMIN C ORAL), , Disp: , Rfl: NKDA Lab results: - BMP (07/29/19): K 4.5, Cr 1.02, CO2 26 - CBC (07/29/19): HGB 16.2, PLT 192 PLAN GA with ETT, standard ASA monitors. PIVx1 Region - Other Informed Consent: Anesthetic plan and risks discussed with patient. Plan discussed with resident and attending. PAT Clinic Note documented in this encounter Plan of Treatment Not on file documented as of this encounter Visit Diagnoses Not on filedocumented in this encounter Administered Medications Inactive Administered Medications - up to 3 most recent administrations Medication Order MAR Action Action Date Dose Rate Site cefTRIAXone (Rocephin) 2 g vial attach to sodium chloride 0.9% 50 mL Mini-Bag Plus 2 g, Intravenous, ONCE, 1 dose, On Darlene 05/12/20 at 1000, Administer over 30 Minutes, Day of Surgery (Day of Procedure), Indication for (Active or Suspected): Prophylaxis New Bag 05/12/2020 11:52 AM EST 2 g dexamethasone (Decadron) injection PRN, Starting on Darlene 05/12/20 at 1151, Until Darlene 05/12/20 at 1450, Anesthesia Intra-op, Routine Given 05/12/2020 11:51 AM EST 8 mg ePHEDrine (pf) (5 mg/mL) multi-dose injection PRN, Starting on Darlene 05/12/20 at 1215, Until Darlene 05/12/20 at 1450, Anesthesia Intra-op, Routine Given 05/12/2020 12:14 PM EST 10 mg fentaNYL (pf) (50 mcg/mL) multi-dose injection PRN, Starting on Darlene 05/12/20 at 1210, Until Darlene 05/12/20 at 1450, Anesthesia Intra-op, Routine Given 05/12/2020 1:03 PM EST 50 mcg Given 05/12/2020 12:10 PM EST 50 mcg gentamicin (Garamycin) 80 mg in sodium chloride 0.9% 100mL infusion 80 mg, Intravenous, ACCOUNTING SUPERVISOR 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 Please check for lab orders. Warning Vesicant/Irritant Medication , Intra-Operative (Intra-Procedure), Indication for (Active or Suspected): Prophylaxis Given 05/12/2020 11:55 AM EST 80 mg glycopyrrolate (Robinul) (0.2 mg/mL) multi-dose injection PRN, Starting on Darlene 05/12/20 at 1401, Until Darlene 05/12/20 at 1450, Anesthesia Intra-op, Routine Given 05/12/2020 2:10 PM EST 0.1 mg Given 05/12/2020 2:06 PM EST 0.2 mg Given 05/12/2020 2:01 PM EST 0.2 mg lactated ringers infusion CONTINUOUS PRN, Starting on Darlene 05/12/20 at 1414, Until Darlene 05/12/20 at 1450, Anesthesia Intra-op New Bag 05/12/2020 2:14 PM EST lidocaine (pf) (Xylocaine) (20 mg/mL) 2% injection syringe PRN, Starting on Darlene 05/12/20 at 1129, Until Darlene 05/12/20 at 1450, Anesthesia Intra-op, Routine Given 05/12/2020 11:29 AM EST 80 mg midazolam (pf) (Versed) (1 mg/mL) multi-dose injection PRN, Starting on Darlene 05/12/20 at 1124, Until Darlene 05/12/20 at 1450, Anesthesia Intra-op, Routine Given 05/12/2020 11:24 AM EST 2 mg neostigmine (Bloxiver) (1 mg/mL) injection PRN, Starting on Darlene 05/12/20 at 1401, Until Darlene 05/12/20 at 1450, Anesthesia Intra-op, Routine Given 05/12/2020 2:10 PM EST 1 mg Given 05/12/2020 2:06 PM EST 2 mg Given 05/12/2020 2:01 PM EST 2 mg ondansetron (pf) (Zofran) (2 mg/mL) injection PRN, Starting on Darlene 05/12/20 at 1406, Until Darlene 05/12/20 at 1450, Anesthesia Intra-op, Routine Given 05/12/2020 2:06 PM EST 8 mg PHENYLephrine in NS (PF) (DORINA-SYNEPHRINE) 0.8 mg/10 mL (80 mcg/mL) multi-dose injection Syrg PRN, Starting on Darlene 05/12/20 at 1142, Until Darlene 05/12/20 at 1450, Anesthesia Intra-op, Routine Given 05/12/2020 12:14 PM EST 80 mcg Given 05/12/2020 12:11 PM EST 80 mcg Given 05/12/2020 11:45 AM EST 120 mcg propofoL (Diprivan) 10 mg/mL bolus injection (Anesthesia) PRN, Starting on Darlene 05/12/20 at 1130, Until Darlene 05/12/20 at 1450, Anesthesia Intra-op Given 05/12/2020 11:30 AM EST 160 mg propofoL (Diprivan) infusion CONTINUOUS PRN, Starting on Darlene 05/12/20 at 1355, Until Darlene 05/12/20 at 1450, Anesthesia Intra-op, Routine New Bag 05/12/2020 1:55 PM EST 100 mcg/kg/min 43.1 mL/hr rocuronium (Zemuron) (10 mg/mL) multi-dose injection PRN, Starting on Darlene 05/12/20 at 1132, Until Darlene 05/12/20 at 1450, Anesthesia Intra-op, Routine Given 05/12/2020 1:25 PM EST 10 mg Given 05/12/2020 12:53 PM EST 10 mg Given 05/12/2020 12:15 PM EST 10 mg documented in this encounter Care Teams Directional Drill Operator Relationship Specialty Start Date End Date Rob Velez MD PCP - General Family Medicine 03/17/19 documented as of this encounter
[2024-02-10 16:57] LABS: ALT 40 U/L (16-63); AST 31 U/L (15-37); Albumin 3.5 g/dL (3.4-5.0); Alkaline Phosphatase 106 U/L (46-116); Anion Gap 4.4 mmol/L (3-11); BUN 12 mg/dL (7-18); Bilirubin, Total 0.72 mg/dL (0.2-1.0); CO2 30.6 mmol/L (21.0-32.0); CREATININE 1.1 mg/dL (0.70-1.30); Calcium 9.6 mg/dL (8.5-10.1); Chloride 102 mmol/L (98-107); Estimated GFR 71.32 (mL/min/1.73m2); Glucose 108 mg/dL (74-106); Potassium 4.3 mmol/L (3.5-5.1); Sodium 137 mmol/L (136-145); Total Protein 6.8 g/dL (6.4-8.2)
[2024-02-11 09:54] LABS: Lyme Ab w Rflx to Lyme Confirm Negative (Negative)
[2024-02-12 23:14] LABS: Anaplasma phagocytophilum Negative (Negative); B. miyamotoi PCR Negative (Negative); Babesia divergens/MO-1 Negative (Negative); Babesia duncani Negative (Negative); Babesia microti Negative (Negative); Ehrlichia chaffeensis Negative (Negative); Ehrlichia ewingii/canis Negative (Negative); Ehrlichia muris eauclairensis Negative (Negative)
== END 2024-02-10 16:41 | disposition home or self-care (01) ==
LOC: LBN 16:40
PROVIDERS: PCP Family Medicine; Visit Provider Nurse Practitioner Family
DX: Z20.818 Contact with and (suspected) exposure to other bacterial communicable diseases (principal); W57.XXXA Bitten or stung by nonvenomous insect and other nonvenomous arthropods, initial encounter
CPT/HCPCS: 80053; 87798; 85025; 86618

== ENCOUNTER 2024-02-20 17:26 | Outpatient (REF) | payer MEDICARE, OTHER, SELFPAY ==
[2024-02-20 21:25] LABS: Hemoglobin A1C 5.6 % (<5.7)
[2024-02-20 21:33] LABS: TSH (W/Ref FT4) 1.14 uIU/mL (0.36-3.74)
== END 2024-02-20 17:27 | disposition home or self-care (01) ==
LOC: LBN 17:26
PROVIDERS: PCP Family Medicine; Visit Provider Physician Assistant Medical
DX: R53.83 Other fatigue (principal)
CPT/HCPCS: 83036; 84443

== ENCOUNTER 2024-05-26 14:47 | Outpatient (REF) | payer MEDICARE, OTHER, SELFPAY ==
[2024-05-26 16:02] LABS: ESR 2 mm/hr (0-20)
[2024-05-26 16:39] LABS: Calculated LDL 150 mg/dL (<100); Cholesterol 234 mg/dL (<200); HDL Cholesterol 55 mg/dL (40-60); Triglyceride 148 mg/dL (<150); Vitamin B12 656 pg/mL (193-986)
[2024-05-28 18:28] LABS: PSA, Screening 1.1 ng/mL (<=6.5)
[2024-05-29 11:04] LABS: Lyme Ab w Rflx to Lyme Confirm Negative (Negative)
[2024-05-29 12:44] LABS: Albumin 66.1 % (55.8-66.1); Albumin g/dL 4.4 g/dL (3.6-5.2); Total Protein 6.7 g/dL (6.3-8.2)
== END 2024-05-26 14:48 | disposition home or self-care (01) ==
LOC: NCHCN 14:47
PROVIDERS: PCP Family Medicine; Visit Provider Family Medicine
DX: Z12.5 Encounter for screening for malignant neoplasm of prostate (principal)
CPT/HCPCS: 80061; 84153; 85652; 82607; 84165; 86618

== ENCOUNTER 2024-08-27 00:50 | Outpatient (CLI) | payer MEDICARE, OTHER, SELFPAY ==
--- NOTE | 2024-08-27 | DI.RAD_ITS ---
Exam(s) XR LUMBAR SPINE FLEX/EXT ONLY EXAM: XR LUMBAR SPINE FLEX/EXT ONLY CLINICAL HISTORY: S/P L SPINE FUSION Z98.1 S/P L3/4 [facility] MEDICAL FACETECTOMY W/COFLEX. TECHNIQUE: 2D digital imaging was performed of the lumbar spine. Two images were obtained. Lateral flexion and extension views were obtained. COMPARISON: CR XR LUMBAR SPINE COMP W FLEX/EX from 12/16/2020 FINDINGS: BONES: No fracture or destructive lesion. There is again seen loss of volume of the L2 and L4 vertebr al bodies are noted. Posterior spinal surgery seen in the lower lumbar spine. DISKS: There is a disc fusion at L4-L5 again noted. Marked disc space narrowing is seen at L2-L3. ALIGNMENT: No subluxation is seen with flexion or extension. SOFT TISSUE: Vascular calcifications are present. IMPRESSION: This is a limited examination with lateral films only. No significant subluxation is seen with flexi on or extension. DATA REPOSITORY: RADIATION DOSE DELIVERED:
== END 2024-08-27 01:10 ==
LOC: DI 00:50
PROVIDERS: PCP Family Medicine; Visit Provider Neurological Surgery
DX: Z98.1 Arthrodesis status (principal)
CPT/HCPCS: 72120